=== PATIENT | female | born 1950 | race Caucasian/White ===

== ENCOUNTER 2021-09-14 09:40 | Outpatient (CLI) | payer OTHER, SELFPAY ==
--- NOTE | ~2021-09-14 | MM_ITS ---
EXAMINATION: MM screening papito BI w brenda HISTORY: Screening TECHNIQUE: Craniocaudal and mediolateral oblique 3-D tomosynthesis images were obtained and synthetic 2-D images were generated. CAD analysis was submitted and interpreted. COMPARISON: No prior studies for comparison. BREAST PARENCHYMAL COMPOSITION: There are scattered areas of fibroglandular density. FINDINGS: There are no suspicious masses, calcifications or architectural distortion in the left brenda st to suggest malignancy. In the upper inner quadrant of the right breast posteriorly is a focal asym metry. There is a right breast mass in the lower inner quadrant adjacent to the midline, middle third . There is a focal asymmetry laterally and anteriorly in the right breast on CC view. IMPRESSION: 1. Right breast asymmetries and focal mass as described above. 2. Additional mammographic views and possible breast ultrasound are recommended. BI-RADS Category 0: Incomplete: Needs additional imaging evaluation. Reviewed, dictated and finalized at location A. IMPRESSION: 1. Right breast asymmetries and focal mass as described above. 2. Additional mammographic views and possible breast ultrasound are recommended . BI-RADS Category 0: Incomplete: Needs additional imaging evaluation.
== END 2021-09-14 09:41 | disposition home or self-care (01) ==
PROVIDERS: Visit Provider Student in an Organized Health Care Education/Training Program
DX: Z12.31 Encounter for screening mammogram for malignant neoplasm of breast (principal); R92.8 Other abnormal and inconclusive findings on diagnostic imaging of breast
CPT/HCPCS: 77063; 77067

== ENCOUNTER 2021-09-29 12:44 | Outpatient (CLI) | payer OTHER, SELFPAY ==
--- NOTE | ~2021-09-29 | MMUS_ITS ---
EXAMINATION: MM diagnostic papito RT w brenda, US breast RT complete HISTORY: Right mammographic abnormal findings on 09/14/2021 screening examination TECHNIQUE: Additional 3-D tomosynthesis images of the right breast were performed and synthetic 2-D i mages were generated. CAD analysis was submitted and interpreted. High resolution complete right brenda st ultrasound including all 4 quadrants and subareolar area was performed. COMPARISON: 09/14/2021 bilateral screening mammogram 11/24/2014 bilateral screening mammogram BREAST PARENCHYMAL COMPOSITION: There are scattered areas of fibroglandular density. FINDINGS: MAMMOGRAPHIC FINDINGS: Stable approximately 5.8 mm circumscribed opacity in the inner mid right breast since 11/24/2014, cons istent with stable benign process. New irregular approximately 4.5 mm mass is noted in the posterior aspect of the upper inner quadrant of the right breast. ULTRASOUND: 12:30 11 cm from nipple: There is an irregular approximately 4 mm x 5.6 mm mass with posterior shado wing, highly suggestive of malignancy. Ultrasound guided biopsy is recommended. 12:30 4 cm from nipple: 9.5 x 6.1 x 5.7 mm circumscribed hypoechoic lesion without internal vascular ity or posterior shadowing. Retroareolar: 3.6 mm cyst 12:00: Several up to 4 mm cysts IMPRESSION: 1. Irregular hypoechoic shadowing new 4.5 mm mass in posterior upper inner quadrant of right breast 2. Ultrasound guided biopsy is recommended BI-RADS Category 2: Benign finding(s). Dr. Molina telephoned the report and ultrasound guided biopsy recommendation on 09/29/[address] Abdul's nurse Celina Reviewed, dictated and finalized at location A. IMPRESSION: 1. Irregular hypoechoic shadowing new 4.5 mm mass in posterior upper inner quad rant of right breast 2. Ultrasound guided biopsy is recommended BI-RADS Category 2: Benign finding(s). Dr. Molina telephoned the report and ultrasound guided biopsy recommendation on at [address] Abdul's nurse Celina
== END 2021-09-29 12:45 | disposition home or self-care (01) ==
LOC: ANHIMG 12:46
PROVIDERS: PCP Student in an Organized Health Care Education/Training Program; Visit Provider Student in an Organized Health Care Education/Training Program
DX: N60.01 Solitary cyst of right breast (principal); N63.12 Unspecified lump in the right breast, upper inner quadrant
CPT/HCPCS: 76641; 77061; 77065; G0279

== ENCOUNTER 2021-10-28 08:46 | Outpatient (CLI) | payer OTHER, SELFPAY ==
--- NOTE | ~2021-10-28 | MMUS_ITS ---
EXAMINATION: US GUIDED NEEDLE BIOPSY DATE: 10/28/2021 10:33 CDT INDICATION: Irregular 4 x 5.6 mm mass with posterior shadowing at 12:30 11 cm from nipple TECHNIQUE AND FINDINGS: The risks and potential benefits of the procedure were discussed with the patient, and written inform ed consent was obtained. Timeout procedure was performed. After sterile preparation of the right brenda st, 1% lidocaine was utilized for local anesthesia. A 14G spring-loaded biopsy gun needle was advanced to the edge of the region of interest from a later al approach utilizing sonographic guidance. A total of three tissue core samples were obtained throu gh the lesion. An Inrad tissue marker clip was then placed at the biopsy site. Hemostasis was achiev ed. A sterile bandage was applied. The patient tolerated procedure well and there was no evidence of immediate complication. The patien t was given verbal instructions prior to departing from the department. A two view mammogram was perf ormed to document tissue marker clip placement. The tissue samples were submitted to surgical patholo gy for histologic analysis. IMPRESSION: 1. Successful ultrasound guided biopsy of right 12:30 breast mass with biopsy marker placement. Plea se refer to pathology report for histologic analysis. Reviewed, dictated and finalized at Location A. Reviewed, dictated and finalized at location A. IMPRESSION: 1. Successful ultrasound guided biopsy of right 12:30 breast mass with biopsy marker placement. Please refer to pathology report for histologic analysis.
== END 2021-10-28 08:47 | disposition home or self-care (01) ==
PROVIDERS: PCP Student in an Organized Health Care Education/Training Program; Visit Provider Student in an Organized Health Care Education/Training Program
DX: C50.911 Malignant neoplasm of unspecified site of right female breast (principal)
CPT/HCPCS: 19083; 88305; 88342; A4648

== ENCOUNTER 2022-02-15 14:44 | Emergency (ER) | payer OTHER, SELFPAY ==
--- NOTE | ~2022-02-15 | CT_ITS ---
EXAMINATION: CT abdomen pelvis w con DATE: 02/15/2022 18:05 INDICATION: RLQ and LLQ abd pain TECHNIQUE: Computed tomography (CT) of the abdomen and pelvis was performed with 100 mL Omnipaque-350 intravenous contrast. Automated exposure control and iterative reconstruction technique were employe d. The dose-length product was 1207.84 mGy-cm. COMPARISON: None. FINDINGS: Lower thorax: Coronary artery calcification. Bibasilar minimal scar/atelectasis Liver: Multiple liver cysts and hypodensities that are too small to characterize. Hepatomegaly. Biliary/Gallbladder: Gallbladder is normal. No bile duct dilation. Pancreas: No mass or duct dilation. Spleen: Normal. Adrenals:No mass. Kidneys: Bilateral renal cysts and hypodensities that are too small to characterize. Bilateral nonobs tructing calculi. GI tract: No small or large bowel dilation. Normal appendix. Diverticulosis. Short segment wall thick ening and pericolonic inflammatory change in the distal descending colon and proximal sigmoid. Mesentery/Peritoneum: No ascites, mass, or free air. Retroperitoneum: No mass. Atherosclerotic abdominal aortic and/or arterial calcifications. Pelvis: Mild bladder wall thickening. 3.1 cm simple appearing right ovarian cyst.. Soft Tissues: Soft tissues and body wall unremarkable. Bones: No acute osseous finding. IMPRESSION: Acute uncomplicated diverticulitis. 3.1 cm right ovarian cystic lesion, recommend nonemergent but kishore inge outpatient pelvic ultrasound for further characterization. Reviewed, dictated and finalized at location K. IMPRESSION: Acute uncomplicated diverticulitis. 3.1 cm right ovarian cystic lesion, recomme nd nonemergent but timely outpatient pelvic ultrasound for further characteriza tion.
[2022-02-15 14:51] VITALS: BP 131/73; PULSE 99; RESP 18; TEMP 36.6; O2SAT 100
[2022-02-15 16:19] VITALS: BP 109/80; PULSE 87; RESP 12; TEMP 36.9; O2SAT 96
[2022-02-15 16:40] LABS: Basophils Percent Auto 0.2 % (0.2-1.2); Eosinophils Absolute Auto 0.1 K/mm3 (0-0.3); Eosinophils Percent Auto 0.7 % (0-4.4); Hematocrit 40.6 % (37.0-47.0); Hemoglobin 13.3 g/dL (12.0-15.0); Immature Granulocyte Absolute 0.05 K/mm3 (0.00-0.031); Immature Granulocyte Percent A 0.3 % (0-0.5); Lymphocytes Absolute Auto 1.64 K/mm3 (0.9-3.2); Lymphocytes Percent Auto 11.2 % (18.3-44.2); Mean Corpuscular HGB Conc 32.8 g/dl (32-36); Mean Corpuscular Hemoglobin 32.5 pg (26-34); Mean Corpuscular Volume 99.3 fl (80-100); Mean Platelet Volume 9.8 fl (7.4-10.4); Monocytes Absolute Auto 1.1 K/mm3 (0.1-0.6); Monocytes Percent Auto 7.6 % (2.6-8.5); Neutrophils Absolute Auto 11.7 K/mm3 (1.3-6.7); Platelet Count Result 284 k/mm3 (150-375); Red Blood Count 4.09 M/mm3 (4.2-5.4); Red Cell Distribution Width 14.1 % (11.5-14.5); White Blood Count 14.6 K/mm3 (4.5-10.0)
--- NOTE | 2022-02-15 16:49 | PC.NURSE ---
lab rejected green top and reports do not have enough urine. manufacturing tech aware.
--- NOTE | 2022-02-15 16:53 | ED.FEMALEGU ---
HPI - Female Genitourinary General Chief complaint: Urogenital-Female Stated complaint: OVARY PAIN Time Seen by Provider: 02/15/22 16:41 Source: patient Mode of arrival: ambulatory Limitations: no limitations History of Present Illness HPI Narrative: Patient is a 71-year-old female with a history of hyperlipidemia, schizoaffective disorder, presenting to the emergency department for evaluation of lower abdominal pain. Patient reports aching pain in her bilateral right and left lower quadrants. Patient denies any significant radiation to the flanks. She denies dysuria or hematuria. She denies fever, chills, she does report nausea without vomiting. Patient denies history of this in the past. She denies diarrhea or constipation. Patient has been taking Tylenol with some improvement in her symptoms. Patient reports pain is developed over the past 48 hours, worsening in severity. Related Data Home Medications Medication Instructions Recorded Confirmed aripiprazole 300 mg intramuscular mg IM 02/15/22 suspension,extended release (Abilify Maintena) cetirizine 10 mg tablet mg 02/15/22 duloxetine 30 mg capsule,delayed mg PO 02/15/22 release fenofibrate nanocrystallized 145 mg PO 02/15/22 mg tablet multivitamin-ferrous 1 tablet PO DAILY 02/15/22 fumarate-folic acid 18 mg-400 mcg tablet (Centrum) Allergies Allergy/AdvReac Type Severity Reaction Status Date / Time niacin AdvReac Hallucinati Verified 02/15/22 18:05 ng Review of Systems Review of Systems: CONSTITUTIONAL: Denies fever, chills, or sweats. ENT: Denies rhinorrhea, congestion, sore throat, or otalgia. CARDIOVASCULAR: Denies chest pain, palpitations, or edema. RESPIRATORY: Denies cough or dyspnea. GASTROINTESTINAL: Reports abdominal pain, nausea GENITOURINARY: Denies dysuria or hematuria. SKIN: Denies rash or itching. MUSCULOSKELETAL: Denies back pain, joint pain, or myalgia. NEUROLOGIC: Denies headache, numbness, or weakness. Psychiatric: Patient history of schizoaffective disorder [facility] Social History Social History (Updated 02/15/22 @ 18:41 by Parul Cristina MD) Smoking status: Current every day smoker Alcohol intake: never Substance use: never Living arrangements: with family Gender identity (if verbalized by the patient): Female Exam Narrative: GENERAL: Awake, alert, conversant HEAD: Normocephalic, atraumatic. EYES: PERRLA and EOMI. ENT: Nares clear, no rhinorrhea or epistaxis. Mucous membranes moist. NECK: Supple. CHEST: No respiratory distress, breathing even and non labored HEART: Regular rate, sinus rhythm ABDOMEN:Non distended, tenderness in the RLQ and LLQ without rebound, rigidity or guarding EXTREMITIES: Normal range of motion. No edema. SKIN: Warm, dry, no rash. NEURO:No focal deficits. Alert and oriented x3 Course Vital Signs Vital signs: Vital Signs Temperature 36.6 C 02/15/22 14:51 Pulse Rate 99 02/15/22 14:51 Respiratory Rate 18 02/15/22 14:51 Blood Pressure 131/73 02/15/22 14:51 Pulse Oximetry 100 02/15/22 14:51 Temperature 36.9 C 02/15/22 16:19 Pulse Rate 87 02/15/22 16:19 Respiratory Rate 12 02/15/22 16:19 Blood Pressure 109/80 02/15/22 16:19 Pulse Oximetry 96 02/15/22 16:19 MDM - Female Genitourinary MDM Narrative Medical decision making narrative: Patient presented to the emergency department for evaluation of lower abdominal pain. At the time of assessment, ABCs are intact and vital signs are stable. Patient was given IV fluids, antiemetic and pain medication. Laboratory results are notable for leukocytosis. No electrolyte abnormality or acute kidney injury. Urinalysis is not consistent with a urinary tract infection. CT scan confirms acute uncomplicated diverticulitis. She also has an ovarian cyst, that patient is aware of. Patient was given dual antibiotic therapy. However, I then realized to the patient's medication list, she wo
[2022-02-15 17:22] LABS: Alanine Aminotransferase 19 U/L (6-35); Albumin Level 4.1 g/dL (3.5-5.1); Alkaline Phosphatase 64 U/L (38-126); Anion Gap 7 mmol/L (8-16); Aspartate Amino Transferase 26 U/L (14-36); Bilirubin,Total 0.8 mg/dL (0.2-1.3); Blood Urea Nitrogen 21 mg/dL (7-17); Calcium 9.9 mg/dL (8.4-10.2); Carbon Dioxide 27 mmol/L (22-30); Chloride 100 mmol/L (98-107); Estimated CRCL calculation 68 ml/min; Estimated Glomerular Filt Rate > 60; Glucose 116 mg/dL (65-110); Potassium 4.2 mmol/L (3.4-5.0); Sodium 134 mmol/L (137-145)
[2022-02-15] MEDS: ONDANSETRON INJ 4 MG/2 ML VIAL IV PUSH (17:38)
[2022-02-15] MEDS: SODIUM CHLORIDE 0.9% IV 1,000 ML 999 ML IV CONT (17:38)
[2022-02-15 17:48] LABS: Lipase 49 U/L (23-300)
[2022-02-15 18:49] LABS: Add Urine Microscopic? YES; Appearance Urine Cloudy (Clear); Bilirubin Urine Negative (Negative); Blood Urine Negative (Negative); Color Urine Yellow (Yellow); Glucose Urine UA Negative (Negative); Ketones Urine Negative (Negative); Leukocyte Esterase Ur 1+ LEU/UL (Negative); Mucus Urine Rare /lpf; Nitrate Urine Negative (Negative); Protein Urine Negative (Negative); RBC Urine 0-2 /hpf (0-2); Squamous Epithelial Cell Urine Many /hpf (Few); Urobilinogen Urine Negative mg/dL (<2.0)
[2022-02-15 18:54] LABS: Specific Grav Ur 1.034 (1.001-1.035)
[2022-02-15] MEDS: metroNIDAZOLE 500 MG/ISO 100ML 500 MG/100 ML BAG 100 MG IVPB (19:14)
[2022-02-15 19:16] VITALS: BP 96/62; PULSE 77; RESP 18; O2SAT 92
[2022-02-15 19:36] VITALS: BP 123/70; PULSE 86; RESP 14; O2SAT 97
[2022-02-15 20:01] VITALS: BP 116/63; PULSE 83; RESP 19; O2SAT 94
[2022-02-15 20:28] VITALS: BP 120/85; PULSE 87; RESP 16; O2SAT 93
== END 2022-02-15 20:30 | disposition home or self-care (01) ==
PROVIDERS: Physician Assistant; Emergency Provider Emergency Medicine
DX: K57.32 Diverticulitis of large intestine without perforation or abscess without bleeding (principal); F17.200 Nicotine dependence, unspecified, uncomplicated; N83.201 Unspecified ovarian cyst, right side
CPT/HCPCS: 36415; 74177; 80053; 81001; 83690; 85025; 87086; 87088; 96365; 96367; 96375; 99284; J0131; J2405; J7030; Q9967

== ENCOUNTER 2022-02-23 12:03 | Emergency (ER) | payer OTHER, SELFPAY ==
--- NOTE | ~2022-02-23 | CT_ITS ---
EXAMINATION: CT abdomen pelvis w con INDICATION: Recurrent abdominal pain, history of diverticulitis and breast cancer TECHNIQUE: Computed tomographic images of the abdomen and pelvis were obtained after the administrati on of 100 cc of Omnipaque 350 intravenous contrast. The dose-length product (DLP) was 874.41 mGy-cm. Automated exposure control and iterative reconstruction technique were employed. COMPARISON: 02/15/2022 FINDINGS: Minimal dependent atelectasis is present in the lung bases. The heart size is normal. Cysts of the liver measure up to 8 mm in the left hepatic lobe. The spleen, pancreas, and gallbladder are normal. There is mild nodularity of the adrenal glands. Nonobstructing stones of the right kidney gio sure up to 3 mm. Nonobstructing stones of the left kidney measure up to 2 mm. Cysts of the kidneys me asure up to 1.6 cm on the left. There is a 7 mm hyperdense mass of the left kidney upper pole. There is calcified atherosclerosis of the aorta and many of the other arteries. Colonic diverticulosis is a gain noted. There is persistent but improved pericolic fat stranding adjacent to the distal descendin g and proximal sigmoid colon. No pericolic abscess is identified. There is no free intraperitoneal ga s or evidence of bowel obstruction. No pathologically enlarged abdominal or pelvic lymph nodes are id entified. The appendix is normal. There is moderate lumbar spondylosis. IMPRESSION: 1. Diverticulitis of the distal descending and proximal sigmoid colon with slight improvement. 2. Hyperdense mass of the left kidney upper pole which could be hemorrhagic cyst versus solid neoplas m. Follow-up with nonemergent CT or MRI without and with contrast is recommended 3. Mild nodularity of the adrenal glands which could reflect adenomas. Reviewed, dictated and finalized at location A. IMPRESSION: 1. Diverticulitis of the distal descending and proximal sigmoid colon with slig ht improvement. 2. Hyperdense mass of the left kidney upper pole which could be hemorrhagic cys t versus solid neoplasm. Follow-up with nonemergent CT or MRI without and with contrast is recommended 3. Mild nodularity of the adrenal glands which could reflect adenomas.
[2022-02-23 12:23] VITALS: BP 113/74; PULSE 74; RESP 20; TEMP 36.8; O2SAT 99
[2022-02-23 12:54] LABS: Alanine Aminotransferase 18 U/L (6-35); Albumin Level 3.9 g/dL (3.5-5.1); Alkaline Phosphatase 44 U/L (38-126); Anion Gap 8 mmol/L (8-16); Aspartate Amino Transferase 32 U/L (14-36); Bilirubin,Total 0.7 mg/dL (0.2-1.3); Blood Urea Nitrogen 15 mg/dL (7-17); Calcium 8.8 mg/dL (8.4-10.2); Carbon Dioxide 27 mmol/L (22-30); Chloride 99 mmol/L (98-107); Estimated CRCL calculation 59 ml/min; Estimated Glomerular Filt Rate > 60; Glucose 103 mg/dL (65-110); Lipase 71 U/L (23-300); Sodium 134 mmol/L (137-145)
[2022-02-23 14:48] VITALS: O2SAT 92
[2022-02-23 14:50] VITALS: BP 114/80; O2SAT 97
--- NOTE | 2022-02-23 14:50 | ED.ABDPAIN ---
HPI - Abdominal Pain General Chief Complaint: Abdominal Pain Stated Complaint: recent diverticulitis/continued pain Time Seen by Provider: 02/23/22 14:50 Source: patient and family Mode of arrival: ambulatory Limitations: no limitations History of Present Illness HPI narrative: Patient is a 71-year-old female with a history of schizoaffective disorder, hypertension, recent diagnosis of diverticulitis, returning to the ER for evaluation of recurrent intermittent abdominal pain. Patient reports intermittent abdominal cramping pain over the past 24 hours. Patient states her abdominal cramping initially did improve before recurring yesterday. Patient denies fever, chills, nausea or vomiting. She reports constipation but did have a normal bowel movement today. She denies diarrhea, blood or mucus present in the stool. Patient reports mild abdominal distention without significant distention. She denies chest pain, cough or shortness of breath. Patient has been compliant with her antibiotics. She was told by her primary care physician to return for reassessment given her pain. Patient states she took an ibuprofen this morning around 10 AM and currently has no pain whatsoever. Her current review, I did evaluate the patient on February 15 she was diagnosed with diverticulitis and had a leukocytosis and was discharged home on Augmentin due to drug interactions between her duloxetine and ciprofloxacin. Related Data Home Medications Medication Instructions Recorded Confirmed aripiprazole 300 mg intramuscular mg IM 02/15/22 suspension,extended release (Abilify Maintena) cetirizine 10 mg tablet mg 02/15/22 duloxetine 30 mg capsule,delayed mg PO 02/15/22 release fenofibrate nanocrystallized 145 mg PO 02/15/22 mg tablet multivitamin-ferrous 1 tablet PO DAILY 02/15/22 fumarate-folic acid 18 mg-400 mcg tablet (Centrum) Allergies Allergy/AdvReac Type Severity Reaction Status Date / Time niacin AdvReac Hallucinati Verified 02/15/22 18:05 ng Review of Systems Review of Systems: CONSTITUTIONAL: Denies fever, chills, or sweats. EYES: Denies visual changes, redness, or discharge. ENT: Denies rhinorrhea, congestion, sore throat, or otalgia. CARDIOVASCULAR: Denies chest pain, palpitations, or edema. RESPIRATORY: Denies cough or dyspnea. GASTROINTESTINAL: Intermittent abdominal cramping, denies current abdominal pain, denies nausea, vomiting or diarrhea GENITOURINARY: Denies dysuria or hematuria. SKIN: Denies rash or itching. MUSCULOSKELETAL: Denies back pain, joint pain, or myalgia. NEUROLOGIC: Denies headache, numbness, or weakness. [facility] Past Medical History Medical History (Updated 02/23/22 @ 16:00 by Parul Cristina MD) Hyperlipidemia Schizoaffective disorder Social History Social History Smoking status: Current every day smoker Alcohol intake: never Substance use: never Gender identity (if verbalized by the patient): Female Exam Narrative: GENERAL: Awake, alert, conversant HEAD: Normocephalic, atraumatic. EYES: PERRLA and EOMI. ENT: Nares clear, no rhinorrhea or epistaxis. Mucous membranes moist. NECK: Supple. CHEST: No respiratory distress, breathing even and non labored HEART: Regular rate, sinus rhythm ABDOMEN:Non distended, non tender in all 4 quadrants, no rebound, rigidity or guarding, normal active bowel sounds throughout. EXTREMITIES: Normal range of motion. No edema. SKIN: Warm, dry, no rash. NEURO:No focal deficits. Alert and oriented x3 Course Vital Signs Vital signs: Vital Signs Temperature 36.8 C 02/23/22 12:23 Pulse Rate 74 02/23/22 12:23 Respiratory Rate 20 02/23/22 12:23 Blood Pressure 113/74 02/23/22 12:23 Pulse Oximetry 99 02/23/22 12:23 Oxygen Delivery Room Air 02/23/22 12:23 Temperature 36.8 C 02/23/22 12:23 Pulse Rate 74 02/23/22 12:23 Respiratory Rate 20 02/23/22 12
[2022-02-23 15:26] LABS: Basophils Percent Auto 0.4 % (0.2-1.2); Eosinophils Absolute Auto 0.3 K/mm3 (0-0.3); Eosinophils Percent Auto 2.7 % (0-4.4); Hematocrit 39.1 % (37.0-47.0); Hemoglobin 12.6 g/dL (12.0-15.0); Immature Granulocyte Absolute 0.04 K/mm3 (0.00-0.031); Immature Granulocyte Percent A 0.4 % (0-0.5); Lymphocytes Absolute Auto 2.36 K/mm3 (0.9-3.2); Lymphocytes Percent Auto 24.8 % (18.3-44.2); Mean Corpuscular HGB Conc 32.2 g/dl (32-36); Mean Corpuscular Hemoglobin 32.3 pg (26-34); Mean Corpuscular Volume 100.3 fl (80-100); Mean Platelet Volume 9.3 fl (7.4-10.4); Monocytes Absolute Auto 0.7 K/mm3 (0.1-0.6); Monocytes Percent Auto 7.1 % (2.6-8.5); Neutrophils Absolute Auto 6.2 K/mm3 (1.3-6.7); Neutrophils Percent Auto 64.6 % (45.5-73.1); Platelet Count Result 354 k/mm3 (150-375); Red Cell Distribution Width 13.9 % (11.5-14.5); White Blood Count 9.5 K/mm3 (4.5-10.0)
[2022-02-23 16:00] VITALS: BP 123/70; PULSE 82; RESP 16; TEMP 36.8; O2SAT 98
[2022-02-23 16:42] LABS: Add Urine Microscopic? NO; Appearance Urine Clear (Clear); Bilirubin Urine Negative (Negative); Blood Urine Negative (Negative); Color Urine Straw (Yellow); Glucose Urine UA Negative (Negative); Ketones Urine Negative (Negative); Leukocyte Esterase Ur Negative LEU/UL (Negative); Nitrate Urine Negative (Negative); Protein Urine Negative (Negative); Specific Grav Ur 1.027 (1.001-1.035); Urobilinogen Urine Negative mg/dL (<2.0)
== END 2022-02-23 16:35 | disposition home or self-care (01) ==
LOC: ANHED 16:15
PROVIDERS: Emergency Medicine; Emergency Provider Emergency Medicine; PCP Internal Medicine
DX: K57.32 Diverticulitis of large intestine without perforation or abscess without bleeding (principal); E78.5 Hyperlipidemia, unspecified; F17.200 Nicotine dependence, unspecified, uncomplicated; N28.89 Other specified disorders of kidney and ureter; E27.9 Disorder of adrenal gland, unspecified
CPT/HCPCS: 36415; 74177; 80053; 81003; 83690; 85025; 99284; Q9967

== ENCOUNTER 2022-08-08 09:00 | Outpatient (NON) | payer MEDICARE, MEDICAID, SELFPAY | END 2022-08-08 09:01 | disposition home or self-care (01) | LOC: ANHLAB 08-09 07:50 | PROVIDERS: PCP Internal Medicine; Visit Provider Internal Medicine Gastroenterology | DX: D12.5 Benign neoplasm of sigmoid colon (principal) | CPT/HCPCS: 88305 ==

== ENCOUNTER 2022-12-19 11:40 | Emergency (ER) | payer MEDICARE, MEDICAID, SELFPAY ==
[2022-12-19] VITALS (26 sets, daily range): BP systolic 107–141; BP diastolic 69–87; PULSE 74–84; RESP 9–18; TEMP 36.2; O2SAT 91–99
--- NOTE | ~2022-12-19 | CT_ITS ---
EXAMINATION: CT abdomen pelvis w con INDICATION: Left lower quadrant pain and tenderness TECHNIQUE: Computed tomographic images of the abdomen and pelvis were obtained after the administrati on of 100 cc of Omnipaque 350 intravenous contrast. The dose-length product (DLP) was 1150.75 mGy-cm. Automated exposure control and iterative reconstruction technique were employed. COMPARISON: 02/23/2022 FINDINGS: Minimal dependent atelectasis is present in the lung bases. The heart size is normal. Cysts of the liver measure up to 8 mm in the left hepatic lobe. The spleen, pancreas, and gallbladder are normal. There is mild chronic nodularity of the adrenal glands. Nonobstructing stones of the right ki dney measure up to 6 mm. There is a stable 7 mm hyperdense mass of the left kidney upper pole. There is colonic diverticulosis. There is wall thickening of the sigmoid colon with surrounding inflammator y fat stranding. No abscess or perforation are identified. The appendix is normal. No pathologically enlarged abdominal or pelvic lymph nodes are identified. No free intraperitoneal gas or evidence of b owel obstruction. There is moderate lumbar spondylosis. IMPRESSION: 1. Uncomplicated sigmoid diverticulitis. 2. Stable hemorrhagic mass of the left kidney upper pole. Nonemergent CT or MRI without and with cont rast remains recommended if not previously performed. Reviewed, dictated and finalized at location B. IMPRESSION: 1. Uncomplicated sigmoid diverticulitis. 2. Stable hemorrhagic mass of the left kidney upper pole. Nonemergent CT or MRI without and with contrast remains recommended if not previously performed.
[2022-12-19 13:45] LABS: Basophils Absolute Auto 0.1 K/mm3 (0.0-0.1); Basophils Percent Auto 0.7 % (0.2-1.2); Eosinophils Absolute Auto 0.2 K/mm3 (0-0.3); Hematocrit 42.6 % (37.0-47.0); Hemoglobin 13.2 g/dL (12.0-15.0); Immature Granulocyte Absolute 0.04 K/mm3 (0.00-0.031); Immature Granulocyte Percent A 0.4 % (0-0.5); Lymphocytes Absolute Auto 1.84 K/mm3 (0.9-3.2); Lymphocytes Percent Auto 19.6 % (18.3-44.2); Mean Corpuscular Hemoglobin 32.3 pg (26-34); Mean Corpuscular Volume 104.2 fl (80-100); Mean Platelet Volume 9.7 fl (7.4-10.4); Monocytes Absolute Auto 0.6 K/mm3 (0.1-0.6); Neutrophils Absolute Auto 6.7 K/mm3 (1.3-6.7); Neutrophils Percent Auto 71.3 % (45.5-73.1); Platelet Count Result 300 k/mm3 (150-375); Red Blood Count 4.09 M/mm3 (4.2-5.4); Red Cell Distribution Width 14.1 % (11.5-14.5); White Blood Count 9.4 K/mm3 (4.5-10.0)
--- NOTE | 2022-12-19 14:00 | ED.ABDPAIN ---
HPI - Abdominal Pain General Chief Complaint: Abdominal Pain Stated Complaint: abd pain sent by pmd Time Seen by Provider: 12/19/22 13:15 History of Present Illness HPI narrative: Patient is a 72-year-old female with a history of hypertension, breast cancer, anxiety presenting with abdominal pain. Patient states that for the last 4 to 5 days she has had left lower quadrant pain associated with persistent nausea. States that she has been a bit constipated but she did have a normal bowel movement earlier this morning. States she has a history of diverticulitis. She spoke with her PCP who advised she come in for evaluation. Reports chills but no measured fevers. No headache, numbness or weakness, chest pain, shortness of breath, cough, dysuria, flank pain, leg swelling. Related Data Home Medications Medication Instructions Recorded Confirmed acetaminophen 325 mg capsule 325 mg PO Q4-8H PRN Pain 03/01/22 08/08/22 (Tylenol) aripiprazole 300 mg suspension, 300 mg IM Q28D 03/01/22 08/08/22 extended rel. intramuscular syringe (Suzy Delarosa) cetirizine 10 mg tablet 10 mg PO DAILY 03/01/22 08/08/22 duloxetine 30 mg capsule,delayed 30 mg PO DAILY 03/01/22 08/08/22 release (Cymbalta) fenofibrate 150 mg capsule 145 mg PO DAILY 03/01/22 08/08/22 ibuprofen 400 mg tablet 400 mg PO Q6H PRN Headache 03/01/22 08/08/22 aspirin 81 mg tablet,delayed 81 mg PO DAILY 05/12/22 08/08/22 release (Adult Low Dose Aspirin) Lactobacillus acidophilus 2,000 mmu cells PO DAILY 07/27/22 08/08/22 cholecalciferol (vitamin D3) 250 250 mcg PO DAILY 07/27/22 08/08/22 mcg (10,000 unit) tablet nvvmenljorsx-pwyyrvna-hpjebb tablet 1 tablet PO DAILY 07/27/22 08/08/22 rosuvastatin 5 mg tablet (Crestor) 5 mg PO DAILY 07/27/22 08/08/22 tamoxifen 20 mg tablet 20 mg PO DAILY 08/04/22 08/08/22 Allergies Allergy/AdvReac Type Severity Reaction Status Date / Time niacin AdvReac Rash Verified 08/08/22 12:50 Review of Systems Review of Systems: All systems reviewed & are unremarkable except as noted in HPI and below PMFSH Past Medical History Medical History Breast cancer Hyperlipidemia Obesity Schizoaffective disorder Social History Social History Smoking packs per day: 2 Smoking cigarettes per day: 40.0 Years smoked: 50 Smoking pack-years: 100.00 Smoking status: Current every day smoker Tobacco type: cigarettes Additional smoking assessment comments: smokes 5 per day Alcohol intake: never Substance use: never Living arrangements: alone Gender identity (if verbalized by the patient): Female Spiritual care concerns: No Exam Narrative: GENERAL: Well-appearing, well-nourished, and in no acute distress. Pleasant and cooperative HEAD: Normocephalic, atraumatic. EYES: PERRLA and EOMI. ENT: Nares clear, no rhinorrhea or epistaxis. Mucous membranes moist. NECK: Supple. CHEST: Clear to auscultation. No respiratory distress. HEART: Regular rate and rhythm ABDOMEN: Soft, +LLQ tenderness, no guarding or rebound EXTREMITIES: Normal range of motion. No edema. SKIN: Warm, dry, no rash. NEURO: No focal deficits. Alert and oriented x3. PSYCH: Normal mood and affect. Course Vital Signs Vital signs: Vital Signs Temperature 97.2 F L 12/19/22 11:52 Pulse Rate 82 12/19/22 11:52 Respiratory Rate 18 12/19/22 11:52 Blood Pressure 112/79 12/19/22 11:52 Pulse Oximetry 98 12/19/22 11:52 Oxygen Delivery Room Air 12/19/22 11:52 Temperature 97.2 F L 12/19/22 11:52 Pulse Rate 82 12/19/22 16:24 Respiratory Rate 17 12/19/22 16:24 Blood Pressure 141/79 H 12/19/22 18:22 Pulse Oximetry 96 12/19/22 17:36 Oxygen Delivery Room Air 12/19/22 11:52 MDM - Abdominal Pain MDM Narrative Medical decision making narrative: Patient is a 72-year-old female presenting with left-sided
[2022-12-19] MEDS: SODIUM CHLORIDE 0.9% IV 1,000 ML 999 ML IV CONT (14:13)
[2022-12-19 14:48] LABS: Appearance Urine Clear (Clear); Bacteria Urine 4+ /hpf; Bilirubin Urine Negative (Negative); Blood Urine Negative (Negative); Color Urine Yellow (Yellow); Glucose Urine UA Negative (Negative); Ketones Urine Negative (Negative); Leukocyte Esterase Ur 1+ LEU/UL (Negative); Nitrate Urine Positive (Negative); Non Pathogenic Casts 0-2; Protein Urine Negative (Negative); RBC Urine 0-2 /hpf (0-2); Specific Grav Ur 1.011 (1.001-1.035); Squamous Epithelial Cell Urine Occasional /hpf (Few); Urobilinogen Urine 0.2 mg/dL (<2.0); pH Urine 5.5 (5.0-9.0)
[2022-12-19 14:58] LABS: Add Urine Microscopic? YES
[2022-12-19 15:24] LABS: Estimated CRCL calculation 79 ml/min; Estimated Glomerular Filt Rate > 60
[2022-12-19 15:26] LABS: Alanine Aminotransferase 18 U/L (6-35); Albumin Level 3.6 g/dL (3.5-5.1); Alkaline Phosphatase 65 U/L (38-126); Anion Gap 4 mmol/L (8-16); Aspartate Amino Transferase 20 U/L (14-36); Bilirubin,Total 0.3 mg/dL (0.2-1.3); Blood Urea Nitrogen 15 mg/dL (7-17); Carbon Dioxide 30 mmol/L (22-30); Chloride 105 mmol/L (98-107); Estimated CRCL calculation 69 ml/min; Estimated Glomerular Filt Rate > 60; Glucose 100 mg/dL (65-110); Lipase 101 U/L (23-300); Potassium 4.3 mmol/L (3.4-5.0); Sodium 139 mmol/L (137-145)
[2022-12-19] MEDS: AMOXICILLIN/CLAVULANATE K 875-125 MG TAB 1 TABLET PO (16:53)
== END 2022-12-19 18:24 | disposition home or self-care (01) ==
PROVIDERS: Emergency Medicine; Emergency Provider Emergency Medicine; PCP Internal Medicine
DX: K57.32 Diverticulitis of large intestine without perforation or abscess without bleeding (principal); N39.0 Urinary tract infection, site not specified; I10 Essential (primary) hypertension; E78.5 Hyperlipidemia, unspecified; E66.9 Obesity, unspecified; Z68.37 Body mass index [BMI] 37.0-37.9, adult; F41.9 Anxiety disorder, unspecified; F25.9 Schizoaffective disorder, unspecified; Z85.3 Personal history of malignant neoplasm of breast; F17.210 Nicotine dependence, cigarettes, uncomplicated; Z79.82 Long term (current) use of aspirin; N28.89 Other specified disorders of kidney and ureter
CPT/HCPCS: 36415; 74177; 80053; 81001; 83690; 85025; 87077; 87086; 87186; 96361; 96365; 99284; A9270; J0696; J7030; Q9967

== ENCOUNTER 2023-01-10 08:03 | Outpatient (CLI) | payer MEDICARE, MEDICAID, SELFPAY ==
--- NOTE | 2023-01-10 09:14 | ECG_ITS ---
Measurements Intervals [place] Rate: 83 P: 25 HI: 142 QRS: -35 QRSD: 111 T: 23 QT: 359 QTc: 422 Interpretive Statements SINUS RHYTHM LEFT AXIS DEVIATION INTRAVENTRICULAR CONDUCTION DELAY BORDERLINE R WAVE PROGRESSION, ANTERIOR LEADS BASELINE ARTIFACT- I, II, III, AVR, AVL, AVF BORDERLINE ECG NO PREVIOUS ECG AVAILABLE FOR COMPARISON Electronically Signed On 01-10-2023 9:34:08 CDT by Kenton Crockett D.O.
[2023-01-10 09:52] LABS: INR 0.9; Partial Thromboplastin Time 26.6 SECONDS (22.3-36.8)
== END 2023-01-10 08:04 | disposition home or self-care (01) ==
LOC: ANHSURGERY 08:08
PROVIDERS: PCP Internal Medicine; Visit Provider Urology
DX: Z01.818 Encounter for other preprocedural examination (principal); N81.4 Uterovaginal prolapse, unspecified; E78.5 Hyperlipidemia, unspecified
CPT/HCPCS: 36415; 85610; 85730; 86850; 86900; 86901; 93005

== ENCOUNTER 2023-01-13 11:08 | Observation (INO) | payer MEDICARE, MEDICAID, SELFPAY ==
[2023-01-13] VITALS (9 sets, daily range): BP systolic 107–118; BP diastolic 66–78; PULSE 76–88; RESP 14–19; TEMP 35.8–36.4; O2SAT 92–95
--- NOTE | ~2023-01-13 | MR_ITS ---
EXAMINATION: MR abdomen wo/w con DATE: 01/14/2023 14:04 INDICATION: Kidney mass. TECHNIQUE: Magnetic resonance imaging (MRI) of the abdomen was performed without and with 19 mL Multi Alexus intravenous contrast. COMPARISON: CT abdomen and pelvis 01/13/2023 FINDINGS: There are cysts in the liver measuring up to 10 mm. The gallbladder, spleen, pancreas, and right adre nal gland are normal. There is focal cortical thinning of left kidney. In left adrenal gland, there a re masses measuring up to 15 mm with microscopic fat, consistent with adenomas. There are cysts in th e kidneys measuring up to 15 mm on the right. There is a 10 mm hemorrhagic cyst in left kidney. There are no dilated loops of bowel. There are no pathologically enlarged lymph nodes. There is no free in traperitoneal fluid. IMPRESSION: 1. 10 mm hemorrhagic cyst in left kidney correlating with the CT abnormality. Reviewed, dictated and finalized at location E.
--- NOTE | ~2023-01-13 | CT_ITS ---
EXAMINATION: CT abdomen pelvis w con INDICATION: Left lower quadrant pain TECHNIQUE: Computed tomographic images of the abdomen and pelvis were obtained after the administrati on of 100 cc of Omnipaque 350 intravenous contrast. The dose-length product (DLP) was 1265.61 mGy-cm. Automated exposure control and iterative reconstruction technique were employed. COMPARISON: 12/19/2022 FINDINGS: Minimal dependent atelectasis is present in the lung bases. The heart size is normal. Cysts of the liver measure up to 8 mm in the left hepatic lobe. The spleen, pancreas, and gallbladder are normal. Again noted is chronic nodularity of the adrenal glands. Again seen are nonobstructing stones of the right kidney measuring up to 6 mm. There is a stable 7 mm hyperdense mass of the left kidney upper pole. Cysts of the kidneys measure up to 1.6 cm on the left. No pathologically enlarged abdomin al or pelvic lymph nodes are identified. No free intraperitoneal gas or evidence of bowel obstruction . Colonic diverticulosis is again noted. There is persistent wall thickening of the sigmoid colon wit h surrounding fat stranding. There is a 10 mm intramural abscess anteriorly in the wall of the sigmoi d colon on image 141. The appendix is normal. There is moderate lumbar spondylosis. IMPRESSION: 1. Persistent sigmoid diverticulitis with slight interval worsening as evidenced by development of a small intramural abscess. 2. Stable hyperdense mass of the left kidney upper pole. Nonemergent CT or MRI without and with contr ast remains recommended if not previously performed. Reviewed, dictated and finalized at location B. IMPRESSION: 1. Persistent sigmoid diverticulitis with slight interval worsening as evidence d by development of a small intramural abscess. 2. Stable hyperdense mass of the left kidney upper pole. Nonemergent CT or MRI without and with contrast remains recommended if not previously performed.
[2023-01-13 12:19] LABS: Basophils Percent Auto 0.3 % (0.2-1.2); Eosinophils Absolute Auto 0.1 K/mm3 (0-0.3); Eosinophils Percent Auto 0.5 % (0-4.4); Hematocrit 39.6 % (37.0-47.0); Hemoglobin 12.5 g/dL (12.0-15.0); Immature Granulocyte Absolute 0.03 K/mm3 (0.00-0.031); Immature Granulocyte Percent A 0.3 % (0-0.5); Lymphocytes Percent Auto 14.3 % (18.3-44.2); Mean Corpuscular HGB Conc 31.6 g/dl (32-36); Mean Corpuscular Hemoglobin 32.5 pg (26-34); Mean Corpuscular Volume 102.9 fl (80-100); Mean Platelet Volume 9.6 fl (7.4-10.4); Monocytes Absolute Auto 0.7 K/mm3 (0.1-0.6); Monocytes Percent Auto 6.2 % (2.6-8.5); Neutrophils Absolute Auto 8.2 K/mm3 (1.3-6.7); Neutrophils Percent Auto 78.4 % (45.5-73.1); Platelet Count Result 227 k/mm3 (150-375); Red Blood Count 3.85 M/mm3 (4.2-5.4); Red Cell Distribution Width 14.7 % (11.5-14.5); White Blood Count 10.5 K/mm3 (4.5-10.0)
[2023-01-13 12:28] LABS: Alanine Aminotransferase 15 U/L (6-35); Albumin Level 3.4 g/dL (3.5-5.1); Alkaline Phosphatase 50 U/L (38-126); Anion Gap 3 mmol/L (8-16); Aspartate Amino Transferase 18 U/L (14-36); Bilirubin,Total 0.3 mg/dL (0.2-1.3); Blood Urea Nitrogen 16 mg/dL (7-17); Calcium 8.9 mg/dL (8.4-10.2); Carbon Dioxide 30 mmol/L (22-30); Chloride 107 mmol/L (98-107); Estimated Glomerular Filt Rate > 60; Glucose 119 mg/dL (65-110); Lipase 76 U/L (23-300); Potassium 4.2 mmol/L (3.4-5.0); Sodium 140 mmol/L (137-145)
--- NOTE | 2023-01-13 12:47 | ED.ABDPAIN ---
HPI - Abdominal Pain General Chief Complaint: Abdominal Pain Stated Complaint: abd pain Time Seen by Provider: 01/13/23 12:02 History of Present Illness HPI narrative: Patient is a 72-year-old female who presents ER with lower abdominal pain. Ongoing over the last 24 hours. Left lower quadrant. Pressure but more sharp with palpation. Has sensation that she needs to have bowel movement but she feels constipated at this time. She did have a normal bowel movement yesterday and the day before. She has history of diverticulitis. No fevers or chills. Related Data Home Medications Medication Instructions Recorded Confirmed aripiprazole 300 mg suspension, 300 mg IM Q28D 03/01/22 01/13/23 extended rel. intramuscular syringe (Suzy Delarosa) cetirizine 10 mg tablet 10 mg PO DAILY 03/01/22 01/13/23 duloxetine 30 mg capsule,delayed 30 mg PO HS 03/01/22 01/13/23 release (Cymbalta) fenofibrate 150 mg capsule 145 mg PO DAILY 03/01/22 01/13/23 aspirin 81 mg tablet,delayed 81 mg PO DAILY 05/12/22 01/13/23 release (Adult Low Dose Aspirin) gkkjulxwxpjq-pciftahg-wpxczm tablet 1 tablet PO DAILY 07/27/22 01/13/23 rosuvastatin 5 mg tablet (Crestor) 5 mg PO DAILY 07/27/22 01/13/23 tamoxifen 20 mg tablet 20 mg PO DAILY 08/04/22 01/13/23 cholecalciferol (vitamin D3) 50 50 mcg PO DAILY 01/10/23 01/13/23 mcg (2,000 unit) capsule fiber 1 cap PO DAILY 01/10/23 01/13/23 Allergies Allergy/AdvReac Type Severity Reaction Status Date / Time guaifenesin [From Robitussin] Allergy Rash Verified 01/13/23 16:31 niacin AdvReac Rash, Verified 01/13/23 16:31 BURNING SENSATION Review of Systems Review of Systems: All systems reviewed & are unremarkable except as noted in HPI and below Constitutional: Constitutional: Denies chills, Denies fatigue and Denies fever(s) ENT: Denies nasal congestion and Denies sore throat Cardiovascular: Cardiovascular: Reports no additional cardiovascular complaints Respiratory: Respiratory: Reports no additional respiratory complaints Gastrointestinal: Gastrointestinal: Reports abdominal pain, Reports constipation and Reports nausea Genitourinary: Genitourinary: Reports no additional female genitourinary complaints Musculoskeletal: Musculoskeletal: Reports no additional musculoskeletal complaints [facility] Past Medical History Medical History Breast cancer Hyperlipidemia Obesity Schizoaffective disorder Social History Social History Smoking packs per day: 2.5 Smoking cigarettes per day: 50.0 Years smoked: 30 Smoking pack-years: 75.00 Smoking status: Current every day smoker Tobacco type: cigarettes Additional smoking assessment comments: SMOKES 1/2 PACK/DAY CURRENTLY, TRYING TO QUIT Alcohol intake: never Substance use: never Lack of Transportation: No Lack of Food: Never True Current Housing: I Have Housing Concerned About Future Housing: No Difficulty Paying Gas/Electric Bills: No Difficulty Paying for Meds: No Currently Unemployed: No Education: Don't Know Difficulty w/ Childcare or Family Care: No Living arrangements: with family Additional living arrangements comments: DAUGHTER AND MYLES Gender identity (if verbalized by the patient): Female Spiritual care concerns: No Exam Narrative: GENERAL: Well-appearing, morbidly obese, and in no acute distress. HEAD: Normocephalic, atraumatic. EYES: PERRL and EOMI. ENT: Mucous membranes moist. CHEST: Clear to auscultation. No respiratory distress. HEART: Regular rate and rhythm. Normal peripheral pulses. ABDOMEN: Soft, tender palpation left lower quadrant with guarding, nondistended, normal active bowel sounds. EXTREMITIES: Normal range of motion. No edema. SKIN: Warm, dry, no rash. NEURO: Alert and oriented x3. PSYCH: Normal mood and affect. Course Course Emergency Course: [place]
[2023-01-13 12:48] LABS: Appearance Urine Turbid (Clear); Bacteria Urine 4+ /hpf; Bilirubin Urine Negative (Negative); Color Urine Yellow (Yellow); Glucose Urine UA Negative (Negative); Ketones Urine Negative (Negative); Leukocyte Esterase Ur 2+ LEU/UL (Negative); Need Manual Microscopic Reviewed; Nitrate Urine Positive (Negative); Non Pathogenic Casts 0-2; Protein Urine Trace mg/dL (Negative); Specific Grav Ur 1.017 (1.001-1.035); Squamous Epithelial Cell Urine Many /hpf (Few); WBC Urine 51-100 /hpf
[2023-01-13 13:04] LABS: Add Urine Microscopic? YES
[2023-01-13] MEDS: PIPERACILLN/TAZ 3.375GM/NS50ML 3.375 GM/50 ML BAG IVPB ×2 (14:15→20:20)
--- NOTE | 2023-01-13 14:51 | WPDCN ---
Assessment and Plan Assessment and plan (1) Diverticulitis: Code(s): K57.92 - Diverticulitis of intestine, part unspecified, without perforation or abscess without bleeding Status: Acute Assessment and Plan: The patient has mild sigmoid diverticulitis without development of a pelvic abscess. She does have a small intramural abscess which is only about 1cm. No free air or perforation is noted. She seems to have failed a course of oral antibiotics for treatment and so I would recommend that she be admitted to the hospitalist service for non operative management with IV fluid hydration, bowel rest, and antibiotics. She has no acute surgical abdomen at this time. Will follow. HPI Data of Consult Date/Time: 01/13/23 14:51 Primary Care Provider: Asmita Reardon, Consult Narrative Reason for consult: Abdominal pain, sigmoid diverticulitis. Narrative: Shelby Benitez is a 72 year old female who presented to the emergency room today after experiencing worsening lower abdominal pain which is worse on the left than the right. Of note she was in the emergency room about 2 weeks ago with the similar type pains and was diagnosed with diverticulitis and was discharged home on oral antibiotics. She states the pain had improved after taking the antibiotics but never completely went away. She has not had any fevers or chills home. No nausea or vomiting. She states she has had a colonoscopy within the last year and for benign polyps were removed. CT scan abdomen pelvis shows mild inflammation of the sigmoid colon with a 1 center meter intramural abscess. No pelvic abscesses seen and no free air is noted. She is hemodynamically stable. White blood cell is minimally elevated at 10,500 thousand five hundred. There is a left shift. Review of Systems Review of Systems: The remainder of the review of systems to include constitutional, HEENT, cardiovascular, respiratory, GI, , integumentary, musculoskeletal, endocrine, immunologic, hematologic, psychiatric, and neurologic are all negative except for which is mentioned above in the HPI. [facility] Past Medical History Medical History Breast cancer Hyperlipidemia Obesity Schizoaffective disorder Social History Social History Smoking packs per day: 2.5 Smoking cigarettes per day: 50.0 Years smoked: 30 Smoking pack-years: 75.00 Smoking status: Current every day smoker Tobacco type: cigarettes Additional smoking assessment comments: SMOKES 1/2 PACK/DAY CURRENTLY, TRYING TO QUIT Alcohol intake: never Substance use: never Living arrangements: with family Additional living arrangements comments: DAUGHTER AND MYLES Gender identity (if verbalized by the patient): Female Spiritual care concerns: No Meds Home Medications and Allergies Home Medications Medication Instructions Recorded Confirmed Type aripiprazole 300 mg suspension, 300 mg IM Q28D 03/01/22 01/10/23 History extended rel. intramuscular syringe (Suzy Delarosa) cetirizine 10 mg tablet 10 mg PO DAILY 03/01/22 01/10/23 History duloxetine 30 mg capsule,delayed 30 mg PO HS 03/01/22 01/10/23 History release (Cymbalta) fenofibrate 150 mg capsule 145 mg PO DAILY 03/01/22 01/10/23 History ibuprofen 400 mg tablet 400 mg PO Q6H PRN Headache 03/01/22 01/10/23 History aspirin 81 mg tablet,delayed 81 mg PO DAILY 05/12/22 01/10/23 History release (Adult Low Dose Aspirin) hiqvflnknydv-acptfjej-jazkec tablet 1 tablet PO DAILY 07/27/22 01/10/23 History rosuvastatin 5 mg tablet (Crestor) 5 mg PO DAILY 07/27/22 01/10/23 History tamoxifen 20 mg tablet 20 mg PO DAILY 08/04/22 01/10/23 History acetaminophen 500 mg tablet 1,000 mg PO Q6H PRN Pain 01/10/23 01/10/23 History cholecalciferol (vitamin D3) 50 50 mcg PO DAILY 01/10/23 01/10/23 History mcg (2,000 unit) capsule fiber
--- NOTE | 2023-01-13 15:41 | PM.IMHP ---
H&P: HPI History of Present Illness Date/Time: 01/13/23 15:00 Chief Complaint: Abdominal pain Narrative: This is a 72-year-old female patient with a past history of breast cancer treated with radiation and tamoxifen, hyperlipidemia, obesity and schizoaffective disorder who presented with left lower quadrant abdominal pain has been worsening over the last couple of days. Patient notes some nausea without vomiting and some constipation. Patient has a history of diverticulitis in the past has been treated with oral antibiotics never requiring hospitalization or surgery. CT imaging shows persistent sigmoid diverticulitis with a 1 cm intramural abscess that is new since 12/19/22. Patient will be admitted for IV antibiotics and surgery consult. Patient reports that she used to smoke heavily and started 30 years ago is now down to about half pack per day. [facility] Past Medical History Medical History Breast cancer Hyperlipidemia Obesity Schizoaffective disorder Social History Social History Smoking packs per day: 2.5 Smoking cigarettes per day: 50.0 Years smoked: 30 Smoking pack-years: 75.00 Smoking status: Current every day smoker Tobacco type: cigarettes Additional smoking assessment comments: SMOKES 1/2 PACK/DAY CURRENTLY, TRYING TO QUIT Alcohol intake: never Substance use: never Lack of Transportation: No Lack of Food: Never True Current Housing: I Have Housing Concerned About Future Housing: No Difficulty Paying Gas/Electric Bills: No Difficulty Paying for Meds: No Currently Unemployed: No Education: Don't Know Difficulty w/ Childcare or Family Care: No Living arrangements: with family Additional living arrangements comments: DAUGHTER AND MYLES Gender identity (if verbalized by the patient): Female Spiritual care concerns: No Meds Home Medications and Allergies Home Medications Medication Instructions Recorded Confirmed Type aripiprazole 300 mg suspension, 300 mg IM Q28D 03/01/22 01/13/23 History extended rel. intramuscular syringe (Suzy Delarosa) cetirizine 10 mg tablet 10 mg PO DAILY 03/01/22 01/13/23 History duloxetine 30 mg capsule,delayed 30 mg PO HS 03/01/22 01/13/23 History release (Cymbalta) fenofibrate 150 mg capsule 145 mg PO DAILY 03/01/22 01/13/23 History aspirin 81 mg tablet,delayed 81 mg PO DAILY 05/12/22 01/13/23 History release (Adult Low Dose Aspirin) uehfyzaitqdq-axsugtod-sugdys tablet 1 tablet PO DAILY 07/27/22 01/13/23 History rosuvastatin 5 mg tablet (Crestor) 5 mg PO DAILY 07/27/22 01/13/23 History tamoxifen 20 mg tablet 20 mg PO DAILY 08/04/22 01/13/23 History cholecalciferol (vitamin D3) 50 50 mcg PO DAILY 01/10/23 01/13/23 History mcg (2,000 unit) capsule fiber 1 cap PO DAILY 01/10/23 01/13/23 History Allergies Allergy/AdvReac Type Severity Reaction Status Date / Time guaifenesin [From Robitussin] Allergy Rash Verified 01/13/23 16:31 niacin AdvReac Rash, Verified 01/13/23 16:31 BURNING SENSATION Vital Signs Vital Signs - 24 hr 01/13/23 11:23 01/13/23 12:00 01/13/23 12:30 Temperature 36.2 C L Pulse Rate 88 82 82 Respiratory Rate 14 18 16 Blood Pressure 107/69 111/72 109/67 Pulse Oximetry 95 94 94 Oxygen Delivery Room Air 01/13/23 13:00 01/13/23 14:00 01/13/23 15:00 Temperature 35.8 C L Pulse Rate 78 76 79 Respiratory Rate 14 16 15 Blood Pressure 118/78 108/75 110/66 Pulse Oximetry 92 94 92 Oxygen Delivery Exam Narrative: GENERAL: Alert and oriented, in no apparent distress. She is pleasant and conversant in full sentences. HEENT: Pupils are equally round and briskly reactive to light. Extraocular muscles are intact. Oral mucous membranes are moist without lesions. NECK: The patient has no noted JVD. No adenopathy is appreciated. CHEST/LUNGS: Lungs are clear iker
--- NOTE | 2023-01-13 16:30 | ADMGEN ---
This patient, Shelby Benitez, was admitted to [facility] Surg Room 323-01. Patient/family oriented to hospital policies and general routines including ID bracelet, bed and alarms, visiting hours, pain management, procedures, bathroom and other care routines, personal items, smoking policy, room service/diet, and visiting hours. Information on how to activate the Rapid Response Team has been discussed. Patient/Family are encouraged to report perceived risks to care and to ask questions if they do not understand what they are told or what they should do.
[2023-01-13] MEDS: DULoxetine HCL 30 MG CAPSULE.DR PO (20:20)
[2023-01-14] MEDS: PIPERACILLN/TAZ 3.375GM/NS50ML 3.375 GM/50 ML BAG IVPB ×4 (02:24→20:33)
[2023-01-14 06:00] VITALS: BP 114/60; PULSE 70; RESP 18; TEMP 36.5; O2SAT 90
[2023-01-14 06:53] LABS: Basophils Percent Auto 0.3 % (0.2-1.2); Eosinophils Absolute Auto 0.2 K/mm3 (0-0.3); Eosinophils Percent Auto 1.8 % (0-4.4); Hematocrit 39.3 % (37.0-47.0); Hemoglobin 12.5 g/dL (12.0-15.0); Immature Granulocyte Absolute 0.01 K/mm3 (0.00-0.031); Immature Granulocyte Percent A 0.1 % (0-0.5); Lymphocytes Absolute Auto 1.59 K/mm3 (0.9-3.2); Mean Corpuscular HGB Conc 31.8 g/dl (32-36); Mean Corpuscular Hemoglobin 32.6 pg (26-34); Mean Corpuscular Volume 102.3 fl (80-100); Mean Platelet Volume 9.8 fl (7.4-10.4); Monocytes Absolute Auto 0.5 K/mm3 (0.1-0.6); Monocytes Percent Auto 5.8 % (2.6-8.5); Neutrophils Absolute Auto 6.5 K/mm3 (1.3-6.7); Platelet Count Result 225 k/mm3 (150-375); Red Blood Count 3.84 M/mm3 (4.2-5.4); Red Cell Distribution Width 14.5 % (11.5-14.5); White Blood Count 8.8 K/mm3 (4.5-10.0)
[2023-01-14 07:03] LABS: Prothrombin Time 13.5 Seconds (11.1-14.7)
[2023-01-14 07:12] LABS: Alanine Aminotransferase 14 U/L (6-35); Albumin Level 3.3 g/dL (3.5-5.1); Alkaline Phosphatase 49 U/L (38-126); Anion Gap -1 mmol/L (8-16); Aspartate Amino Transferase 19 U/L (14-36); Bilirubin,Total 0.5 mg/dL (0.2-1.3); Blood Urea Nitrogen 15 mg/dL (7-17); Calcium 8.5 mg/dL (8.4-10.2); Carbon Dioxide 33 mmol/L (22-30); Chloride 107 mmol/L (98-107); Estimated Glomerular Filt Rate > 60; Glucose 96 mg/dL (65-110); Sodium 139 mmol/L (137-145)
[2023-01-14 07:51] VITALS: PULSE 70; RESP 18; O2SAT 90
[2023-01-14] MEDS: LORATADINE 10 MG TABLET PO (08:42)
[2023-01-14] MEDS: ROSUVASTATIN 5 MG TABLET PO (08:42)
[2023-01-14] MEDS: ASPIRIN 81 MG ENTERIC TABLET PO (08:42)
[2023-01-14] MEDS: CHOLECALCIFEROL 1,000 UNITS TABLET 2000 UNITS PO (08:43)
[2023-01-14] MEDS: FENOFIBRATE NANOCRYSTALLIZED 145 MG TABLET PO (08:43)
[2023-01-14] MEDS: MULTIVITAMINS /C LUTEIN (CENTRUM SILVER) TABLET *BKC 1 TAB PO (08:43)
[2023-01-14] MEDS: TAMOXIFEN CITRATE (*CHEMO) 10 MG TABLET 20 MG PO (08:43)
--- NOTE | 2023-01-14 10:35 | PM.IMPN ---
Progress Note: A&P Assessment and Plan (1) Diverticulitis of intestine with abscess: Code(s): K57.80 - Diverticulitis of intestine, part unspecified, with perforation and abscess without bleeding Status: Acute Assessment and Plan: IV antibiotics ordered. Surgery consult for abscess, no intervention planned at this time. Patient had colonoscopy earlier this year with removal of sigmoid colon polyps and showed the presence of diverticulosis (2) Schizoaffective disorder: Code(s): F25.9 - Schizoaffective disorder, unspecified Status: Acute Assessment and Plan: stable mood at this time, continue home medications (3) Hyperlipidemia: Code(s): E78.5 - Hyperlipidemia, unspecified Status: Acute Assessment and Plan: continue home medications (4) Breast cancer: Code(s): C50.919 - Malignant neoplasm of unspecified site of unspecified female breast Status: Acute Assessment and Plan: previously treated with radiation, currently taking tamoxifen which will be continued (5) Renal mass of unknown nature: Code(s): N28.89 - Other specified disorders of kidney and ureter Status: Acute Assessment and Plan: MRI ordered Subjective Date/time seen: 01/14/23 10:35 Interval history: no Complaints Exam Narrative: GENERAL: Alert and oriented, in no apparent distress. She is pleasant and conversant in full sentences. HEENT: Pupils are equally round and briskly reactive to light. Extraocular muscles are intact. Oral mucous membranes are moist without lesions. NECK: The patient has no noted JVD. No adenopathy is appreciated. CHEST/LUNGS: Lungs are clear bilaterally without rhonchi, rales, or wheezes. There is no subcutaneous air appreciated. There is no tenderness to the chest wall. HEART: The patient has a regular rate and rhythm. No murmurs, rubs, or gallops are appreciated. Distal pulses are 2+. ABDOMEN: The patient's abdomen is soft, nondistended with left lower quadrant tenderness, no rebound no guarding. Bowel sounds are present throughout. EXTREMITIES: The patient has no peripheral edema. There is no focal long bone tenderness or deformity. SKIN: The patient's skin is warm and dry, without rashes or lesions. PSYCHIATRIC: The patient has normal mental status and has an appropriate affect. NEUROLOGIC: There are no gross deficits to the cranial nerves. Patient ambulates with steady gait. Objective Data Vital Signs Vital Signs: Vital Signs - 24 hr 01/13/23 11:23 01/13/23 12:00 01/13/23 12:30 Temperature 97.2 F L Pulse Rate 88 82 82 Respiratory Rate 14 18 16 Blood Pressure 107/69 111/72 109/67 Pulse Oximetry 95 94 94 Oxygen Delivery Room Air 01/13/23 13:00 01/13/23 14:00 01/13/23 15:00 Temperature 96.5 F L Pulse Rate 78 76 79 Respiratory Rate 14 16 15 Blood Pressure 118/78 108/75 110/66 Pulse Oximetry 92 94 92 Oxygen Delivery 01/13/23 15:55 01/13/23 20:00 01/13/23 22:00 Temperature 97.5 F L 97.3 F L Pulse Rate 80 80 84 Respiratory Rate 19 19 14 Blood Pressure 111/76 112/69 Pulse Oximetry 94 94 95 Oxygen Delivery Room Air 01/14/23 06:00 01/14/23 07:51 Temperature 97.7 F Pulse Rate 70 70 Respiratory Rate 18 18 Blood Pressure 114/60 Pulse Oximetry 90 90 Oxygen Delivery Room Air Intake/Output Intake/Output: Intake & Output 01/11/23 01/12/23 01/13/23 01/14/23 23:59 23:59 23:59 23:59 Intake Total 100 50 Balance 100 50 Meds/Results Medications: Active Medications Generic Name Dose Route Start Last Admin Trade Name Freq PRN Reason Stop Dose Admin Acetaminophen 650 mg 01/13/23 14:02 Acetaminophen 325 Mg Tablet PO Q4H PRN Mild Pain (1-3) or Fever Hydrocodone Bitart/Acetaminophen 1 tab 01/13/23 14:02 Hydrocodone/Acetaminophen (*Crx) 5-325 Mg Tablet PO Q4H PRN Pain Rated 4-6 Aspirin 81 mg 01/14/23 09:00 01/14/23 08:42 Aspirin 81 Mg Enteric Ta
--- NOTE | 2023-01-14 11:16 | PM.PNGS ---
Progress Note: A&P Assessment and Plan (1) Diverticulitis of intestine with abscess: Code(s): K57.80 - Diverticulitis of intestine, part unspecified, with perforation and abscess without bleeding Status: Acute Assessment and Plan: Abdominal pain has resolved today. Blood cell count is normalized and abdominal exam was benign. We will go ahead and advance her diet to full liquids today. If tolerating today then hopefully tomorrow advanced to low-fiber diet and maybe home tomorrow versus next day on oral antibiotics. Continue IV antibiotics for today. Subjective Subjective Date/Time Seen: 01/14/23 11:16 Interval history: Patient feels much better today. She is not having any left lower quadrant pain any longer. Passing flatus and a small loose bowel movement today. No fever. No nausea. White blood cell count has decreased from 10,508 1800 today. Exam Neck: Neck: supple and no JVD Resp: Effort & Inspection: normal respiratory effort Auscultation: clear to auscultation bilaterally Cardio: Rate: regular rate Rhythm: regular rhythm GI: Other: Abdomen is soft and minimally distended. No tenderness to deep palpation left lower quadrant and suprapubic regions of the abdomen today. Abdomen exam is benign today. Neuro: General: gait normal Speech: normal speech Sensory Exam: normal sensation Extrem: General: normal to inspection Psych: Mental Status: mental status grossly normal Affect: normal affect Objective Data Vital Signs Vital Signs: Vital Signs - 24 hr 01/13/23 11:23 01/13/23 12:00 01/13/23 12:30 Temperature 36.2 C L Pulse Rate 88 82 82 Respiratory Rate 14 18 16 Blood Pressure 107/69 111/72 109/67 Pulse Oximetry 95 94 94 Oxygen Delivery Room Air 01/13/23 13:00 01/13/23 14:00 01/13/23 15:00 Temperature 35.8 C L Pulse Rate 78 76 79 Respiratory Rate 14 16 15 Blood Pressure 118/78 108/75 110/66 Pulse Oximetry 92 94 92 Oxygen Delivery 01/13/23 15:55 01/13/23 20:00 01/13/23 22:00 Temperature 36.4 C L 36.3 C L Pulse Rate 80 80 84 Respiratory Rate 19 19 14 Blood Pressure 111/76 112/69 Pulse Oximetry 94 94 95 Oxygen Delivery Room Air 01/14/23 06:00 01/14/23 07:51 Temperature 36.5 C Pulse Rate 70 70 Respiratory Rate 18 18 Blood Pressure 114/60 Pulse Oximetry 90 90 Oxygen Delivery Room Air Intake/Output Intake/Output: Intake & Output 01/11/23 01/12/23 01/13/23 01/14/23 23:59 23:59 23:59 23:59 Intake Total 100 50 Balance 100 50 Meds/Results Medications: Active Medications Generic Name Dose Route Start Last Admin Trade Name Freq PRN Reason Stop Dose Admin Acetaminophen 650 mg 01/13/23 14:02 Acetaminophen 325 Mg Tablet PO Q4H PRN Mild Pain (1-3) or Fever Hydrocodone Bitart/Acetaminophen 1 tab 01/13/23 14:02 Hydrocodone/Acetaminophen (*Crx) 5-325 Mg Tablet PO Q4H PRN Pain Rated 4-6 Aspirin 81 mg 01/14/23 09:00 01/14/23 08:42 Aspirin 81 Mg Enteric Tablet PO 81 mg DAILY KENDELL Administration Duloxetine HCl 30 mg 01/13/23 21:00 01/13/23 20:20 Duloxetine Hcl 30 Mg Capsule.Dr PO 30 mg HS KENDELL Administration Fenofibrate 145 mg 01/14/23 09:00 01/14/23 08:43 Fenofibrate Nanocrystallized 145 Mg Tablet PO 02/13/23 08:59 145 mg DAILY KENDELL Administration Hydromorphone HCl 1 mg 01/13/23 14:59 Hydromorphone Hcl Inj (*Crx) 1 Mg/Ml Syr IV PUSH Q3H PRN abdominal pain Piperacillin/Tazobactam/Dextrose 3.375 gm in 50 mls @ 100 mls/hr 01/13/23 21:00 01/14/23 08:42 Zosyn 3.375 Gm/Ns 50 Ml IVPB 100 mls/hr Q6H KENDELL Administration Loratadine 10 mg 01/14/23 09:00 01/14/23 08:42 Loratadine 10 Mg Tablet PO 02/13/23 08:59 10 mg DAILY KENDELL Administration Morphine Sulfate 2 mg 01/13/23 14:02 Morphine Sulfate (*Crx) 4 Mg/Ml Inj IV PUSH Q2H PRN Pain Rated 7-10 Multivitamins/Minerals 1 tab 01/14/23 09:00 01/14/23 08:43 Multivitamin
[2023-01-14 14:00] VITALS: BP 138/74; PULSE 79; RESP 20; TEMP 36.8; O2SAT 92
[2023-01-14 20:00] VITALS: O2SAT 92
[2023-01-14] MEDS: DULoxetine HCL 30 MG CAPSULE.DR PO (20:33)
[2023-01-14 22:00] VITALS: BP 117/56; PULSE 78; RESP 18; TEMP 36.2; O2SAT 90
[2023-01-15] MEDS: PIPERACILLN/TAZ 3.375GM/NS50ML 3.375 GM/50 ML BAG IVPB ×2 (03:02→08:28)
[2023-01-15 05:07] VITALS: O2SAT 90
[2023-01-15 05:08] VITALS: O2SAT 90
[2023-01-15 06:00] VITALS: BP 124/64; PULSE 77; RESP 18; TEMP 36.3; O2SAT 88
[2023-01-15 06:13] LABS: Basophils Percent Auto 0.5 % (0.2-1.2); Eosinophils Absolute Auto 0.3 K/mm3 (0-0.3); Eosinophils Percent Auto 3.2 % (0-4.4); Hematocrit 41.6 % (37.0-47.0); Hemoglobin 13.3 g/dL (12.0-15.0); Immature Granulocyte Absolute 0.03 K/mm3 (0.00-0.031); Immature Granulocyte Percent A 0.4 % (0-0.5); Lymphocytes Absolute Auto 2.25 K/mm3 (0.9-3.2); Lymphocytes Percent Auto 26.5 % (18.3-44.2); Mean Corpuscular Hemoglobin 32.5 pg (26-34); Mean Corpuscular Volume 101.7 fl (80-100); Mean Platelet Volume 9.7 fl (7.4-10.4); Monocytes Absolute Auto 0.5 K/mm3 (0.1-0.6); Monocytes Percent Auto 6.1 % (2.6-8.5); Neutrophils Absolute Auto 5.4 K/mm3 (1.3-6.7); Neutrophils Percent Auto 63.3 % (45.5-73.1); Platelet Count Result 254 k/mm3 (150-375); Red Blood Count 4.09 M/mm3 (4.2-5.4); Red Cell Distribution Width 14.2 % (11.5-14.5); White Blood Count 8.5 K/mm3 (4.5-10.0)
[2023-01-15] MEDS: ASPIRIN 81 MG ENTERIC TABLET PO (08:27)
[2023-01-15] MEDS: CHOLECALCIFEROL 1,000 UNITS TABLET 2000 UNITS PO (08:27)
[2023-01-15] MEDS: MULTIVITAMINS /C LUTEIN (CENTRUM SILVER) TABLET *BKC 1 TAB PO (08:28)
[2023-01-15] MEDS: ROSUVASTATIN 5 MG TABLET PO (08:28)
[2023-01-15] MEDS: FENOFIBRATE NANOCRYSTALLIZED 145 MG TABLET PO (08:28)
[2023-01-15] MEDS: TAMOXIFEN CITRATE (*CHEMO) 10 MG TABLET 20 MG PO (08:28)
[2023-01-15] MEDS: LORATADINE 10 MG TABLET PO (08:38)
--- NOTE | 2023-01-15 10:33 | PM.DS ---
DS: Admitting Diagnosis Discharge Date 01/15/23 Admitting Diagnosis diverticulitis DS: Discharge Diagnosis Discharge Diagnosis (1) Diverticulitis of intestine with abscess: Code(s): K57.80 - Diverticulitis of intestine, part unspecified, with perforation and abscess without bleeding Status: Acute Assessment and Plan: IV antibiotics ordered. Surgery consult for abscess, no intervention planned at this time. Patient had colonoscopy earlier this year with removal of sigmoid colon polyps and showed the presence of diverticulosis (2) Schizoaffective disorder: Code(s): F25.9 - Schizoaffective disorder, unspecified Status: Acute Assessment and Plan: stable mood at this time, continue home medications (3) Hyperlipidemia: Code(s): E78.5 - Hyperlipidemia, unspecified Status: Acute Assessment and Plan: continue home medications (4) Breast cancer: Code(s): C50.919 - Malignant neoplasm of unspecified site of unspecified female breast Status: Acute Assessment and Plan: previously treated with radiation, currently taking tamoxifen which will be continued (5) Renal mass of unknown nature: Code(s): N28.89 - Other specified disorders of kidney and ureter Status: Acute Assessment and Plan: MRI ordered DS: Summary Hospital Course Hospital Course: 72-year-old female admitted for diverticulitis with small abscess. She was treated conservatively with IV antibiotics. No surgical intervention needed. She can follow up with surgery outpatient as needed. She is tolerating a diet. Okay for discharge on oral antibiotics. Also to note patient did have hyperdense lesion on the left kidney which was worked up with MRI. Final report is pending. Patient is aware that she has this left renal mass and wants to follow up with her primary care physician regarding this. According to CT report this was a chronic lesion that was stable but MRI was recommended. Again, patient is aware and wants to follow w her primary care physician Time Spent with Patient Time attestation: Total time spent providing and/or coordinating discharge services: Exam Narrative: GENERAL: Alert and oriented, in no apparent distress. She is pleasant and conversant in full sentences. HEENT: Pupils are equally round and briskly reactive to light. Extraocular muscles are intact. Oral mucous membranes are moist without lesions. NECK: The patient has no noted JVD. No adenopathy is appreciated. CHEST/LUNGS: Lungs are clear bilaterally without rhonchi, rales, or wheezes. There is no subcutaneous air appreciated. There is no tenderness to the chest wall. HEART: The patient has a regular rate and rhythm. No murmurs, rubs, or gallops are appreciated. Distal pulses are 2+. ABDOMEN: The patient's abdomen is soft, nondistended with left lower quadrant tenderness, no rebound no guarding. Bowel sounds are present throughout. EXTREMITIES: The patient has no peripheral edema. There is no focal long bone tenderness or deformity. SKIN: The patient's skin is warm and dry, without rashes or lesions. PSYCHIATRIC: The patient has normal mental status and has an appropriate affect. NEUROLOGIC: There are no gross deficits to the cranial nerves. Patient ambulates with steady gait. DS: Data Data Completed and Pending Labs on day of discharge: Labs from last 24 hours 01/15/23 05:53 WBC 8.5 RBC 4.09 L Hgb 13.3 Hct 41.6 MCV 101.7 H MCH 32.5 MCHC 32.0 RDW 14.2 Plt Count 254 MPV 9.7 Immature Gran % (Auto) 0.4 Neut % (Auto) 63.3 Lymph % (Auto) 26.5 [place] % (Auto) 6.1 Eos % (Auto) 3.2 Baso % (Auto) 0.5 Lymph # (Auto) 2.25 [place] # (Auto) 0.5 Eos # (Auto) 0.3 Baso # (Auto) 0.0 Abs Immat Gran (auto) 0.03 Absolute Neuts (auto) 5.4 Absolute Nucleated RBC 0.0 Nucleated RBC % 0.0 Preliminary micro results at discharge 01/13/23 12:29 Urine Culture - Preliminary Urine
--- NOTE | 2023-01-15 12:36 | PM.PNGS ---
Progress Note: A&P Assessment and Plan (1) Diverticulitis of intestine with abscess: Code(s): K57.80 - Diverticulitis of intestine, part unspecified, with perforation and abscess without bleeding Status: Acute Assessment and Plan: Patient has recovered from her sigmoid diverticulitis with non operative management. She is tolerating a low-fiber diet. Continue low-fiber diet for about 2 weeks and then switch over to high-fiber diet. Will need to give her a full course of oral antibiotics for another week at home. Since she has not had frequent recurrent episodes of diverticulitis I would not recommend elective sigmoid resection at this time. She can follow-up in the office on a p.r.n. basis. She will follow with the primary care for provider. Subjective Subjective Date/Time Seen: 01/15/23 12:36 Interval history: Patient is doing well today. No complaints of abdominal pain. Tolerating low-fiber diet. White blood cell count is normal. Exam GI: Other: Abdomen is soft and nondistended. Morbidly obese. No tenderness to palpation left lower quadrant the abdomen. Benign. Objective Data Vital Signs Vital Signs: Vital Signs - 24 hr 01/14/23 14:00 01/14/23 20:00 01/14/23 22:00 Temperature 36.8 C 36.2 C L Pulse Rate 79 78 Respiratory Rate 20 18 Blood Pressure 138/74 117/56 L Pulse Oximetry 92 92 90 Oxygen Delivery Room Air 01/15/23 05:07 01/15/23 05:08 01/15/23 06:00 Temperature 36.3 C L Pulse Rate 77 Respiratory Rate 18 Blood Pressure 124/64 Pulse Oximetry 90 90 88 L Oxygen Delivery Room Air 01/15/23 08:25 Temperature Pulse Rate Respiratory Rate Blood Pressure Pulse Oximetry Oxygen Delivery Room Air Intake/Output Intake/Output: Intake & Output 01/12/23 01/13/23 01/14/23 01/15/23 23:59 23:59 23:59 23:59 Intake Total 100 916 374 Balance 100 916 374 Meds/Results Medications: Active Medications Generic Name Dose Route Start Last Admin Trade Name Freq PRN Reason Stop Dose Admin Acetaminophen 650 mg 01/13/23 14:02 Acetaminophen 325 Mg Tablet PO Q4H PRN Mild Pain (1-3) or Fever Hydrocodone Bitart/Acetaminophen 1 tab 01/13/23 14:02 Hydrocodone/Acetaminophen (*Crx) 5-325 Mg Tablet PO Q4H PRN Pain Rated 4-6 Aspirin 81 mg 01/14/23 09:00 01/15/23 08:27 Aspirin 81 Mg Enteric Tablet PO 81 mg DAILY KENDELL Administration Duloxetine HCl 30 mg 01/13/23 21:00 01/14/23 20:33 Duloxetine Hcl 30 Mg Capsule.Dr PO 30 mg HS KENDELL Administration Fenofibrate 145 mg 01/14/23 09:00 01/15/23 08:28 Fenofibrate Nanocrystallized 145 Mg Tablet PO 02/13/23 08:59 145 mg DAILY KENDELL Administration Hydromorphone HCl 1 mg 01/13/23 14:59 Hydromorphone Hcl Inj (*Crx) 1 Mg/Ml Syr IV PUSH Q3H PRN abdominal pain Piperacillin/Tazobactam/Dextrose 3.375 gm in 50 mls @ 100 mls/hr 01/13/23 21:00 01/15/23 08:58 Zosyn 3.375 Gm/Ns 50 Ml IVPB Infused Q6H KENDELL Infusion Loratadine 10 mg 01/14/23 09:00 01/15/23 08:38 Loratadine 10 Mg Tablet PO 02/13/23 08:59 10 mg DAILY KENDELL Administration Morphine Sulfate 2 mg 01/13/23 14:02 Morphine Sulfate (*Crx) 4 Mg/Ml Inj IV PUSH Q2H PRN Pain Rated 7-10 Multivitamins/Minerals 1 tab 01/14/23 09:00 01/15/23 08:28 Multivitamins /C Lutein (Centrum Silver) Tablet *Bkc PO 1 tab DAILY KENDELL Administration Nicotine 1 patch 01/14/23 09:00 01/15/23 08:25 Nicotine (*Pbkc) 21 Mg Patch TRANSDERM Not Given QAM ON LICENSE OF [facility] Nicotine Polacrilex 2 mg 01/13/23 16:56 Nicotine (*Pbkc) 2 Mg Gum PO PRN PRN Nicotine Cravings Ondansetron HCl 4 mg 01/13/23 14:02 Ondansetron Inj 4 Mg/2 Ml Vial IV PUSH Q4H PRN Nausea Rosuvastatin Calcium 5 mg 01/14/23 09:00 01/15/23 08:28 Rosuvastatin 5 Mg Tablet PO 5 mg DAILY KENDELL Administration Tamoxifen Citrate 20 mg 01/14/23 09:00 01/15/23 08:28 Tamoxifen Ci
== END 2023-01-15 13:47 | disposition home or self-care (01) ==
LOC: ANHED 12:30 → ANH3MEDSUR 16:08
PROVIDERS: General Practice; Surgery; Admitting Provider Internal Medicine; Emergency Provider Emergency Medicine; PCP Internal Medicine; Visit Provider Chiropractor
DX: K57.20 Diverticulitis of large intestine with perforation and abscess without bleeding (principal); N28.1 Cyst of kidney, acquired; K59.00 Constipation, unspecified; B96.20 Unspecified Escherichia coli [E. coli] as the cause of diseases classified elsewhere; C50.919 Malignant neoplasm of unspecified site of unspecified female breast; D72.829 Elevated white blood cell count, unspecified; F25.9 Schizoaffective disorder, unspecified; R51.9 Headache, unspecified; E78.5 Hyperlipidemia, unspecified; E66.01 Morbid (severe) obesity due to excess calories; Z68.41 Body mass index [BMI] 40.0-44.9, adult; F17.210 Nicotine dependence, cigarettes, uncomplicated; E66.9 Obesity, unspecified; Z79.1 Long term (current) use of non-steroidal anti-inflammatories (NSAID); Z79.82 Long term (current) use of aspirin; Z79.810 Long term (current) use of selective estrogen receptor modulators (SERMs); Z79.899 Other long term (current) drug therapy
CPT/HCPCS: 36415; 74177; 74183; 80053; 81001; 83690; 85025; 85610; 86850; 86900; 86901; 87077; 87086; 87186; 96365; 99285; A9270; A9577; G0378; J2543; Q9967

== ENCOUNTER 2023-03-06 11:45 | Outpatient (CLI) | payer MEDICARE, MEDICAID, SELFPAY ==
--- NOTE | ~2023-03-06 | MM_ITS ---
EXAMINATION: MM diagnostic papito BI w brenda HISTORY: Malignant neoplasm of the right breast TECHNIQUE: Craniocaudal, mediolateral, and mediolateral oblique 3-D tomosynthesis images of the breas ts were performed and synthetic 2-D images were generated. CAD analysis was submitted and interpreted . COMPARISON: 09/29/2021, 09/14/2021, 11/24/2014, 12/05/2013 BREAST PARENCHYMAL COMPOSITION: There are scattered areas of fibroglandular density. FINDINGS: There are interval lumpectomy changes in the posterior third of the upper inner right breas t. Skin thickening of the right breast is consistent with interval radiation treatment. No suspicious mass, calcification, or architectural distortion are identified in either breast. IMPRESSION: 1. Interval lumpectomy and radiation changes of the right breast without mammographic evidence of mal ignancy. 2. Recommend routine screening mammography in one year. BI-RADS Category 2: Benign finding(s). Reviewed, dictated and finalized at location A. IMPRESSION: 1. Interval lumpectomy and radiation changes of the right breast without mammog raphic evidence of malignancy. 2. Recommend routine screening mammography in one year. BI-RADS Category 2: Benign finding(s).
== END 2023-03-06 11:46 | disposition home or self-care (01) ==
LOC: ANHIMG 11:46
PROVIDERS: PCP Internal Medicine; Visit Provider Radiology Radiation Oncology
DX: C50.211 Malignant neoplasm of upper-inner quadrant of right female breast (principal)
CPT/HCPCS: 77062; 77066; G0279

== ENCOUNTER 2023-04-12 13:05 | Emergency (ER) | payer MEDICARE, MEDICAID, SELFPAY ==
--- NOTE | ~2023-04-12 | CT_ITS ---
EXAMINATION: CT abdomen pelvis wo con DATE: 04/12/2023 18:51 INDICATION: flank pain, dysuria TECHNIQUE: Computed tomography (CT) of the abdomen and pelvis was performed without intravenous contr ast. Automated exposure control and iterative reconstruction technique were employed. The dose-length product was 1184.98 mGy-cm. COMPARISON: 01/13/2023. FINDINGS: Lower thorax: Minimal bibasilar scar/atelectasis. Liver: 11 mm left lobe cyst. Biliary/Gallbladder: Gallbladder is normal. No bile duct dilation. Pancreas: No mass or duct dilation. Spleen: Normal. Adrenals:Chronic nodularity of the bilateral adrenal glands. Kidneys: Multiple bilateral nonobstructing calculi. Subcentimeter left upper pole proteinaceous or he morrhagic cyst. Left upper pole simple cyst. Mild bilateral perinephric stranding. No hydronephrosis GI tract: No small or large bowel dilation. Normal appendix. Diverticulosis without diverticulitis. Mesentery/Peritoneum: No ascites, mass, or free air. Retroperitoneum: No mass. Atherosclerotic abdominal aortic and/or arterial calcifications. Pelvis: Pelvic organs are within normal limits. Soft Tissues: Soft tissues and body wall unremarkable. Bones: No acute osseous finding. IMPRESSION: No acute abdominopelvic process detected. Reviewed, dictated and finalized at location K. ENT CARE ASSISTANT
[2023-04-12 13:22] VITALS: BP 114/74; PULSE 81; RESP 18; TEMP 36.4; O2SAT 93
[2023-04-12 13:56] LABS: Appearance Urine Cloudy (Clear); Bacteria Urine Rare /hpf; Bilirubin Urine Negative (Negative); Blood Urine Negative (Negative); Color Urine Yellow (Yellow); Glucose Urine UA Negative (Negative); Ketones Urine Negative (Negative); Leukocyte Esterase Ur Negative LEU/UL (Negative); Nitrate Urine Negative (Negative); Protein Urine Negative (Negative); RBC Urine 0-2 /hpf (0-2); Specific Grav Ur 1.012 (1.001-1.035); Squamous Epithelial Cell Urine Many /hpf (Few); Urobilinogen Urine 0.2 mg/dL (<2.0); WBC Urine 0-5 /hpf; pH Urine 6.5 (5.0-9.0)
[2023-04-12 13:57] LABS: Add Urine Microscopic? YES
[2023-04-12 15:31] VITALS: BP 110/66; PULSE 74; RESP 77; TEMP 36.7; O2SAT 91
[2023-04-12 16:54] VITALS: BP 140/87; PULSE 82; RESP 18; O2SAT 96
[2023-04-12 17:32] LABS: Basophils Absolute Auto 0.1 K/mm3 (0.0-0.1); Basophils Percent Auto 0.6 % (0.2-1.2); Eosinophils Absolute Auto 0.1 K/mm3 (0-0.3); Eosinophils Percent Auto 1.5 % (0-4.4); Hematocrit 41.7 % (37.0-47.0); Hemoglobin 13.2 g/dL (12.0-15.0); Immature Granulocyte Absolute 0.02 K/mm3 (0.00-0.031); Immature Granulocyte Percent A 0.2 % (0-0.5); Lymphocytes Percent Auto 28.5 % (18.3-44.2); Mean Corpuscular HGB Conc 31.7 g/dl (32-36); Mean Corpuscular Hemoglobin 32.4 pg (26-34); Mean Corpuscular Volume 102.2 fl (80-100); Mean Platelet Volume 9.7 fl (7.4-10.4); Monocytes Absolute Auto 0.6 K/mm3 (0.1-0.6); Monocytes Percent Auto 7.7 % (2.6-8.5); Neutrophils Percent Auto 61.5 % (45.5-73.1); Platelet Count Result 266 k/mm3 (150-375); Red Blood Count 4.08 M/mm3 (4.2-5.4); Red Cell Distribution Width 14.8 % (11.5-14.5); White Blood Count 8.1 K/mm3 (4.5-10.0)
[2023-04-12 17:44] LABS: Alanine Aminotransferase 13 U/L (6-35); Alkaline Phosphatase 56 U/L (38-126); Anion Gap 7 mmol/L (8-16); Aspartate Amino Transferase 24 U/L (14-36); Bilirubin,Total 0.4 mg/dL (0.2-1.3); Blood Urea Nitrogen 14 mg/dL (7-17); Calcium 9.6 mg/dL (8.4-10.2); Carbon Dioxide 28 mmol/L (22-30); Chloride 103 mmol/L (98-107); Estimated Glomerular Filt Rate > 60; Glucose 92 mg/dL (65-110); Potassium 4.3 mmol/L (3.4-5.0); Sodium 138 mmol/L (137-145)
--- NOTE | 2023-04-12 18:22 | ED.FEMALEGU ---
HPI - Female Genitourinary General Chief complaint: Urogenital-Female Stated complaint: back pain, burning urination Time Seen by Provider: 04/12/23 17:17 Source: patient Mode of arrival: ambulatory Limitations: no limitations History of Present Illness HPI Narrative: This is a 73 year old female that presents to the ER for low back pain. Ongoing over the last couple of days. Reports some dysuria today. She has been taking Tylenol with some relief. Denies fever, vomiting or hematuria. Related Data Home Medications Medication Instructions Recorded Confirmed aripiprazole 300 mg suspension, 300 mg IM Q28D 03/01/22 02/10/23 extended rel. intramuscular syringe (Suzy Delarosa) cetirizine 10 mg tablet 10 mg PO DAILY 03/01/22 02/10/23 duloxetine 30 mg capsule,delayed 30 mg PO HS 03/01/22 02/10/23 release (Cymbalta) fenofibrate 150 mg capsule 145 mg PO DAILY 03/01/22 02/10/23 aspirin 81 mg tablet,delayed 81 mg PO DAILY 05/12/22 02/10/23 release (Adult Low Dose Aspirin) ahovqsstyhmv-fznhxavd-lqcbkl tablet 1 tablet PO DAILY 07/27/22 02/10/23 rosuvastatin 5 mg tablet (Crestor) 5 mg PO DAILY 07/27/22 02/10/23 tamoxifen 20 mg tablet 20 mg PO DAILY 08/04/22 02/10/23 cholecalciferol (vitamin D3) 50 50 mcg PO DAILY 01/10/23 01/13/23 mcg (2,000 unit) capsule fiber 1 cap PO DAILY 01/10/23 01/13/23 Allergies Allergy/AdvReac Type Severity Reaction Status Date / Time guaifenesin [From Robitussin] Allergy Rash Verified 04/12/23 17:13 niacin AdvReac Rash, Verified 04/12/23 17:13 BURNING SENSATION Review of Systems Review of Systems: CONSTITUTIONAL: Denies fever GASTROINTESTINAL: Denies abdominal pain, nausea, vomiting GENITOURINARY: Reports dysuria. Denies hematuria MUSCULOSKELETAL: Reports back pain, joint pain, and myalgia. NEUROLOGIC: Denies numbness, or weakness. All systems reviewed & are unremarkable except as noted in HPI and below PMFSH Past Medical History Medical History Breast cancer Hyperlipidemia Obesity Schizoaffective disorder Social History Social History Smoking packs per day: 2.5 Smoking cigarettes per day: 50.0 Years smoked: 30 Smoking pack-years: 75.00 Smoking status: Current every day smoker Tobacco type: cigarettes Additional smoking assessment comments: SMOKES 1/2 PACK/DAY CURRENTLY, TRYING TO QUIT Alcohol intake: never Substance use: never Lack of Transportation: No Lack of Food: Never True Current Housing: I Have Housing Concerned About Future Housing: No Difficulty Paying Gas/Electric Bills: No Difficulty Paying for Meds: No Currently Unemployed: No Education: Don't Know Difficulty w/ Childcare or Family Care: No Living arrangements: with family Additional living arrangements comments: DAUGHTER AND MYLES Gender identity (if verbalized by the patient): Female Spiritual care concerns: No Exam Narrative: GENERAL: Well-appearing, well-nourished, and in no acute distress. HEAD: Normocephalic, atraumatic. EYES: EOMI. CHEST: Clear to auscultation. No respiratory distress. No wheezes rales or rhonchi HEART: Regular rate and rhythm. No murmur heard. Normal peripheral pulses. ABDOMEN: Soft, nontender, nondistended, normal active bowel sounds. No CVA tenderness EXTREMITIES: Normal range of motion. No edema. Strength equal in bilateral lower extremities (5/5) SKIN: Warm, dry, no rash. NEURO: No focal deficits. Alert and oriented x3. Normal gait PSYCH: Normal mood and affect Course Course Emergency Course: Patient was updated on workup and agrees with plan of care Vital Signs Vital signs: Vital Signs Temperature 97.5 F L 04/12/23 13:22 Pulse Rate 81 04/12/23 13:22 Respiratory Rate 18 04/12/23 13:22 Blood Pressure 114/74 04/12/23 13:22 Pulse Oximetry 93 04/12/23 13:22 Oxygen Delivery Room A
[2023-04-12] MEDS: FLUCONAZOLE 150 MG TABLET PO (18:30)
[2023-04-12] MEDS: ALBUTEROL SULFATE (*SP) AEROSOL 1 PUFF 2 PUFF INHALATION (18:37)
[2023-04-12] MEDS: ALBUTEROL SULFATE (*SP) INHALER 1 PUFF (18:37)
[2023-04-12 18:40] VITALS: BP 126/81; PULSE 73; RESP 18; O2SAT 95
--- NOTE | 2023-04-12 18:42 | PC.NURSE ---
This RN called pts daughter, as pt requested, gave update on pt status - requesting updates to be called to her cell: [phone], Meri.
[2023-04-12 19:50] VITALS: BP 127/79; PULSE 75; RESP 17; O2SAT 99
== END 2023-04-12 19:50 | disposition home or self-care (01) ==
PROVIDERS: Emergency Medicine; Emergency Provider Physician Assistant; PCP Internal Medicine
DX: M54.50 Low back pain, unspecified (principal); E78.5 Hyperlipidemia, unspecified; E66.9 Obesity, unspecified; Z68.41 Body mass index [BMI] 40.0-44.9, adult; F25.9 Schizoaffective disorder, unspecified; F17.210 Nicotine dependence, cigarettes, uncomplicated; Z85.3 Personal history of malignant neoplasm of breast; Z79.82 Long term (current) use of aspirin
CPT/HCPCS: 36415; 74176; 80053; 81001; 85025; 94664; 99284; A9270

== ENCOUNTER 2023-08-14 19:03 | Inpatient (IN) | payer MEDICARE, MEDICAID, SELFPAY ==
--- NOTE | ~2023-08-14 | CT_ITS ---
EXAMINATION: CT abdomen pelvis w con DATE: 08/14/2023 21:11 INDICATION: DIVERTICULITIS TECHNIQUE: Computed tomography (CT) of the abdomen and pelvis was performed with 100 mL Omnipaque-350 intravenous contrast. Automated exposure control and iterative reconstruction technique were employe d. The dose-length product was 863.32 mGy-cm. COMPARISON: 04/12/2023. FINDINGS: Lower thorax: Unremarkable Liver: Multiple cysts/hemangiomas and lesions that are too small to characterize. Biliary/Gallbladder: Gallbladder is normal. No bile duct dilation. Pancreas: No mass or duct dilation. Spleen: Normal. Adrenals: Stable adrenal nodularity. Kidneys: Bilateral simple cysts and hypodensities that are too small to characterize. 9 mm left upper pole hemorrhagic cyst. Bilateral nonobstructing calculi. No hydronephrosis GI tract: Submucosal fat deposition in the antrum. Mild distal esophageal edema. No small or large zulay wel dilation.. Diverticulosis. Segmental wall thickening in the sigmoid colon with mild surrounding i nflammatory change Normal appendix. Mesentery/Peritoneum: No ascites, mass, or free air. Retroperitoneum: No mass. Atherosclerotic abdominal aortic and/or arterial calcifications. Pelvis: Pelvic organs are within normal limits. Soft Tissues: Soft tissues and body wall unremarkable. Bones: No acute osseous finding. IMPRESSION: Segmental proximal sigmoid wall thickening with surrounding inflammatory change, may represent acute diverticulitis or colitis. Reviewed, dictated and finalized at location K. IMPRESSION: Segmental proximal sigmoid wall thickening with surrounding inflammatory change , may represent acute diverticulitis or colitis.
[2023-08-14 19:12] VITALS: BP 110/56; PULSE 104; RESP 15; TEMP 37.7; O2SAT 94
--- NOTE | 2023-08-14 20:09 | ED.ABDPAIN ---
HPI - Abdominal Pain General Chief Complaint: Abdominal Pain Stated Complaint: abdominal pain Time Seen by Provider: 08/14/23 20:04 Source: patient History of Present Illness HPI narrative: 73 YEARS OLD WHITE FEMALE CAME TO THE ED BY PRIVATE CAR COMPLAINING OF LOWER ABDOMINAL PAIN, SHARP STABBING SIMILAR TO HER PREVIOUS HISTORY OF DIVERTICULITIS, STARTED THIS MORNING ASSOCIATED WITH NAUSEA. LAST P.O. INTAKE WAS 5 HOURS AGO. HISTORY OF HYPERLIPIDEMIA, TOBACCO DEPENDENT, UTERINE FIBROID. Related Data Home Medications Medication Instructions Recorded Confirmed aripiprazole 300 mg suspension, 300 mg IM Q28D 03/01/22 08/02/23 extended rel. intramuscular syringe (Michelletrini Isaura) cetirizine 10 mg tablet 10 mg PO DAILY 03/01/22 08/02/23 duloxetine 30 mg capsule,delayed 30 mg PO HS 03/01/22 08/02/23 release (Cymbalta) fenofibrate 150 mg capsule 145 mg PO DAILY 03/01/22 08/02/23 aspirin 81 mg tablet,delayed 81 mg PO DAILY 05/12/22 08/02/23 release (Adult Low Dose Aspirin) pcgsftybyglz-jrgykmee-zpzlmo tablet 1 tablet PO DAILY 07/27/22 08/02/23 rosuvastatin 5 mg tablet (Crestor) 5 mg PO DAILY 07/27/22 08/02/23 tamoxifen 20 mg tablet 20 mg PO DAILY 08/04/22 08/02/23 cholecalciferol (vitamin D3) 50 50 mcg PO DAILY 01/10/23 08/02/23 mcg (2,000 unit) capsule fiber 1 cap PO DAILY 01/10/23 08/02/23 Allergies Allergy/AdvReac Type Severity Reaction Status Date / Time guaifenesin [From Robitussin] Allergy Rash Verified 08/14/23 19:15 niacin AdvReac Rash, Verified 08/14/23 19:15 BURNING SENSATION Review of Systems Review of Systems: All systems reviewed & are unremarkable except as noted in HPI and below PMFSH Past Medical History Medical History Breast cancer Cataract Hyperlipidemia Obesity Schizoaffective disorder Surgical History Surgical History History of tubal ligation S/P lumpectomy of breast Family History Family History Grandparent Carcinoma of colon Social History Social History Smoking packs per day: 2.5 Smoking cigarettes per day: 50.0 Years smoked: 30 Smoking pack-years: 75.00 Smoking status: Current every day smoker Tobacco type: cigarettes Additional smoking assessment comments: SMOKES 1/2 PACK/DAY CURRENTLY, TRYING TO QUIT Alcohol intake: never Substance use: never Do You Feel Safe in your Home?: Yes Lack of Transportation: No Lack of Food: Never True Current Housing: I Have Housing Concerned About Future Housing: No Difficulty Paying Gas/Electric Bills: No Difficulty Paying for Meds: No Currently Unemployed: No Education: High School Diploma/GED Difficulty w/ Childcare or Family Care: No Living arrangements: with family Additional living arrangements comments: DAUGHTER AND MYLES Occupation/Education: retired Gender identity (if verbalized by the patient): Female Spiritual care concerns: No Exam Narrative: GENERAL APPEARANCE: WELL-DEVELOPED, WELL-NOURISHED SKIN: NORMAL COLOR HEAD: NORMOCEPHALIC, NONTRAUMATIC EYES: CLEAR CONJUNCTIVA ENT: OROPHARYNX NORMAL, EARS NORMAL, NOSE NORMAL NECK: SUPPLE, NONTENDER CHEST AND RESPIRATORY: AIRWAY PATENT, NO RESPIRATORY DISTRESS, NO ACCESSORY MUSCLE USE HEART: REGULAR RATE/RHYTHM ABDOMEN: SOFT, NONTENDER, NO ORGANOMEGALY, QUIET BOWEL SOUNDS VASCULAR: NORMAL PERIPHERAL PULSES, NORMAL CAPILLARY REFILL. MUSCULOSKELETAL: NORMAL RANGE OF MOTION, NONTENDER BACK NEUROLOGIC: ALERT AND ORIENTED ?3, INTERNET SOURCER IS NORMAL TESTED, NO GROSS MOTOR DEFICIT
[2023-08-14 20:22] LABS: Basophils Percent Auto 0.2 % (0.2-1.2); Eosinophils Absolute Auto 0.1 K/mm3 (0-0.3); Eosinophils Percent Auto 0.3 % (0-4.4); Hematocrit 41.2 % (37.0-47.0); Hemoglobin 13.1 g/dL (12.0-15.0); Immature Granulocyte Absolute 0.11 K/mm3 (0.00-0.031); Immature Granulocyte Percent A 0.6 % (0-0.5); Lymphocytes Absolute Auto 1.59 K/mm3 (0.9-3.2); Lymphocytes Percent Auto 9.1 % (18.3-44.2); Mean Corpuscular HGB Conc 31.8 g/dl (32-36); Mean Corpuscular Hemoglobin 32.3 pg (26-34); Mean Corpuscular Volume 101.7 fl (80-100); Monocytes Percent Auto 5.9 % (2.6-8.5); Neutrophils Absolute Auto 14.7 K/mm3 (1.3-6.7); Neutrophils Percent Auto 83.9 % (45.5-73.1); Platelet Count Result 224 k/mm3 (150-375); Red Blood Count 4.05 M/mm3 (4.2-5.4); Red Cell Distribution Width 16.6 % (11.5-14.5); White Blood Count 17.6 K/mm3 (4.5-10.0)
[2023-08-14] MEDS: ONDANSETRON INJ 4 MG/2 ML VIAL IV PUSH (20:32)
[2023-08-14] MEDS: HYDROmorphone HCL INJ (*CRX) 1 MG/ML SYR 0.5 MG IV PUSH (20:32)
[2023-08-14 20:33] LABS: Alanine Aminotransferase 13 U/L (6-35); Albumin Level 3.6 g/dL (3.5-5.1); Alkaline Phosphatase 62 U/L (38-126); Anion Gap 2 mmol/L (4-12); Aspartate Amino Transferase 18 U/L (14-36); Bilirubin,Total 0.8 mg/dL (0.2-1.3); Blood Urea Nitrogen 15 mg/dL (7-17); Calcium 9.3 mg/dL (8.4-10.2); Carbon Dioxide 27 mmol/L (22-30); Chloride 105 mmol/L (98-107); Estimated Glomerular Filt Rate > 60; Glucose 125 mg/dL (65-110); Lipase 51 U/L (23-300); Potassium 4.1 mmol/L (3.4-5.0); Sodium 134 mmol/L (137-145)
[2023-08-14] MEDS: SODIUM CHLORIDE 0.9% IV 1,000 ML 999 ML IV CONT (20:33)
[2023-08-14 20:37] VITALS: BP 86/49; PULSE 102; O2SAT 84
[2023-08-14 20:38] VITALS: O2SAT 93
[2023-08-14 21:43] LABS: Appearance Urine Sl Cloudy (Clear); Color Urine Yellow (Yellow)
[2023-08-14 21:45] LABS: Bilirubin Urine Negative (Negative); Blood Urine Trace-intact (Negative); Glucose Urine UA Negative (Negative); Ketones Urine Negative (Negative); Nitrate Urine Negative (Negative); Protein Urine Negative (Negative); Urobilinogen Urine 0.2 mg/dL (<2.0)
[2023-08-14 21:46] LABS: Leukocyte Esterase Ur Trace LEU/UL (Negative)
[2023-08-14 21:50] LABS: Bacteria Urine 1+ /hpf
[2023-08-14 21:51] LABS: RBC Urine 0-2 /hpf (0-2); Squamous Epithelial Cell Urine Moderate /hpf (Few); WBC Urine 0-5 /hpf (0-3)
[2023-08-14 21:52] LABS: Add Urine Microscopic? YES
--- NOTE | 2023-08-14 22:23 | PC.NURSE ---
Daughter Meri - Updated per Patient request.
--- NOTE | 2023-08-14 22:45 | PM.IMHP ---
H&P: HPI History of Present Illness Date/Time: 08/14/23 22:45 Chief Complaint: abdominal pain Narrative: This is a 73-year-old female with past medical history significant for tobacco dependence, breast CA, patient presents to the emergency room due to abdominal pain, cramping for the last 3 days or so, denies any fevers, rigors, chills, nausea, vomiting, blood in the stool has had poor per orally intake. preliminary workup was significant for CT of abdomen and pelvis with diverticulitis , CBC was significant for leukocyte count of 17,000. Patient has been placed in observation for further evaluation management and treatment. EXAMINATION: CT abdomen pelvis w con DATE: 08/14/2023 21:11 INDICATION: DIVERTICULITIS TECHNIQUE: Computed tomography (CT) of the abdomen and pelvis was performed with 100 mL Omnipaque-350 intravenous contrast. Automated exposure control and iterative reconstruction technique were employed. The dose-length product was 863.32 mGy-cm. COMPARISON: 04/12/2023. FINDINGS: Lower thorax: Unremarkable Liver: Multiple cysts/hemangiomas and lesions that are too small to characterize.? Biliary/Gallbladder: Gallbladder is normal. No bile duct dilation. Pancreas: No mass or duct dilation. Spleen: Normal. Adrenals: Stable adrenal nodularity. Kidneys: Bilateral simple cysts and hypodensities that are too small to characterize. 9 mm left upper pole hemorrhagic cyst. Bilateral nonobstructing calculi. No hydronephrosis GI tract: Submucosal fat deposition in the antrum. Mild distal esophageal edema. No small or large bowel dilation.. Diverticulosis. Segmental wall thickening in the sigmoid colon with mild surrounding inflammatory change Normal appendix. Mesentery/Peritoneum: No ascites, mass, or free air. Retroperitoneum: No mass. Atherosclerotic abdominal aortic and/or arterial calcifications. Pelvis: Pelvic organs are within normal limits. Soft Tissues: Soft tissues and body wall unremarkable. Bones:? No acute osseous finding. IMPRESSION: Segmental proximal sigmoid wall thickening with surrounding inflammatory change, may represent acute diverticulitis or colitis. Review of Systems Review of Systems: abdominal pain Constitutional: Constitutional: Denies chills, Denies fatigue, Denies fever(s), Denies malaise, Denies night sweats and Reports poor appetite Eyes: Eyes: Denies change in vision ENT: Denies dysphagia, Denies vertigo, Denies dizziness and Denies odynophagia Cardiovascular: Cardiovascular: Denies chest pain, Denies radiating jaw, neck or arm pain and Denies palpitations Respiratory: Respiratory: Denies cough, Denies excessive phlegm production, Denies pain on inspiration and Denies dyspnea Gastrointestinal: Gastrointestinal: Reports abdominal pain, Denies diarrhea, Denies nausea and Denies vomiting Genitourinary: Genitourinary: Denies dysuria Musculoskeletal: Musculoskeletal: Denies myalgias and Denies arthralgias Integumentary/Breasts: Skin/Breast: Denies rash Neurologic: Denies focal weakness and Denies Sensory deficit (Neuro) Psychiatric: Psychiatric: Reports no additional psychiatric complaints and Reports as per HPI Endocrine: Endocrine: Denies cold intolerance, Denies fatigue, Denies flushing, Denies heat intolerance, Denies polyphagia, Denies polydipsia, Denies polyuria and Denies palpitations Hematologic/Lymphatic: Hematologic/Lymphatic: Reports no additional hematologic/lymphatic complaints and Reports as per HPI Allergic/Immunologic: Allergic/Immunologic: Reports no additional allergic/immunologic complaints and Reports as per HPI PMFSH Past Medical History Medical History Breast cancer Cataract Hyperlipidemia Obesity Schizoaffective disorder Surgical History Surgical History History of tubal ligation S/P lumpectomy of breast Family History Family History (Updated
[2023-08-14] MEDS: SODIUM CHLORIDE 0.9% IV 1,000 ML 250 ML IV CONT (23:20)
[2023-08-14] MEDS: metroNIDAZOLE 500 MG/ISO 100ML 500 MG/100 ML BAG 100 MG IVPB (23:21)
[2023-08-14 23:43] VITALS: BP 109/68; PULSE 94; RESP 18; O2SAT 92
[2023-08-15] MEDS: levoFLOXacin 750 MG/D5W 150 ML 750 MG/150 ML BAG 100 MG IVPB ×2 (00:30→23:57)
[2023-08-15 00:58] VITALS: BP 107/65; PULSE 89; RESP 16; TEMP 36.6; O2SAT 99; BMI 38.2
--- NOTE | 2023-08-15 01:09 | ADMGEN ---
This patient, Shelby Benitez, was admitted to Medical Room 341-01. Patient/family oriented to hospital policies and general routines including ID bracelet, bed and alarms, visiting hours, pain management, procedures, bathroom and other care routines, personal items, smoking policy, room service/diet, and visiting hours. Information on how to activate the Rapid Response Team has been discussed. Patient/Family are encouraged to report perceived risks to care and to ask questions if they do not understand what they are told or what they should do.
[2023-08-15 01:31] VITALS: PULSE 89; RESP 16; O2SAT 99
--- NOTE | 2023-08-15 05:46 | PHAR ---
The Abilify is a maintenance injection that was given on 08/02. It is a monthly injection that she takes on/about the of the .
[2023-08-15 05:53] VITALS: BP 99/56; PULSE 96; RESP 18; TEMP 36.6; O2SAT 98
[2023-08-15] MEDS: metroNIDAZOLE 500 MG/ISO 100ML 500 MG/100 ML BAG 100 MG IVPB ×3 (05:58→21:12)
[2023-08-15] MEDS: SODIUM CHLORIDE 0.9% IV 1,000 ML 125 ML IV CONT ×2 (06:41→17:20)
[2023-08-15] MEDS: ASPIRIN 81 MG ENTERIC TABLET PO (08:54)
[2023-08-15] MEDS: CHOLECALCIFEROL 1,000 UNITS TABLET 2000 UNITS PO (08:54)
[2023-08-15] MEDS: LORATADINE 10 MG TABLET PO (08:55)
[2023-08-15] MEDS: TAMOXIFEN CITRATE (*CHEMO) 10 MG TABLET 20 MG PO (08:55)
[2023-08-15] MEDS: ACIDOPHILUS/BULGARICUS CHEWABLE TABLET 1 TABLET PO (08:55)
[2023-08-15] MEDS: ROSUVASTATIN 5 MG TABLET PO (08:55)
[2023-08-15] MEDS: FENOFIBRATE NANOCRYSTALLIZED 145 MG TABLET PO (08:55)
--- NOTE | 2023-08-15 11:25 | PC.NURSE ---
On 08/15/23, the student, Andre, provided care and [email or web address] I have reviewed the student's documentation and agree with the findings.
--- NOTE | 2023-08-15 14:07 | PM.IMPN ---
Progress Note: A&P Assessment and Plan (1) Tobacco dependence: Code(s): F17.200 - Nicotine dependence, unspecified, uncomplicated Status: Acute (2) Diverticulitis: Code(s): K57.92 - Diverticulitis of intestine, part unspecified, without perforation or abscess without bleeding Status: Acute (3) Posterior tibial tendinitis of left lower extremity: Code(s): M76.822 - Posterior tibial tendinitis, left leg Status: Acute (4) Schizoaffective disorder: Code(s): F25.9 - Schizoaffective disorder, unspecified Status: Acute (5) Hyperlipidemia: Code(s): E78.5 - Hyperlipidemia, unspecified Status: Acute (6) Diverticulitis: Code(s): K57.92 - Diverticulitis of intestine, part unspecified, without perforation or abscess without bleeding Status: Acute Plan # sigmoid diverticulitis - 4th or 5th episode of diverticulitis [place] [id number] - antibiotics: Levaquin, Flagyl 08/14- - will continue supportive care with antibiotics - IV fluids normal saline at 125 cc/hour # chronic conditions - breast cancer: tamoxifen - hyperlipidemia: Crestor, fenofibrate, aspirin - allergies: Claritin - supplements: May continue home fiber, vitamin-D - depression, schizoaffective disorder: Cymbalta - nicotine dependence: as needed nicotine patch Diet: clear liquid diet, possibly to advanced in a.m. DVT prophylaxis: lovenox Code status: full code Disposition: Home in 1-3 days Subjective Date/time seen: 08/15/23 14:07 Interval history: patient seen examined. Patient found to sigmoid diverticulitis, patient for 5 episodes of this in the past. Will continue IV Levaquin and Flagyl and monitor leukocytosis. Will monitor closely for possible allergy to Levaquin there is erythema the IV site. Family updated at bedside. Patient denies fever, chills, nausea vomiting, diarrhea, abdominal pain. Review of Systems Review of Systems: 10 point ROS complete, negative other than what is specified in HPI. Exam Narrative: - GENERAL: pleasant woman in no acute distress. Well-nourished. - EYES: EOMI. Anicteric. - HENT: Moist mucous membranes. - LUNGS: Clear to auscultation bilaterally, no wheezing, rhonchi, or rales. - CARDIOVASCULAR: Regular rate and rhythm. No murmur. No JVD. - ABDOMEN: Soft, non-tender and non-distended. No palpable masses. abdominal pain despite deep palpation - EXTREMITIES: No edema. Peripheral pulses 2+. Non-tender. - NEUROLOGIC: No focal neurological deficits. CN II-XII grossly intact. - PSYCHIATRIC: Awake, Alert and oriented x 3. Appropriate mood and affect. - SKIN: No rashes or lesions. Warm. - LYMPH: No cervical lymphadenopathy. Objective Data Vital Signs Vital Signs: Vital Signs - 24 hr 08/14/23 19:12 08/14/23 20:37 08/14/23 20:38 Temperature 37.7 C H Pulse Rate 104 H 102 H Respiratory Rate 15 Blood Pressure 110/56 L 86/49 L Pulse Oximetry 94 84 L 93 Oxygen Delivery Room Air Nasal Cannula Oxygen Flow Rate 2 08/14/23 23:43 08/15/23 00:58 08/15/23 01:31 Temperature 36.6 C Pulse Rate 94 89 89 Respiratory Rate 18 16 16 Blood Pressure 109/68 107/65 Pulse Oximetry 92 99 99 Oxygen Delivery Nasal Cannula Oxygen Flow Rate 2 08/15/23 05:53 08/15/23 08:55 Temperature 36.6 C Pulse Rate 96 Respiratory Rate 18 Blood Pressure 99/56 L Pulse Oximetry 98 Oxygen Delivery Room Air Oxygen Flow Rate Intake/Output Intake/Output: Intake & Output 08/12/23 08/13/23 08/14/23 08/15/23 23:59 23:59 23:59 23:59 Intake Total 1000 920 Output Total 1350 Balance 1000 -430 Meds/Results Medications: Active Medications Generic Name Dose Route Start Last Admin Trade Name Freq PRN Reason Stop Dose Admin Acetaminophen 650 mg 08/14/23 23:00 Acetaminophen 325 Mg Tablet PO Q4H PRN Mild Pain (1-3) or Fever Aspirin 81 mg 08/15/23 09:00 08/15/23 08:54 Aspirin 81
[2023-08-15 14:17] VITALS: BP 109/46; PULSE 93; RESP 18; TEMP 36.9; O2SAT 100
[2023-08-15 20:19] VITALS: BP 117/66; PULSE 94; RESP 16; TEMP 37.2; O2SAT 90
[2023-08-15] MEDS: DULoxetine HCL 30 MG CAPSULE.DR PO (20:24)
[2023-08-16] MEDS: SODIUM CHLORIDE 0.9% IV 1,000 ML 125 ML IV CONT (05:00)
[2023-08-16 05:32] VITALS: BP 104/55; PULSE 91; RESP 20; TEMP 36.9; O2SAT 90
[2023-08-16 05:34] LABS: Basophils Percent Auto 0.2 % (0.2-1.2); Eosinophils Absolute Auto 0.1 K/mm3 (0-0.3); Eosinophils Percent Auto 0.5 % (0-4.4); Hematocrit 37.1 % (37.0-47.0); Hemoglobin 11.5 g/dL (12.0-15.0); Immature Granulocyte Absolute 0.07 K/mm3 (0.00-0.031); Immature Granulocyte Percent A 0.5 % (0-0.5); Lymphocytes Absolute Auto 1.25 K/mm3 (0.9-3.2); Lymphocytes Percent Auto 8.5 % (18.3-44.2); Mean Corpuscular Hemoglobin 32.3 pg (26-34); Mean Corpuscular Volume 104.2 fl (80-100); Monocytes Absolute Auto 0.8 K/mm3 (0.1-0.6); Monocytes Percent Auto 5.3 % (2.6-8.5); Neutrophils Absolute Auto 12.5 K/mm3 (1.3-6.7); Platelet Count Result 210 k/mm3 (150-375); Red Blood Count 3.56 M/mm3 (4.2-5.4); White Blood Count 14.7 K/mm3 (4.5-10.0)
[2023-08-16] MEDS: metroNIDAZOLE 500 MG/ISO 100ML 500 MG/100 ML BAG 100 MG IVPB ×3 (05:35→21:20)
[2023-08-16 05:42] LABS: Anion Gap 3 mmol/L (4-12); Blood Urea Nitrogen 8 mg/dL (7-17); Calcium 8.6 mg/dL (8.4-10.2); Carbon Dioxide 25 mmol/L (22-30); Chloride 111 mmol/L (98-107); Estimated Glomerular Filt Rate > 60; Glucose 109 mg/dL (65-110); Potassium 3.8 mmol/L (3.4-5.0); Sodium 139 mmol/L (137-145)
[2023-08-16] MEDS: ONDANSETRON INJ 4 MG/2 ML VIAL IV PUSH (09:23)
[2023-08-16] MEDS: ENOXAPARIN 40 MG/0.4 ML SYRINGE SUB-Q (09:27)
[2023-08-16 09:37] VITALS: PULSE 97; O2SAT 92
[2023-08-16] MEDS: CHOLECALCIFEROL 1,000 UNITS TABLET 2000 UNITS PO (09:58)
[2023-08-16] MEDS: ASPIRIN 81 MG ENTERIC TABLET PO (09:58)
[2023-08-16] MEDS: LORATADINE 10 MG TABLET PO (09:58)
[2023-08-16] MEDS: FENOFIBRATE NANOCRYSTALLIZED 145 MG TABLET PO (09:58)
[2023-08-16] MEDS: TAMOXIFEN CITRATE (*CHEMO) 10 MG TABLET 20 MG PO (09:58)
[2023-08-16] MEDS: ROSUVASTATIN 5 MG TABLET PO (09:58)
[2023-08-16] MEDS: ACIDOPHILUS/BULGARICUS CHEWABLE TABLET 1 TABLET PO (09:59)
--- NOTE | 2023-08-16 10:54 | PM.IMPN ---
Progress Note: A&P Assessment and Plan (1) Tobacco dependence: Code(s): F17.200 - Nicotine dependence, unspecified, uncomplicated Status: Acute (2) Diverticulitis: Code(s): K57.92 - Diverticulitis of intestine, part unspecified, without perforation or abscess without bleeding Status: Acute (3) Posterior tibial tendinitis of left lower extremity: Code(s): M76.822 - Posterior tibial tendinitis, left leg Status: Acute (4) Schizoaffective disorder: Code(s): F25.9 - Schizoaffective disorder, unspecified Status: Acute (5) Hyperlipidemia: Code(s): E78.5 - Hyperlipidemia, unspecified Status: Acute (6) Diverticulitis: Code(s): K57.92 - Diverticulitis of intestine, part unspecified, without perforation or abscess without bleeding Status: Acute Plan # sigmoid diverticulitis - 4th or 5th episode of diverticulitis - leukocytosis improving - antibiotics: Levaquin, Flagyl 08/14- - will continue supportive care with antibiotics - stopping IV fluids, tolerate p.o. intake - advancing diet - adding Zofran antiemetic # chronic conditions - breast cancer: tamoxifen - hyperlipidemia: Crestor, fenofibrate, aspirin - allergies: Claritin - supplements: May continue home fiber, vitamin-D - depression, schizoaffective disorder: Cymbalta - nicotine dependence: as needed nicotine patch Diet: advanced to full liquid diet DVT prophylaxis: lovenox Code status: full code Disposition: Home in 1-2 days Subjective Date/time seen: 08/16/23 10:54 Interval history: Patient seen and examined. she has some increased nausea will give p.r.n. Zofran. leukocytosis improving, continue IV antibiotics. Advancing had full liquid diet. Stopping IV fluids. Patient denies fever, chills, vomiting, diarrhea, chest pain, shortness of breath. She endorses abdominal discomfort, bloated. Review of Systems Review of Systems: 10 point ROS complete, negative other than what is specified in HPI. Exam Narrative: - GENERAL:? pleasant woman in no acute distress - EYES: EOMI. Anicteric. - HENT: Moist mucous membranes. - LUNGS: Clear to auscultation bilaterally, no wheezing, rhonchi, or rales. - CARDIOVASCULAR: Regular rate and rhythm. No murmur. No JVD. - ABDOMEN: Soft, non-tender, Distended - EXTREMITIES: No edema. Peripheral pulses 2+. Non-tender. - NEUROLOGIC: No focal neurological deficits. CN II-XII grossly intact. - PSYCHIATRIC: Awake, Alert and oriented x 3. Appropriate mood and affect. - SKIN: No rashes or lesions. Warm. - LYMPH: No cervical lymphadenopathy. Objective Data Vital Signs Vital Signs: Vital Signs - 24 hr 08/15/23 14:17 08/15/23 20:19 08/15/23 20:20 Temperature 36.9 C 37.2 C Pulse Rate 93 94 Respiratory Rate 18 16 Blood Pressure 109/46 L 117/66 Pulse Oximetry 100 90 Oxygen Delivery Room Air 08/16/23 05:32 08/16/23 09:37 08/16/23 09:30 Temperature 36.9 C Pulse Rate 91 97 Respiratory Rate 20 Blood Pressure 104/55 L Pulse Oximetry 90 92 Oxygen Delivery Room Air Room Air Intake/Output Intake/Output: Intake & Output 08/13/23 08/14/23 08/15/23 08/16/23 23:59 23:59 23:59 23:59 Intake Total 1000 2660 2015 Output Total 3350 1000 Balance 1000 -690 1015 Meds/Results Medications: Active Medications Generic Name Dose Route Start Last Admin Trade Name Freq PRN Reason Stop Dose Admin Acetaminophen 650 mg 08/14/23 23:00 Acetaminophen 325 Mg Tablet PO Q4H PRN Mild Pain (1-3) or Fever Aspirin 81 mg 08/15/23 09:00 08/16/23 09:58 Aspirin 81 Mg Enteric Tablet PO 81 mg DAILY KENDELL Administration Duloxetine HCl 30 mg 08/15/23 21:00 08/15/23 20:24 Duloxetine Hcl 30 Mg Capsule.Dr PO 30 mg HS KENDELL Administration Enoxaparin Sodium 40 mg 08/16/23 09:00 08/16/23 09:27 Enoxaparin 40 Mg/0.4 Ml Syringe SUB-Q 40 mg DAILY KENDELL Administration Fenofibrate 145 mg
[2023-08-16 14:00] VITALS: BP 127/57; PULSE 100; RESP 16; TEMP 36.8; O2SAT 90
[2023-08-16 19:37] VITALS: BP 136/74; PULSE 119; RESP 18; TEMP 37.2; O2SAT 90
[2023-08-16] MEDS: DULoxetine HCL 30 MG CAPSULE.DR PO (21:19)
[2023-08-16] MEDS: ACETAMINOPHEN 325 MG TABLET 650 MG PO (23:38)
[2023-08-16] MEDS: levoFLOXacin 750 MG/D5W 150 ML 750 MG/150 ML BAG 100 MG IVPB (23:39)
[2023-08-17] VITALS (11 sets, daily range): BP systolic 119–125; BP diastolic 50–63; PULSE 84–101; RESP 18–20; TEMP 36.6–36.9; O2SAT 80–94
[2023-08-17] MEDS: metroNIDAZOLE 500 MG/ISO 100ML 500 MG/100 ML BAG 100 MG IVPB ×3 (06:04→20:54)
[2023-08-17 06:13] LABS: Hematocrit 36.5 % (37.0-47.0); Hemoglobin 11.3 g/dL (12.0-15.0); Mean Corpuscular Hemoglobin 32.4 pg (26-34); Mean Corpuscular Volume 104.6 fl (80-100); Mean Platelet Volume 9.7 fl (7.4-10.4); Platelet Count Result 195 k/mm3 (150-375); Red Blood Count 3.49 M/mm3 (4.2-5.4); Red Cell Distribution Width 15.9 % (11.5-14.5)
[2023-08-17 06:28] LABS: Anion Gap 3 mmol/L (4-12); Blood Urea Nitrogen 6 mg/dL (7-17); Calcium 8.7 mg/dL (8.4-10.2); Carbon Dioxide 27 mmol/L (22-30); Chloride 108 mmol/L (98-107); Estimated Glomerular Filt Rate > 60; Glucose 119 mg/dL (65-110); Potassium 3.6 mmol/L (3.4-5.0); Sodium 138 mmol/L (137-145)
[2023-08-17] MEDS: ENOXAPARIN 40 MG/0.4 ML SYRINGE SUB-Q (08:28)
[2023-08-17] MEDS: TAMOXIFEN CITRATE (*CHEMO) 10 MG TABLET 20 MG PO (08:28)
[2023-08-17] MEDS: ASPIRIN 81 MG ENTERIC TABLET PO (08:28)
[2023-08-17] MEDS: ACIDOPHILUS/BULGARICUS CHEWABLE TABLET 1 TABLET PO (08:29)
[2023-08-17] MEDS: FENOFIBRATE NANOCRYSTALLIZED 145 MG TABLET PO (08:29)
[2023-08-17] MEDS: ROSUVASTATIN 5 MG TABLET PO (08:29)
[2023-08-17] MEDS: CHOLECALCIFEROL 1,000 UNITS TABLET 2000 UNITS PO (08:29)
[2023-08-17] MEDS: LORATADINE 10 MG TABLET PO (08:29)
--- NOTE | 2023-08-17 11:22 | PM.IMPN ---
Progress Note: A&P Assessment and Plan (1) Tobacco dependence: Code(s): F17.200 - Nicotine dependence, unspecified, uncomplicated Status: Acute (2) Diverticulitis: Code(s): K57.92 - Diverticulitis of intestine, part unspecified, without perforation or abscess without bleeding Status: Acute (3) Posterior tibial tendinitis of left lower extremity: Code(s): M76.822 - Posterior tibial tendinitis, left leg Status: Acute (4) Schizoaffective disorder: Code(s): F25.9 - Schizoaffective disorder, unspecified Status: Acute (5) Hyperlipidemia: Code(s): E78.5 - Hyperlipidemia, unspecified Status: Acute (6) Diverticulitis: Code(s): K57.92 - Diverticulitis of intestine, part unspecified, without perforation or abscess without bleeding Status: Acute Plan # sigmoid diverticulitis - 4th or 5th episode of diverticulitis - leukocytosis improving 13k - antibiotics: Levaquin, Flagyl 08/14- - advancing diet to low fiber - adding Zofran antiemetic # chronic conditions - breast cancer: tamoxifen - hyperlipidemia: Crestor, fenofibrate, aspirin - allergies: Claritin - supplements: May continue home fiber, vitamin-D - depression, schizoaffective disorder: Cymbalta - nicotine dependence: as needed nicotine patch Diet: low fiber diet DVT prophylaxis: lovenox Code status: full code Disposition: Home in 1-2 days Subjective Date/time seen: 08/17/23 11:22 Interval history: Patient seen and examined. Had some emesis this morning 2 small bowel movements yesterday and bloating has improved. We will advance to low-fiber diet. continue IV antibiotics and anticipate discharge home tomorrow. Patient denies fever, chills, chest pain, shortness are breath , abdominal pain. She endorses nausea and vomiting. Review of Systems Review of Systems: 10 point ROS complete, negative other than what is specified in HPI. Exam Narrative: - GENERAL:? pleasant woman in no acute distress - EYES: EOMI. Anicteric. - HENT: Moist mucous membranes. - LUNGS: Clear to auscultation bilaterally, no wheezing, rhonchi, or rales. - CARDIOVASCULAR: Regular rate and rhythm. No murmur. No JVD. - ABDOMEN: Soft, non-tender, no longer distended - EXTREMITIES: No edema. Peripheral pulses 2+. Non-tender. - NEUROLOGIC: No focal neurological deficits. CN II-XII grossly intact. - PSYCHIATRIC: Awake, Alert and oriented x 3. Appropriate mood and affect. - SKIN: No rashes or lesions. Warm. - LYMPH: No cervical lymphadenopathy. Objective Data Vital Signs Vital Signs: Vital Signs - 24 hr 08/16/23 14:00 08/16/23 19:37 08/16/23 21:15 Temperature 36.8 C 37.2 C Pulse Rate 100 119 H Respiratory Rate 16 18 Blood Pressure 127/57 L 136/74 Pulse Oximetry 90 90 Oxygen Delivery Room Air 08/17/23 04:53 Temperature 36.6 C Pulse Rate 101 H Respiratory Rate 18 Blood Pressure 121/50 L Pulse Oximetry 90 Oxygen Delivery Intake/Output Intake/Output: Intake & Output 08/14/23 08/15/23 08/16/23 08/17/23 23:59 23:59 23:59 23:59 Intake Total 1000 2660 2705 790 Output Total 3350 2750 500 Balance 1000 -690 -45 290 Meds/Results Medications: Active Medications Generic Name Dose Route Start Last Admin Trade Name Freq PRN Reason Stop Dose Admin Acetaminophen 650 mg 08/14/23 23:00 08/16/23 23:38 Acetaminophen 325 Mg Tablet PO 650 mg Q4H PRN Administration Mild Pain (1-3) or Fever Aspirin 81 mg 08/15/23 09:00 08/17/23 08:28 Aspirin 81 Mg Enteric Tablet PO 81 mg DAILY KENDELL Administration Duloxetine HCl 30 mg 08/15/23 21:00 08/16/23 21:19 Duloxetine Hcl 30 Mg Capsule.Dr PO 30 mg HS KENDELL Administration Enoxaparin Sodium 40 mg 08/16/23 09:00 08/17/23 08:28 Enoxaparin 40 Mg/0.4 Ml Syringe SUB-Q 40 mg DAILY KENDELL Administration Fenofibrate 145 mg 08/15/23 09:00 08/17/23 08:29 Fenofibrate Nanocrystallized 145 Mg Tablet PO 09/13
[2023-08-17] MEDS: IPRATROPIUM 0.5 MG/ALBUTEROL SULFATE 2.5 MG AMPUL.NEB 3 ML INHALATION ×2 (15:03→19:56)
[2023-08-17] MEDS: ACETAMINOPHEN 325 MG TABLET 650 MG PO (20:52)
[2023-08-17] MEDS: DULoxetine HCL 30 MG CAPSULE.DR PO (20:53)
[2023-08-18] VITALS (8 sets, daily range): BP systolic 126; BP diastolic 76; PULSE 80–120; RESP 18–20; TEMP 36.6; O2SAT 85–92
[2023-08-18] MEDS: levoFLOXacin 750 MG/D5W 150 ML 750 MG/150 ML BAG 100 MG IVPB (00:51)
[2023-08-18] MEDS: IPRATROPIUM 0.5 MG/ALBUTEROL SULFATE 2.5 MG AMPUL.NEB 3 ML INHALATION ×2 (02:12→07:39)
[2023-08-18 05:45] LABS: Hematocrit 34.4 % (37.0-47.0); Hemoglobin 10.9 g/dL (12.0-15.0); Mean Corpuscular HGB Conc 31.7 g/dl (32-36); Mean Corpuscular Hemoglobin 32.7 pg (26-34); Mean Corpuscular Volume 103.3 fl (80-100); Mean Platelet Volume 9.7 fl (7.4-10.4); Platelet Count Result 187 k/mm3 (150-375); Red Blood Count 3.33 M/mm3 (4.2-5.4); Red Cell Distribution Width 15.8 % (11.5-14.5); White Blood Count 11.3 K/mm3 (4.5-10.0)
[2023-08-18 05:51] LABS: Anion Gap 1 mmol/L (4-12); Blood Urea Nitrogen 9 mg/dL (7-17); Calcium 8.3 mg/dL (8.4-10.2); Carbon Dioxide 30 mmol/L (22-30); Chloride 106 mmol/L (98-107); Estimated Glomerular Filt Rate > 60; Glucose 113 mg/dL (65-110); Potassium 3.5 mmol/L (3.4-5.0); Sodium 137 mmol/L (137-145)
[2023-08-18] MEDS: FENOFIBRATE NANOCRYSTALLIZED 145 MG TABLET PO (08:59)
[2023-08-18] MEDS: ROSUVASTATIN 5 MG TABLET PO (08:59)
[2023-08-18] MEDS: CHOLECALCIFEROL 1,000 UNITS TABLET 2000 UNITS PO (08:59)
[2023-08-18] MEDS: LORATADINE 10 MG TABLET PO (08:59)
[2023-08-18] MEDS: ACIDOPHILUS/BULGARICUS CHEWABLE TABLET 1 TABLET PO (08:59)
[2023-08-18] MEDS: ASPIRIN 81 MG ENTERIC TABLET PO (08:59)
[2023-08-18] MEDS: metroNIDAZOLE 500 MG TABLET PO ×2 (09:00→13:21)
[2023-08-18] MEDS: TAMOXIFEN CITRATE (*CHEMO) 10 MG TABLET 20 MG PO (09:00)
[2023-08-18] MEDS: ENOXAPARIN 40 MG/0.4 ML SYRINGE SUB-Q (09:00)
--- NOTE | 2023-08-18 11:31 | HOMEO2EVAL ---
Evaluation was performed at [facility] Home Oxygen Evaluation RC: Home Oxygen (O2) Evaluation Start: 08/18/23 09:18 Freq: ONCE Status: Active Protocol: RPE Activity Type Activity Date Activity User E-sign Co-sign Detail Recorded Client Recorded Date Recorded By Document 08/18/23 11:00 GORDON [email or web address] 08/18/23 11:31 GORDON Document 08/18/23 11:05 GORDON [email or web address] 08/18/23 11:31 GORDON Document 08/18/23 11:15 GORDON [email or web address] 08/18/23 11:31 GORDON 08/18/23 08/18/23 08/18/23 11:00 11:05 11:15 Home O2 Evaluation [Oxygen] -Test Phase Resting Exercise Resting -Oxygen Delivery Room Air Room Air Room Air [Pulse Oximetry] -Pulse Oximetry (90-100 %) 88 L 85 L 87 L [Pulse Rate] -Pulse Rate (60-100 beats/min) 82 120 H 93 [Comments] -Home Oxygen Evaluation Comments pt requires 2 l home o2 but has refused.
--- NOTE | 2023-08-18 11:32 | PCRCNOTE ---
Home O2 eval completed. Pt requires 2 l rest and activity. Pt will not take home o2. Also, she doesn't have a qualifying diagnosis that will allow insurance to pay for her to use home O2. Either way, she will not take it. RN aware.
--- NOTE | 2023-08-18 12:51 | PM.DS ---
DS: Admitting Diagnosis Discharge Date 08/18/23 Admitting Diagnosis Diverticulitis DS: Discharge Diagnosis Discharge Diagnosis (1) Tobacco dependence: Code(s): F17.200 - Nicotine dependence, unspecified, uncomplicated Status: Acute (2) Diverticulitis: Code(s): K57.92 - Diverticulitis of intestine, part unspecified, without perforation or abscess without bleeding Status: Acute (3) Posterior tibial tendinitis of left lower extremity: Code(s): M76.822 - Posterior tibial tendinitis, left leg Status: Acute (4) Schizoaffective disorder: Code(s): F25.9 - Schizoaffective disorder, unspecified Status: Acute (5) Hyperlipidemia: Code(s): E78.5 - Hyperlipidemia, unspecified Status: Acute (6) Diverticulitis: Code(s): K57.92 - Diverticulitis of intestine, part unspecified, without perforation or abscess without bleeding Status: Acute (7) Malignant neoplasm of upper-inner quadrant of right female breast: Code(s): C50.211 - Malignant neoplasm of upper-inner quadrant of right female breast Status: Acute (8) Obesity: Code(s): E66.9 - Obesity, unspecified Status: Acute (9) COPD (chronic obstructive pulmonary disease): Code(s): J44.9 - Chronic obstructive pulmonary disease, unspecified Status: Acute DS: Summary Hospital Course Reason for hospitalization: diverticulitis Hospital Course: Patient is a 73-year-old female with past medical history of breast cancer, hyperlipidemia, allergies, depression/schizoaffective disorder, nicotine dependence who presents the ED on 08/14/2023 with abdominal pain. Patient was found to have sigmoid diverticulitis. This is her 4th or 5th episode. She was treated with IV Levaquin and Flagyl with normalization her leukocytosis after 3 days of antibiotics. Patient will be given another 10 days of p.o. Levaquin and Flagyl to complete 2 week antibiotic course. Her diet has been advanced to a low fiber which she is tolerating. During hospitalization she also developed wheezing and some hypoxia requiring 2 L of oxygen continuously. Patient had a home O2 eval requiring 2 L oxygen at rest and with activity to keep O2 saturation greater 90%. Patient refuses oxygen. She has been educated on the importance of having supplemental oxygen, despite our efforts she continues to refuse home O2. Patient likely has COPD and would need PFTs in the future. I am prescribing a rescue inhaler for dyspnea and a short course 5 days prednisone 40 mg for likely COPD exacerbation. At time of discharge patient's labs are stable, vitals stable, patient is stable for discharge home. Patient follow-up PCP in 1 week. She understands and agrees with plan. Status at Discharge Cognitive/behavioral status at discharge: stable Time Spent with Patient Time attestation: Total time spent providing and/or coordinating discharge services: 40 minutes Exam Narrative: - GENERAL:? pleasant woman in no acute distress - EYES: EOMI. Anicteric. - HENT: Moist mucous membranes. - LUNGS: Expiratory wheezing in all lung leonard - CARDIOVASCULAR: Regular rate and rhythm. No murmur. No JVD. - ABDOMEN: Soft, non-tender, no longer distended - EXTREMITIES: No edema. Peripheral pulses 2+. Non-tender. - NEUROLOGIC: No focal neurological deficits. CN II-XII grossly intact. - PSYCHIATRIC: Awake, Alert and oriented x 3. Appropriate mood and affect. - SKIN: No rashes or lesions. Warm. - LYMPH: No cervical lymphadenopathy. DS: Data Data Completed and Pending Labs on day of discharge: Labs from last 24 hours 08/18/23 05:17 WBC 11.3 H RBC 3.33 L Hgb 10.9 L Hct 34.4 L MCV 103.3 H MCH 32.7 MCHC 31.7 L RDW 15.8 H Plt Count 187 MPV 9.7 Sodium 137 Potassium 3.5 Chloride 106 Carbon Dioxide 30 Anion Gap 1 L BUN 9 Creatinine 0.50 L Estim Creat Clear Calc Not Reportable Estimated GFR > 60 Glucose 113 H Calcium 8.3 L
[2023-08-18] MEDS: predniSONE 20 MG TABLET 40 MG PO (13:21)
== END 2023-08-18 14:16 | disposition home or self-care (01) | DRG 392 ==
LOC: ANHED 22:59 → ANH3MED 08-15 00:19
PROVIDERS: Admitting Provider Internal Medicine; Emergency Provider Emergency Medicine; PCP Internal Medicine; Visit Provider Student in an Organized Health Care Education/Training Program
DX: K57.32 Diverticulitis of large intestine without perforation or abscess without bleeding (principal); E78.5 Hyperlipidemia, unspecified; E66.9 Obesity, unspecified; F17.210 Nicotine dependence, cigarettes, uncomplicated; F25.9 Schizoaffective disorder, unspecified; J44.9 Chronic obstructive pulmonary disease, unspecified; Z79.82 Long term (current) use of aspirin; Z85.3 Personal history of malignant neoplasm of breast; Z68.38 Body mass index [BMI] 38.0-38.9, adult
CPT/HCPCS: 36415; 74177; 80048; 80053; 81001; 83690; 85025; 85027; 94640; 96361; 96365; 96366; 96367; 96372; 96375; 96376; 99285; A9270; G0378; J1170; J1650; J1836; J1956; J2405; J7030; J7512; Q9967

== ENCOUNTER 2024-04-25 09:32 | Outpatient (CLI) | payer MEDICARE, SELFPAY ==
--- NOTE | ~2024-04-25 | MM_ITS ---
EXAMINATION: MM diagnostic papito BI w brenda HISTORY: Malignant neoplasm of the right breast status post lumpectomy and radiation. TECHNIQUE: Additional 3-D tomosynthesis images of the breasts were performed and synthetic 2-D images were generated. CAD analysis was submitted and interpreted. COMPARISON: Comparison to multiple prior studies sequentially, with oldest reviewed study dated 09/14. BREAST PARENCHYMAL COMPOSITION: Not dense: There are scattered areas of fibroglandular density. FINDINGS: There is architectural distortion in the upper central aspect of the right breast posterior ly consistent with previous lumpectomy site. There are no new masses, calcifications or architectural distortion in either breast to suggest malignancy. IMPRESSION: 1. Stable mammogram without evidence for malignancy. 2. Routine yearly screening mammogram and regular clinical breast examination are recommended. BI-RADS Category 2: Benign finding(s). Reviewed, dictated and finalized at location [facility]. [facility] [employer] OPERATOR IMPRESSION: 1. Stable mammogram without evidence for malignancy. 2. Routine yearly screening mammogram and regular clinical breast examination a re recommended. BI-RADS Category 2: Benign finding(s).
== END 2024-04-25 09:33 | disposition home or self-care (01) ==
LOC: ANHIMG 09:34
PROVIDERS: PCP Internal Medicine; Visit Provider Radiology Radiation Oncology
DX: C50.211 Malignant neoplasm of upper-inner quadrant of right female breast (principal)
CPT/HCPCS: 77062; 77066; G0279

== ENCOUNTER 2024-05-27 12:39 | Emergency (ER) | payer MEDICARE, SELFPAY ==
--- NOTE | ~2024-05-27 | CT_ITS ---
EXAMINATION: CT abdomen pelvis w con DATE: 05/27/2024 14:14 INDICATION: Abdominal pain. TECHNIQUE: Computed tomography (CT) of the abdomen and pelvis was performed with 100 mL Omnipaque 350 intravenous contrast. Automated exposure control and iterative reconstruction technique were employe d. The dose-length product was 1094.02 mGy-cm. COMPARISON: CT abdomen and pelvis 08/14/2023, 04/12/2023 FINDINGS: The visualized portions of the lung bases demonstrate mild atelectasis. No pleural effusion . The heart size is normal. There is a trace pericardial effusion. There are cysts in the liver measu ring up to 10 mm. There is a gallstone in the gallbladder, which is normal in size. The spleen and pa ncreas are normal. There is chronic thickening of the adrenal glands, likely benign. There are cysts in the kidneys measuring up to 15 mm on the right. There is an 11 mm hemorrhagic cyst in left kidney. There are 6 mm, 3 mm, and 2 mm stones in right kidney. There are 4 stones measuring up to 3 mm in le ft kidney. There are scattered diverticula in the colon. There is wall thickening of the sigmoid colo n with surrounding fat stranding. There are no dilated loops of bowel. The appendix is normal. There are no pathologically enlarged lymph nodes. There is no free intraperitoneal fluid. There is moderate thoracic spondylosis and mild lumbar spondylosis. IMPRESSION: 1. Sigmoid diverticulitis. No perforation or abscess. Reviewed, dictated and finalized at location B. OR C DEVELOPER
[2024-05-27 12:52] VITALS: BP 108/71; PULSE 103; RESP 15; TEMP 37.7; O2SAT 92
--- NOTE | 2024-05-27 13:32 | PC.NURSE ---
pt attempted to provide urine sample but was unable to go
[2024-05-27 13:50] LABS: Alanine Aminotransferase 12 U/L (6-35); Albumin Level 3.6 g/dL (3.5-5.1); Alkaline Phosphatase 61 U/L (38-126); Anion Gap 7 mmol/L (4-12); Aspartate Amino Transferase 17 U/L (14-36); Bilirubin,Total 0.6 mg/dL (0.2-1.3); Blood Urea Nitrogen 15 mg/dL (7-17); Calcium 9.3 mg/dL (8.4-10.2); Carbon Dioxide 29 mmol/L (22-30); Chloride 102 mmol/L (98-107); Estimated CRCL calculation 67 ml/min; Estimated Glomerular Filt Rate > 60; Glucose 103 mg/dL (65-110); Lipase 50 U/L (23-300); Sodium 138 mmol/L (137-145)
[2024-05-27 13:54] LABS: Basophils Percent Auto 0.3 % (0.2-1.2); Eosinophils Absolute Auto 0.1 K/mm3 (0-0.3); Eosinophils Percent Auto 0.5 % (0-4.4); Hemoglobin 13.3 g/dL (12.0-15.0); Immature Granulocyte Absolute 0.04 K/mm3 (0.00-0.031); Immature Granulocyte Percent A 0.3 % (0-0.5); Lymphocytes Absolute Auto 1.46 K/mm3 (0.9-3.2); Lymphocytes Percent Auto 11.6 % (18.3-44.2); Mean Corpuscular HGB Conc 32.4 g/dl (32-36); Mean Corpuscular Hemoglobin 32.7 pg (26-34); Mean Corpuscular Volume 100.7 fl (80-100); Mean Platelet Volume 9.7 fl (7.4-10.4); Monocytes Absolute Auto 0.8 K/mm3 (0.1-0.6); Monocytes Percent Auto 6.7 % (2.6-8.5); Neutrophils Absolute Auto 10.1 K/mm3 (1.3-6.7); Neutrophils Percent Auto 80.6 % (45.5-73.1); Platelet Count Result 256 k/mm3 (150-375); Red Blood Count 4.07 M/mm3 (4.2-5.4); White Blood Count 12.6 K/mm3 (4.5-10.0)
[2024-05-27 14:49] LABS: Add Urine Microscopic? YES; Appearance Urine Clear (Clear); Bacteria Urine 1+ /hpf; Bilirubin Urine Negative (Negative); Blood Urine Negative (Negative); Color Urine Yellow (Yellow); Glucose Urine UA Negative (Negative); Ketones Urine Negative (Negative); Leukocyte Esterase Ur Negative LEU/UL (Negative); Nitrate Urine Negative (Negative); Protein Urine Trace mg/dL (Negative); Specific Grav Ur > 1.045 (1.001-1.035); Squamous Epithelial Cell Urine Moderate /hpf (Few); Urobilinogen Urine 0.2 mg/dL (<2.0); WBC Urine 0-5 /hpf (0-3); pH Urine 6.5 (5.0-9.0)
[2024-05-27 14:51] VITALS: BP 108/76; PULSE 92; RESP 16; TEMP 36.4; O2SAT 96
--- NOTE | 2024-05-27 15:18 | ED.GENADULT ---
HPI - General Adult General Chief complaint: Abdominal Pain Stated complaint: abdominal pain, hx diverticulitis Time Seen by Provider: 05/27/24 13:25 History of Present Illness HPI narrative: Patient is a 72-year-old female presents emergency department with chief complaint of abdominal pain and cramping. The patient reports she has prior history of diverticulitis reports that her pain feels similar to whenever she has had diverticulitis in the past. Patient reports no blood in her stool Related Data Home Medications ?Medication ?Instructions ?Recorded ?Confirmed ?Last Taken ?Type aripiprazole 300 mg suspension, 300 mg IM Q28D 03/01/22 12/05/23 08/03/23 History extended rel. intramuscular syringe (Suzy Delarosa) cetirizine 10 mg tablet 10 mg PO DAILY 03/01/22 12/05/23 1 Day Ago History ~08/14/23 duloxetine 30 mg capsule,delayed 30 mg PO HS 03/01/22 12/05/23 1 Day Ago History release (Cymbalta) ~08/14/23 aspirin 81 mg tablet,delayed 81 mg PO DAILY 05/12/22 12/05/23 1 Day Ago History release (Adult Low Dose Aspirin) ~08/14/23 puvuhcufchuc-qexafowa-prqkne tablet 1 tablet PO DAILY 07/27/22 12/05/23 1 Day Ago History ~08/14/23 rosuvastatin 5 mg tablet (Crestor) 5 mg PO DAILY 07/27/22 12/05/23 1 Day Ago History ~08/14/23 tamoxifen 20 mg tablet 20 mg PO DAILY 08/04/22 12/05/23 1 Day Ago History ~08/14/23 cholecalciferol (vitamin D3) 50 50 mcg PO DAILY 01/10/23 12/05/23 1 Day Ago History mcg (2,000 unit) capsule ~08/14/23 Lactobacillus acidophilus 10 mg PO DAILY 09/27/23 12/05/23 Unknown History (Acidophilus capsule) inulin 2 gram chewable tablet g PO 09/27/23 12/05/23 Unknown History (Fiber Gummies) Allergies Allergy/AdvReac Type Severity Reaction Status Date / Time niacin AdvReac Rash, Verified 05/27/24 12:54 BURNING SENSATION Review of Systems Review of Systems: A 10 system review of systems was completed on the patient and is negative except for what is stated in the HPI. Nursing and ancillary documentation was reviewed. [facility] Past Medical History Medical History Cataract Breast cancer Obesity Hyperlipidemia Schizoaffective disorder Surgical History Surgical History History of tubal ligation S/P lumpectomy of breast Family History Family History Grandparent No problems noted. Mother Carcinoma of colon Social History Social History Smoking packs per day: 2.5 Smoking cigarettes per day: 50.0 Years smoked: 50 Smoking pack-years: 125.00 Smoking status: Former smoker Smoking end date: 08/18/23 Alcohol intake: current Alcohol use details: occasionally Substance use type: does not use Do You Feel Safe in your Home?: Yes Lack of Transportation: No Lack of Food: Never True Current Housing: I Have Housing Concerned About Future Housing: No Difficulty Paying Gas/Electric Bills: No Difficulty Paying for Meds: No Currently Unemployed: No Education: High School Diploma/GED Difficulty w/ Childcare or Family Care: No Living arrangements: with family Additional living arrangements comments: DAUGHTER AND MYLES Occupation/Education: retired Gender identity (if verbalized by the patient): Female Spiritual care concerns: No Exam Narrative: GENERAL: Well-appearing, well-nourished, and in no acute distress. HEAD: Normocephalic, atraumatic. EYES: PERRLA and EOMI. ENT: Nares clear, no rhinorrhea or epistaxis. Mucous membranes moist. NECK: Supple. CHEST: Clear to auscultation. No respiratory distress. HEART: Regular rate and rhythm. No murmur heard. Normal peripheral pulses. ABDOMEN: Soft, nontender, nondistended, normal active bowel sounds. EXTREMITIES: Normal range of motion. No edema. SKIN: Warm, dry, no rash. NEURO: No focal deficits. Alert and oriented x3. PSYCH: Normal mood and affect. Course Vital Signs Vital signs: Vital Signs Temperature 37.7 C H 05/27/24 12:52 Pulse Rate 103 H 05/27/24 12:52 Respiratory Rate 15 05/27/24 12:52 Blood Pressure 108/71 05/27/24 12:52 Pulse Oximetry 92 05/27/24 12:52 Oxygen Delivery Room Air 05/27/24 12:52 Temperature 36.4 C L 05/27/24 14:51 Pulse Rate 92 05/27/24 14:51 Respiratory Rate 16 05/27/24 14:51 Blood Pressure 108/76 05/27/24 14:51 Pulse Oximetry 96 05/27/24 14:51 Oxygen Delivery Room Air 05/27/24 12:52 Medical Decision Making MDM Narrative Medical decision making narrative: Differential diagnosis includes diverticulitis, colitis, intra-abdominal infection, abscess CT scan showed uncomplicated diverticulitis. Patient discharged home on Cipro and Flagyl Vital Signs Vital Signs: Vital Signs Temperature 37.7 C H 05/27/24 12:52 Pulse Rate 103 H 05/27/24 12:52 Respiratory Rate 15 05/27/24 12:52 Blood Pressure 108/71 05/27/24 12:52 Pulse Oximetry 92 05/27/24 12:52 Oxygen Delivery Room Air 05/27/24 12:52 Temperature 36.4 C L 05/27/24 14:51 Pulse Rate 92 05/27/24 14:51 Respiratory Rate 16 05/27/24 14:51 Blood Pressure 108/76 05/27/24 14:51 Pulse Oximetry 96 05/27/24 14:51 Oxygen Delivery Room Air 05/27/24 12:52 Lab Data 05/27/24 13:49 05/27/24 13:26 Labs: Lab Results 05/27/24 05/27/24 05/27/24 Range/Units 13:26 13:49 14:39 WBC 12.6 H (4.5-10.0) K/mm3 RBC 4.07 L (4.2-5.4) M/mm3 Hgb 13.3 (12.0-15.0) g/dL Hct 41.0 (37.0-47.0) % MCV 100.7 H (80-100) fl MCH 32.7 (26-34) pg MCHC 32.4 (32-36) g/dl RDW 14.0 (11.5-14.5) % Plt Count 256 (150-375) k/mm3 MPV 9.7 (7.4-10.4) fl Immature Gran % (Auto) 0.3 (0-0.5) % Neut % (Auto) 80.6 H (45.5-73.1) % Lymph % (Auto) 11.6 L (18.3-44.2) % [place] % (Auto) 6.7 (2.6-8.5) % Eos % (Auto) 0.5 (0-4.4) % Baso % (Auto) 0.3 (0.2-1.2) % Lymph # (Auto) 1.46 (0.9-3.2) K/mm3 [place] # (Auto) 0.8 H (0.1-0.6) K/mm3 Eos # (Auto) 0.1 (0-0.3) K/mm3 Baso # (Auto) 0.0 (0.0-0.1) K/mm3 Abs Immat Gran (auto) 0.04 H (0.00-0.031) K/mm3 Absolute Neuts (auto) 10.1 H (1.3-6.7) K/mm3 Absolute Nucleated RBC 0.000 (0.0-0.012) K/mm3 Nucleated RBC % 0.0 (0.0-0.2) % Sodium 138 (137-145) mmol/L Potassium 4.0 (3.4-5.0) mmol/L Chloride 102 (98-107) mmol/L Carbon Dioxide 29 (22-30) mmol/L Anion Gap 7 (4-12) mmol/L BUN 15 D (7-17) mg/dL Creatinine 0.70 (0.7-1.0) mg/dL Estim Creat Clear Calc 67 ml/min Estimated GFR > 60 (59 - ) Glucose 103 (65-110) mg/dL Calcium 9.3 (8.4-10.2) mg/dL Total Bilirubin 0.6 (0.2-1.3) mg/dL AST 17 (14-36) U/L ALT 12 (6-35) U/L Alkaline Phosphatase 61 (38-126) U/L Total Protein 7.0 (6.3-8.2) g/dL Albumin 3.6 (3.5-5.1) g/dL Lipase 50 (23-300) U/L Urine Color Yellow (Yellow) Urine Appearance Clear (Clear) Urine pH 6.5 (5.0-9.0) Ur Specific [place] > 1.045 H (1.001-1.035) Urine Protein Trace (Negative) mg/dL Urine Glucose (UA) Negative (Negative) mg/dL Urine Ketones Negative (Negative) mg/dL Ur Blood (Man) Negative (Negative) Urine Nitrate Negative (Negative) Urine Bilirubin Negative (Negative) Urine Urobilinogen 0.2 (<2.0) mg/dL Leukocyte Esterase Rfl Negative (Negative) [place]/UL Urine RBC 3-5 H (0-2) /hpf Urine WBC 0-5 (0-3) /hpf Ur Squamous Epith Cells Moderate (Few) /hpf Urine Bacteria 1+ H /hpf Urine Casts 3-5 Discharge Plan Discharge Clinical Impression: Diverticulitis Patient Disposition: Home, Self-Care Condition: Stable Instructions: Antibiotic Form, Diverticulitis (ED), Abdominal Pain (ED) Patient Language: Belarusian Prescriptions: New ciprofloxacin HCl 500 mg tablet 500 mg PO Q12H 10 Days Qty: 20 0RF metronidazole 500 mg tablet 500 mg PO Q8H 10 Days Qty: 30 0RF No Action cetirizine 10 mg Tablet 10 mg PO DAILY duloxetine [Cymbalta] 30 mg Capsule,Delayed Release(Dr/Ec) 30 mg PO HS Abilify Maintena 300 mg Suspension,Extended Rel Syring 300 mg IM Q28D aspirin [Adult Low Dose Aspirin] 81 mg Tablet,Delayed Release (Dr/Ec) 81 mg PO DAILY tamoxifen 20 mg Tablet 20 mg PO DAILY Acidophilus Capsule 10 mg PO DAILY Fiber Gummies 2 gram tablet,chewable PO cholecalciferol (vitamin D3) 50 mcg (2,000 unit) Capsule 50 mcg PO DAILY wizhdwnniwjt-tnyubqpu-wtchdb Tablet 1 tablet PO DAILY rosuvastatin [Crestor] 5 mg Tablet 5 mg PO DAILY Follow-up/Referrals: Alexys,MD Asmita [Primary Care Provider] - Time of Disposition: 15:24
[2024-05-27 15:55] VITALS: BP 111/80; PULSE 90; RESP 14; O2SAT 97
--- OUTSIDE RECORDS SUMMARY | 2024-05-30 13:37 | XMS_ITS ---
Author Organization [facility] Address [address] [place] [address] Care Team Providers Care Line Supervisor Name Role Phone Alexys HOWARD, Asmita Primary Care Provider Un available Uvaldo Medina Unavailable [phone] REASON FOR VISIT schizoaffective Medications Medication SIG (Take, Route, Frequency, Duration) Notes Start Date End Date Status Vitamin D Active Rosuvastatin Calcium 5 MG Oral 09/04/2023 Active Aspirin Adult Low Strength 81 MG Oral 09/04/2023 Active Tamoxifen Citrate 20 MG Oral 09/04/2023 Active Cetirizine HCl 10 MG Oral 09/04/2023 Active Abilify Maintena 300 MG INJECT INTRAMUSC ULARLY EVERY MONTH IM q month Active predniSONE 10 MG Oral 09/04/2023 No t-Taking Acidophilus Active DULoxetine HCl 30 MG TAKE 1 CAPSULE BY M OUTH DAILY Active Social History Sex Assigned At : Social History Observation Description Sex Assigned At Female Problems Problem Type SNOMED Code ICD Code Onset Dates Problem Status W/U Status Risk Notes Problem Akathisia caused by drug (disorder) (223782858) 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) Active confirmed Encounters Encounter Location Date Provider Diagnosis [facility] [address] [place] [address] 02/29/2024 Uvaldo Medina Schizoaffective disorder, bipolar type F25.0 and Drug induced akathisia G25.71 Assessments Encounter Date Diagnosis (ICD Code) Assessment Notes Treatment Notes Treatment Clinical Notes Section Notes 02/29/2024 Schizoaffective disorder, bipolar type (ICD-10 - F25.0) 02/29/2024 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) Plan Of Treatment Medication Medication Name Sig Start Date Stop Date Notes Abilify Maintena 300 MG INJECT INTRAMUSC ULARLY EVERY MONTH IM q month DULoxetine HCl 30 MG TAKE 1 CAPSULE BY MOUTH DAILY Next Appt Details Follow Up: 3 Months, Reason: schizoaffective d/o Provider Name:Uvaldo Medina , 06/20/2024 10:30:00 AM, [address], [facility] [address], [place], [address], Progress Notes * DEE DEE DICKEY MDOB:1950 ( 73 yo F)Acc No.[id number]:02/29/2024 Patient:?DEE DEE DICKEY M Provider:?UVALDO MEDINA MD :1950???Age:73 Y???Sex:Female D ate:02/29/2024 Address:[address] [place] [address] , [id number] Pcp:Asmita Reardon MD Subjective: * Chief Complaints: * ???1. Schizoaffective. * HPI: ???History of Presenting Problem:? has been doing really well, very stable on monthly Abilify injections hysterectomy scheduled for 06/26/23 knee surgery not scheduled yet, but will be sometime after August stopped smoking in August 2023. * Medical History:? * Medications:?Taking Acidophi maged , Taking Vitamin D , Taking Tamoxifen Citrate 20 MG Tablet Oral , Taking Cetirizine HCl 10 MG Tablet Oral , Taking Rosuvastatin Calcium 5 MG Tablet Oral , Taking Aspirin Adult Low Strength 81 MG Tablet Delayed Release Oral , Taking Abilify Maintena 300 mg Suspension Reconstituted ER INJECT INTRAMUSCULARLY EVERY MONTH IM q month , Taking DULoxetine HCl 30 MG Capsule Delayed Release Particles TAKE 1 CAPSULE BY MOUTH DAILY , Not-Taking predniSONE 10 MG Tablet Oral Objective: * Vitals:? * Examination: ???Psychiatry: ?Appearance:?well-groomed, , appears stated age.?Affect / mood:?appropriate, full range.?Attention:?good.?Attitude:?cooperative.?Suicidal ideation:?none.?Memory status:?no impairment noted.?Degree of awareness of surroundings:?within normal limits.?Delusions:?no.?Hallucinations:?no.?Insight:?good.?Intellectual functioning:?no impairment noted.?Judgement:?good.?Orientation:?awake, alert and oriented x 3.?Perceptual disorders:?no perceptual disorder noted.?Psychomotor activity:?within normal range.?Speech / language:?appropriate pitch/modulation, clear and coherent, normal rate, volume, and articulation (RVR), proper grammar used.?Thought content:?appropriate.?Thought process:?intact.? 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 Plan: * Treatment: * Follow Up:?3 Months (Reason: schizoaffective d/o) * Billing Information: * Visit Code:? 23262 OFFICE OUTPATIENT VISIT 15 MINUTES EXPANDED HISTORY AND EXAM/LOW MEDICAL DECISION MAKING. * Procedure Codes:? * Sign off status: Completed true * Provider:?UVALDO MEDINA MD Date:? 024 Generated for Conner razo/Lon/Frank on:?05/30/2024 01:37 PM MICROBIOLOGY DIRECTOR History and Physical Notes * HPI (History of Present Illness) Category Sub-Category Detail Notes Category Not es History of Presenting Problem has been doing really well, very stable on monthly Abilify injections hysterectomy scheduled for 06/26/23 knee surgery not scheduled yet, but will be sometime after August stopped smoking in August 2023 Examination Category Sub-Category Detail Notes Category Not es Psychiatry Appearance: well-groomed, , appears stat ed age Attitude: cooperative Psychomotor activity: within normal rang e Attention: good Degree of awareness of surroundings: wit hin normal limits Orientation: awake, alert and pamela ented x 3 Affect / mood: appropriate, full ra nge Speech / language: appropriate pitch/mo dulation, clear and coherent, normal rate, volume, and articulation (RVR), proper grammar used Insight: good Judgement: good Thought process: intact Thought content: appropriate Perceptual disorders: no perceptual diso rder noted Suicidal ideation: none Intellectual functioning: no impairment noted Memory status: no impairment noted Delusions: no Hallucinations: no
--- OUTSIDE RECORDS SUMMARY | 2024-05-30 13:37 | XMS_ITS | Patient Health Summary ---
Author Organization [facility] Address [address] [place] [address] Care Team Providers Care Manager Plant Name Role Phone Asmita Reardon MD Primary Care Provider Note from [facility],non-owned Affiliates and Associated Physician Practices is amultiple site organization consisting of ambulatory clinics and hospital sitesin [place], [place], [place]. This disclosure is being madepursuant to the Care Everywhere program and may not contain all information available regarding this patient. Last updated 18.[facility] Allergies * Niacin(Psychiatric,Urticaria) -Medium Criticality Medications * Be aware that medications may not be up to date on this document. Alwaysverify current medications with the patient. * Abilify Maintena 300 MG injection INJECT INTRAMUSCULARLY EVERY MONTH for 30 * aspirin EC (Ecotrin) 81 MG tablet(Started 09/04/2023) Oral * tamoxifen (Nolvadex) 20 MG tablet(Started 09/04/2023) Oral * rosuvastatin (Crestor) 5 MG tablet Take 1 (one) tablet by mouth once daily * DULoxetine (Cymbalta) 30 MG capsule Take 1 (one) capsule by mouth once daily * trospium (Sanctura) 20 MG tablet(Started 01/22/2024) Take 1 (one) tablet by mouth at bedtime 2 refills by 01/21/2025 Active Problems No known active problems Social History Tobacco Use Types Packs/Day Years Used Date Smoking Tobacco: Former Cigarettes Q uit: 08/18/2023 Smokeless Tobacco: Never Tobacco Cessation:Counseling Given: Not Answered Alcohol Use Standard Drinks/Week Comments Not Currently 0 (1 standard drink = 0.6 oz pur e alcohol) Sex and Gender Information Value Date Recorded Sex Assigned at Not on file Gender Identity Not on file Sexual Orientation Not on file Last Filed Vital Signs Vital Sign Reading Time Taken Comments Blood Pressure 134/76 05/09/2024 1:52 PM [employer] Pulse - - Temperature - - Respiratory Rate - - Oxygen Saturation - - Inhaled Oxygen Concentration - - Weight 92.5 kg (204 lb) 05/09/2024 1:52 PM [employer] Height 157.5 cm (5' 2 ) 05/09/2024 1:52 PM [employer] Body Mass Index 37.31 05/09/2024 1:52 PM [employer] Procedures * GA INTRAABDOMINAL PRESSURE TEST(Performed 05/10/2024) Performed for Mixed stress and urge urinary incontinence, Overactive bladder, Detrusor instability,Decreased bladder capacity * GA ANAL/URINARY MUSCLE STUDY(Performed 05/10/2024) Performed for Mixed stress and urge urinary incontinence, Overactive bladder, Detrusor instability,Decreased bladder capacity * GA CYSTOMETROGRAM W/MULTIMEDIA PROJECT MANAGER(Performed 05/10/2024) Performed for Mixed stress and urge urinary incontinence, Overactive bladder, Detrusor instability,Decreased bladder capacity * URINALYSIS AUTO - POINT OF CARE (AMB) [facility](Performed 05/09/2024) Performed for Complete uterovaginal prolapse Results * GA CYSTOMETROGRAM W/MULTIMEDIA PROJECT MANAGER, GA ANAL/URINARY MUSCLE STUDY, GA INTRAABDOMINAL PRESSURE TEST (05/10/2024 7:58 AM CROTCH PIECE BASTER) Narrative Trevor Gonzalez MD - 05/10/2024 7:58 AM [employer] Trevor Gonzalez MD ? 05/10/2024 ??8:03 AM Multichannel Urodynamic Testing - Brief Procedure Note Please see report generated in Media files Post-Operative Diagnosis: detrusor instability, overactive bladder, and sensory urgency with decreased functional capacity Indications: Multichannel urodynamic testing is being performed to fully evaluate the patient's voiding dysfunction. The risks, benefits and alternatives have been discussed with emphasis on discomfort and urinary tract infections. Her urinalysis was not suspicious for a urinary tract infection unless otherwise noted. Procedure Details: The patient's urethral meatus was cleaned with Betadine (used if not allergic to topical iodine, otherwise hibiclens was used). A 7 Fr. Single sensor air-charged catheter was place into the vagina or into the rectum if the pelvic prolapse required restitution for adequate testing. A 7 Fr. Dual sensor air-charged catheter was inserted into the urethra. A 7 Fr. Single sensor air-charged catheter was inserted into the vagina to approximate intra-abdominal pressure measurement. During testing, the patient's prolapse was reduced with either procto-swabs, or digitally. Cystometrogram: The bladder was filled with room temperature water at a rate of 100 cc per minute. The patient tolerated this and she was found to have: Sensory Urgency yes Maximal cystometric capacity of 326 cc. She does not have normal bladder compliance. She does have loss of urine with a rise in detrusor pressure and an unsuppressible urge to void at capacity Urodynamic Stress Urinary incontinence? no in supine and upright positions, despite reduction of prolapse and removal of urethral transducer. UPP done? no VLPP Positive no; Abnormal no Voiding pressure study (MULTIMEDIA PROJECT MANAGER): She voided via detrusor contraction. Obstructive pattern? ??no Areflexic pattern? no. ??Her post void residual by calculation during the voiding pressure study was 88 cc. EMG: Pelvic floor / urethral muscle study was performed to assess muscular and urethral function due to concern regarding possible voiding dysfunction or abnormal pelvic muscle response. Perineal electrodes were placed bilaterally with green (grounding electrode) on right inner thigh. Resting EMG tone normal during filling. With cough / valsalva, there was a decrease in EMG activity in response to those stimuli. With detrusor contraction there was a normal decrease in EMG activity associated with urine efflux. ?? The physician performed both the technical component of performing the procedure, as well as the professional component of interpreting the procedure. Trevor Gonzalez MD PROCEDURE/MINOR SURG ICAL ORDERABLES * URINALYSIS AUTO - POINT OF CARE (AMB) [facility] (05/09/2024 2:22 PM [facility] [facility]) Glucose UA neg [facility] [address] Bilirubin UA POCT neg [facility] [address] Ketones UA POCT neg [facility] [address] Specific [place] UA 1.[address] [facility] [address] Blood Urine POCT neg [facility] [address] pH UA 6.[address] [facility] [address] Protein UA +- [facility] [address] Urobilinogen UA neg [facility] [address] Nitrite UA neg [facility] [address] WBC UA neg [facility] [address] Urine URINE / Unknown 05/09/2024 2 :22 PM [employer] Trevor Gonzalez MD LAB - POINT OF CARE ORDERABLES Performing Organization Address City/State/[facility] Co de Phone Number [facility] [address] [place] [address], [facility] [phone] Care Teams Manager Plant Relationship Specialty Start Date End Date Asmita Reardon MD [address] [facility] [address] [place] [id number] PCP - General Internal Medicine 01/22/24
--- OUTSIDE RECORDS SUMMARY | 2024-05-30 13:37 | XMS_ITS | CONTINUITY OF CARE DOCUMENT ---
Author Name taran marielaranza Address Unknown Organization [facility] Address [address] [facility] [address] [place] [address] Phone [phone] Care Team Providers Care Pneumatic Tool Operator Name Role Phone Camille King MD Unavailable [phone] VALENTINA SAMPSON MD Unavailable [phone] VALENTINA SAMPSON MD Unavailable [phone] PROBLEMS Condition Status Date Provider Notes Cardiology examination active Nettie Ventim iglia [employer] Tobacco abuse, continuous active Nettie Jeremy timiglia [employer] Hyperlipidemia active Nettie Ventimiglia FN P Shortness of breath active Nettie Ventimigl ia [employer] Arthritis - osteo active Camille Burris HTN essential active Camille King MD Preop cardiovasc. examination active Alex King MD Cardiovascular Condition Screening active S ruben King MD ENCOUNTERS Date Type Provider Location Encounter Diag nosis 3 - 4 In-person encounter Office Visit Camille King MD [facility] Office Preop cardiovasc. examinationCardiovascular Condition Screening 1 - 8 In-person encounter Office Visit Camille King MD [facility] Office 1 - 2 In-person encounter Office Visit Camille King MD [place] [facility] Arthritis - osteoHTN essential 8 - 1 In-person encounter Office Visit Camille King MD [place] [facility] Cardiology examinationTobacco abuse, continuousHyperlipidemiaShortness of breath VITAL SIGNS Date Observation Value Provider Body Mass Index (Ratio) 38.37 kg/m2 Melinda King MD blood pressure, diastolic 79 mm[Hg] Li [facility]Log[facility] blood pressure, systolic 122 mm[Hg] Rolanda [facility]Logic respiratory rate E&M 14 /min Mukul Grey raham pulse rate 102 /min Mukul Isidoro blood pressure, diastolic 79 mm[Hg] Ky cris Isidoro blood pressure, systolic 122 mm[Hg] Kyl ia Isidoro oxygen saturation, oximetry 98 % Mukul Isidoro weight E&M 209.8 [lb_av] Cjlia [place] blood pressure, cuff size regular Ky cris [place] height E&M 62 [in_i] Mukul Isidoro Body Mass Index (Ratio) 38.59 kg/m2 Mauricio al Mayo blood pressure, diastolic 76 mm[Hg] An cherelle Kal blood pressure, systolic 109 mm[Hg] Katelyn anders [place] oxygen saturation, oximetry 95 % Ashtyn [place] pulse rate 85 /min Ashtynanders [place] weight E&M 211 [lb_av] Ashtyn Kal blood pressure, cuff size large An cherelle Kal height E&M 62 [in_i] Ashtynanders [place] Body Mass Index (Ratio) 37.67 kg/m2 Melinda King MD blood pressure, diastolic 87 mm[Hg] Mi devankris Allison blood pressure, systolic 140 mm[Hg] Javier tonja Allison oxygen saturation, oximetry 96 % Josey Allison pulse rate 69 /min Josey Lemuelanderson gary weight E&M 206 [lb_av] Josey Carpio gary respiratory rate E&M 16 /min Chasidy orellana Keegan blood pressure, cuff size large Stephanie hartman Allison height E&M 62 [in_i] Josey Carpio gary Body Mass Index (Ratio) 37.49 kg/m2 Melinda King MD blood pressure, diastolic 70 mm[Hg] Ri devan Ac blood pressure, systolic 101 mm[Hg] Albino tonja Ac blood pressure, cuff size large Geraldine Ac oxygen saturation, oximetry 95 % Nettie Ventimiglia [employer] respiratory rate E&M 16 /min Sravanthi Ac pulse rate 90 /min Lindsay weems weight E&M 205 [lb_av] Lindsay weems height E&M 62 [in_i] Lindsay weems ALLERGIES Allergy Name Onset Date Reaction Criticality Status NIACIN High Criticality active RESULTS Date Observation Value Provider Reference Range Interpretation Location folate, serum >24.0 ng/mL [facility] Normal B-12, serum 481 pg/mL [facility] 200-1100 Normal thyroxine, serum, free 1.1 ng/dL [facility] 0.8-1.8 Normal thyroid stimulating hormone, serum 1.45 u[IU]/mL [facility] 0.40-4.50 Normal cholesterol, non-HDL, total 113 MG/DL (CALC) [facility] <130 Normal cholesterol/HDL ratio, serum, percent 3.4 (calc) [facility] <5.0 Normal LDL cholesterol, serum 90 MG/DL (CALC) [facility] Normal triglyceride, serum, fasting 135 mg/dL [facility] <150 Normal HDL cholesterol, serum 48 mg/dL [facility] > OR = 50 Low cholesterol, serum 161 mg/dL [facility] <200 Normal HISTORY OF MEDICATION USE Medication Status Instructions Dates Provider Indications Com ments rosuvastatin 5 mg tablet active TAKE 1 TABLET BY MOUTH ONCE DAILY AT BEDTIME [facility] tamoxifen 20 mg tablet active Take 1 tablet by mouth once daily Mendez Snow NP Crestor 5 mg tablet completed TAKE ONE TAB LET ONCE DAILY AT BEDTIME - [facility] aspirin 81 mg tablet,delayed release (DR/EC) active TAKE 1 TABLET BY MOUTH EVERY DAY Camille Almonte Maintena 300 mg suspension,extended rel recon active 1 intramuscularly once a month Mendez Snow NP metronidazole 500 mg tablet completed - Mendez Snow NP fenofibrate nanocrystallized 145 mg tablet active Take 1 tablet by mouth once daily Mendez Snow NP duloxetine 30 mg capsule,delayed release(DR/EC) active Take 1 tablet by mouth once daily Mendez Snow NP fluticasone propionate 50 mcg/actuation spray,suspension completed - Mendez Snow NP cetirizine 10 mg tablet active Take 1 tablet by mouth once daily Mendez Snow NP ciprofloxacin HCl 500 mg tablet completed - Mendez Snow NP SOCIAL HISTORY Date Observation Value Provider drug use no Radha Nalluri JAVIER alcohol use no Radha Nalluri JAVIER smoking/tobacco cess ation, patient education and counseling yes Radha Nalluri JAVIER number of years as a smoker 40 a Radha Dixonluri JAVIER smoking history, tot al pack/day 5 Radha Zackluri JAVIER cigarette use yes Radha Nallur i [employer] smoking status Current every da y smoker Radha Dixonluri JAVIER social history reviewed E&M revi ewed - no changes required Mendez Snow NP social history E&M S moking History: Karlo ruffin currently smokes every day. Karlo ruffin has been counseled to quit. Mendez Snow [employer] drug use no Mendez Snow [employer] alcohol use no Mendez Snow [employer] smoking/tobacco cess ation, patient education and counseling yes Ashtyn Kal number of years as a smoker 40 a Ashtyn Kal cigarette use yes Ashtyn Kal smoking status Current every da y smoker Ashtyn Kal number of grandchildren Camille King MD smoking/tobacco cess ation, patient education and counseling yes Camille King MD social history E&M S moking History: Karlo ruffin currently smokes every day. Camille King MD social history reviewed E&M revi ewed - no changes required Camille King MD number of years as a smoker 40 a Josey Keegna smoking history, tot al pack/day 5 Josey Keegan cigarette use yes Josey Von stark smoking status Current every da y smoker Josey Keegan drug use no Nettie Ventimig cris [facility] alcohol use no Nettie Ventimig cris [facility] number of years as a smoker 40 a Nettie Ventimiglia [facility] smoking history, tot al pack/day 5 Nettie Ventimiglia [facility] cigarette use yes Lindsay luis smoking status Current every da y smoker Lindsay Ac INSURANCE PROVIDERS Payer name Policy type / Coverage type Dejah red alliance party ID AARP MEDICARE ADVANTAGE HMO-POS HMO [id number] ADVANCE DIRECTIVES Name Date DISCUSSED - NO DECISION MADE TREATMENT PLAN Date Name Performer [id number],C, R eports symptoms at baseline. She is daily smoker. Mendez Snow NP [id number],C, R ecently had a steroid injection to her L knee. Follows with Ortho (Vernon Chahal MD) at [facility]. Mendez Snow NP [id number],C, C urrently smokes 8 cigs per day. Mendez Snow NP [id number],C, H er updated medication list for this problem includes: Fenofibrate Nanocrystallized 145 Mg Tablet (Fenofibrate nanocrystallized) ..... Take 1 tablet by mouth once daily Crestor 5 Mg Tablet (Rosuvastatin) ..... Take one tablet once daily at bedtime Mendez Snow NP [id number],C, W ell controlled. B P today: 109/76 P rior BP: 140/87 (04/27/2022) Labs Reviewed: C hol: 161 (04/26/2022) HDL: 48 (04/26/2022) LDL: 90 MG/DL (CALC) (04/26/2022) T (04/26/2022) Her updated medication list for this problem includes: Aspirin 81 Mg Tablet,delayed Release (dr/ec) (Aspirin) ..... Take 1 tablet by mouth every day Mendez Snow NP [id number],C,R emain on gemfibrizole. 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 Will like to to put her low dose stain. Try Crestor 5mg daily. Camille King MD [id number],C,T he Patient was reencouraged to stop smoking. P atient has SOB with activity may be secondary to COPD vs CAD. Patient had CT chest recently that showed suggestion of CAD. Given that will do echo, lexiscan stress and coronary calcium score. Will also check lipids. Will f/u post testing or sooner if needed. testing completed Camille King MD [id number],C,D iscussion of benefits for remote patient monitoring took place. Patient gives consent for remote monitoring of physiologic parameters including, but not limited to, weight, blood pressure, pulse oximetry, respiratory flow rate. B P today: 140/87 P rior BP: 101/70 (03/04/2022) Labs Reviewed: C hol: 161 (04/26/2022) HDL: 48 (04/26/2022) LDL: 90 MG/DL (CALC) (04/26/2022) T (04/26/2022) Camille King MD [id number],C,R isk stratification done. MIld CAD based on CT. Preserved LV function based echo and stress. COntinue risk factor modicfication. Camille King MD [id number],C,M ost likely cause of her joint discomfort Camille King MD [id number],S,Cessation enc ouraged Nettie Cheng [facility] [id number],S,w ill get recent labs from her primary she is on fenofibrate alone. Given coronary calcification on CT chest may need statin H er updated medication list for this problem includes: Fenofibrate Nanocrystallized 145 Mg Tablet (Fenofibrate nanocrystallized) Nettie Skylar [facility] [id number],S,P atient has SOB with activity may be secondary to COPD vs CAD. Patient had CT chest recently that showed suggestion of CAD. Given that will do echo, lexiscan stress and coronary calcium score. Will also check lipids. Will f/u post testing or sooner if needed. O rders: 9 9204 MOD 45-59 min (CPT-39039) C omplete Echo (CPT-54425) S tress Regadenoson (CPT-62267) C T, Coronary Calcium Score (CPT-85465) L IPID PANEL (3454) Nettie Hopsonwyattjessica [facility] Cardiology: smoke le ssathn 1/2 PPD e nocuraged cessation. Radha Nalluri [employer] Cardiology: R eports symptoms at baseline. She is daily smoker, smoke lessathn 1/2 PPD Radha Nalluri [employer] Cardiology:Stable Radha Dixonlur i [employer] Cardiology: B P today: 122/79 P rior BP: 109/76 (01/05/2023) Labs Reviewed: C hol: 161 (04/26/2022) HDL: 48 (04/26/2022) LDL: 90 MG/DL (CALC) (04/26/2022) T (04/26/2022) W ell controlled T his visit has been a part of the consistent, comprehensive, and ongoing management of the chronic medical condition(s) listed above for the patient. Radha Araujori [employer] Cardiology:The patie nt denies episodes of chest pain nausea vomiting diaphoresis shortness of breath or [place] or pounding/palpitations or loss of consciousness or presyncopal events. EKG demonstrated no significant change compared to prior. We reviewed patient's prior noninvasive testing all questions were answered to their satisfaction. U bennett review of noninvasive testing and recent exam the patient is an acceptable candidate for the planned surgical procedure recommend to maintain his blood pressure range of 110 to 140 mmHg and a heart rate of 60-80 B p.m.. It is okay to use IV beta blockers calcium channel blockers nitrates and afterload reducing agents to maintain the aforementioned hemodynamics parameters. Tele monitoring and EKG should be done if the patient has arrhythmia during procedure Camille King MD Cardiology:CONCLUSIO NS: 1 . Frequent premature ventricular contractions. Normal left ventricular systolic function. Normal left ventricular size. Normal l eft ventricular wall thickness. There is E to A wave reversal consistent with impaired LV relaxation. Abnormal E/E`, suggestive o f elevated LVEDP. 16.0 Left ventricular ejection fraction is measured at 55 %. 2 . Normal right ventricular size. Normal right ventricular systolic function. 3 . There is non-specific thickening of the mitral valve leaflets. Mild mitral valve regurgitation. The mitral valve regurgitation is e ccentric. 4 . There is aortic valve sclerosis. Trace to mild aortic valve regurgitation. 5 . Normal appearing tricuspid valve leaflets. There is mild tricuspid regurgitation. Right ventricular systolic pressure is c onsistent with mild pulmonary hypertension. IVC is normal in size with normal respiratory response. The RA pressure is e stimated at 3.0 mmHg Estimated peak pulmonary artery systolic pressure is 43.0 mmHg. CONCLUSIONS: 1 . Normal resting ECG. 2 . Rare PVCs seen during stress portion of the exam. 3 . Normal left ventricle size. 4 . Global left ventricular function is normal. Left Ventricular Ejection Fraction is 62 % TID: 0.97. 5 . Normal myocardial perfusion imaging with no evidence of ischemia or scar. CONCLUSIONS: 1 . Coronary Artery Score L eft Main (LM) 115 L eft Anterior Descending (LAD) 3.79 L eft Circumflex (LCX) 5.82 R ight Coronary Artery (RCA) 0 T otal Agatston Score 125. 2 . In a published study, 75% of people of the same gender and similar age had the same or lower scores. Camille King MD Cardiology: R eports symptoms at baseline. She is daily smoker. Mendez Snow NP Cardiology: Mac eli had a steroid injection to her L knee. Follows with Ortho (Vernon Chahal MD) at [facility]. Mendez Snow NP Cardiology: Dale urrently smokes 8 cigs per day. Mendez Snow NP Cardiology: H er updated medication list for this problem includes: Fenofibrate Nanocrystallized 145 Mg Tablet (Fenofibrate nanocrystallized) ..... Take 1 tablet by mouth once daily Crestor 5 Mg Tablet (Rosuvastatin) ..... Take one tablet once daily at bedtime Mendez Snow NP Cardiology: W ell controlled. B P today: 109/76 P rior BP: 140/87 (04/27/2022) Labs Reviewed: C hol: 161 (04/26/2022) HDL: 48 (04/26/2022) LDL: 90 MG/DL (CALC) (04/26/2022) T (04/26/2022) Her updated medication list for this problem includes: Aspirin 81 Mg Tablet,delayed Release (dr/ec) (Aspirin) ..... Take 1 tablet by mouth every day Mendez Snow NP Cardiology:Remain on gemfibrizole. 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 Will like to to put her low dose stain. Try Crestor 5mg daily. Camille King MD Cardiology:The Patie nt was reencouraged to stop smoking. P atient has SOB with activity may be secondary to COPD vs CAD. Patient had CT chest recently that showed suggestion of CAD. Given that will do echo, lexiscan stress and coronary calcium score. Will also check lipids. Will f/u post testing or sooner if needed. testing completed Camille King MD Cardiology:Discussio n of benefits for remote patient monitoring took place. Patient gives consent for remote monitoring of physiologic parameters including, but not limited to, weight, blood pressure, pulse oximetry, respiratory flow rate. B P today: 140/87 P rior BP: 101/70 (03/04/2022) Labs Reviewed: C hol: 161 (04/26/2022) HDL: 48 (04/26/2022) LDL: 90 MG/DL (CALC) (04/26/2022) T (04/26/2022) Camille King MD Cardiology:Risk stra tification done. MIld CAD based on CT. Preserved LV function based echo and stress. COntinue risk factor modicfication. Camille King MD Cardiology:Most like ly cause of her joint discomfort Camille King MD Cardiology:Cessation encouraged Nettie Cheng [facility] Cardiology:will get recent labs from her primary she is on fenofibrate alone. Given coronary calcification on CT chest may need statin H er updated medication list for this problem includes: Fenofibrate Nanocrystallized 145 Mg Tablet (Fenofibrate nanocrystallized) Nettie Garridomiclaudia [facility] Cardiology:Patient h as SOB with activity may be secondary to COPD vs CAD. Patient had CT chest recently that showed suggestion of CAD. Given that will do echo, lexiscan stress and coronary calcium score. Will also check lipids. Will f/u post testing or sooner if needed. O rders: 9 9204 MOD 45-59 min (CPT-71079) C omplete Echo (CPT-46514) S tress Regadenoson (CPT-23228) C T, Coronary Calcium Score (CPT-50146) L IPID PANEL (7600) Nettie Cheng [employer] Date Name X-Ray, Chest 2 View LIPID PANEL COMPREHENSIVE METABO LIC PANEL, W/EGFR Sleep Study Home RPM (remote patient monitoring) LIPID PANEL CT, Coronary Calcium Score Stress Regadenoson Complete Echo HISTORY OF PROCEDURES Procedure Date Procedure Name Provider Procedure Notes S tatus Complex e/m visit add on Camille King MD completed EKG Camille King MD compl eted EKG Camille King MD compl eted CT- Coronary CA score Camille King MD completed EKG Camille King MD compl eted
--- OUTSIDE RECORDS SUMMARY | 2024-05-30 13:37 | XMS_ITS | Data Portability ---
Author Organization [place] [facility], Main Office Address [address] [place] [address] Care Team Providers Care Cad Cam Programmer Name Role Phone VALENTINA REARDON Primary Care Provider VALENTINA REARDON Referring Provider [phone] ILIANA JAMESON Urologist CHAGO MCWILLIAMS General Surgeon ALBINO KISER Hematology/Oncology BEBE BIRD Marine Service Operator [phone] ZAKIA BROOKS [employer] Feeder [phone] MARIUSZ MARQUEZ Psychiatrist Assessment Encounter Date Assessment Date Assessment LastModified by Organization Details LastModified Time 08/23/2023 08/23/2023 04/12/2023: [facility] MCV 102.2 08/14/2023: ER Gluc 125H, TP 6.0L WBC 17.6, MCV 101.7 08/18/2023: [place] WBC 11.3, H/H 10.9/34.4, MCV 13.3 Not available 08/23/2023 11:59:15 11/29/2023 11/29/2023 04/12/2023: [facility] MCV 102.2 08/14/2023: ER Gluc 125H, TP 6.0L WBC 17.6, MCV 101.7 08/18/2023: [place] WBC 11.3, H/H 10.9/34.4, MCV 13.3 11/21/2023: MCV 102.3 (b12/folate/T SH/H/H) WNL Not available 11/29/2023 11:19:20 04/01/2024 04/01/2024 04/12/2023: [facility] ER MCV 102.2 08/14/2023: ER Gluc 125H, TP 6.0L WBC 17.6, MCV 101.7 08/18/2023: [place] WBC 11.3, H/H 10.9/34.4, MCV 13.3 11/21/2023: MCV 102.3 (b12/folate/T SH/H/H) WNL Not available 04/01/2024 12:38:03 Plan of Treatment Reminders Order Date Submit Date Provider Last Modified By Organization Details Last Modified Time Details Appointments Any 15 2024 10:30A M Valentina flood MD Not available Not available Not available Lab CMP, serum or plasma 2023 024 [facility], [address], [place], [address], 02/19/2024 16:37:40 CBC w/ auto diff 2023 024 [facility], [address], [place], [address], 02/19/2024 16:37:40 TSH, serum or plasma 2023 024 [facility], [address], [place], [address], 02/26/2024 10:52:58 T4, free, serum 2023 024 [facility], [address], [place], [address], 02/26/2024 10:52:58 lipid panel, serum 2023 024 [facility], [address], [place], [address], 02/26/2024 10:52:59 vitamin B12 + folate, serum or blood 2023 024 [email or web address], [address], [place], [address], 02/26/2024 10:52:58 CMP, serum or plasma 2023 024 DINORAH [facility], [address], [place], [address], 11/29/2023 16:18:10 CBC w/ auto diff 2023 024 [email or web address], [address], [place], [address], 04/15/2024 14:06:23 T4, free, serum 2023 024 [email or web address], [address], [place], [address], 04/15/2024 14:06:24 TSH, serum or plasma 2023 024 [email or web address], [address], [place], [address], 04/15/2024 14:06:24 lipid panel, serum 2023 024 [email or web address], [address], [place], [address], 04/15/2024 14:06:24 vitamin B12 + folate, serum or blood 2023 024 [facility], [address] [place], [address], 04/15/2024 14:06:24 CMP, serum or plasma 2023 024 [facility], [address], [place], [address], 05/27/2024 12:48:29 CBC w/ auto diff 2023 024 [email or web address], [address], [place], [address], 05/27/2024 12:48:29 T4, free, serum 2023 024 [email or web address], [address], [place], [address], 05/27/2024 12:48:29 TSH, serum or plasma 2023 024 [email or web address], [address], [place], [address], 05/27/2024 12:48:29 lipid panel, serum 2023 024 [email or web address], [address], [place], [address], 05/27/2024 12:48:30 vitamin D, 25-hydrox y, total, serum 2023 024 [email or web address] [facility], [address], [place], [address], 12/06/2023 08:40:41 vitamin B12 + folate, serum or blood 2023 024 [email or web address], [address], [place], [address], 05/27/2024 12:48:30 CMP, serum or plasma 2023 024 [employer] [facility], [address], [place], [address], 04/12/2024 07:25:52 CBC w/ auto diff 2023 024 [facility] [facility], [address], [place], [address], 04/12/2024 07:25:53 T4, free, serum 2023 024 [facility] [facility], [address], [place], [address], 04/12/2024 07:25:56 TSH, serum or plasma 2023 024 [facility] [facility], [address], [place], [address], 04/12/2024 07:25:57 lipid panel, serum 2023 024 [facility] [facility], [address], [place], [address], 04/12/2024 07:25:51 vitamin D, 25-hydrox y, total, serum 2023 024 [facility] [facility], [address], [place], [address], 04/12/2024 07:25:58 vitamin B12 + folate, serum or blood 2023 024 [facility] [facility], [address], [place], [address], 04/12/2024 07:25:55 Referral urologist referral 2023 024 DINORAH Florence MD, [address], [address], [place], [address], 12/29/2023 19:14:53 pulmonolo gist referral 2023 024 shania Mcintyre, [address], [place], [address], 03/18/2024 09:39:38 general surgeon referral 2023 024 DINORAH Mcwilliams MD, [address], [address], [place], [address], 09/15/2023 09:51:11 cardiolog ist referral 2023 024 [email or web address] Camille King MD, [address], [address], [place], [address], 03/18/2024 09:39:37 dermatolo gist referral 2023 024 [email or web address] [facility], [facility] [place], [address], 02/19/2024 16:38:00 urologist referral 2023 024 [email or web address] Iliana Jameson, [address] [facility], [address], [place], [address], 05/27/2024 12:48:46 podiatris t referral 2023 024 Garth Davidson DPM, [address], [address], [place], [address], 04/02/2024 14:16:21 pulmonolo gist referral 2023 024 [email or web address] Jordana Mcintyre, [address] [facility] [address], [place], [address], 04/02/2024 14:16:03 general surgeon referral 2023 024 [email or web address] Chago Mcwilliams MD, [address] [facility] [address], [address], [place], [address], 12/27/2023 11:29:21 cardiolog ist referral 2023 024 [email or web address] Camille King MD, [address], [address], [place], [address], 04/02/2024 14:15:29 dermatolo gist referral 2023 024 [email or web address] [facility], [address] [place], [address], 04/02/2024 14:15:50 urologist referral 2023 024 [email or web address] Iliana Sheridan Jameson, [address] [facility], [facility] [address], [place], [address], 04/02/2024 12:58:04 podiatris t referral - Please call patient to schedule. 2023 024 Garth Davidson DPM, [address] [facility], [facility] [address], [place], [address], 04/02/2024 14:43:42 pulmonolo gist referral - Please call patient to schedule. 2023 024 [email or web address] Lisy Lowry [facility], [address] [facility], [address], [place], [address], 04/15/2024 16:50:54 cardiolog ist referral - Please call patient to schedule. 2023 024 [facility], [address] [facility], [address], [place], [address], 04/02/2024 15:16:57 dermatolo gist referral - Please call patient to schedule. 2023 024 [facility], [address] [place], [address], 04/02/2024 14:57:21 Procedures None recorded. Surgeries None recorded. Imaging DEXA, axial skeleton [id number] [place] [address] Imaging, [address], [address], [place], [address], 12/20/2023 14:13:11 LDCT, chest, for lung cancer screening 2023 024 [email or web address] [facility], [address], [address], [place], [address], 05/28/2024 16:30:22 XR, chest, 2 view 2023 024 [email or web address] [facility], [address], [address], [place], [address], 04/18/2024 14:32:38 DEXA, axial skeleton 2023 024 [email or web address] [facility], [address], [address], [place], [address], 04/01/2024 15:20:55 Medication Orders rosuvasta tin 5 mg tablet 2023 024 [facility] [place], [address], 10/18/2023 12:52:33 Patient TargetsNo targets recorded. Patient Instructions Encounter Date Encounter Id Patient Instructions Last Modified By Organization Details Last Modified Time 08/23/2023 [id number] dementia rating scale-2* [email or web address] 2 Not available 08/23/2023 18:27:11 alcohol misuse* [email or web address] 2 Not available 08/23/2023 18:27:10 depression screening* [email or web address] 2 Not available 08/23/2023 18:27:09 Timed Up and Go test (TUG)* mbahrainwala 2 Not available 08/23/2023 18:27:08 multi-dimensiona l health assessment questionnaire* [email or web address] 2 Not available 08/23/2023 18:27:10 Personalized [facility] and Screening Recommendations Advance Directives - Do you have one? Yes Advance Directives - Do we have your advance directive on file in your health record? Primary Prevention/Interven tion (prevents or decreases the chance of common diseases from occurring) Smoking Risk: Refer to attached smoking cessation handouts Refer to attached handouts and prescription will be sent to pharmacy Continue to consider stopping smoking and call if we can assist you Alcohol Misuse Screening: Negative Weight: Appropriate Overwei ght continue your current weight loss efforts try to lose 5% of your body weight try to lose 10% of your body weight Physical activity: minimum of 10-20 minutes of activity that causes mild breathlessness/day Nutrition: Good Average Fall Risk (screened today): Low Intermediate Vaccines Pneumococcal: Ordered Recommended today Recommended today, but you have declined No further needed Influenza: Chronic Disease Risks Stroke: Low Risk Intermediate Risk Heart Attack: Low risk Intermediate Risk Clogging of the Arteries: Low risk Intermediate Risk Diabetes: Low Risk Intermediate Risk Secondary Prevention/Interven tion (detects treatable diseases before they may cause symptoms, disability, or ) Breast Cancer Screening with mammogram: Your next mammogram: Ordered Recommended today Cervical/Uterine/Ov leonides Cancer Screening: Osteoporosis Screening: Your next DEXA in: Ordered Recomme nded today Date Screening Last Performed: Colon Cancer Screening: Colonoscopy Date Screening Last Performed:2022 Eye Disease Screening: Dementia Risk: Low I have no recommendations Depression Screening: Negative [email or web address] Not available 08/23/2023 12:47:35 12/29/2023 [id number] plan 1. I am not concerned about a hemorrhagic cyst only 1 cm and it has been chronic. 2. she has no enhancing masses in the kidney so there is no concern about cancer 3. She will just continue her care for her hysterectomy and then eventually Dr. Florence will perform robotic bladder suspension 4. follow up as needed [email or web address] Not available 12/29/2023 19:13:33 Reason for Referral Urologist Referral for Renal mass Referring Physician: Valentina Reardon Internal Medicine, Encounter Date: 08/23/2023 [employer] Task [employer] Planners Referral for S kin lesion Referring Physician: Valentina Reardon Internal Medicine, Encounter Date: 08/23/2023 Supervisor Ship Maintenance Services Referral for Co ronary arteriosclerosis Referring Physician: Valentina Reardon Internal Medicine, Encounter Date: 08/23/2023 General Surgeon Referral for Diverticulitis Referring Physician: Valentina Reardon Internal Medicine, Encounter Date: 08/23/2023 Telemetry Tech Referral for C hronic cough Referring Physician: Valentina Reardon Internal Medicine, Encounter Date: 08/23/2023 Urologist Referral for Renal mass Referring Physician: Valentina Reardon Internal Medicine, Encounter Date: 11/29/2023 [employer] Referral for S kin lesion Referring Physician: Valentina Reardon Internal Medicine, Encounter Date: 11/29/2023 Supervisor Ship Maintenance Services Referral for Co ronary arteriosclerosis Referring Physician: Valentina Reardon Internal Medicine, Encounter Date: 11/29/2023 General Surgeon Referral for Diverticulitis Referring Physician: Wanda Noonan Medicine, Encounter Date: 11/29/2023 Telemetry Tech Referral for C hronic cough Referring Physician: Valentina Reardon Internal Medicine, Encounter Date: 11/29/2023 Cocoa Bean Roaster Helper Referral for Onyc homycosis Referring Physician: Wanda Noonan Medicine, Encounter Date: 11/29/2023 Urologist Referral for Renal mass Referring Physician: Wanda Noonan, Encounter Date: 04/01/2024 [employer] Referral for S kin lesion Please call patient to schedule. Referring Physician: Valentina Reardon Internal Medicine, Encounter Date: 04/01/2024 Supervisor Ship Maintenance Services Referral for Co ronary arteriosclerosis Please call patient to schedule. Referring Physician: Wanda Noonan Medicine, Encounter Date: 04/01/2024 Telemetry Tech Referral for C hronic cough Please call patient to schedule. Referring Physician: Wanda Noonan, Encounter Date: 04/01/2024 Cocoa Bean Roaster Helper Referral for Onyc homycosis Please call patient to schedule. Referring Physician: Murtuza Bahrainwala, Internal Medicine, Encounter Date: 04/01/2024 Results Created Date Observation Date Name Description Value Unit Range Abnormal Flag Note LastModifiedBy Organization Detail LastModifiedTime 04/11/20 24 04/12/2024 LIPID PANEL , [place] cholesterol, total 117 mg/dL <200 normal Not Available [facility] [address] [address] [place], [address], 04/12/2024 07:25:51 04/11/20 24 04/12/2024 LIPID PANEL , [place] HDL cholesterol 47 mg/dL > or = 50 low Not Available [facility] [address] [address] [place], [address], 04/12/2024 07:25:51 04/11/20 24 04/12/2024 LIPID PANEL , [place] triglyceride s 176 mg/dL <150 high Not Available [facility] [address] [address] [place], [address], 04/12/2024 07:25:51 04/11/20 24 04/12/2024 LIPID PANEL , [place] LDL-choleste rol 45 mg/dL _(zachary c) normal Refer ence range : <100 Mono able range <100 mg/dL for prima ry preve ntion ; <70 mg/dL for patie nts with CHD or diabe tic patie nts with > or = 2 CHD risk facto rs. LDL-C is now calcu lated using the Sheila n-Hop kins caitlinu ann n, which is a valid ated novel metho d beth hinton r accur acy than the Fried ronald equat ion in the estim ation of LDL-C . Sheila schneider SS et al. GRETCHEN. 2013; 310(1 9): 2061- 2068 (http ://ed ucati on.Qu Becky thornton Tapestrys. com/f aq/FA Q164) Not Available [facility] [address] [address] [place], [address], 04/12/2024 07:25:51 04/11/20 24 04/12/2024 LIPID PANEL , [place] chol/HDLC ratio 2.5 (calc ) <5.0 normal Not Available [address], [address], 04/12/2024 07:25:51 04/11/20 24 04/12/2024 LIPID PANEL , [place] non HDL cholesterol 70 mg/dL _(zachary c) <130 normal For patie nts with diabe ashlyn plus 1 major ASCVD risk facto r, treat ing to a non-H DL-C goal of <100 mg/dL (LDL- C of <70 mg/dL ) is consi dered a thera pecarli c optio n. Not Available [address], [address], 04/12/2024 07:25:51 04/11/20 24 04/12/2024 COMPR EHENS CHELSEY METAB OLIC PANEL glucose 96 mg/dL 65-99 normal Fasti ng refer ence inter swetha Not Available [address] [address] [place], [address], 04/12/2024 07:25:52 04/11/20 24 04/12/2024 COMPR EHENS CHELSEY METAB OLIC PANEL urea nitrogen (BUN) 18 mg/dL 7-25 normal Not Available [address], [address], 04/12/2024 07:25:52 04/11/20 24 04/12/2024 COMPR EHENS CHELSEY METAB OLIC PANEL creatinine 0.70 mg/dL 0.60-1 .00 normal Not Available [address] [place], [address], 04/12/2024 07:25:52 04/11/20 24 04/12/2024 COMPR EHENS CHELSEY METAB OLIC PANEL eGFR 92 mL/mi n/1.7 3m2 > or = 60 normal Not Available [address], [address], 04/12/2024 07:25:52 04/11/20 24 04/12/2024 COMPR EHENS CHELSEY METAB OLIC PANEL BUN/creatini ne ratio SEE NOTE: (calc ) 6-22 Not Repor kkie: BUN and Creat inine are withi n refer ence range . Not Available [address], [address], 04/12/2024 07:25:52 04/11/20 24 04/12/2024 COMPR EHENS CHELSEY METAB OLIC PANEL sodium 141 mmol/ L 135-14 6 normal Not Available [address], [address], 04/12/2024 07:25:52 04/11/20 24 04/12/2024 COMPR EHENS CHELSEY METAB OLIC PANEL potassium 4.3 mmol/ L 3.5-5. 3 normal Not Available [address], [address], 04/12/2024 07:25:52 04/11/20 24 04/12/2024 COMPR EHENS CHELSEY METAB OLIC PANEL chloride 102 mmol/ L 98-110 normal Not Available [address], [address], 04/12/2024 07:25:52 04/11/20 24 04/12/2024 COMPR EHENS CHELSEY METAB OLIC PANEL carbon dioxide 33 mmol/ L 20-32 high Not Available [address], [address], 04/12/2024 07:25:52 04/11/20 24 04/12/2024 COMPR EHENS CHELSEY METAB OLIC PANEL calcium 9.2 mg/dL 8.6-10 .4 normal Not Available [address], [address], 04/12/2024 07:25:52 04/11/20 24 04/12/2024 COMPR EHENS CHELSEY METAB OLIC PANEL protein, total 6.0 g/dL 6.1-8. 1 low Not Available [address], [address], 04/12/2024 07:25:52 04/11/20 24 04/12/2024 COMPR EHENS CHLESEY METAB OLIC PANEL albumin 3.6 g/dL 3.6-5. 1 normal Not Available [address], [address], 04/12/2024 07:25:52 04/11/20 24 04/12/2024 COMPR EHENS CHELSEY METAB OLIC PANEL globulin 2.4 g/dL_ (calc ) 1.9-3. 7 normal Not Available [address], [address], 04/12/2024 07:25:52 04/11/20 24 04/12/2024 COMPR EHENS CHELSEY METAB OLIC PANEL albumin/glob ulin ratio 1.5 (calc ) 1.0-2. 5 normal Not Available [address], [address], 04/12/2024 07:25:52 04/11/20 24 04/12/2024 COMPR EHENS CHELSEY METAB OLIC PANEL bilirubin, total 0.4 mg/dL 0.2-1. 2 normal Not Available [address], [address], 04/12/2024 07:25:52 04/11/20 24 04/12/2024 COMPR EHENS CHELSEY METAB OLIC PANEL alkaline phosphatase 52 U/L 37-153 normal Not Available [facility] [address], [address], 04/12/2024 07:25:52 04/11/20 24 04/12/2024 COMPR EHENS CHELSEY METAB OLIC PANEL AST 13 U/L 10-35 normal Not Available [address], [address], 04/12/2024 07:25:52 04/11/20 24 04/12/2024 COMPR EHENS CHELSEY METAB OLIC PANEL ALT 11 U/L 6-29 normal Not Available [address], [address], 04/12/2024 07:25:52 04/11/20 24 04/12/2024 CBC (INCL UDES DIFF/ PLT) white blood cell count 9.4 thous and/u L 3.8-10 .8 normal Not Available [address], [address], 04/12/2024 07:25:53 04/11/20 24 04/12/2024 CBC (INCL UDES DIFF/ PLT) red blood cell count 4.32 jonny on/uL 3.80-5 .10 normal Not Available [address], [address], 04/12/2024 07:25:53 04/11/20 24 04/12/2024 CBC (INCL UDES DIFF/ PLT) hemoglobin 14.0 g/dL 11.7-1 5.5 normal Not Available [address], [address], 04/12/2024 07:25:53 04/11/20 24 04/12/2024 CBC (INCL UDES DIFF/ PLT) hematocrit 44.6 % 35.0-4 5.0 normal Not Available [address], [address], 04/12/2024 07:25:53 04/11/20 24 04/12/2024 CBC (INCL UDES DIFF/ PLT) MCV 103.2 fL 80.0-1 00.0 high Not Available [address], [address], 04/12/2024 07:25:53 04/11/20 24 04/12/2024 CBC (INCL UDES DIFF/ PLT) MCH 32.4 pg 27.0-3 3.0 normal Not Available [address], [address], 04/12/2024 07:25:53 04/11/20 24 04/12/2024 CBC (INCL UDES DIFF/ PLT) MCHC 31.4 g/dL 32.0-3 6.0 low For adult s, a sligh t decre ase in the calcu lated MCHC value (in the range of 30 to 32 g/dL) is most likel y not clini litzy signi kamerno t; mary er, it shoul d be inter prete d with cauti on in [facility] with other red cell imelda eters and the patie nt's clini zachary condi tion. Not Available [address], [address], 04/12/2024 07:25:53 04/11/20 24 04/12/2024 CBC (INCL UDES DIFF/ PLT) RDW 12.8 % 11.0-1 5.0 normal Not Available [address], [address], 04/12/2024 07:25:53 04/11/20 24 04/12/2024 CBC (INCL UDES DIFF/ PLT) platelet count 251 thous and/u L 140-40 0 normal Not Available [address], [address], 04/12/2024 07:25:53 04/11/20 24 04/12/2024 CBC (INCL UDES DIFF/ PLT) MPV 11.2 fL 7.5-12 .5 normal Not Available [address], [address], 04/12/2024 07:25:53 04/11/20 24 04/12/2024 CBC (INCL UDES DIFF/ PLT) absolute neutrophils 6383 cells /uL 1500-7 800 normal Not Available [address], [address], 04/12/2024 07:25:53 04/11/20 24 04/12/2024 CBC (INCL UDES DIFF/ PLT) absolute lymphocytes 2209 cells /uL 850-39 00 normal Not Available [address], [address], 04/12/2024 07:25:53 04/11/20 24 04/12/2024 CBC (INCL UDES DIFF/ PLT) absolute monocytes 564 cells /uL 200-95 0 normal Not Available [address], [address], 04/12/2024 07:25:53 04/11/20 24 04/12/2024 CBC (INCL UDES DIFF/ PLT) absolute eosinophils 197 cells /uL 15-500 normal Not Available [address], [address], 04/12/2024 07:25:53 04/11/20 24 04/12/2024 CBC (INCL UDES DIFF/ PLT) absolute basophils 47 cells /uL 0-200 normal Not Available [address], [address], 04/12/2024 07:25:53 04/11/20 24 04/12/2024 CBC (INCL UDES DIFF/ PLT) neutrophils 67.9 % normal Not Available [address], [address], 04/12/2024 07:25:53 04/11/20 24 04/12/2024 CBC (INCL UDES DIFF/ PLT) lymphocytes 23.5 % normal Not Available [address], [address], 04/12/2024 07:25:53 04/11/20 24 04/12/2024 CBC (INCL UDES DIFF/ PLT) monocytes 6.0 % normal Not Available [address], [address], 04/12/2024 07:25:53 04/11/20 24 04/12/2024 CBC (INCL UDES DIFF/ PLT) eosinophils 2.1 % normal Not Available [address], [address], 04/12/2024 07:25:53 04/11/20 24 04/12/2024 CBC (INCL UDES DIFF/ PLT) basophils 0.5 % normal Not Available [facility] [address], [address], 04/12/2024 07:25:53 04/11/20 24 04/12/2024 VITAM IN B12/F OLATE , SERUM PANEL vitamin B12 359 pg/mL 200-11 00 normal Pleas e Note: Altho ugh the refer ence range for vitam in B12 is 200-1 100 pg/mL , it has been repor kike that betwe en 5 and 10% of patie nts with value s betwe en 200 and 400 pg/mL may exper ience neuro psych iatri c and hemat ologi c abnor malit ies due to occul t B12 defic iency ; less than 1% of patie nts with value s above 400 pg/mL will have sympt oms. Not Available [address], [address], 04/12/2024 07:25:54 04/11/20 24 04/12/2024 VITAM IN B12/F OLATE , SERUM PANEL folate, serum >24.0 NG/mL normal Refer ence Range Low: <3.4 Borde rline : 3.4-5 .4 Faby l: >5.4 Not Available [facility] [address], [address], 04/12/2024 07:25:54 04/11/20 24 04/12/2024 T4, FREE T4, free 0.9 NG/dL 0.8-1. 8 normal Not Available [facility] [address] [place], [address], 04/12/2024 07:25:56 04/11/20 24 04/12/2024 TSH TSH 1.60 mIU/L 0.40-4 .50 normal Not Available [facility] [address] [address] [address] , [place], [address], 04/12/2024 07:25:57 04/11/20 24 04/12/2024 VITAM IN D,25- OH,TO MARCK,I A vitamin D,25-oh,tota l,ia 70 NG/mL 30-100 normal Vitam in D Statu s 25-OH Vitam in D: Defic iency : <20 ng/mL Insuf ficie ncy: 20 - 29 ng/mL Optim al: > or = 30 ng/mL For 25-OH Vitam in D testi ng on patie nts on D2-weems pplem entat ion and patie nts for whom quant itati on of D2 and D3 fract ions is requi red, the [facility] e[facility](TM ) 25-OH VIT D, (D2,D 3), LC/MS /MS is recom araceli d: order code 83716 (waqar ents >2yrs ). See Note 1 Note 1 For addit ional infor collin jnoes e refer to http: //lisandro Soto stDia gnost ics.c om/fa q/FAQ 199 (This link is being provi ded for infor jammie ahmadi/ abel hagen purpo ses only. ) Not Available [facility] [address] [place], [address], 04/12/2024 07:25:58 08/14/19 24 08/14/2023 CT, abdom en + pelvi s, w/o contr ast No observ ation record ed. [id number] [facility] [address], [place], [address], 05/17/2024 12:38:10 04/25/20 24 04/25/2024 MAMMO , scree sameer, digit al, bilat eral No observ ation record ed. [email or web address] [facility] [address], [place], [address], 05/17/2024 12:40:13 05/27/19 25 05/27/2024 CT, abdom en + pelvi s, w/ contr ast No observ ation record ed. [facility] [address], [place], [address], 05/28/2024 15:32:41 Result Notes None recorded. Problems Name Problem SNOMED Code Status Onset Date Resolution Date Notes Provider Name and Address Organization Details Recorded Time Anemia 085508544 Active 2021 Not Available [facility] 3 00:26:25 Hypertrigl yceridemia 060668367 Active 2021 Not Available [facility] 3 00:26:25 Diverticul itis 831888419 Active 2021 Not Available [facility] 3 00:26:25 Acute urinary tract infection 203544179 Active 2021 Not Available [facility] 3 00:26:25 Coronary arterioscl erosis 77259919 Active 2021 Not Available [facility] 3 00:26:25 Candidiasi s of vagina 49699032 Active 2021 Not Available [facility] 3 00:26:25 COVID-19 616836497 Active 2022 Not Available [facility] 3 00:26:25 Skin lesion 99410032 Active 2022 Valentina mcnamara MD [address] [place] [address], [facility] [address], [place], [address] , [facility] [employer] [facility] 3 14:49:35 Serum vitamin B12 below reference range 524776459 Active 2022 Valentina mcnamara MD [address], [place], [address] , [place] [facility] 3 14:49:41 Allergic rhinitis 07046249 Active 2022 Valentina mcnamara MD [address], [address], [place], [address] , [place] [facility] 3 14:49:47 Chronic cough 61004768 Active 2022 Valentina mcnamara MD [address], [place], [address] , [place] [facility] 3 14:50:02 Schizoaffe ctive disorder 45186292 Active 2022 Valentina mcnamara MD [address], [address], [place], [address] , [employer] [facility] 3 14:50:10 Hyperlipid emia 46349325 Active 2022 Valentina mcnamara MD [address], [address], [place], [address] , [employer] [facility] 3 14:50:20 Onychomyco sis 219448098 Active 2022 Valentina mcnamara MD [address], [address], [place], [address] , [employer] - [facility] 3 14:50:30 Smoker 37778783 Active 2022 Valentina mcnamara MD [address], [address], [place], [address] , [employer] [facility] 3 14:52:39 Hearing loss 85136921 Active 2022 Valentina mcnamara MD [address], [place], [address] , [employer] [facility] 3 14:54:13 Abdominal pain 65655170 Active 2022 Valetnina mcnamara MD [address], [place], [address] , [facility] 3 15:05:22 Renal mass 913581412 Active 2022 Valentina mcnamara MD [address], [address], [place], [address] , [facility] 3 15:06:35 Pain of left knee joint 1258355348010 07 Active 2022 Valentina mcnamara MD [address], [place], [address] , [facility] 3 11:59:18 Bilateral osteoarthr itis of knees 2718189244394 07 Active 2022 DYLON Dunaway [address], [place], [address] , [facility] 3 15:49:54 Vaginitis 98759875 Active 2022 [facility] 3 17:27:20 Flank pain 703865575 Active 2022 Valentina mcnamara MD [address], [place], [address] , [facility] 3 10:37:10 Vitamin D deficiency 55475472 Active 2023 Valentina mcnamara MD [address], [place], [address] , [facility] 4 12:52:12 Complex renal cyst 957306700 Active 2023 Iliana Jameson MD [address], [place], [address] , [facility] 4 19:12:54 Problem Notes None recorded. Procedures Surgical History Date Name Laterality Status Provider Name and Address Organization Details Recorded Time 08/23/19 Medicare Wellness CPT Code, subsequent completed Iglesia Rojas LPN [facility] 08/23/2023 12:33:35 uterine myomectomy completed Not Available [facility] 07/07/2022 00:25:43 Colonoscopy completed Serajennie Painter Dirk [facility] 12/26/2022 11:18:25 Cataract Surgery completed Sera Painter [facility] 12/26/2022 11:18:52 Imaging Results Imaging Date Name Status LastModified by Organiz ation Details LastModified Time 08/14/2023 CT, abdomen + pelvis, w/o contrast completed [address], [address], 05/17/2024 12:38:10 04/25/2024 MAMMO, screening, digital, bilateral completed [address], [address], 05/17/2024 12:40:13 05/27/2024 CT, abdomen + pelvis, w/ contrast active [email or web address] [address], [address], 05/28/2024 15:32:41 Procedure Notes None recorded. Medical Equipment None Reported. Allergies Allergen ID Allergen Name Allergen Category Reaction Reaction Severity Criticality Documentation Date Start Date Code Code System Note Provider Name and Address Organization Details Recorded Time 72998 niacin medicatio n hallucina tions rash Not available Not available Not available 07/07/2022 7393 RxNorm Not Available [facility] 00:27:42 Medications Name Sig Start Date Stop Date Status Note LastModified by Organization Details LastModified Time prednisone 10 mg tablet TAKE 1 TABLET BY MOUTH TWICE DAILY 11/28 completed Not Available Not Available Not Available benztropine 0.5 mg tablet TAKE 1 TABLET BY MOUTH TWICE DAILY 12/06 completed Not Available Not Available Not Available cetirizine 10 mg tablet TAKE 1 TABLET BY MOUTH ONCE DAILY NEEDED active Not Available Not Available No t Available fluconazole 150 mg tablet TAKE 1 TABLET BY MOUTH ONCE DAILY 03/08 completed Not Available Not Available Not Available prednisone 20 mg tablet TAKE 2 TABLETS BY MOUTH IN THE MORNING FOR 4 DAYS 08/22 completed Not Available Not Available Not Available metronidazo le 500 mg tablet TAKE 1 TABLET BY MOUTH EVERY 8 HOURS FOR 10 DAYS 10/17 completed Not Available Not Available Not Available ciprofloxac in 500 mg tablet TAKE 1 TABLET BY MOUTH TWICE DAILY FOR 7 DAYS 11/28 completed Not Available Not Available Not Available aspirin 81 mg tablet,beverley yed release TAKE 1 TABLET BY MOUTH ONCE DAILY active Not Available Not Available No t Available tramadol 50 mg tablet TAKE 1 TABLET BY MOUTH EVERY 6 HOURS NEEDED FOR PAIN FOR 8 DAYS 06/27 completed Not Available Not Available Not Available prednisone 10 mg tablets in a dose pack Take 1 tab by mouth, 3 times a day for 3 daysTake 1 tab by mouth 2 times a day for 2 daysTake 1 tab by mouth once a day for 1 day 03/08 completed Not Available Not Available Not Available oxycodone-a cetaminophe n 5 mg-325 mg tablet 06/27 completed Not Available Not Available Not Available lorazepam 0.5 mg tablet TAKE 1 TABLET BY MOUTH ONCE DAILY AT BEDTIME 12/06 completed Not Available Not Available Not Available Kenalog 10 mg/mL suspension for injection Take 20 mg by injection route. 04/[address] [facility]: [phone] Not Available Not Available Not Available haloperidol 10 mg tablet TAKE 1 TABLET BY MOUTH ONCE DAILY AT BEDTIME FOR 30 DAYS 12/06 completed Not Available Not Available Not Available benztropine 1 mg tablet TAKE 1/2 (ONE HALF) TABLET BY MOUTH ONCE DAILY AT BEDTIME FOR 7 DAYS THEN 1 TABLET DAILY AT BEDTIME THEREAFTE R 12/06 completed Not Available Not Available Not Available ibuprofen 200 mg tablet Take 2 tablets every day by oral route. 12/29 completed Not Available Not Available Not Available levofloxaci n 750 mg tablet TAKE 1 TABLET BY MOUTH ONCE DAILY 10/17 completed Not Available Not Available Not Available letrozole 2.5 mg tablet TAKE 1 TABLET BY MOUTH ONCE DAILY 12/26 completed Not Available Not Available Not Available albuterol sulfate HFA 90 mcg/actuati on aerosol inhaler INHALE 1 PUFF BY MOUTH 4 TIMES DAILY NEEDED FOR SHORTNESS OF BREATH FOR WHEEZING active Not Available Not Available No t Available haloperidol 2 mg tablet TAKE 1 TABLET BY MOUTH ONCE DAILY FOR 30 DAYS 12/06 completed Not Available Not Available Not Available fluticasone propionate 50 mcg/actuati on nasal spray,suspe nsion [place] 1 spray every day by intranasa l route for 90 days. 12/29 completed Not Available Not Available Not Available dicyclomine 10 mg capsule TAKE 1 CAPSULE BY MOUTH THREE TIMES DAILY FOR 5 DAYS 06/27 completed Not Available Not Available Not Available tamoxifen 20 mg tablet TAKE 1 TABLET BY MOUTH ONCE DAILY active Not Available Not Available No t Available amoxicillin 875 mg-potassiu m clavulanate 125 mg tablet TAKE 1 TABLET BY MOUTH EVERY 12 HOURS 03/08 completed Not Available Not Available Not Available amoxicillin 500 mg-potassiu m clavulanate 125 mg tablet TAKE 1 TABLET BY MOUTH EVERY 12 HOURS FOR 10 DAYS 06/27 completed Not Available Not Available Not Available aripiprazol e 20 mg tablet TAKE 1/2 (ONE HALF) TABLETS BY MOUTH ONCE DAILY AT BEDTIME FOR 7 DAYS THEN 1 TABLET DAILY AT BEDTIME. 12/06 completed Not Available Not Available Not Available rosuvastati n 5 mg tablet TAKE 1 TABLET BY MOUTH ONCE DAILY AT BEDTIME active Not Available Not Available No t Available rosuvastati n 20 mg tablet Take 1 tablet every day by oral route. 2023 active Not Available Not Available Not Avai lable trospium 20 mg tablet TAKE 1 TABLET BY MOUTH AT BEDTIME active Not Available Not Available No t Available duloxetine 30 mg capsule,del ayed release Take 1 capsule every day by oral route at bedtime. active Not Available Not Available No t Available Vitamin D active Not Available Not Sarah ilable Not Available multivitami n qd 2021 active Not Available Not Available Not Avai lable aripiprazol e 2 mg tablet TAKE 1 TABLET BY MOUTH ONCE DAILY FOR 30 DAYS 12/06 completed Not Available Not Available Not Available fenofibrate nanocrystal lized 145 mg tablet TAKE 1 TABLET BY MOUTH ONCE DAILY 10/17 completed Not Available Not Available Not Available sodium,pota ssium,mag sulfates 17.5 gram-3.13 gram-1.6 gram oral soln TAKE DIRECTED 12/26 completed Not Available Not Available Not Available ropivacaine (PF) 5 mg/mL (0.5 %) injection solution Take 20 mg by injection route. 04/[address] [facility] [phone] Not Available Not Available Not Available Melbryant Maintena 300 mg intramuscul ar suspension, extended release monthly injection s active Not Available Not Available No t Available BinaxNOW COVID-19 Ag Self Test kit TEST DIRECTED TODAY 12/26 completed Not Available Not Available Not Available Paxlovid 300 mg (150 mg x 2)-100 mg tablets in a dose pack TAKE 3 TABLETS TOGETHER (TWO 150 MG NIRMATREL VIR TABLETS AND ONE 100 MG RITONAVIR TABLET) BY MOUTH TWICE DAILY FOR 5 DAYS. 04/01 completed Not Available Not Available Not Available Vitals Date Recorded Body height Body mass index (BMI) Body weight Body temperature Heart rate Systolic blood pressure Diastolic blood pressure Provider Name and Address Organization Details Last Updated DateTime 4 149.86 cm 41.6 kg/m2 68080.0 3 g 97.2 [degF] 78 /min 126 mm[Hg] 64 mm[Hg] CATHERINE Cardoso [facility] [employer] [facility] 4 11:17:38 Date Recorded Body height Body mass index (BMI) Body weight Body temperature Heart rate Systolic blood pressure Diastolic blood pressure Provider Name and Address Organization Details Last Updated DateTime 4 149.86 cm 41.4 kg/m2 64421.4 4 g 97.5 [degF] 78 /min 116 mm[Hg] 66 mm[Hg] Sera Painter Dirk [facility] [employer] [facility] 4 12:09:41 Date Recorded Body height Body mass index (BMI) Body weight Body temperature Heart rate Oxygen saturation Oxygen saturation in Arterial blood by Pulse oximetry Systolic blood pressure Diastolic blood pressure Provider Name and Address Organization Details Last Updated DateTime 4 149.86 cm 41.8 kg/m2 50096.6 2 g 97.5 [degF] 88 /min 87 % 87 % 112 mm[Hg] 68 mm[Hg] Yue Jesus MA [employer] 4 10:55:15 Date Recorded Body height Heart rate Body temperature Body mass index (BMI) Body weight Oxygen saturation Oxygen saturation in Arterial blood by Pulse oximetry Systolic blood pressure Diastolic blood pressure Provider Name and Address Organization Details Last Updated DateTime 4 149.86 cm 76 /min 97 [degF] 42.4 kg/m2 92322.4 g 92 % 92 % 107 mm[Hg] 83 mm[Hg] Mago Fitzgerald CMA [employer] 4 17:24:59 Date Recorded Body height Body mass index (BMI) Body weight Body temperature Heart rate Systolic blood pressure Diastolic blood pressure Provider Name and Address Organization Details Last Updated DateTime 4 149.86 cm 42 kg/m2 05617.2 1 g 97.6 [degF] 78 /min 124 mm[Hg] 66 mm[Hg] CATHERINE Cardoso [employer] 4 12:01:41 Social History Question Answer Notes LastModified by Organization Details LastModified Time Tobacco Smoking Status Former Smoker has quit off and on; quit 08/18/23 CATHERINE Cardoso [employer] 10/18/2023 12:06:29 Do You Have An Advance Directive? Yes Daughter Hong menard Information not available 08/23/2023 What Is Your Level Of Alcohol Consumption? None Information not available 12/29/2022 Are You Blind Or Do You Have Difficulty Seeing? Yes Cataracts MIGRATION.[id number] Information not available 07/07/2022 What Is Your Level Of Caffeine Consumption? Heavy MIGRATION.030145957 Information not available 07/07/2022 In The 14 Days Before Symptom Onset, Have You Had Close Contact With A Laboratory-conf irmed COVID-19 While That Case Was Ill? No MIGRATION.[id number] Information not available 07/07/2022 In The 14 Days Before Symptom Onset, Have You Had Close Contact With A Person Who Is Under Investigation For COVID-19 While That Person Was Ill? No MIGRATION.[id number] Information not available 07/07/2022 Are You Currently Employed? No [email or web address] Information not available 08/23/2023 Are You Deaf Or Do You Have Serious Difficulty Hearing? No MIGRATION.0301 329914 Information not available 07/07/2022 What Type Of Diet Are You Following? REGULAR MIGRATION.0301 546694 Information not available 07/07/2022 What Is The Highest Grade Or Level Of School You Have Completed Or The Highest Degree You Have Received? [id number] MIGRATION.0301 378400 Information not available 07/07/2022 Have There Been Any Changes To Your Family Or Social Situation? No MIGRATION.0301 936331 Information not available 07/07/2022 What Is The Fluoride Status Of Your Home? Unknown MIGRATION.0301 773271 Information not available 07/07/2022 When Did You Quit Smoking? 1-5yearssincelastc igarette Information not available 10/18/2023 Are There Any Guns Present In Your Home? Yes Kept In Safe MIGRATION.0301 808366 Information not available 07/07/2022 Do You Use Insect Repellent Routinely? Yes MIGRATION.0301 522444 Information not available 07/07/2022 Where Do You Live? SingleLevelHouse MIGRATION.030 535951 Information not available 07/07/2022 Are You Able To Care For Yourself? Yes [email or web address] Information not available 08/23/2023 Are You Blind Or Do Yo Have Difficulty Seeing? No [email or web address] Information not available 08/23/2023 Are You Deaf Or Do You Have Serious Difficulty Hearing? No [email or web address] Information not available 08/23/2023 General Stress Level? Low [email or web address] Information not available 08/23/2023 Live Alone Of With Others? With Others [email or web address] Information not available 08/23/2023 Do You Have A Medical Power Of Insurance Administrator? Yes Daughter Information not available 08/23/2023 What Was The Date Of Your Most Recent Tobacco Screening? 04/01/2024 Information not available 04/01/2024 What Is Your Current Pack Years? [email or web address] Information not available 12/29/2022 Have You Ever Been Counseled For Unhealthy Alcohol Use? No MIGRATION.0301 430035 Information not available 07/07/2022 Do You Have Any Pets? Yes Dog Information not available 08/23/2023 What Is Your Relationship Status? MIGRATION.0301 915476 Information not available 07/07/2022 Do You Use Your Seat Belt Or Car Seat Routinely? Yes MIGRATION.0301 405075 Information not available 07/07/2022 Do You Have Smoke And Carbon Monoxide Detectors In Your Home? Yes MIGRATION.0301 741964 Information not available 07/07/2022 At What Age Did You Start Smoking Tobacco? 22 MIGRATION.0301 510999 Information not available 07/07/2022 Are You Passively Exposed To Smoke? Yes MIGRATION.0301 206479 Information not available 07/07/2022 Are There Any Smokers In Your House? Yes MIGRATION.0301 967899 Information not available 07/07/2022 How Much Tobacco Do You Smoke? No Was [email or web address] Information not available 08/23/2023 What Types Of Sporting Activities Do You Participate In? None MIGRATION.0301 054349 Information not available 07/07/2022 Do You Feel Stressed (tense, Restless, Nervous, Or Anxious, Or Unable To Sleep At Night)? [id number] MIGRATION.0301 953254 Information not available 07/07/2022 Do You Use Any Illicit Or Recreational Drugs? No MIGRATION.0301 981869 Information not available 07/07/2022 Do You Use Sunscreen Routinely? Yes MIGRATION.0301 324558 Information not available 07/07/2022 Have You Recently Traveled Abroad? No MIGRATION.0301 962843 Information not available 07/07/2022 Do You Have Any Dietary Restrictions? No MIGRATION.0301 627985 Information not available 07/07/2022 Do You Or Have You Ever Used Any Other Forms Of Tobacco Or Nicotine? No MIGRATION.0301 963552 Information not available 07/07/2022 Sex: Female Functional Status Question Answer Note LastModified by Organizat ion Details LastModified Time Do you have difficulty walking or climbing stairs? Yes MIGRATION.554180 5120 Information not available 07/07/2022 Do you have transportation difficulties? No MIGRATION.791472 0244 Information not available 07/07/2022 Are you able to walk? YESWOREST MIGRATION.879250 9759 Information not available 07/07/2022 Do you have difficulty doing errands alone? Yes does not drive Information not available 08/23/2023 Are you able to care for yourself? Yes MIGRATION.345117 2536 Information not available 07/07/2022 Do you have difficulty dressing or bathing? No MIGRATION.601155 8322 Information not available 07/07/2022 What is your exercise level? None [email or web address] Information not available 08/23/2023 Mental Status Question Answer Note LastModified by Organization D etails LastModified Time Do you have difficulty concentrating, remembering or making decisions? No [email or web address] Information no t available 08/23/2023 Family History Relationship Description Onset Age of this Age Resolved Age Notes LastModified by Organization Details LastModified Time Mother Malignant tumor of colon MIGRATION.756 [id number] Not available 07/07/2022 00:25:44 Mother Kidney disease MIGRATION.687 [id number] Not available 07/07/2022 00:25:44 Brother Heart murmur MIGRATION.0 30 [id number] Not available 07/07/2022 00:25:44 Mother Family history of malignant neoplasm [email or web address] Not available 2022 14:46:44 Mother Blood coagulation disorder [email or web address] Not available 2022 14:46:55 Medical History Condition Response NERVE DISEASE N BLINDNESS N RHEUMATIC FEVER N KIDNEY STONES N BLADDER PROBLEMS N MRSA N OTHER # 1 Y POLIO N LUNG DISEASE/DISORDER N HISTORY OF DRUG ABUSE N COPD N RADIATION / CHEMOTHERAPY N Other # 2 N BLOOD DISEASES N EAR OR HEARING PROBLEMS N MUMPS N SHINGLES N BOWEL PROBLEMS N DEPRESSION (INCLUDING POST ) N STROKE/TIA N ULCERS N BENIGN PROSTATIC HYPERPLASIA N MEASLES N HYPOTENSION N MYOCARDIAL INFARCTION N OBESITY N GERD/NAUSEA N ANEURYSM N URINARY/BLADDER/KIDNEY PROBLEMS Y CORONARY ARTERY DISEASE (CAD) N ADDICTION CONCERNS N ENDOMETRIOSIS N Impotence N USE OF BLOOD THINNERS Y SKIN PROBLEMS N GASTROINTESTINAL DISORDER N PERIPHERAL VASCULAR DISEASE N MUSCLE,JOINT OR BONE PROBLEMS N GASTROINTESTINAL BLEEDING N BLOOD CLOTS N ASTHMA N CATARACTS Y USE OF NSAIDS Y ERECTILE DYSFUNCTION N VARICOSITIES N GI PROBLEMS N Low Testosterone N INFERTILITY N AIDS/HIV N CHEMOTHERAPY / RADIATION N LIVER DISEASE N MALE HYPOGONADISM N HYPERTENSION N Deficiency N TOURETTE'S N ANXIETY DISORDER N BLOOD TRANSFUSION N ANEMIA/BLOOD DISORDER Y CHRONIC EAR INFECTIONS N BRONCHITIS N TUBERCULOSIS N GLAUCOMA N FOOT PROBLEM N DIVERTICULITIS N CHICKENPOX N SLEEP APNEA N INFECTIOUS DISEASE N HEART ARRHYTHMIA N PROSTATE N INSOMNIA N HIGH CHOLESTEROL / HYPERLIPIDEMIA Y HYPERTHYROIDISM N EYE PROBLEMS N EDEMA N CHRONIC PAIN SYNDROME N HYPOTHYROIDISM N CAROTID BLOCKAGE N CONSTIPATION N BACK / NECK PROBLEMS N ATHEROSCLEROSIS N BREAST PROBLEMS N DIALYSIS N ECZEMA N OSTEOPOROSIS N ARTHRITIS Y APPENDICITIS N DIABETES, TYPE N BAD TEETH N ENT N HEARTBURN / REFLUX N AUTISM SPECTRUM DISORDER (ASD) N HEPATITIS / LIVER DISEASE N GOUT N SLEEP DISORDER N ALZHEIMER'S DISEASE N Brain Problems N HERPES N DEMENTIA N HEADACHES/MIGRAINES N SEIZURES/EPILEPSY N VASCULAR DISEASE N PACEMAKER N Blood Disorder N DIZZINESS N HEART DISEASE/HEART PROBLEMS N KIDNEY DISEASE N MULTIPLE SCLEROSIS N CARDIAC ARRHYTHMIA N CANCER: SPECIFY Y ATRIAL FIBRILLATION N Gall Stones N PULMONARY EMBOLISM N AUTOIMMUNE DISEASE N Gynecological HistoryNo gynecological history recorded. Obstetrics History GPAL:G 0 P 0 0 0 0 Immunizations Vaccine Type Date Status Note Provider Nam e and Address Organization Details Recorded Time Pneumococcal conjugate PCV20, polysaccharide [id number] conjugate, adjuvant, PF 3 completed Not Available [facility] 07/07/2022 00:27:40 Influenza, high-dose, trivalent, PF 4 completed Valentina Reardon MD [address] [place] [address], [address], [facility] 04/01/2024 17:52:04 Past Encounters Encounter ID Performer Location Encounter Start Date Encounter Closed Date Diagnosis/Indication Diagnosis SNOMED-CT Code Diagnosis ICD10 Code Diagnosis Note [id number] [facility] [place] Tammy mcfarlane [address] [place] [address] 12/06/2021 00:00:00 12/20/2021 15:01:44 [id number] [facility] [place] Tammy [address]ichael [address] [place] [address] 01/19/2022 00:00:00 01/19/2022 14:04:44 [id number] [facility] [place] Jaironvi [address] [place] [address] 06/27/2022 00:00:00 06/29/2022 16:20:52 [id number] Valentina mcnamara MD [facility] Internal Med Tammy mcfarlane [address] [facility] [address] [place] [address] 12/26/2022 11:04:43 12/26/2022 12:05:01 Screening - NAD [id number] Z13.9 C-scope: 08/08/2022 : Dr Brooks PAP: Sees Dr Abdul/Dr Bird Mammogram: 09/14/2021 : Nuris OMammogram : S/p R ductal cell ca, is to now see Dr Franca bardales for a R lumpectomy , get records, she did sign Celso Kiser 03/18/2022 DEXA: 12/21/2021 : Osteopenia , do ca and vit d Get yearly flu shotGet tdap if not doneUTD on Shingrix vaccine as per her daughterGe t PCV #20Get COVID 19 vaccine and its boosters,d eclines RTC in 4 monthsDo labsER if worseShe and her daughter did verbalize her understand ing of the above Smoker 92572039 F17.200 Advised to quitLDCT 01/04/2022 : CAD Skin lesion 53959455 L98 .9 Large mole noted on the L lower abdomenRef er to dermatolog y Serum angelia min B12 below reference range 228206532 R79.89 Allergic rhinitis 997801 04 J30.9 On flonase and zyrtec Hearing loss 59431265 H9 1.91 R sidedGet hearing test done with ENT referral Jamey Thurman MD 01/06/2022 Chronic cough 57917210 R 05.3 May need to see pulmonary Schizoaffe ctive disorder 55962691 F25.9 On duloxetine 30mg dailyOn abilify monthly injectionS ees Dr Marquez, denies any SI or HI or attempts Hyperlipidemia 85577468 E78.5 On fenofibrat e 145mg daily, refilled 12/26/2022 , get labs, may need to d/c this or start on vascepaOn rosuvastat in 5mg dailyGet labs Coronary arteriosclerosis 26130194 I25.10 [address] Saheta 04/27/2022 , f/u in 6 months Onychomycosis 458725146 B35.1 L big toe: refer to Dr Storm Abdominal pain 15144863 R10.9 [facility] 12/19/2022 :MCV 104.2CT A/P 12/19/2022 : Diverticul itisOn augmentin Renal mass 591756533 N28 .89 CT A/P 12/19/2022 , needs to get CT for the R kidney mass, wants to see urology instead, referred Pain of le ft knee joint 9163684756 56615 M25.562 +ve TTP medially and crepitusRe lizzie to Dr Chahal [id number] DYLON Dunaway [facility] [place] [address] [place] [address] 12/29/2022 14:34:01 01/02/2023 12:02:53 Pain of left knee joint 7348761989 23205 M25.562 Bilateral osteoarthritis of knees 7765676750 84656 M17.0 [id number] DYLON Dunaway [facility] [place] [address] [place] [address] 02/16/2023 09:31:21 02/16/2023 10:05:18 Pain of left knee joint 3581516125 15413 M25.562 Bilateral osteoarthritis of knees 7585094651 99959 M17.0 [id number] Art Sims MD [facility] [place] [address] [place] [address] 03/08/2023 09:20:10 03/20/2023 16:15:08 Pain of left knee joint 0327340342 75296 M25.752 [id number] Valentina mcnamara MD [facility] [place] [address] [facility] [place] [address] 04/24/2023 11:21:04 04/24/2023 12:58:57 Screening - NAD 240027076 Z13.9 C-scope: 08/08/2022 : Dr Brooks PAP: Sees Dr Abdul/Dr Bird Mammogram: 09/14/2021 : BiRads OMammogram : S/p R ductal cell ca, is to now see Dr Franca bardales for a R lumpectomy , get records, she did sign Celso Kiser 03/18/2022 Dr Kiser 02/21/2023 , on tamoxifen DEXA: 12/21/2021 : Osteopenia , do ca and vit d Get yearly flu shotGet tdap if not doneUTD on Shingrix vaccine as per her daughterGe t PCV #20Get COVID 19 vaccine and its boosters,d eclines RTC in 4 monthsDo labsER if worseShe and her daughter did verbalize her understand ing of the above Smoker 72872974 F17.200 Advised to quitLDCT 01/04/2022 : CADLDCT 2023 Skin lesion 89191634 L98 .9 Large mole noted on the L lower abdomenRef er to dermatolog y Serum angelia min B12 below reference range 529861888 R79.89 Allergic rhinitis 093351 04 J30.9 On flonase and zyrtec Hearing loss 61396840 H9 1.91 R sidedGet hearing test done with ENT referral Jamey Thurman MD 01/06/2022 Chronic cough 27353591 R 05.3 May need to see pulmonary Schizoaffe ctive disorder 83642290 F25.9 On duloxetine 30mg dailyOn abilify monthly injectionS ees Dr Marquez, denies any SI or HI or attempts Hyperlipidemia 20158002 E78.5 On fenofibrat e 145mg daily, refilled 12/26/2022 , get labs, may need to d/c this or start on vascepaOn rosuvastat in 5mg dailyGet labs Coronary arteriosclerosis 95923541 I25.10 [facility] , f/u in 6 monthsDr [facility] 01/05/2023 , next in one year Onychomycosis 650371376 B35.1 L big toe: refer to Dr Storm Abdominal pain 04861862 R10.9 [facility] 12/19/2022 :MCV 104.2CT A/P 12/19/2022 : Diverticul itisOn augmentin Renal mass 582797249 N28 .89 CT A/P 12/19/2022 , needs to get CT for the R kidney mass, wants to see urology instead, referred Pain of le ft knee joint 9052290503 90521 M25.562 +ve TTP medially and crepitus Dr Sims 03/08/2023 Flank pain 843303619 R10 .9 [facility] 04/12/2023 CT A/P 04/12/2023 : negUA 04/12/2023 [id number] Valentina mcnamara MD [facility] [place] [address] [facility] [address] , [place] [address] 08/23/2023 10:57:05 08/23/2023 11:47:39 Screening - NAD 153139125 Z13.9 C-scope: 08/08/2022 : Dr Brooks PAP: Sees Dr Abdul/Dr Bird Mammogram: 09/14/2021 : Nuris OMammogram : S/p R ductal cell ca, is to now see Dr Franca bardales for a R lumpectomy , get records, she did sign Celso Kiser 03/18/2022 Dr Kiser 02/21/2023 , on tamoxifenO n tamoxifen Dr Kiser filled 06/06/2023 DEXA: 12/21/2021 : Osteopenia , do ca and vit d Get yearly flu shotGet tdap if not doneUTD on Shingrix vaccine as per her daughterGe t PCV #20Get COVID 19 vaccine and its boosters,d eclinesCan do RSV vaccine RTC in 4 monthsDo labsER if worseShe and her daughter did verbalize her understand ing of the above Smoker 91589255 F17.200 Advised to quitLDCT 01/04/2022 : CADLDCT 2023 Skin lesion 04244990 L98 .9 Large mole noted on the L lower abdomenRef er to dermatolog y Serum angelia min B12 below reference range 441445578 R79.89 Allergic rhinitis 975400 04 J30.9 On flonase and zyrtec Hearing loss 17160301 H9 1.91 R sidedGet hearing test done with ENT referral Jamey Thurman MD 01/06/2022 Chronic cough 00740418 R 05.3 May need to see pulmonaryN ow on rescue inhaler for SOB and hypoxia while in the hospital Schizoaffe ctive disorder 89138710 F25.9 On duloxetine 30mg dailyOn abilify monthly injectionS ees Dr Marquez, denies any SI or HI or attempts Hyperlipidemia 82334176 E78.5 On fenofibrat e 145mg daily, refilled 12/26/2022 , get labs, may need to d/c this or start on vascepaOn rosuvastat in 5mg dailyGet labs Coronary arteriosclerosis 05388727 I25.10 [facility] 04/[facility]20[facility] , f/u in 6 monthsDr [facility] 01/05/2023 , next in one year Onychomycosis 423126904 B35.1 L big toe: refer to Dr Storm Abdominal pain 87649865 R10.9 [facility] 12/19/2022 :MCV 104.2CT A/P 12/19/2022 : Diverticul itisOn augmentin Renal mass 726380356 N28 .89 CT A/P 12/19/2022 , needs to get CT for the R kidney mass, wants to see urology instead, referred Pain of le ft knee joint 0404365076 98813 M25.562 +ve TTP medially and crepitus Dr Sims 03/08/2023 Flank pain 771128851 R10 .9 [facility] 04/12/2023 CT A/P 04/12/2023 : negUA 04/12/2023 Diverticulitis 674903195 K57.92 08/14/2023 : [facility] ER08/18/19 [facility] Adult heal th examination 206888631 Z00.00 Screening for disorder 141507077 Z13.9 [id number] Valentina mcnamara MD [facility] [place] mcfarlane [address] [facility] [address] [place] [address] 10/18/2023 11:45:36 10/18/2023 12:53:05 Acute urinary tract infection 080155163 N39.0 OV 10/18/2023 :On cipro 500mg po bidHydrate ER if worse Hyperlipidemia 22196700 E78.5 On fenofibrat e 145mg daily, refilled 12/26/2022 , get labs, may need to d/c this or start on vascepaOn rosuvastat in 5mg daily, renewedGet labs Vitamin D deficiency 347 60317 E55.9 Serum angelia min B12 below reference range 461433706 R79.89 [id number] Valentina mcnamara MD [facility] [place] [address] [place] [address] 11/29/2023 10:44:29 11/29/2023 11:25:50 Hyperlipidemia 24047782 E78.5 On fenofibrat e 145mg daily, refilled 12/26/2022 , get labs, may need to d/c this or start on vascepaOn rosuvastat in 5mg dailyGet labs Vitamin D deficiency 347 04883 E55.9 Serum angelia min B12 below reference range 868100970 R79.89 Screening - NAD 59653526 3 Z13.9 C-scope: 08/08/2022 : Dr Brooks PAP: Sees Dr Abdul/Dr Bird Mammogram: 09/14/2021 : Nuris OMammogram : S/p R ductal cell ca, is to now see Dr Franca bardales for a R lumpectomy , get records, she did sign Celso Kiser 03/18/2022 Dr Kiser 02/21/2023 , on tamoxifenO n tamoxifen Dr Kiser filled 06/06/2023 Mammogram: 03/06/2023 : NegToday 11/29/2023 , she states that she does get a mammogram again because Dr Kiser wants to do this DEXA: 12/21/2021 : Osteopenia , do ca and vit d Get yearly flu shotGet tdap if not doneUTD on Shingrix vaccine as per her daughterGe t PCV #20Get COVID 19 vaccine and its boosters,d eclinesCan do RSV vaccine RTC in 4 monthsDo labsER if worseShe and her daughter did verbalize her understand ing of the above Smoker 31195839 F17.200 Advised to quitLDCT 01/04/2022 : CADLDCT 2023 Skin lesion 36666689 L98 .9 Large mole noted on the L lower abdomenRef er to dermatolog y Allergic rhinitis 315701 04 J30.9 On flonase and zyrtec Hearing loss 67890285 H9 1.91 R sidedGet hearing test done with ENT referral Jamey Thurman MD 01/06/2022 Chronic cough 28647384 R 05.3 May need to see benitoN vee on rescue inhaler for SOB and hypoxia while in the hospital Schizoaffe ctive disorder 72249949 F25.9 On duloxetine 30mg dailyOn abilify monthly injectionS ees Dr Marquez, denies any SI or HI or attempts Coronary arteriosclerosis 67434561 I25.10 [facility]Dr [facility] 04/27/2022 , f/u in 6 monthsDr [facility] 01/05/2023 , next in one year Onychomycosis 259857386 B35.1 L big toe: referred to Dr Katerin baxter referred to podiatry Dr Davidson Renal mass 089050955 N28 .89 CT A/P 12/19/2022 , needs to get CT for the R kidney mass, wants to see urology instead, states that Dr Florence told her she did not need to 'worry' as this was not cancer , referred 11/29/[address] Jameson for a second opinion Diverticulitis 433894821 K57.92 08/14/2023 : [facility] ER08/18/19 24: [facility] t a referral to surgery Screening for osteoporosis 398308281 Z13.127 [id number] Iliana Jameson MD [facility] [address], [address] [place] [address] 12/29/2023 17:00:25 12/29/2023 17:59:28 Complex renal cyst 141399640 N28.1 [id number] Valentina mcnamara MD [facility] [address] [facility] [address] [place] [address] 04/01/2024 11:31:21 04/01/2024 12:42:05 Hyperlipidemia 06228439 E78.5 Not on fenofibrat e 145mg daily, refilled 12/26/2022 , get labs, may need to d/c this or start on vascepaOn rosuvastat in 5mg dailyGet labs Vitamin D deficiency 347 89085 E55.9 Serum angelia min B12 below reference range 714957353 R79.89 Screening - NAD 67167004 3 Z13.9 C-scope: 08/08/2022 : Dr Brooks OV 04/01/2024 : PAP: Sees Dr Abdul/Dr Bird, is to do labs and see cardiology and get pre op clearance for an hystrectom y on 06/26/2024 Mammogram: 09/14/2021 : Nuris OMammogram : S/p R ductal cell ca, is to now see Dr Franca bardales for a R lumpectomy , get records, she did sign Celso Kiser 03/18/2022 Dr Kiser 02/21/2023 , on tamoxifenO n tamoxifen Dr Kiser filled 06/06/2023 Mammogram: 03/06/2023 : NegOV 11/29/2023 , she states that she does get a mammogram again because Dr Kiser wants to do this DEXA: 12/21/2021 : Osteopenia , do ca and vit d Get yearly flu shotGet tdap if not doneUTD on Shingrix vaccine as per her daughterGe t PCV #20Get COVID 19 vaccine and its boosters,d eclinesCan do RSV vaccine RTC in 4 monthsDo labsER if worseShe and her son Carlos did verbalize her understand ing of the above Smoker 58536848 F17.200 Advised to quitLDCT 01/04/2022 : CADLDCT 2023 Skin lesion 21125182 L98 .9 Large mole noted on the L lower abdomenRef er to dermatolog y Allergic rhinitis 017744 04 J30.9 On flonase and zyrtec Hearing loss 47077821 H9 1.91 R sidedGet hearing test done with ENT referral Jamey Thurman MD 01/06/2022 Chronic cough 29961686 R 05.3 May need to see pulmonaryN ow on rescue inhaler for SOB and hypoxia while in the hospital Schizoaffe ctive disorder 62213402 F25.9 On duloxetine 30mg dailyOn abilify monthly injectionS ees Dr Marquez, denies any SI or HI or attempts Coronary arteriosclerosis 64909190 I25.10 [facility] f[facility] 6 [facility]Dr [facility] 01/05/2023 , next in one year Onychomycosis 836138776 B35.1 L big toe: referred to Dr Katerin baxter referred to podiatry Dr Davidson Renal mass 345795954 N28 .89 CT A/P 12/19/2022 , needs to get CT for the R kidney mass, wants to see urology instead, states that Dr Florence told her she did not need to 'worry' as this was not cancer , referred 11/29/[address] Jameson for a second opinion OV 04/01/2024 :Sees Dr Jameson last OV 12/29/2023 Diverticulitis 988567466 K57.92 08/14/2023 : [facility] ER08/18/19 24: [facility] a referral to surgery OV 04/01/2024 : Did see Dr Hurt, surgery was discussed Screening for osteoporosis 927289230 Z13.820 Pre-surger y evaluation 076929843 Z01.818 Surgery: Hystrectom ySurgeon: OBDate: 06/26/2024 Clearance: Needs to get labs, also needs Xray as per her hx today 04/01/2024 required by her OB, and needs cardiac clearance Administra tion of influenza vaccine 39548833 Z23 Ex-cigarette smoker 2810 80648 Z87.891 Health Concerns Section Related Observation LastModified by Organization Detai ls LastModified Time None Recorded Concern Status LastModified by Organization Details LastModified Time None Recorded Advance Directives Directive Y: Daughter isPOA Payers Encounter Date Sequence Insurance Name Policy Number Policy Leslie Covered Member ID Leslie Member ID Guarantor Name 08/23/2023 1 [facility] (MEDICARE REPLACEMENT/A DVANTAGE - HMO) [id number] Shelby Benitez [id number] Shelby Benitez 10/18/2023 1 [facility] (MEDICARE REPLACEMENT/A DVANTAGE - HMO) [id number] Shelby Benitez [id number] Shelby Benitez 11/29/2023 1 [facility] (MEDICARE REPLACEMENT/A DVANTAGE - HMO) [id number] Shelby Benitez [id number] Shelby Benitez 12/29/2023 1 [facility] (MEDICARE REPLACEMENT/A DVANTAGE - HMO) [id number] Shelby Roula Emmanuel [id number] Shelby Benitez 04/01/2024 1 [facility] (MEDICARE REPLACEMENT/A DVANTAGE - HMO) [id number] Shelby Roula Emmanuel [id number] Shelby Benitez Notes Date Note Type Note Provider Name and Address Organization Details Recorded Time 08/23/2023 text/html OV 12/06/2021:He re to establish care Past Hx:Depression sees Dr Luna social family and surgical historyHere to discuss above and get labs OV 01/19/2022:Here for her f/u apt, she feels well today, she did do the labs, she also has done her LDCT on 01/04/2022, here with her daughter OV 06/27/2022:Here for her f/u apt, she is doing well, here with her daughter OV 12/26/2022: Here for her f/u apt, she is doing well today, no new labs, seen in the ER for diverticulitis, also c/o L knee pain, here with her daughter OV 04/24/2023: Here for her f/u apt, she feels well today, she is here with her daughter OV 08/23/2023: Here for her f/u apt, she is doing well today, was d/c from [facility] for diverticulitis Valentina Reardon MD [address] [place] [address], [address], [place], [address], [place] [facility] [email or web address] 08/23/2023 18:28:04 10/18/2023 text/html OV 12/06/2021:He re to establish care Past Hx:Depression sees Dr Luna social family and surgical historyHere to discuss above and get labs OV 01/19/2022:Here for her f/u apt, she feels well today, she did do the labs, she also has done her LDCT on 01/04/2022, here with her daughter OV 06/27/2022:Here for her f/u apt, she is doing well, here with her daughter OV 12/26/2022: Here for her f/u apt, she is doing well today, no new labs, seen in the ER for diverticulitis, also c/o L knee pain, here with her daughter OV 04/24/2023: Here for her f/u apt, she feels well today, she is here with her daughter OV 08/23/2023: Here for her f/u apt, she is doing well today, was d/c from [facility] for diverticulitis Valentina Reardon MD [address], [address], [place], [address], [email or web address] 10/23/2023 18:38:14 11/29/2023 text/html OV 12/06/2021:He re to establish care Past Hx:Depression sees Dr Luna social family and surgical historyHere to discuss above and get labs OV 01/19/2022:Here for her f/u apt, she feels well today, she did do the labs, she also has done her LDCT on 01/04/2022, here with her daughter OV 06/27/2022:Here for her f/u apt, she is doing well, here with her daughter OV 12/26/2022: Here for her f/u apt, she is doing well today, no new labs, seen in the ER for diverticulitis, also c/o L knee pain, here with her daughter OV 04/24/2023: Here for her f/u apt, she feels well today, she is here with her daughter OV 08/23/2023: Here for her f/u apt, she is doing well today, was d/c from [facility] for diverticulitis OV 11/29/2023: Here for her f/u apt, she is doing well, she did do the labs, here with her daughter Valentina Reardon MD [address], [address], [place], [address], [email or web address] 12/04/2023 20:01:17 12/29/2023 text/html this patient actually was being seen by Dr. Mayito Florence for her bladder falling down and she is scheduled for hysterectomy and then a year later after that she is scheduled for a robotic bladder suspension She has a history of diverticular disease and they want to make sure her diverticulitis is under control for least 1 year before undergoing any type of robotic surgery For some reason they want a 2nd opinion for her CT scan. She had a CT scan with IV contrast which was performed on August 14, 2023 which showed a 9 mm hemorrhagic cyst in the left upper pole. There were no other abnormalities or any type of enhancement in the kidneys to suggest any type of cancer. There was mention of some bilateral nonobstructing stones but no hydronephrosis So it is just a evaluation and 2nd opinion on the hemorrhagic cyst which appears to be chronic Iliana Jameson MD [address], [address], [place], [address], [place] [facility] 12/29/2023 19:13:50 04/01/2024 text/html OV 12/06/2021:He re to establish care Past Hx:Depression sees Dr Luna social family and surgical historyHere to discuss above and get labs OV 01/19/2022:Here for her f/u apt, she feels well today, she did do the labs, she also has done her LDCT on 01/04/2022, here with her daughter OV 06/27/2022:Here for her f/u apt, she is doing well, here with her daughter OV 12/26/2022: Here for her f/u apt, she is doing well today, no new labs, seen in the ER for diverticulitis, also c/o L knee pain, here with her daughter OV 04/24/2023: Here for her f/u apt, she feels well today, she is here with her daughter OV 08/23/2023: Here for her f/u apt, she is doing well today, was d/c from [facility] for diverticulitis OV 11/29/2023: Here for her f/u apt, she is doing well, she did do the labs, here with her daughter OV 04/01/2024: Here for her f/u apt, she is doing well today, here with her son, she has no new labs, is to get hystrectomy done by her OB on 06/26/2024 and needs to get clearance Valentina Reardon MD [address], [address], [place], [address], [place] [facility] 04/01/2024 17:52:29 OBGyn Episode No OBEpisode recorded.
--- OUTSIDE RECORDS SUMMARY | 2024-05-30 13:37 | XMS_ITS | Patient Health Record ---
Author Organization [facility] As [employer] Address [address] [place] [address] Care Team Providers Care Peer Financial Counselor Name Role Phone Alexys HOWARD, Asmita Primary Care Provider Un available Manjinder, Thena Unavailable [phone] Alma Alex Unavailable [phone] Migration, Provider Unavailable Unavailable Allergies Allergen (clinical drug ingredient) Drug/Non Drug Allergy documented on EMR Reaction Allergy Type Onset Date Status Niacin Unknown Drug Allergy 07/19/2023 Active Reason For Referral No Information Medications Medication SIG (Take, Route, Frequency, Duration) Notes Start Date End Date Status Tamoxifen Citrate 20 MG Oral 09/04/2023 Active Vitamin D Active Rosuvastatin Calcium 5 MG Oral 09/04/2023 Active Cetirizine HCl 10 MG Oral 09/04/2023 Active Abilify Maintena 300 MG INJECT INTRAMUSC ULARLY EVERY MONTH IM q month Active Aspirin Adult Low Strength 81 MG Oral 09/04/2023 Active DULoxetine HCl 30 mg TAKE 1 CAPSULE BY M OUTH DAILY for 90 Active predniSONE 10 MG Oral 09/04/2023 Ac tive Acidophilus Active Social History Tobacco Use: Social History Observation Description Date Details (start date - stop date) Former Smoker NA - NA Sex Assigned At : Social History Observation Description Sex Assigned At Female Tobacco Control (Standard) Question Answer Notes Tobacco use: Former smoker AUDIT-C (Standard) Question Answer Notes Did you have a drink containing alcohol in the p ast year? 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 Vital Signs Heart Rate 86 /min 05/30/2024 Height-cm 157.48 cm 05/30/2024 Blood pressure diastolic 84 mm Hg 05/30/2024 Weight-kg 93.44 kg 05/30/2024 Height 62.00 in 05/30/2024 Blood pressure systolic 134 mm Hg 05/30/2024 Weight 206 lbs 05/30/2024 BMI 37.67 kg/m2 05/30/2024 Encounters Encounter Location Date Provider Diagnosis [facility] [address] [place] [address] 10/03/2023 Provider Migration [facility] [address] [place] [address] 04/26/2024 Thena Manjinder Schizoaffective disorder, bipolar type F25.0 and Hypertension, unspecified type 401.9 [facility] [address] [place] [address] 05/30/2024 Alex Alma [facility] [address] [place] [address] 06/05/2023 Thena Manjinder Schizoaffective disorder, bipolar type F25.0 [facility] [address] [place] [address] 06/06/2023 Provider Migration Schizoaffective disorder, bipolar type F25.0 [facility] [address] [place] [address] 07/05/2023 Thena Manjinder Schizoaffective disorder, bipolar type F25.0 [facility] [address] [place] [address] 07/19/2023 Thena Manjinder Schizoaffective disorder, bipolar type F25.0 [facility] [address] [place] [address] 08/03/2023 Alex Alma Schizoaffective disorder, bipolar type F25.0 [facility] [address] [place] [address] 09/04/2023 Thena Manjinder Schizoaffective disorder, bipolar type F25.0 [facility], [facility] [address] [place] [address] 09/12/2023 Provider Migration Schizoaffective disorder, bipolar type F25.0 [facility], [facility] [address] [place] [address] 10/31/2023 Thena Manjinder Schizoaffective disorder, bipolar type F25.0 and Drug induced akathisia G25.71 [facility], [facility] [address] [place] [address] 12/01/2023 Alex Alma [facility], [facility] [address] [place] [address] 01/01/2024 Alex Alma Schizoaffective disorder, bipolar type F25.0 [facility], [facility] [address] [place] [address] 02/01/2024 Alex Alma Paranoid schizophren ia F20.0 [facility], [facility] [address] [place] [address] 02/29/2024 Thena Manjinder Schizoaffective disorder, bipolar type F25.0 and Drug induced akathisia G25.71 [facility], [facility] [address] [place] [address] 02/29/2024 Thena Manjinder [facility], [facility] [address] [place] [address] 03/29/2024 Alex Alma Schizoaffective disorder, bipolar type F25.0 [facility], [facility] [address] [place] [address] 06/14/2023 Provider Migration [facility], [facility] [address] [place] [address] 06/15/2023 Provider Migration [facility], [facility] [address] [place] [address] 07/10/2023 Provider Migration [facility], [facility] [address] [place] [address] 09/23/2023 Provider Migration [facility], [facility] [address] [place] [address] 09/24/2023 Provider Migration [facility] [employer] [facility] [address] [place] [address] 11/30/2023 Richard Dunbar Schizoaffective disorder, bipolar type F25.0 [facility] [address] [place] [address] 02/08/2024 Richard Dunbar Assessments Encounter Date Diagnosis (ICD Code) Assessment Notes Treatment Notes Treatment Clinical Notes Section Notes 02/29/2024 Schizoaffective disorder, bipolar type (ICD-10 - F25.0) 11/30/2023 Schizoaffective disorder, bipolar type (ICD-10 - F25.0) 01/01/2024 Schizoaffective disorder, bipolar type (ICD-10 - F25.0) 02/01/2024 Paranoid schizophrenia (ICD-10 - F20.0) 02/29/2024 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) 03/29/2024 Schizoaffective disorder, bipolar type (ICD-10 - F25.0) 04/26/2024 Schizoaffective disorder, bipolar type (ICD-10 - F25.0) 06/05/2023 Schizoaffective disorder, bipolar type (ICD-10 - F25.0) 06/06/2023 Schizoaffective disorder, bipolar type (ICD-10 - F25.0) 07/05/2023 Schizoaffective disorder, bipolar type (ICD-10 - F25.0) 07/19/2023 Schizoaffective disorder, bipolar type (ICD-10 - F25.0) 08/03/2023 Schizoaffective disorder, bipolar type (ICD-10 - F25.0) 09/04/2023 Schizoaffective disorder, bipolar type (ICD-10 - F25.0) 09/12/2023 Schizoaffective disorder, bipolar type (ICD-10 - F25.0) 10/31/2023 Schizoaffective disorder, bipolar type (ICD-10 - F25.0) 10/31/2023 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) 04/26/2024 Hypertension, unspecified type (ICD9-CM - 401.9) Plan Of Treatment Next Appt Details Provider Name:Richard Dunbar , 06/20/2024 10:30:00 AM, [address], [facility] [address], [place], [address], Insurance Providers Payer Name Payer Address Payer Phone Subscriber Number Group Number Insured Name Patient Relationship to Insured Coverage Start Date Coverage End Date [employer] Medicare Replacement/ Advantage - Hmo [address] [address] [place] [address] [id number] NOBLE DEE DEE Self - patient is the insured [place] [address] [address] [place] [address] [id number] CHIDI DICKEYCY Self - patient is the insured Medications Administered Medication Instructions Date of Administration Dosage Notes Abilify Maintena 10/31/2023 300 mg Abilify Maintena 12/01/2023 300 ug Abilify Maintena 01/01/2024 300 mg Abilify Maintena 02/01/2024 300 mg Abilify Maintena 02/29/2024 300 mg Abilify Maintena 03/29/2024 300 mg Abilify Maintena 04/26/2024 300 mg Abilify Maintena 05/30/2024 300 mg Abilify Maintena 05/30/2024 300 mg Medical (General) History Medical History History ICD Code Problems: Acute akathisia caused by neur oleptic Idiopathic peripheral neuropathy Nicotine dependence with current use Obesity Schizoaffective disorder, bipolar type , Surgical History Surgery Date(Month/Year) Breast surgery () 12/21/2021
--- OUTSIDE RECORDS SUMMARY | 2024-05-30 13:37 | XMS_ITS | Referral Summary ---
Author Organization [facility] Address [address] [facility] [place] [address] Care Team Providers Care Support Technician Name Role Phone Asmita Reardon MD Primary Care Provider Source Comments [facility],non-owned Affiliates and Associated Physician Practices is amultiple site organization consisting of ambulatory clinics and hospital sitesin [place], [place], [place] and [place]. This disclosure is being madepursuant to the Care Everywhere program and may not contain all information available regarding this patient. Last updated 18.[facility] Encounters Date Type Department Care Team Description 05/09/2024 Travel 05/09/2024 2:00 PM HYDRO MECHANIC Procedure visit [facility] [address] [place] [address] Trevor Gonzalez MD Mixed stress and urge urinary incontinence ; Complete uterovaginal prolapse; Overactive bladder; Detrusor instability; Decreased bladder capacity; Cystocele, midline 02/29/2024 Travel from Last 3 Months Allergies Active Allergy Reactions Criticality Noted Date Comments Niacin Psychiatric,Urticaria Medium 03/18/2022 Medications * Be aware that medications may not be up to date on this document. Alwaysverify current medications with the patient. Medication Sig Dispensed Refills Start Date End Date Status Suzy Maintena 300 MG injection INJECT INTRAMUSCULARLY EVERY MONTH for 30 Active aspirin EC (Ecotrin) 81 MG tablet Oral 09/04/2023 Active tamoxifen (Nolvadex) 20 MG tablet Oral 09/04/2023 Active rosuvastatin (Crestor) 5 MG tablet Take 1 (one) tablet by mouth once daily Active DULoxetine (Cymbalta) 30 MG capsule Take 1 (one) capsule by mouth once daily Active trospium (Sanctura) 20 MG tablet Take 1 (one) tablet by mouth at bedtime 30 tablet 2 01/22/2024 Active Active Problems No known active problems Social [...] Comments Blood Pressure 134/76 05/09/2024 1:52 PM HYDRO MECHANIC Pulse - - Temperature - - Respiratory Rate - - Oxygen Saturation - - Inhaled Oxygen Concentration - - Weight 92.5 kg (204 lb) 05/09/2024 1:52 PM HYDRO MECHANIC Height 157.5 cm (5' 2 ) 05/09/2024 1:52 PM HYDRO MECHANIC Body Mass Index 37.31 05/09/2024 1:52 PM HYDRO MECHANIC Plan of Treatment Upcoming Encounters Date Type Department Care Team (Late st Contact Info) Description 07/15/2024 10:45 AM CDT Office Visit [facility] [address] [place] [address] Trevor Gonzalez MD [address] [place] [address] Procedures Procedure Name Priority Date/Time Associated Diagnosis Comments [facility] INTRAABDOMINAL PRESSURE TEST Routine 05/10/2024 7:58 AM HYDRO MECHANIC Mixed stress and urge urinary incontinence Overactive bladder Detrusor instability Decreased bladder capacity VA ANAL/URINARY MUSCLE STUDY Routine 05/10/2024 7:58 AM HYDRO MECHANIC Mixed stress and urge urinary incontinence Overactive bladder Detrusor instability Decreased bladder capacity VA CYSTOMETROGRAM W/BROADCAST TRAFFIC COORDINATOR Routine 7:58 AM HYDRO MECHANIC Mixed stress and urge urinary incontinence Overactive bladder Detrusor instability Decreased bladder capacity URINALYSIS AUTO - POINT OF CARE (AMB) [facility] Routine 05/09/2024 2:22 PM HYDRO MECHANIC Complete uterovaginal prolapse from Last 3 Months Results * VA CYSTOMETROGRAM W/BROADCAST TRAFFIC COORDINATOR, [place] ANAL/URINARY MUSCLE STUDY, [place] INTRAABDOMINAL PRESSURE TEST (05/10/2024 7:58 AM HYDRO MECHANIC) Narrative Trevor Gonzalez MD - 05/10/2024 7:58 AM HYDRO MECHANIC Trevor Gonzalez MD ? 05/10/2024 ??8:03 AM [...] Positive no; Abnormal no Voiding pressure study (BROADCAST TRAFFIC COORDINATOR): She voided via detrusor contraction. Obstructive pattern? [...] OF CARE (AMB) [facility] (05/09/2024 2:22 PM HYDRO MECHANIC) Glucose UA neg [facility] [address] Bilirubin UA POCT neg [facility] [address] Ketones UA POCT neg [facility] [address] Specific [place] UA 1.[address] [facility] [address] Blood Urine POCT neg [facility] [address] pH UA 6.[address] [facility] [address] Protein UA +- [facility] [address] Urobilinogen UA neg [facility] [address] Nitrite UA neg [facility] [address] WBC UA neg [facility] [address] Urine URINE / Unknown 05/09/2024 2 :22 PM HYDRO MECHANIC Trevor Gonzalez MD LAB - POINT OF CARE ORDERABLES [facility] [address] [place] [address], [facility] [phone] from Last 3 Months Care Teams Support Technician Relationship Specialty Start Date End Date Asmita Reardon MD [address] [address] PCP - General Internal Medicine 01/22/24
--- OUTSIDE RECORDS SUMMARY | 2024-05-30 13:37 | XMS_ITS | Clinical Summary ---
Author Organization [facility] Address [address] [facility] [place] [address] Care Team Providers Care Trades Helper Name Role Phone Asmita Reardon MD Primary Care Provider Source Comments [facility],non-owned Affiliates and Associated Physician Practices is amultiple site organization consisting of ambulatory clinics and hospital sitesin [place], [place], [place]. This disclosure is being madepursuant to the Care Everywhere program and may not contain all information available regarding this patient. Last updated 18.[facility] Allergies Active Allergy Reactions Criticality Noted Date Comments Niacin Psychiatric,Urticaria Medium 03/18/2022 Medications * Be aware that medications may not be up to date on this document. Alwaysverify current medications with the patient. Medication Sig Dispensed Refills Start Date End Date Status Abivijayamyriam Maintena 300 MG injection INJECT INTRAMUSCULARLY EVERY [...] Active Active Problems No known active problems Encounters Date Type Department Care Team Description 05/09/2024 2:00 PM DEPARTMENT ADMINISTRATOR Procedure visit [facility] [address] [place] [address] Trevor Gonzalez MD Mixed stress and urge urinary incontinence ; Complete uterovaginal prolapse; Overactive bladder; Detrusor instability; Decreased bladder capacity; Cystocele, midline 05/09/2024 Travel 02/29/2024 Travel from Last 3 Months Family History Medical History Relation Name Comments Cancer - Colon Mother Osteoporosis Mother Relation Name Status Comments Mother Social History Tobacco Use Types Packs/Day Years [...] Comments Blood Pressure 134/76 05/09/2024 1:52 PM DEPARTMENT ADMINISTRATOR Pulse - - Temperature - - Respiratory Rate - - Oxygen Saturation - - Inhaled Oxygen Concentration - - Weight 92.5 kg (204 lb) 05/09/2024 1:52 PM DEPARTMENT ADMINISTRATOR Height 157.5 cm (5' 2 ) 05/09/2024 1:52 PM DEPARTMENT ADMINISTRATOR Body Mass Index 37.31 05/09/2024 1:52 PM DEPARTMENT ADMINISTRATOR Plan of Treatment Upcoming Encounters Date Type Department Care Team (Late st Contact Info) Description 07/15/2024 10:45 AM CDT Office Visit [facility] [address], [facility] [address] [place] [address] Trevor Gonzalez MD [address] [place] [address] Health Maintenance Due Date Last Done Comments BONE DENSITY TESTING 1950 COLOGUARD (AGES 45-75) - COLON CA SCREENING 1952 COLON MONITORING 1952 COLONOSCOPY - COLON CA SCREENING 1952 CT COLONOGRAPHY - COLON CA SCREENING 1952 Colorectal Cancer Screening 1952 FIT - COLON CA SCREENING 1952 FLEX SIG - COLON CA SCREENING 1952 MAMMOGRAM 1952 HEPATITIS C SCREENING 03/19/1970 DTAP/TDAP/TD VACCINES (1 - Tdap) 1971 PNEUMOCOCCAL VACCINE 50+ (1 of 1 - PCV) 2002 ZOSTER VACCINE (1 of 2) 2002 COVID-19 VACCINE (1 - 2023-25 season) 2024 INFLUENZA VACCINE (#1) 2024 3, 04/17/2022, 04/18/2011, Additional history exists DEPRESSION SCREENING 05/08/2024 MEDICARE AWV ? CALENDAR YEAR 2024 Respiratory Syncytial Virus (RSV) Vaccine Pt: or over 60 yrs (1 - 1-dose 75+ series) 2027 HEPATITIS B VACCINE Aged Out No longe r eligible based on patient's age to complete this topic HIB VACCINE Aged Out No longer eligi ble based on patient's age to complete this topic HPV VACCINE Aged Out No longer eligi ble based on patient's age to complete this topic MENINGOCOCCAL (Group B) VACCINE Aged Out No longer eligible based on patient's age to complete this topic MENINGOCOCCAL VACCINE Aged Out No kim [address] eligible based on patient's age to complete this topic Procedures Procedure Name Priority Date/Time Associated Diagnosis Comments [place] INTRAABDOMINAL PRESSURE TEST Routine 05/10/2024 7:58 AM DEPARTMENT ADMINISTRATOR Mixed stress and urge urinary incontinence Overactive bladder Detrusor instability Decreased bladder capacity [place] ANAL/URINARY MUSCLE STUDY Routine 05/10/2024 7:58 AM DEPARTMENT ADMINISTRATOR Mixed stress and urge urinary incontinence Overactive bladder Detrusor instability Decreased bladder capacity [place] CYSTOMETROGRAM W/EXCEL DEVELOPER Routine 7:58 AM DEPARTMENT ADMINISTRATOR Mixed stress and urge urinary incontinence Overactive bladder Detrusor instability Decreased bladder capacity URINALYSIS AUTO - POINT OF CARE (AMB) [facility] Routine 05/09/2024 2:22 PM DEPARTMENT ADMINISTRATOR Complete uterovaginal prolapse from Last 3 Months Results * [place] CYSTOMETROGRAM W/EXCEL DEVELOPER, [place] ANAL/URINARY MUSCLE STUDY, [place] INTRAABDOMINAL PRESSURE TEST (05/10/2024 7:58 AM DEPARTMENT ADMINISTRATOR) Narrative Trevor Gonzalez MD - 05/10/2024 7:58 AM DEPARTMENT ADMINISTRATOR Trevor Gonzalez MD ? 05/10/2024 ??8:03 AM [...] Positive no; Abnormal no Voiding pressure study (EXCEL DEVELOPER): She voided via detrusor contraction. Obstructive pattern? [...] OF CARE (AMB) [facility] (05/09/2024 2:22 PM DEPARTMENT ADMINISTRATOR) Glucose UA neg [facility] [address] Bilirubin UA POCT neg [facility] [address] Ketones UA POCT neg [facility] [address] Specific [place] UA 1.[address] [facility] [address] Blood Urine POCT neg [facility] [address] pH UA 6.5 [facility] [address] Protein UA +- [facility] [address] Urobilinogen UA neg [facility] [address] Nitrite UA neg [facility] [address] WBC UA neg [facility] [address] Urine URINE / Unknown 05/09/2024 2 :22 PM DEPARTMENT ADMINISTRATOR Trevor Gonzalez MD LAB - POINT OF CARE ORDERABLES [facility] [address] [place] [address], [facility] [phone] from Last 3 Months Care Teams Trades Helper Relationship Specialty Start Date End Date Asmita Reardon MD [address] [phone] PCP - General Internal Medicine 01/22/24
--- OUTSIDE RECORDS SUMMARY | 2024-05-30 13:37 | XMS_ITS ---
Author Organization [facility] As [employer] Address [address] [facility] [address] [place] [address] Care Team Providers Care Component Overhaul Operator Name Role Phone Alexys HOWARD, Asmita Primary Care Provider Un available Manjinder, Thena Unavailable [phone] Mariusz Mclaughlin Unavailable [phone] Allergies Allergen (clinical drug ingredient) Drug/Non Drug Allergy documented on EMR Reaction Allergy Type Onset Date Status Niacin Unknown Drug Allergy 07/19/2023 Active REASON FOR VISIT abilify Maintena injection Medications Medication SIG (Take, Route, Frequency, Duration) Notes Start Date End Date Status Aspirin Adult Low Strength 81 MG Oral 09/04/2023 Active Rosuvastatin Calcium 5 MG Oral 09/04/2023 Active predniSONE 10 MG Oral 09/04/2023 Ac tive Abilify Maintena 300 MG INJECT INTRAMUSC ULARLY EVERY MONTH IM q month Active DULoxetine HCl 30 MG TAKE 1 CAPSULE BY M OUTH DAILY Active Cetirizine HCl 10 MG Oral 09/04/2023 Active Vitamin D Active Tamoxifen Citrate 20 MG Oral 09/04/2023 Active Acidophilus Active Social History Sex Assigned At : Social History Observation Description Sex Assigned At Female Vital Signs Blood pressure systolic 120 mm Hg 03/29/20 24 Blood pressure diastolic 74 mm Hg 024 Heart Rate 101 /min 03/29/2024 Height 62.00 in 03/29/2024 Weight 210 lbs 03/29/2024 BMI 38.41 kg/m2 03/29/2024 Height-cm 157.48 cm 03/29/2024 Weight-kg 95.25 kg 03/29/2024 Encounters Encounter Location Date [facility] [address] [place] [address] 03/29/2024 Mariusz Mclaughlin Schizoaffective disorder, bipolar type F25.0 Assessments Encounter Date Diagnosis (ICD Code) Assessment Notes Treatment Notes Treatment Clinical Notes Section Notes 03/29/2024 Schizoaffective disorder, bipolar type (ICD-10 - F25.0) Plan Of Treatment Next Appt Details Provider Name:Richard Dunbar , 06/20/2024 10:30:00 AM, [address], [place], [address], Medications Administered Medication Instructions Date of Administration Dosage Notes Abilify Maintena 03/29/2024 300 mg Progress Notes * DEE DEE DICKEY MDOB:1950 ( 74 yo F)Acc No.[id number]:03/29/2024 Progress Note Patient:?DEE DEE DICKEY M Provider:?MARIUSZ MCLAGUHLIN MD :1950???Age:74 Y???Sex:Female D ate:03/29/2024 Address:[address] [place] [address] , [id number] Pcp:Asmita Reardon MD Subjective: * Chief Complaints: * ???abilify Maintena injectio n * HPI: ???Transition of Care:? patient is here for her Abilify Maintena as ordered by her provider Richard Dunbar MD. * Medical History:? * Medications:?TakingAcidophil us Vitamin D Tamoxifen Citrate 20 MG Tablet Oral Cetirizine HCl 10 MG Tablet Oral Rosuvastatin Calcium 5 MG Tablet Oral Aspirin Adult Low Strength 81 MG Tablet Delayed Release Oral Abilify Maintena 300 MG Suspension Reconstituted ER INJECT INTRAMUSCULARLY EVERY MONTH IM q month DULoxetine HCl 30 MG Capsule Delayed Release Particles TAKE 1 CAPSULE BY MOUTH DAILY predniSONE 10 MG Tablet Oral Medication List reviewed and reconciled with the patientTaking Acidophilus Taking Vitamin D Taking Tamoxifen Citrate 20 MG Tablet Oral Taking Cetirizine HCl 10 MG Tablet Oral Taking Rosuvastatin Calcium 5 MG Tablet Oral Taking Aspirin Adult Low Strength 81 MG Tablet Delayed Release Oral Taking Abilify Maintena 300 MG Suspension Reconstituted ER INJECT INTRAMUSCULARLY EVERY MONTH IM q month Taking DULoxetine HCl 30 MG Capsule Delayed Release Particles TAKE 1 CAPSULE BY MOUTH DAILY Taking predniSONE 10 MG Tablet Oral Medication List reviewed and reconciled with the patient * Allergies:?Niacin: Allergy - Onset Date 07/19/2023no[Allergies Verified] Objective: * Vitals:?BP:120/74mm Hg, HR:1 01/min, Wt:210lbs, Wt-k.25 kg, Ht: 62.00 in, Ht-cm: 157.48 cm, BMI:38.41Index, Body Surface Area: 2.04. Therapeutic Interventions: Assessment: * Assessment: 1.?Schizoaffective disorder, bipolar type - F25.0??? Plan: * Treatment: * Therapeutic Injections:? AbIlify Maintena 300 administer : 300 mg (Route: Intramuscular) given by Shaista Juárez on left gluteus * Procedure Codes:?08278 THERA PEUTIC PROPHYLACTIC/DX INJECTION SUBQ/IM * Billing Information: * Visit Code:? * Procedure Codes:? 59890 THERAPEUTIC PROPHYLACTIC/DX INJECTION SUBQ/IM. * TION ELECTRONIC WARFARE OPERATOR Sign off status: Completed true * Provider:?MARIUSZ MCLAUGHLIN MD Date:?03/29 Generated for Conner razo/Lon/eTransmitting on:?05/30/2024 01:37 PM AVIATION ELECTRONIC WARFARE OPERATOR History and Physical Notes * HPI (History of Present Illness) Category Sub-Category Detail Notes Category Not es Transition of Care patient i s here for her Abilify Maintena as ordered by her provider Richard Dunbar MD
--- OUTSIDE RECORDS SUMMARY | 2024-05-30 13:37 | XMS_ITS ---
Author Organization [facility] [employer] Address [address] [place] [address] Care Team Providers Care Staff Air Defense Officer Name Role Phone Alexys HOWARD, Asmita Primary Care Provider Un available Uvaldo Medina Unavailable [phone] Allergies Allergen (clinical drug ingredient) Drug/Non Drug Allergy documented on EMR Reaction Allergy Type Onset Date Status Niacin Unknown Drug Allergy 07/19/2023 Active REASON FOR VISIT Patient is here for her Abilify 300 mg injection Medications Medication SIG (Take, Route, Frequency, Duration) Notes Start Date End Date Status DULoxetine HCl 30 MG TAKE 1 CAPSULE BY M OUTH DAILY Active Abilify Maintena 300 MG INJECT INTRAMUSC ULARLY EVERY MONTH IM q month Active predniSONE 10 MG Oral 09/04/2023 Ac tive Aspirin Adult Low Strength 81 MG Oral 09/04/2023 Active Acidophilus Active Cetirizine HCl 10 MG Oral 09/04/2023 Active Tamoxifen Citrate 20 MG Oral 09/04/2023 Active Rosuvastatin Calcium 5 MG Oral 09/04/2023 Active Vitamin D Active Social History Sex Assigned At : Social History Observation Description Sex Assigned At Female Vital Signs Blood pressure systolic 134 mm Hg 04/26/20 24 Blood pressure diastolic 82 mm Hg 024 Heart Rate 93 /min 04/26/2024 Height 62.00 in 04/26/2024 Weight 209.0 lbs 04/26/2024 BMI 38.22 kg/m2 04/26/2024 Height-cm 157.48 cm 04/26/2024 Weight-kg 94.8 kg 04/26/2024 Encounters Encounter Location Date Provider Diagnosis [facility] [address] [place] [address] 04/26/2024 Uvaldo Smitht Schizoaffective disorder, bipolar type F25.0 and Hypertension, unspecified type 401.9 Assessments Encounter Date Diagnosis (ICD Code) Assessment Notes Treatment Notes Treatment Clinical Notes Section Notes 04/26/2024 Schizoaffective disorder, bipolar type (ICD-10 - F25.0) 04/26/2024 Hypertension, unspecified type (ICD9-CM - 401.9) Plan Of Treatment Next Appt Details Provider Name:Uvaldo Medina , 06/20/2024 10:30:00 AM, [address], [address], [place], [address], Medications Administered Medication Instructions Date of Administration Dosage Notes Abilify Maintena 04/26/2024 300 mg Progress Notes * DEE DEE DICKEY MDOB:1950 ( 74 yo F)Acc No.[id number]:04/26/2024 Progress Note Patient:?DEE DEE DICKEY Provider:?UVALDO MEDINA MD :1950???Age:74 Y???Sex:Female D ate:04/26/2024 Address:[address] [place], [place] [id number] Pcp:Asmita Reardon MD Subjective: * Chief Complaints: * ???1. Patient is here for he r Abilify 300 mg injection. 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 * Medications:?Taking Acidophi maged , Taking Vitamin D , Taking Tamoxifen Citrate 20 MG Tablet Oral , Taking Cetirizine HCl 10 MG Tablet Oral , Taking Rosuvastatin Calcium 5 MG Tablet Oral , Taking Aspirin Adult Low Strength 81 MG Tablet Delayed Release Oral , Taking Abilify Maintena 300 MG Suspension Reconstituted ER INJECT INTRAMUSCULARLY EVERY MONTH IM q month , Taking DULoxetine HCl 30 MG Capsule Delayed Release Particles TAKE 1 CAPSULE BY MOUTH DAILY , Taking predniSONE 10 MG Tablet Oral , Medication List reviewed and reconciled with the patient * Allergies:?Niacin: Allergy - Onset Date 07/19/2023. Objective: * Vitals:?BP:134/82mm Hg, HR:9 3/min, Wt:209.0lbs, Wt-k.8 kg, Ht: 62.00 in, Ht-cm: 157.48 cm, BMI:38.22Index, Body Surface Area: 2.03. Therapeutic Interventions: Assessment: * Assessment: 1.?Schizoaffective disorder, bipolar type - F25.0???2.?Hypertension, unspecified type - 401.9??? Plan: * Treatment: * Therapeutic Injections:? AbIlify Maintena 300 administer : 300 mg (Route: Intramuscular) given by Natali York on left hip intramuscular * Procedure Codes:?51833 THERA PEUTIC PROPHYLACTIC/DX INJECTION SUBQ/IM * Billing Information: * Visit Code:? * Procedure Codes:? 88947 THERAPEUTIC PROPHYLACTIC/DX INJECTION SUBQ/IM. * Electronic signature of Jhoana Medina MD on 05/30/2024 at 01:37 PM COUPLER Sign off status: Pending * Provider:?UVALDO MEDINA MD Date:? 024 Generated for Conner razo/Lon/Frank on:?05/30/2024 01:37 PM COUPLER
--- OUTSIDE RECORDS SUMMARY | 2024-05-30 13:38 | XMS_ITS | Clinical Summary ---
Author Organization [facility] Address [address] [place] [address] Phone Care Team Providers Care Junior Project Manager Name Role Phone Asmita Reardon MD Primary Care Provider Andrea Ho MD Unavailable [phone] Allergies Active Allergy Reactions Criticality Noted Date Comments Niacin Hallucinations 03/18/2022 Medications Abilify Maintena 300 MG Suspension Reconstituted ER 300 mg every 28 days. 2 Active fenofibrate (TRICOR) 145 MG Tablet 145 mg daily. 2 Active DULoxetine (CYMBALTA) [address] Particles 30 mg daily. 2 Active cetirizine (ZyrTEC) 10 MG Tablet 10 mg daily. 2 Active Multiple Vitamin (Multivitamins) Capsule Take 1 Capsule by mouth daily. Active rosuvastatin (CRESTOR) 5 MG Tablet TAKE 1 TABLET BY MOUTH ONCE DAILY AT BEDTIME 2 Active EQ Aspirin Adult Low Dose 81 MG Tablet Delayed Response Take 81 mg by mouth daily. 2 Active Cholecalciferol (VITAMIN D3 PO) Take 2,000 Int'l Units by mouth daily. Active Psyllium (METAMUCIL PO) Take by mouth daily. Active tamoxifen citrate 20 MG Tablet Take 1 tablet by mouth once daily 90 Tablet 3 4 Active Active Problems Problem Noted Date Diagnosed Date Diverticular disease 09/11/2023 Encounter for screening mamm ogram for malignant neoplasm of breast 09/11/2023 Long-term current use of tamoxifen 02/21/2023 Primary osteoarthritis of left knee 02/21/2023 Uterine prolapse 06/28/2022 Malignant neoplasm of upper- outer quadrant of right breast in female, estrogen receptor positive 03/20/2022 History of schizophrenia 03/20/2022 Family History Medical History Relation Name Comments Cancer Mother Relation Name Status Comments Father Mother Social History Tobacco Use Types Packs/Day Years Used Date Smoking Tobacco: Every Day Cigarettes 2 40 Smokeless Tobacco: Never Tobacco Cessation:Ready to Q uit: Not Asked; Counseling Given: Not Answered Alcohol Use Standard Drinks/Week Comments Never 0 (1 standard drink = 0.6 oz pur e alcohol) Comments No Sex and Gender Information Value Date Recorded Sex Assigned at Not on file Legal Sex Female 8:18 PM CDT Gender Identity Not on file Sexual Orientation Not on file Last Filed Vital Signs Vital Sign Reading Time Taken Comments Blood Pressure 120/76 09/11/2023 10:29 AM CDT Pulse 80 09/11/2023 10:29 AM CDT Temperature 36.9 ??C (98.5 ??F) 09/11/2023 1 0:29 AM CDT Respiratory Rate 16 09/11/2023 10:2 9 AM CDT Oxygen Saturation 93% 09/11/2023 10: 29 AM CDT Inhaled Oxygen Concentration - - Weight 92.9 kg (204 lb 14.4 oz) 024 10:29 AM CDT Height 157.5 cm (5' 2 ) 09/11/2023 10:2 9 AM CDT Body Mass Index 37.48 09/11/2023 10:29 AM CDT Plan of Treatment Upcoming Encounters Date Type Department Care Team (Late st Contact Info) Description 09/10/2024 11:00 AM CDT [facility] [address] [place] [id number] Andrea Ho MD [address] [place] [address] Discharge Disposition: Discharged to home or Selfcare Health Maintenance Due Date Last Done Comments DEXA Bone Density 1950 Hepatitis C Virus (HCV) Screening 1950 SARS-COV-2 Immunization (#1) 1957 Mammogram 1962 Colonoscopy 1997 Colorectal Cancer Screening 1997 Cologuard 2002 Immunochemical Fecal Occult Blood 2002 Lung Cancer Screening 2002 Influenza Immunization (#1) 01/07/202402/06, 04/17/2022 Zoster Immunization Completed 04/17/2022, 12/09/2021 Pneumococcal Immunization (5 0+ years) Completed 06/27/2022, 07/07/2008 DTaP/Tdap/Td Immunization Discontinued 2022, 08/17/2009 TdaP Immunization Completed 06/28/2022 Respiratory Syncytial Virus (RSV) Immunization (Adult) Completed 06/27/2023 Hepatitis B Immunization Aged Out No longer eligible based on patient's age to complete this topic Meningococcal Immunization (ACWY) Aged Out No longer eligible based on patient's age to complete this topic Rotavirus Immunization Aged Out No lo nger eligible based on patient's age to complete this topic Insurance MEDICAID [place] MEDICARE C [facility] Care Teams Junior Project Manager Relationship Specialty Start Date End Date Asmita Reardon MD [address] [place] [address] PCP - General Internal Medicine 03/18/22 Andrea Ho MD [address] [place] [address] Consulting Physician Medical Oncology 02/21/23
--- OUTSIDE RECORDS SUMMARY | 2024-05-30 13:38 | XMS_ITS | Patient Health Record ---
Author Organization [employer] [facility] Address [address] [facility] [address] [address] Care Team Providers Care Adjuster Leader Name Role Phone Asmita Reardon Primary Care Provider Froilan Storm DPM, Jeremy Unavailable [phone] ALLERGIES Allergen (clinical drug ingredient) Drug/Non Drug Allergy documented on EMR Reaction Allergy Type Onset Date Status niacin Niacin Unknown Drug Allergy Active REASON FOR REFERRAL No Information MEDICATIONS Medication SIG (Take, Route, Frequency, Duration) Notes Start Date End Date Status ambilify Active Crestor Active Cymbalta Active Aspirin 81 Active Fenofibrate Active Multivitamin Active ZyrTEC Active SOCIAL HISTORY Tobacco Use: Social History Observation Description Date Details (start date - stop date) Current Smoker 05/08/1979 - NA Sex Assigned At : Social History Observation Description Sex Assigned At Unknown Tobacco Use: Question Answer Notes Patient is a: current smoker When did you start smoking? 05/08/1979 How often do you smoke cigarettes? every day How many cigarettes a day do you smoke? 6-10 Alcohol screening: Question Answer Notes Did you have a drink containing alcohol in the p ast year? No Points 0 Interpretation Negative PLAN OF TREATMENT No Information Insurance Providers Payer Name Payer Address Payer Phone Subscriber Number Group Number Insured Name Patient Relationship to Insured Coverage Start Date Coverage End Date [facility] Medicare Advantage PPO [address] [address] [place] [address] [id number] Shelby Benitez Self - patient is the insured MEDICAL (GENERAL) HISTORY Medical History History ICD Code high cholesterol depression urologic problems Surgical History Surgery Date(Month/Year) lumpectomy
== END 2024-05-27 15:55 | disposition home or self-care (01) ==
PROVIDERS: Emergency Medicine; Emergency Provider Emergency Medicine; PCP Internal Medicine
DX: K57.32 Diverticulitis of large intestine without perforation or abscess without bleeding (principal); E78.5 Hyperlipidemia, unspecified; E66.9 Obesity, unspecified; F25.9 Schizoaffective disorder, unspecified; Z85.3 Personal history of malignant neoplasm of breast; Z87.891 Personal history of nicotine dependence; Z79.82 Long term (current) use of aspirin; Z79.899 Other long term (current) drug therapy
CPT/HCPCS: 36415; 74177; 80053; 81001; 83690; 85025; 99284; Q9967

== ENCOUNTER 2024-06-14 12:42 | Outpatient (CLI) | payer MEDICARE, SELFPAY ==
--- NOTE | ~2024-06-14 | XR_ITS ---
CHEST RADIOGRAPH, PA AND LATERAL CLINICAL HISTORY: SOB . COMPARISON: None available. Reference is made to a CT examination of the abdomen and pelvis dated 05/09 TECHNIQUE: PA and lateral views of the chest. FINDINGS The cardiomediastinal silhouette is unremarkable. Interstitial thickening detected bilaterally. Traction bronchiectasis within the right mid to upper lung field. Prominent pericardial fat pad projects over the left lateral hemidiaphragm. The lungs are otherwise clear. IMPRESSION: Chronic interstitial change, without focal infiltrate or effusion. Reviewed, dictated and finalized at location [facility]. [facility]
--- OUTSIDE RECORDS SUMMARY | 2024-06-14 12:53 | XMS_ITS ---
Author Organization [facility] [employer] Address [address] [place] [address] Care Team Providers Care Hairspring Truer Name Role Phone Alexys HOWARD, Asmita Primary Care Provider Un available Richard Dunbar Unavailable [phone] Alex Mclaughlin Unavailable [phone] REASON FOR VISIT Injection template, Injection template Medications Medication SIG (Take, Route, Frequency, Duration) Notes Start Date End Date Status Tamoxifen Citrate 20 MG Oral 09/04/2023 Active Vitamin D Active Rosuvastatin Calcium 5 MG Oral 09/04/2023 Active Cetirizine HCl 10 MG Oral 09/04/2023 Active Acidophilus Active Abilify Maintena 300 MG INJECT INTRAMUSC ULARLY EVERY MONTH IM q month Active Aspirin Adult Low Strength 81 MG Oral 09/04/2023 Active DULoxetine HCl 30 mg TAKE 1 CAPSULE BY M OUTH DAILY for 90 Active predniSONE 10 MG Oral 09/04/2023 Ac tive Social History Sex Assigned At : Social History Observation Description Sex Assigned At Female Vital Signs Blood pressure systolic 134 mm Hg 05/30/19 25 Blood pressure diastolic 84 mm Hg 025 Heart Rate 86 /min 05/30/2024 Height 62.00 in 05/30/2024 Weight 206 lbs 05/30/2024 BMI 37.67 kg/m2 05/30/2024 Height-cm 157.48 cm 05/30/2024 Weight-kg 93.44 kg 05/30/2024 Encounters Encounter Location Date Provider Diagnosis [facility] [employer] [address] [place] [address] 05/30/2024 Alex Mclaughlin Schizoaffective disorder, bipolar type F25.0 Assessments Encounter Date Diagnosis (ICD Code) Assessment Notes Treatment Notes Treatment Clinical Notes Section Notes 05/30/2024 Schizoaffective disorder, bipolar type (ICD-10 - F25.0) Plan Of Treatment No Information Medications Administered Medication Instructions Date of Administration Dosage Notes Abilify Maintena 05/30/2024 300 mg Progress Notes * DEE DEE DICKEY MDOB:1950 ( 74 yo F)Acc No.[id number]:05/30/2024 Progress Note Patient: DEE DEE MEJIA Provider: Veronica MCLAUGHLIN MD :1950 A ge:74 Y S ex:Female Date:05/30/2024 Address:[facility] [address] [facility] Pcp:Asmita Reardon MD Subjective: * Chief Complaints: * I njection templateInjection template * HPI: F unctional Status: Patient is here for injection. Injection given by Staff Injection is documented in the Therapeutic Injection section Patient was observed for: 5 Minutes Post injection side effects No Provider was in the officePatient is here for injection. Injection given by Staff Injection is documented in the Therapeutic Injection section Patient was observed for: Minutes Post injection side effects No Provider was in the office. * Medical History: * Medications: T akingAcidophilus Vitamin D Tamoxifen Citrate 20 MG Tablet Oral Cetirizine HCl 10 MG Tablet Oral Rosuvastatin Calcium 5 MG Tablet Oral Aspirin Adult Low Strength 81 MG Tablet Delayed Release Oral Abilify Maintena 300 MG Suspension Reconstituted ER INJECT INTRAMUSCULARLY EVERY MONTH IM q month predniSONE 10 MG Tablet Oral DULoxetine HCl 30 mg Capsule Delayed Release Particles TAKE 1 CAPSULE BY MOUTH DAILY Taking Acidophilus Taking Vitamin D Taking Tamoxifen Citrate 20 MG Tablet Oral Taking Cetirizine HCl 10 MG Tablet Oral Taking Rosuvastatin Calcium 5 MG Tablet Oral Taking Aspirin Adult Low Strength 81 MG Tablet Delayed Release Oral Taking Abilify Maintena 300 MG Suspension Reconstituted ER INJECT INTRAMUSCULARLY EVERY MONTH IM q month Taking predniSONE 10 MG Tablet Oral Taking DULoxetine HCl 30 mg Capsule Delayed Release Particles TAKE 1 CAPSULE BY MOUTH DAILY Objective: * Vitals: B P:134/84mm Hg, HR:86/min, Wt:206lbs, Wt-k.44 kg, Ht: 62.00 in, Ht-cm: 157.48 cm, BMI:37.67Index, Body Surface Area: 2.02. Therapeutic Interventions: Assessment: * Assessment: 1. S chizoaffective disorder, bipolar type - F25.0 Plan: * Treatment: * Therapeutic Injections: AbIlify Maintena 300 administer : 300 mg (Route: Intramuscular) given by Danuta Gillette on right gluteus * Procedure Codes: 9 6372 THERAPEUTIC PROPHYLACTIC/DX INJECTION SUBQ/IM AbIlify Maintena 300 administer * Billing Information: * Visit Code: 97734 OFFICE OUTPATIENT VISIT 5 MINUTES. * Procedure Codes: 54224 THERAPEUTIC PROPHYLACTIC/DX INJECTION SUBQ/IM. AbIlify Maintena 300 administer. * TRIMMER Sign off status: Completed true * Provider: Veronica MCLAUGHLIN MD Date: 0 05/30/2024 Generated for Conner razo/Lon/Derrellsmitting on: 0 06/14/2024 12:53 PM JOWL TRIMMER
--- OUTSIDE RECORDS SUMMARY | 2024-06-14 12:53 | XMS_ITS ---
Author Organization [facility] [employer] Address [address] [facility] [address] [place] [address] Care Team Providers Care Tankage Grinder Name Role Phone Alexys HOWARD, Asmita Primary Care Provider Un available Richard Medina Unavailable [phone] Allergies Allergen (clinical drug ingredient) Drug/Non Drug Allergy documented on EMR Reaction Allergy Type Onset Date Status niacin Niacin Unknown Drug Allergy 07/19/2023 Active REASON [...] 04/26/2024 Encounters Encounter Location Date Provider Diagnosis [facility] [address] [place] [address] 04/26/2024 Richard Medina Schizoaffective disorder, bipolar type F25.0 and Hypertension, unspecified type 401.9 Assessments Encounter Date Diagnosis (ICD Code) Assessment Notes Treatment Notes Treatment Clinical Notes Section Notes 04/26/2024 Schizoaffective disorder, bipolar type (ICD-10 - F25.0) 04/26/2024 Hypertension, unspecified type (ICD9-CM - 401.9) Plan Of Treatment No Information Medications Administered Medication Instructions Date of Administration Dosage Notes Abilify Maintena 04/26/2024 300 mg Progress Notes * DEE DEE DICKEY MDOB:1950 ( 74 yo F)Acc No.[id number]:04/26/2024 Progress Note Patient: DEE DEE MEJIA Provider: Patricia MEDINA MD :1950 A ge:74 Y S ex:Female Date:04/26/2024 Address:[address] [place] [address] , [facility] Pcp:Asmita Reardon MD Subjective: * Chief Complaints: * 1 . Patient is here for her Abilify 300 mg injection. * Medical History: P wanda: Acute akathisia caused by neuroleptic, Idiopathic peripheral neuropathy, Nicotine dependence with current use, Obesity, Schizoaffective disorder, bipolar type, ,. * Medications: T aking Acidophilus , Taking Vitamin D , Taking Tamoxifen [...] reviewed and reconciled with the patient * Allergies: N iacin: Allergy - Onset Date 07/19/2023. Objective: * Vitals: B P:134/82mm Hg, HR:93/min, Wt:209.0lbs, Wt-k.8 kg, Ht: 62.00 in, Ht-cm: 157.48 cm, BMI:38.22Index, Body Surface Area: 2.03. Therapeutic Interventions: Assessment: * Assessment: 1. S chizoaffective disorder, bipolar type - F25.0 2 . H ypertension, unspecified type - 401.9 Plan: * Treatment: * Therapeutic Injections: AbIlify Maintena 300 administer : 300 mg (Route: Intramuscular) given by Natali York on left hip intramuscular * Procedure Codes: 9 6372 THERAPEUTIC PROPHYLACTIC/DX INJECTION SUBQ/IM * Billing Information: * Visit Code: * Procedure Codes: 03135 THERAPEUTIC PROPHYLACTIC/DX INJECTION SUBQ/IM. * Electronic signature of Jhoana Medina MD on 06/14/2024 at 12:52 PM ZIPPER SETTER Sign off status: Pending * Provider: Patricia MEDINA MD Date: 1 06/27/2023 Generated for Conner razo/Lon/Scottitting on: 0 06/14/2024 12:52 PM ZIPPER SETTER
--- OUTSIDE RECORDS SUMMARY | 2024-06-14 12:53 | XMS_ITS | Clinical Summary ---
Author Organization [facility] Address [address] [facility] [place] [address] Care Team Providers Care Business Center Attendant Name Role Phone Asmita Reardon MD Primary Care Provider Source Comments [facility],non-owned Affiliates and Associated Physician Practices is amultiple site organization consisting of ambulatory clinics and hospital sitesin [place], [place], [place] and [place]. This disclosure is being madepursuant to the Care Everywhere program and may not contain all information available regarding this patient. Last updated 18.[facility] [employer] Allergies Active Allergy Reactions Criticality Noted Date [...] Department Care Team Description 05/09/2024 2:00 PM CONVENTIONS ASSISTANT Procedure visit [facility] - BICYCLE RENTAL CLERK [address] [place] [address] Trevor Gonzalez MD Mixed stress and urge urinary incontinence ; Complete uterovaginal prolapse; Overactive bladder; Detrusor instability; Decreased bladder capacity; Cystocele, midline 05/09/2024 Travel from Last 3 Months Family History [...] Comments Blood Pressure 134/76 05/09/2024 1:52 PM CONVENTIONS ASSISTANT Pulse - - Temperature - - Respiratory Rate - - Oxygen Saturation - - Inhaled Oxygen Concentration - - Weight 92.5 kg (204 lb) 05/09/2024 1:52 PM CONVENTIONS ASSISTANT Height 157.5 cm (5' 2 ) 05/09/2024 1:52 PM CONVENTIONS ASSISTANT Body Mass Index 37.31 05/09/2024 1:52 PM CONVENTIONS ASSISTANT Plan of Treatment Upcoming Encounters Date Type Department Care Team (Latest Contact Info) Description 06/26/2024 8:15 AM CONVENTIONS ASSISTANT Hospital Encounter [facility] [address] [place] [address] Trevor Gonzalez MD [address] [place] [address] Surgery General 06/26/2024 8:15 AM CONVENTIONS ASSISTANT - 06/26/2024 12:15 PM CONVENTIONS ASSISTANT Surgery [facility] [address] [place] [address] Trevor Gonzalez MD [address] [place] [address] TOTAL VAGINAL HYSTERECTOMY, POSSIBLE SALPINGO-OOPHORECTO MY - BILATERAL 07/15/2024 10:45 AM CDT Office Visit [facility] - BICYCLE RENTAL CLERK [address], [address] [phone] Trevor Gonzalez MD [address] [place] [address] Scheduled Procedures Name Priority Associated Diagnoses Date/Ti me HYSTERECTOMY VAGINAL SALPINGO/OOPHORECTOMY Diagnosis unknown 06/26/2024 8:15 AM CONVENTIONS ASSISTANT COLPORRHAPHY ANTERIOR REPAIR Diagnosis unknown 06/26/2024 8:15 AM CONVENTIONS ASSISTANT Health Maintenance Due Date Last Done Comments [...] of 2) 2002 COVID-19 VACCINE (1 - season) 2024 INFLUENZA VACCINE (#1) 2024 , 04/17/2022, 04/18/2011, Additional history exists DEPRESSION SCREENING 05/08/2024 MEDICARE AWV CALENDAR YEAR 2024 Respiratory Syncytial Virus (RSV) [...] Procedure Name Priority Date/Time Associated Diagnosis Comments [place] INTRAABDOMINAL PRESSURE TEST Routine 05/10/2024 7:58 AM CONVENTIONS ASSISTANT Mixed stress and urge urinary incontinence Overactive bladder Detrusor instability Decreased bladder capacity NH ANAL/URINARY MUSCLE STUDY Routine 05/10/2024 7:58 AM CONVENTIONS ASSISTANT Mixed stress and urge urinary incontinence Overactive bladder Detrusor instability Decreased bladder capacity NH CYSTOMETROGRAM W/SECURITIES COMPLIANCE EXAMINER Routine 7:58 AM CONVENTIONS ASSISTANT Mixed stress and urge urinary incontinence Overactive bladder Detrusor instability Decreased bladder capacity URINALYSIS AUTO - POINT OF CARE (AMB) [facility] Routine 05/09/2024 2:22 PM CONVENTIONS ASSISTANT Complete uterovaginal prolapse from Last 3 Months Results * NH CYSTOMETROGRAM W/SECURITIES COMPLIANCE EXAMINER, NH ANAL/URINARY MUSCLE STUDY, NH INTRAABDOMINAL PRESSURE TEST (05/10/2024 7:58 AM CONVENTIONS ASSISTANT) Trevor Butt MD - 05/10/2024 7:58 AM CONVENTIONS ASSISTANT Trevor Gonzalez MD 05/10/2024 8:03 AM Multichannel Urodynamic Testing - Brief Procedure [...] Positive no; Abnormal no Voiding pressure study (SECURITIES COMPLIANCE EXAMINER): She voided via detrusor contraction. Obstructive pattern? no Areflexic pattern? no. Her post void residual by calculation during the [...] in EMG activity associated with urine efflux. The physician performed both the technical component of performing the procedure, as well as the professional component of interpreting the procedure. Trevor Gonzalez MD PROCEDURE/MINOR SURG ICAL ORDERABLES * URINALYSIS AUTO - POINT OF CARE (AMB) [facility] (05/09/2024 2:22 PM CONVENTIONS ASSISTANT) Glucose UA neg [facility] [address] Bilirubin UA POCT neg [facility] [address] Ketones UA POCT neg [facility] [address] Specific [place] UA 1.[address] [facility] [address] Blood Urine POCT neg [facility] [address] pH UA 6.5 [facility] [address] Protein UA +- [facility] [address] Urobilinogen UA neg [facility] [address] Nitrite UA neg [facility] [address] WBC UA neg [facility] [address] Urine URINE / Unknown 05/09/2024 2 :22 PM CONVENTIONS ASSISTANT Trevor Gonzalez MD LAB - POINT OF CARE ORDERABLES [facility] [address] [place] [address], [facility] [phone] from Last 3 Months Care Teams Business Center Attendant Relationship Specialty Start Date End Date Asmita Reardon MD [address] [phone] PCP - General Internal Medicine 01/22/24
--- OUTSIDE RECORDS SUMMARY | 2024-06-14 12:53 | XMS_ITS | Referral Summary ---
Author Organization [facility] Address [address] [facility] [place] [address] Care Team Providers Care Masonry Supervisor Name Role Phone Asmita Reardon MD Primary Care Provider Source Comments [facility],non-owned Affiliates and Associated Physician Practices is amultiple site organization consisting of ambulatory clinics and hospital sitesin [place], [place] and [place]. This disclosure is being madepursuant to the Care Everywhere program and may not contain all information available regarding this patient. Last updated 18.[facility] Narvalous Encounters Date Type Department Care Team Description 05/09/2024 Travel 05/09/2024 2:00 PM ENVIRONMENTAL MONITORING SPECIALIST Procedure visit [facility] - [place] ATTORNEY [address], [address] [place] [address] Trevor Gonzalez MD Mixed stress and urge urinary incontinence ; Complete uterovaginal prolapse; Overactive bladder; Detrusor instability; Decreased bladder capacity; Cystocele, midline from Last 3 Months Allergies Active Allergy Reactions Criticality Noted Date Comments Niacin Psychiatric,Urticaria Medium 03/18/2022 Medications * Be aware that medications may not be up to date on this document. Alwaysverify current medications with the patient. Medication Sig Dispensed Refills Start Date End Date Status Melbryant Maintena 300 MG injection INJECT INTRAMUSCULARLY EVERY [...] Comments Blood Pressure 134/76 05/09/2024 1:52 PM ENVIRONMENTAL MONITORING SPECIALIST Pulse - - Temperature - - Respiratory Rate - - Oxygen Saturation - - Inhaled Oxygen Concentration - - Weight 92.5 kg (204 lb) 05/09/2024 1:52 PM ENVIRONMENTAL MONITORING SPECIALIST Height 157.5 cm (5' 2 ) 05/09/2024 1:52 PM ENVIRONMENTAL MONITORING SPECIALIST Body Mass Index 37.31 05/09/2024 1:52 PM ENVIRONMENTAL MONITORING SPECIALIST Plan of Treatment Upcoming Encounters Date Type Department Care Team (Latest Contact Info) Description 06/26/2024 8:15 AM ENVIRONMENTAL MONITORING SPECIALIST Hospital Encounter [facility] [address] [place] [phone] Trevor Gonzalez MD [address] [place] [address] Surgery General 06/26/2024 8:15 AM ENVIRONMENTAL MONITORING SPECIALIST - 06/26/2024 12:15 PM ENVIRONMENTAL MONITORING SPECIALIST Surgery [facility] [address] [place] [address] Trevor Gonzalez MD [address] [place] [address] TOTAL VAGINAL HYSTERECTOMY, POSSIBLE SALPINGO-OOPHORECTO MY - BILATERAL 07/15/2024 10:45 AM CDT Office Visit [facility] - [place] ATTORNEY [address], [facility] [address] [place] [phone] Trevor Gonzalez MD [address] [place] [address] Scheduled Procedures Name Priority Associated Diagnoses Date/Ti me HYSTERECTOMY VAGINAL SALPINGO/OOPHORECTOMY Diagnosis unknown 06/26/2024 8:15 AM ENVIRONMENTAL MONITORING SPECIALIST COLPORRHAPHY ANTERIOR REPAIR Diagnosis unknown 06/26/2024 8:15 AM ENVIRONMENTAL MONITORING SPECIALIST Procedures Procedure Name Priority Date/Time Associated Diagnosis Comments MT INTRAABDOMINAL PRESSURE TEST Routine 05/10/2024 7:58 AM ENVIRONMENTAL MONITORING SPECIALIST Mixed stress and urge urinary incontinence Overactive bladder Detrusor instability Decreased bladder capacity MT ANAL/URINARY MUSCLE STUDY Routine 05/10/2024 7:58 AM ENVIRONMENTAL MONITORING SPECIALIST Mixed stress and urge urinary incontinence Overactive bladder Detrusor instability Decreased bladder capacity MT CYSTOMETROGRAM W/PAVING FOREMAN Routine 7:58 AM ENVIRONMENTAL MONITORING SPECIALIST Mixed stress and urge urinary incontinence Overactive bladder Detrusor instability Decreased bladder capacity URINALYSIS AUTO - POINT OF CARE (AMB) [facility] Routine 05/09/2024 2:22 PM ENVIRONMENTAL MONITORING SPECIALIST Complete uterovaginal prolapse from Last 3 Months Results * MT CYSTOMETROGRAM W/PAVING FOREMAN, MT ANAL/URINARY MUSCLE STUDY, MT INTRAABDOMINAL PRESSURE TEST (05/10/2024 7:58 AM ENVIRONMENTAL MONITORING SPECIALIST) Narrative Trevor Gonzalez MD - 05/10/2024 7:58 AM ENVIRONMENTAL MONITORING SPECIALIST Trevor Gonzalez MD 05/10/2024 8:03 AM Multichannel [...] Positive no; Abnormal no Voiding pressure study (PAVING FOREMAN): She voided via detrusor contraction. Obstructive pattern? [...] OF CARE (AMB) [facility] (05/09/2024 2:22 PM ENVIRONMENTAL MONITORING SPECIALIST) Glucose UA neg [facility] [address] Bilirubin UA POCT neg [facility] [address] Ketones UA POCT neg [facility] [address] Specific [place] UA 1.[address] [facility] [address] Blood Urine POCT neg [facility] [address] pH UA 6.5 [facility] [address] Protein UA +- [facility] [address] Urobilinogen UA neg [facility] [address] Nitrite UA neg [facility] [address] WBC UA neg [facility] [address] Urine URINE / Unknown 05/09/2024 2 :22 PM ENVIRONMENTAL MONITORING SPECIALIST Trevor Gonzalez MD LAB - POINT OF CARE ORDERABLES [facility] [address] [place] [address], [facility] [phone] from Last 3 Months Care Teams Masonry Supervisor Relationship Specialty Start Date End Date Asmita Reardon MD [address] [place] [address] PCP - General Internal Medicine 01/22/24
--- OUTSIDE RECORDS SUMMARY | 2024-06-14 12:53 | XMS_ITS | Patient Health Summary ---
Author Organization [facility] Address [address] [facility] [place] [address] Care Team Providers Care Overlock Hemmer Name Role Phone Asmita Reardon MD Primary Care Provider Note from [facility],non-owned Affiliates and Associated Physician Practices is amultiple site organization consisting of ambulatory clinics and hospital sitesin [place], [place], [place] and [place]. This disclosure is being madepursuant to the Care Everywhere program and may not contain all information available regarding this patient. Last updated 18.[facility] Allergies * Niacin(Psychiatric,Urticaria) -Medium Criticality Medications * [...] Comments Blood Pressure 134/76 05/09/2024 1:52 PM PRESS OPERATOR APPRENTICE Pulse - - Temperature - - Respiratory Rate - - Oxygen Saturation - - Inhaled Oxygen Concentration - - Weight 92.5 kg (204 lb) 05/09/2024 1:52 PM PRESS OPERATOR APPRENTICE Height 157.5 cm (5' 2 ) 05/09/2024 1:52 PM PRESS OPERATOR APPRENTICE Body Mass Index 37.31 05/09/2024 1:52 PM PRESS OPERATOR APPRENTICE Procedures * TN INTRAABDOMINAL PRESSURE TEST(Performed 05/10/2024) Performed for Mixed stress and urge urinary incontinence, Overactive bladder, Detrusor instability,Decreased bladder capacity * TN ANAL/URINARY MUSCLE STUDY(Performed 05/10/2024) Performed for Mixed stress and urge urinary incontinence, Overactive bladder, Detrusor instability,Decreased bladder capacity * TN CYSTOMETROGRAM W/ENVIRONMENTAL COMPLIANCE INSPECTOR(Performed 05/10/2024) Performed for Mixed stress and urge urinary incontinence, Overactive bladder, Detrusor instability,Decreased bladder capacity * URINALYSIS AUTO - POINT OF CARE (AMB) [facility](Performed 05/09/2024) Performed for Complete uterovaginal prolapse Results * TN CYSTOMETROGRAM W/ENVIRONMENTAL COMPLIANCE INSPECTOR, [place] ANAL/URINARY MUSCLE STUDY, [place] INTRAABDOMINAL PRESSURE TEST (05/10/2024 7:58 AM PRESS OPERATOR APPRENTICE) Narrative Trevor Gonzalez MD - 05/10/2024 7:58 AM PRESS OPERATOR APPRENTICE Trevor Gonzalez MD 05/10/2024 8:03 AM Multichannel [...] Positive no; Abnormal no Voiding pressure study (ENVIRONMENTAL COMPLIANCE INSPECTOR): She voided via detrusor contraction. Obstructive pattern? [...] OF CARE (AMB) [facility] (05/09/2024 2:22 PM PRESS OPERATOR APPRENTICE) Glucose UA neg [facility] [address] Bilirubin UA POCT neg [facility] [address] Ketones UA POCT neg [facility] [address] Specific [place] UA 1.[address] [facility] [address] Blood Urine POCT neg [facility] [address] pH UA 6.5 [facility] [address] Protein UA +- [facility] [address] Urobilinogen UA neg [facility] [address] Nitrite UA neg [facility] [address] WBC UA neg [facility] [address] Urine URINE / Unknown 05/09/2024 2 :22 PM PRESS OPERATOR APPRENTICE Trevor Gonzalez MD LAB - POINT OF CARE ORDERABLES Performing Organization Address City/State/[facility] Co de Phone Number [facility] [address] [place] [address] [phone] Care Teams Overlock Hemmer Relationship Specialty Start Date End Date Asmita Reardon MD [address] [place] [phone] PCP - General Internal Medicine 01/22/24
--- OUTSIDE RECORDS SUMMARY | 2024-06-14 12:53 | XMS_ITS | CONTINUITY OF CARE DOCUMENT ---
Author Name taran marielaranza Address Unknown Organization [facility] Address [address] [facility] [address] [place] [address] Phone [phone] Care Team Providers Care City Director Name Role Phone Camille King MD Unavailable VALENTINA SAMPSON MD Unavailable VALENTINA SAMPSON MD Unavailable [phone] PROBLEMS Condition Status Date Provider Notes Cardiovascular Condition Screening active S ruben King MD Preop cardiovasc. examination active Alex King MD HTN essential active Camille King MD Arthritis - osteo active Camille Burris Shortness of breath active Nettie Ventimigl ia BATTERY TEST ENGINEER Hyperlipidemia active Nettie Ventimiglia FN P Tobacco abuse, continuous active Nettie Jeremy timiglia BATTERY TEST ENGINEER Cardiology examination active Nettie Ventim iglia BATTERY TEST ENGINEER ENCOUNTERS Date Type Provider Location Encounter Diag nosis 3 - 4 In-person encounter Office Visit Camille King MD [facility] Office Preop cardiovasc. examinationCardiovascular Condition Screening 1 - 0 8 In-person encounter Office Visit Camille King MD [facility] Office 1 - 2 In-person encounter Office Visit Camille King MD [facility] Arthritis - osteoHTN essential 8 - 1 In-person encounter Office Visit Camille King MD [facility] Cardiology examinationTobacco abuse, continuousHyperlipidemiaShortness of breath [...] Mukul Isidoro weight E&M 209.8 [lb_av] Cjlia [place] blood pressure, cuff size regular Ky cris [place] height E&M 62 [in_i] Mukul Isidoro Body [...] oxygen saturation, oximetry 95 % Nettie Ventimiglia BATTERY TEST ENGINEER respiratory rate E&M 16 /min Sravanthi Ac [...] TABLET BY MOUTH ONCE DAILY AT BEDTIME [facility] tamoxifen 20 mg tablet active Take 1 tablet by mouth once daily Mendez Snow NP Crestor 5 mg tablet completed TAKE ONE TAB LET ONCE DAILY AT BEDTIME - [facility] aspirin 81 mg tablet,delayed release (DR/EC) active [...] JAVIER cigarette use yes Radha Nallur i DISTRIBUTION SUPERINTENDENT smoking status Current every da y smoker Radha Dixonluri JAVIER social history reviewed E&M revi ewed - no changes required Mendez Snow NP social history E&M S moking History: Karlo ruffin currently smokes every day. Karlo ruffin has been counseled to quit. Mendez Snow DISTRIBUTION SUPERINTENDENT drug use no Mendez Snow DISTRIBUTION SUPERINTENDENT alcohol use no Mendez Snow DISTRIBUTION SUPERINTENDENT smoking/tobacco cess ation, patient education and counseling [...] years as a smoker 40 a Josey Keegan smoking history, tot al pack/day 5 Josey Keegan cigarette use yes Josey Von stark smoking status Current every da y smoker Josey Keegna drug use no Nettie Ventimig cris [facility] alcohol use no Nettie Ventimig cris [facility] number of years as a smoker 40 a Nettie Ventimiglia [facility] smoking history, tot al pack/day 5 Nettie Ventimiglia [facility] cigarette use yes Lindsay luis smoking status Current every da y smoker Lindsay Ac INSURANCE PROVIDERS Payer name Policy type / Coverage type Dejah red constitution party ID A[employer] MEDICARE ADVANTAGE HMO-POS HMO [id number] ADVANCE DIRECTIVES Name Date DISCUSSED - NO DECISION MADE TREATMENT PLAN Date Name Performer [id number],C, R eports symptoms at baseline. She is daily smoker. Mendez Snow NP [id number],C, R ecently had a steroid injection to her L knee. Follows with Ortho (Vernon Chahal MD) at [facility]. Mendez Snow NP [id number],C, C urrently smokes 8 cigs per day. Mendez Snow NP [id number],C, H er updated medication list for this problem includes: Fenofibrate Nanocrystallized 145 Mg Tablet (Fenofibrate nanocrystallized) ..... Take 1 tablet by mouth once daily Crestor 5 Mg Tablet (Rosuvastatin) ..... Take one tablet once daily at bedtime Mendez Snow NP [id number],C, W ell controlled. B P today: 109/76 P rior BP: 140/87 (04/27/2022) Labs Reviewed: C hol: 161 (04/26/2022) HDL: 48 (04/26/2022) LDL: 90 MG/DL (CALC) (04/26/2022) T (04/26/2022) Her updated medication list for this problem includes: Aspirin 81 Mg Tablet,delayed Release (dr/ec) (Aspirin) ..... Take 1 tablet by mouth every day Mendez Snow NP [id number],C,R emain on gemfibrizole. 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 Will like to to put her low dose stain. Try Crestor 5mg daily. Camille King MD [id number],C,T he Patient was reencouraged to stop smoking. P atient has SOB with activity may be secondary to COPD vs CAD. Patient had CT chest recently that showed suggestion of CAD. Given that will do echo, lexiscan stress and coronary calcium score. Will also check lipids. Will f/u post testing or sooner if needed. testing completed Camille King MD [id number],C,D iscussion of benefits for remote patient monitoring took place. Patient gives consent for remote monitoring of physiologic parameters including, but not limited to, weight, blood pressure, pulse oximetry, respiratory flow rate. B P today: 140/87 P rior BP: 101/70 (03/04/2022) Labs Reviewed: C hol: 161 (04/26/2022) HDL: 48 (04/26/2022) LDL: 90 MG/DL (CALC) (04/26/2022) T (04/26/2022) Camille iKng MD [id number],C,R isk stratification done. MIld CAD based on CT. Preserved LV function based echo and stress. COntinue risk factor modicfication. Camille King MD [id number],C,M ost likely cause of her joint discomfort Camille King MD [id number],S,Cessation enc ouraged Nettie Cheng [facility] [id number],S,w ill get recent labs from her primary she is on fenofibrate alone. Given coronary calcification on CT chest may need statin H er updated medication list for this problem includes: Fenofibrate Nanocrystallized 145 Mg Tablet (Fenofibrate nanocrystallized) Nettie Skylar [facility] [id number],S,P atient has SOB with activity may be secondary to COPD vs CAD. Patient had CT chest recently that showed suggestion of CAD. Given that will do echo, lexiscan stress and coronary calcium score. Will also check lipids. Will f/u post testing or sooner if needed. O rders: 9 9204 MOD 45-59 min (CPT-42646) C omplete Echo (CPT-72278) S tress Regadenoson (CPT-89027) C T, Coronary Calcium Score (CPT-84133) L IPID PANEL (8657) Nettie Hopsonwyattjessica [facility] Cardiology: smoke le ssathn 1/2 PPD e nocuraged cessation. Radha Nalluri DISTRIBUTION SUPERINTENDENT Cardiology: R eports symptoms at baseline. She is daily smoker, smoke lessathn 1/2 PPD Radha Nalluri DISTRIBUTION SUPERINTENDENT Cardiology:Stable Radha Dixonlur i DISTRIBUTION SUPERINTENDENT Cardiology: B P today: 122/79 P rior BP: 109/76 (01/05/2023) Labs Reviewed: C hol: 161 (04/26/2022) HDL: 48 (04/26/2022) LDL: 90 MG/DL (CALC) (04/26/2022) T (04/26/2022) W ell controlled T his visit has been a part of the consistent, comprehensive, and ongoing management of the chronic medical condition(s) listed above for the patient. Radha Araujori DISTRIBUTION SUPERINTENDENT Cardiology:The patie nt denies episodes of chest [...] [facility] Mendez Snow NP Cardiology: Dale urrently smokes [...] Camille King MD Cardiology:Cessation encouraged Nettie Cheng [facility] Cardiology:will get recent labs from her primary she is on fenofibrate alone. Given coronary calcification on CT chest may need statin H er updated medication list for this problem includes: Fenofibrate Nanocrystallized 145 Mg Tablet (Fenofibrate nanocrystallized) Nettie Garridomiclaudia [facility] Cardiology:Patient h as SOB with activity may be secondary to COPD vs CAD. Patient had CT chest recently that showed suggestion of CAD. Given that will do echo, lexiscan stress and coronary calcium score. Will also check lipids. Will f/u post testing or sooner if needed. O rders: 9 9204 MOD 45-59 min (CPT-01048) C omplete Echo (CPT-08757) S tress Regadenoson (CPT-75612) C T, Coronary Calcium Score (CPT-35875) L IPID PANEL (7600) Nettie Cheng BATTERY TEST ENGINEER Date Name X-Ray, Chest 2 View LIPID [...]
--- OUTSIDE RECORDS SUMMARY | 2024-06-14 12:53 | XMS_ITS ---
Author Organization [facility] [employer] Address [facility] [address] [address] Care Team Providers Care Senior Medical Director Name Role Phone Alexys HOWARD, Asmita Primary Care Provider Un available Richard Medina Unavailable [phone] REASON FOR VISIT Tried to call to R/S due to Dr being out Social History Sex Assigned At : Social History Observation Description Sex Assigned At Female Encounters Encounter Location Date Provider Diagnosis [facility] [employer] [address] [address] 05/30/2024 Richard Medina Plan Of Treatment No Information Progress Notes * DEE DEE DICKEY MDOB:1950 ( 74 yo F)Acc No.[id number]:05/30/2024 Patient: DEE DEE MEJIA Provider: Patricia MEDINA MD :1950 A ge:74 Y S ex:Female Date:05/30/2024 Address:[address] [place], [place] [id number] Pcp:Asmita Reardon MD Subjective: * Chief Complaints: * 1 . Tried to call to R/S due to Dr being out. * Medical History: Objective: * Vitals: Assessment: Plan: * Treatment: * Billing Information: * Visit Code: * Procedure Codes: * Electronic signature of Jhoana Medina MD on 06/14/2024 at 12:53 PM PRODUCTION PLANNING SUPERVISOR Sign off status: Pending * Provider: Patricia MEDINA MD Date: 05/30/2024 Generated for Printi ng/Lon/Scottitting on: 0 06/14/2024 12:53 PM PRODUCTION PLANNING SUPERVISOR
--- OUTSIDE RECORDS SUMMARY | 2024-06-14 12:54 | XMS_ITS | Data Portability ---
Author Organization [place] - [facility] [employer], Main Office Address [address] [place] [address] Care Team Providers Care Talent Acquisition Sourcer Name Role Phone VALENTINA REARDON Primary Care Provider VALENTINA REARDON Referring Provider [phone] ILIANA JAMESON Urologist CHAGO MCWILLIAMS General Surgeon ALBINO KISER Hematology/Oncology [phone] BEBE BIRD Boot Maker [phone] ZAKIA BROOKS Brush Painter AMRIUSZ MARQUEZ Psychiatrist Assessment Encounter Date Assessment Date Assessment LastModified by Organization Details LastModified Time 08/23/2023 08/23/2023 04/12/2023: [place] [facility] MCV 102.2 08/14/2023: ER Gluc 125H, TP 6.0L WBC 17.6, MCV 101.7 08/18/2023: [place] WBC 11.3, H/H 10.9/34.4, MCV 13.3 Not available 08/23/2023 11:59:15 11/29/2023 11/29/2023 04/12/2023: [place] [facility] MCV 102.2 08/14/2023: ER Gluc 125H, [...] Lab CMP, serum or plasma 2023 024 [facility], [address], [place], [address], 02/19/2024 16:37:40 CBC w/ auto diff 2023 024 [facility], [address], [place], [address], 02/19/2024 16:37:40 TSH, serum or plasma 2023 024 [facility], [address], [place], [address], 02/26/2024 10:52:58 T4, free, serum 2023 024 [facility], [address], [place], [address], 02/26/2024 10:52:58 lipid panel, serum 2023 024 [facility], [address], [place], [address], 02/26/2024 10:52:59 vitamin B12 + folate, serum or blood 2023 024 [email or web address], [address], [place], [address], 02/26/2024 10:52:58 CMP, serum or plasma 2023 024 [facility], [address], [place], [address], 11/29/2023 16:18:10 CBC w/ auto diff 2023 024 [email or web address], [address], [place], [address], 04/15/2024 14:06:23 T4, free, serum 2023 024 [email or web address], [address], [place], [address], 04/15/2024 14:06:24 TSH, serum or plasma 2023 024 [email or web address], [address], [place], [address], 04/15/2024 14:06:24 lipid panel, serum 2023 024 [email or web address], [address], [place], [address], 04/15/2024 14:06:24 vitamin B12 + folate, serum or blood 2023 024 [facility], [address] [place], [address], 04/15/2024 14:06:24 CMP, serum or plasma 2023 024 [facility], [address], [place], [address], 05/27/2024 12:48:29 CBC w/ auto diff 2023 024 [email or web address], [address], [place], [address], 05/27/2024 12:48:29 T4, free, serum 2023 024 [email or web address] [facility], [address], [place], [address], 05/27/2024 12:48:29 TSH, serum or plasma 2023 024 [email or web address] [facility], [address], [place], [address], 05/27/2024 12:48:29 lipid panel, serum 2023 024 [email or web address] [facility], [address], [place], [address], 05/27/2024 12:48:30 vitamin D, 25-hydrox y, total, serum 2023 024 [email or web address] [facility], [address], [place], [address], 06/03/2024 10:06:06 vitamin B12 + folate, serum or blood 2023 024 [email or web address] [facility], [address], [place], [address], 05/27/2024 12:48:30 CMP, serum or plasma 2023 024 [employer] [facility], [address], [place], [address], 04/12/2024 07:25:52 CBC w/ auto diff 2023 024 [employer] [facility], [address], [place], [address], 04/12/2024 07:25:53 T4, free, serum 2023 024 [employer] [facility], [address], [place], [address], 04/12/2024 07:25:56 TSH, serum or plasma 2023 024 [employer] [facility], [address], [place], [address], 04/12/2024 07:25:57 lipid panel, serum 2023 024 [employer] [facility], [address], [place], [address], 04/12/2024 07:25:51 vitamin D, 25-hydrox y, total, serum 2023 024 [employer] [facility], [address], [place], [address], 04/12/2024 07:25:58 vitamin B12 + folate, serum or blood 2023 024 [employer] [facility], [address], [place], [address], 04/12/2024 07:25:55 Referral urologist referral 2023 024 DINORAH Florence MD, [address], [address], [place], [address], 12/29/2023 19:14:53 pulmonolo gist referral 2023 024 shania Mcintyre, [address], [place], [address], 03/18/2024 09:39:38 general surgeon referral 2023 024 DINORAH Mcwilliams MD, [address], [address], [place], [address], 09/15/2023 09:51:11 cardiolog ist referral 2023 024 [email or web address] Camille King MD, [address], [address], [place], [address], 03/18/2024 09:39:37 dermatolo gist referral 2023 024 [email or web address] [facility], [facility] [place], [address], 02/19/2024 16:38:00 urologist referral 2023 024 Iliana Jameson, [address] [facility], [address], [place], [address], 05/27/2024 12:48:46 podiatris t referral 2023 024 [email or web address] Garth Davidson DPM, [address], [address], [place], [address], 04/02/2024 14:16:21 pulmonolo gist referral 2023 024 [email or web address] Jordana Mcintyre, [address] [facility] [address], [place], [address], 04/02/2024 14:16:03 general surgeon referral 2023 024 [email or web address] Chago Mcwilliams MD, [address] [facility] [address], [address], [place], [address], 12/27/2023 11:29:21 cardiolog ist referral 2023 024 [email or web address] Camille King MD, [address], [address], [place], [address], 04/02/2024 14:15:29 dermatolo gist referral 2023 024 [email or web address] [facility], [address] [place], [address], 04/02/2024 14:15:50 urologist referral 2023 024 [email or web address] Iliana Sheridan Jameson, [address] [facility], [facility] [address], [place], [address], 04/02/2024 12:58:04 podiatris t referral - Please call patient to schedule. 2023 024 [email or web address] Garth Davidson DPM, [address] [facility], [facility] [address], [place], [address], 04/02/2024 14:43:42 pulmonolo gist referral - Please call patient to schedule. 2023 024 [email or web address] Lisy Lowry [facility], [address], [address], [place], [address], 04/15/2024 16:50:54 cardiolog ist referral - Please call patient to schedule. 2023 024 [facility], [address], [address], [place], [address], 04/02/2024 15:16:57 dermatolo gist referral - Please call patient to schedule. 2023 024 [facility], [address] [place], [address], 04/02/2024 14:57:21 Procedures None recorded. Surgeries None recorded. Imaging DEXA, axial skeleton [email or web address] [place] [address] Imaging, [address], [address], [place], [address], 12/20/2023 14:13:11 LDCT, chest, for lung cancer screening 2023 024 [email or web address] [facility], [address], [address], [place], [address], 05/28/2024 16:30:22 XR, chest, 2 view 2023 024 [email or web address] [facility], [address], [address], [place], [address], 04/18/2024 14:32:38 DEXA, axial skeleton 2023 024 [email or web address] [facility], [address], [address], [place], [address], 04/01/2024 15:20:55 Medication Orders rosuvasta tin 5 mg tablet 2023 024 [facility] [address] [place], [address], 10/18/2023 12:52:33 Patient TargetsNo targets recorded. Patient Instructions Encounter Date Encounter Id Patient Instructions Last Modified By Organization Details Last Modified Time 08/23/2023 [id number] dementia rating scale-2* [email or web address] 2 Not available 08/23/2023 18:27:11 alcohol misuse* [email or web address] 2 Not available 08/23/2023 18:27:10 depression screening* [email or web address] 2 Not available 08/23/2023 18:27:09 Timed Up and Go test (TUG)* [email or web address] 2 Not available 08/23/2023 18:27:08 multi-dimensiona l health assessment questionnaire* [email or web address] 2 Not available 08/23/2023 18:27:10 Personalized [facility] Plan and Screening Recommendations Advance Directives - Do you have one? Yes Advance Directives - Do we have your advance directive on file in your health record? No, please bring in a copy at your earliest convenience Primary Prevention/Interven tion (prevents or decreases the chance of common diseases from occurring) Smoking Risk: Smoker Refer to attached smoking cessation handouts Refer to attached handouts and prescription will be sent to pharmacy Continue to consider stopping smoking and call if we can assist you Alcohol Misuse Screening: Negative Weight: Appropriate Overwei ght continue your current weight loss efforts try to lose 5% of your body weight try to lose 10% of your body weight Physical activity: Need more exercise/physical activity minimum of 10-20 minutes of activity that causes mild breathlessness/day Nutrition: Good Average Fall Risk (screened today): Low Intermediate Vaccines Pneumococcal: Ordered Recommended today Recommended today, but you have declined No further needed Influenza: Your next one in the fall of this year Chronic Disease Risks Stroke: Low Risk Intermediate Risk Heart Attack: Low risk Intermediate Risk Clogging of the Arteries: Low risk Intermediate Risk Diabetes: Low Risk Intermediate Risk Secondary Prevention/Interven tion (detects treatable diseases before they may cause symptoms, disability, or ) Breast Cancer Screening with mammogram: Your next mammogram: Ordered Recommended today Cervical/Uterine/Ov leonides Cancer Screening: No screening necessary Osteoporosis Screening: Your next DEXA in: Ordered Recomme nded today Date Screening Last Performed: Colon Cancer Screening: Colonoscopy Date Screening Last Performed:2022 Eye Disease Screening: Dementia Risk: Low I have no recommendations Depression Screening: Negative [email or web address] Not available 08/23/2023 12:47:35 12/29/2023 [id number] plan 1. I am not concerned about a hemorrhagic cyst only 1 cm and it has been chronic. 2. she has no enhancing masses in the kidney so there is no concern about cancer 3. She will just continue her care for her hysterectomy and then eventually Dr. Florence will perform robotic bladder suspension 4. follow up as needed [email or web address] Javier Not available 12/29/2023 19:13:33 Reason for Referral Urologist Referral for Renal mass Referring Physician: Valentina Reardon Internal Medicine, Encounter Date: 08/23/2023 Dat Instructor Referral for S kin lesion Referring Physician: Valentina Reardon Internal Medicine, Encounter Date: 08/23/2023 Sales Representative Advertising Referral for Co ronary arteriosclerosis Referring Physician: Valentina Reardon Internal Medicine, Encounter Date: 08/23/2023 General Surgeon Referral for Diverticulitis Referring Physician: Wanda Noonan Medicine, Encounter Date: 08/23/2023 Tool Repairer Bench Referral for C hronic cough Referring Physician: Valentina Reardon Internal Medicine, Encounter Date: 08/23/2023 Urologist Referral for Renal mass Referring Physician: Wanda Noonan Medicine, Encounter Date: 11/29/2023 Dat Instructor Referral for S kin lesion Referring Physician: Wanda Noonan Medicine, Encounter Date: 11/29/2023 Sales Representative Advertising Referral for Co ronary arteriosclerosis Referring Physician: Wanda Noonan, Encounter Date: 11/29/2023 General Surgeon Referral for Diverticulitis Referring Physician: Wanda Noonan, Encounter Date: 11/29/2023 Tool Repairer Bench Referral for C hronic cough Referring Physician: Wanda Noonan, Encounter Date: 11/29/2023 Parking Lot Chauffeur Referral for Onyc homycosis Referring Physician: Wanda Noonan, Encounter Date: 11/29/2023 Urologist Referral for Renal mass Referring Physician: Wanda Noonan, Encounter Date: 04/01/2024 Dat Instructor Referral for S kin lesion Please call patient to schedule. Referring Physician: Wanda Noonan, Encounter Date: 04/01/2024 Sales Representative Advertising Referral for Co ronary arteriosclerosis Please call patient to schedule. Referring Physician: Wanda Noonan, Encounter Date: 04/01/2024 Tool Repairer Bench Referral for C hronic cough Please call patient to schedule. Referring Physician: Wanda Noonan, Encounter Date: 04/01/2024 Parking Lot Chauffeur Referral for Onyc homycosis Please call patient to schedule. Referring Physician: Valentina Reardon, Internal Medicine, Encounter Date: 04/01/2024 Results Created Date Observation Date Name Description Value Unit Range Abnormal Flag Note LastModifiedBy Organization Detail LastModifiedTime 04/11/20 24 04/12/2024 LIPID PANEL , [place] cholesterol, total 117 mg/dL <200 normal Not Available [employer] [address] [address] [place], [address], 04/12/2024 07:25:51 04/11/20 24 04/12/2024 LIPID PANEL , [place] HDL cholesterol 47 mg/dL > or = 50 low Not Available [employer] [address] [address] [place], [address], 04/12/2024 07:25:51 04/11/20 24 04/12/2024 LIPID PANEL , [place] triglyceride s 176 mg/dL <150 high Not Available [employer] [address] [address] [place], [address], 04/12/2024 07:25:51 04/11/20 24 04/12/2024 LIPID PANEL [...] calcu lated using the Sheila n-Hop kins calcu latrebeca n, which is a valid ated novel usama goel than the Fried ronald equat ion in the estim ation of LDL-C . Sheila schneider SS et al. GRETCHEN. 2013; 310(1 9): 2061- 2068 (http ://ed ucati on.Qu estDi [employer]. com/f aq/FA Q164) Not Available [employer] [address] [address] [facility] [facility] [place], [address], 04/12/2024 07:25:51 04/11/20 24 04/12/2024 LIPID PANEL , [place] chol/HDLC ratio 2.5 (calc ) <5.0 normal Not Available [address], [address], 04/12/2024 07:25:51 04/11/20 24 04/12/2024 LIPID PANEL , [place] non HDL cholesterol 70 mg/dL _(zachary c) <130 normal For patie nts with diabe ashlyn plus 1 major ASCVD risk facto r, treat ing to a non-H DL-C goal of <100 mg/dL (LDL- C of <70 mg/dL ) is elani mika hoyt optio n. Not Available [address], [address], 04/12/2024 07:25:51 04/11/20 24 04/12/2024 COMPR EHENS CHELSEY METAB OLIC PANEL glucose 96 mg/dL 65-99 normal Fasti ng refer ence inter swetha Not Available [address], [address], 04/12/2024 07:25:52 04/11/20 24 04/12/2024 COMPR EHENS CHELSEY METAB OLIC PANEL urea nitrogen (BUN) 18 mg/dL 7-25 normal Not Available [address], [address], 04/12/2024 07:25:52 04/11/20 24 04/12/2024 COMPR EHENS CHELSEY METAB OLIC PANEL creatinine 0.70 mg/dL 0.60-1 .00 normal Not Available [address], [address], 04/12/2024 07:25:52 04/11/20 24 04/12/2024 COMPR EHENS CHELSEY METAB OLIC PANEL eGFR 92 mL/mi n/1.7 3m2 > or = 60 normal Not Available [address], [address], 04/12/2024 07:25:52 04/11/20 24 04/12/2024 COMPR EHENS CHELSEY METAB OLIC PANEL BUN/creatini ne ratio SEE NOTE: (calc ) 6-22 Not Repor kike: BUN and Creat inine are withi n refer ence range . Not Available [address], [address], 04/12/2024 07:25:52 04/11/20 24 04/12/2024 COMPR EHENS CHELSEY METAB OLIC PANEL sodium 141 mmol/ L 135-14 6 normal Not Available [address], [address], 04/12/2024 07:25:52 04/11/20 24 04/12/2024 COMPR EHENS CHELSEY METAB OLIC PANEL potassium 4.3 mmol/ L 3.5-5. 3 normal Not Available [address], [address], 04/12/2024 07:25:52 04/11/20 24 04/12/2024 COMPR EHENS CHELSEY METAB OLIC PANEL chloride 102 mmol/ L 98-110 normal Not Available [address], [address], 04/12/2024 07:25:52 04/11/20 24 04/12/2024 COMPR EHENS CHELSEY METAB OLIC PANEL carbon dioxide 33 mmol/ L 20-32 high Not Available [facility] [address], [address], 04/12/2024 07:25:52 04/11/20 24 04/12/2024 COMPR EHENS CHELSEY METAB OLIC PANEL calcium 9.2 mg/dL 8.6-10 .4 normal Not Available [address], [address], 04/12/2024 07:25:52 04/11/20 24 04/12/2024 COMPR EHENS CHELSEY METAB OLIC PANEL protein, total 6.0 g/dL 6.1-8. 1 low Not Available [address], [address], 04/12/2024 07:25:52 04/11/20 24 04/12/2024 COMPR EHENS CHELSEY METAB OLIC PANEL albumin 3.6 g/dL 3.6-5. 1 normal Not Available [address], [address], 04/12/2024 07:25:52 04/11/20 24 04/12/2024 COMPR EHENS CHELSEY METAB OLIC PANEL globulin 2.4 g/dL_ (calc ) 1.9-3. 7 normal Not Available [address], [address], 04/12/2024 07:25:52 04/11/20 24 04/12/2024 COMPR EHENS CHELSEY METAB OLIC PANEL albumin/glob ulin ratio 1.5 (calc ) 1.0-2. 5 normal Not Available [address], [address], 04/12/2024 07:25:52 04/11/20 24 04/12/2024 COMPR EHENS CHELSEY METAB OLIC PANEL bilirubin, total 0.4 mg/dL 0.2-1. 2 normal Not Available [address], [address], 04/12/2024 07:25:52 04/11/20 24 04/12/2024 COMPR EHENS CHELSEY METAB OLIC PANEL alkaline phosphatase 52 U/L 37-153 normal Not Available [address], [address], 04/12/2024 07:25:52 04/11/20 24 04/12/2024 COMPR EHENS CHELSEY METAB OLIC PANEL AST 13 U/L 10-35 normal Not Available [address], [address], 04/12/2024 07:25:52 04/11/20 24 04/12/2024 COMPR EHENS CHELSEY METAB OLIC PANEL ALT 11 U/L 6-29 normal Not Available [address], [address], 04/12/2024 07:25:52 04/11/20 24 04/12/2024 CBC (INCL UDES DIFF/ PLT) white blood cell count 9.4 thous and/u L 3.8-10 .8 normal Not Available [address], [address], 04/12/2024 07:25:53 04/11/20 24 04/12/2024 CBC (INCL UDES DIFF/ PLT) red blood cell count 4.32 jonny on/uL 3.80-5 .10 normal Not Available [address], [address], 04/12/2024 07:25:53 04/11/20 24 04/12/2024 CBC (INCL UDES DIFF/ PLT) hemoglobin 14.0 g/dL 11.7-1 5.5 normal Not Available [address], [address], 04/12/2024 07:25:53 04/11/20 24 04/12/2024 CBC (INCL UDES DIFF/ PLT) hematocrit 44.6 % 35.0-4 5.0 normal Not Available [address], [address], 04/12/2024 07:25:53 04/11/20 24 04/12/2024 CBC (INCL UDES DIFF/ PLT) MCV 103.2 fL 80.0-1 00.0 high Not Available [facility] [address], [place], [address], 04/12/2024 07:25:53 04/11/20 24 04/12/2024 CBC (INCL UDES DIFF/ PLT) MCH 32.4 pg 27.0-3 3.0 normal Not Available [address], [address], 04/12/2024 07:25:53 04/11/20 24 04/12/2024 CBC (INCL UDES DIFF/ PLT) MCHC 31.4 g/dL 32.0-3 6.0 low For adult s, a sligh t decre ase in the calcu lated MCHC value (in the range of 30 to 32 g/dL) is most likel y not clini litzy signi fican t; mary er, it shoul d be inter prete d with cauti on in corre lat n with other red cell imelda eters and the patie nt's clini zachary condi tion. Not Available [address], [address], 04/12/2024 07:25:53 04/11/20 24 04/12/2024 CBC (INCL UDES DIFF/ PLT) RDW 12.8 % 11.0-1 5.0 normal Not Available [address], [address], 04/12/2024 07:25:53 04/11/20 24 04/12/2024 CBC (INCL UDES DIFF/ PLT) platelet count 251 thous and/u L 140-40 0 normal Not Available [facility] [address], [address], 04/12/2024 07:25:53 04/11/20 24 04/12/2024 CBC (INCL UDES DIFF/ PLT) MPV 11.2 fL 7.5-12 .5 normal Not Available [facility] [address], [address], 04/12/2024 07:25:53 04/11/20 24 04/12/2024 CBC (INCL UDES DIFF/ PLT) absolute neutrophils 6383 cells /uL 1500-7 800 normal Not Available [address], [address], 04/12/2024 07:25:53 04/11/20 24 04/12/2024 CBC (INCL UDES DIFF/ PLT) absolute lymphocytes 2209 cells /uL 850-39 00 normal Not Available [address], [address], 04/12/2024 07:25:53 04/11/20 24 04/12/2024 CBC (INCL UDES DIFF/ PLT) absolute monocytes 564 cells /uL 200-95 0 normal Not Available [address], [address], 04/12/2024 07:25:53 04/11/20 24 04/12/2024 CBC (INCL UDES DIFF/ PLT) absolute eosinophils 197 cells /uL 15-500 normal Not Available [address], [address], 04/12/2024 07:25:53 04/11/20 24 04/12/2024 CBC (INCL UDES DIFF/ PLT) absolute basophils 47 cells /uL 0-200 normal Not Available [facility] [address], [address], 04/12/2024 07:25:53 04/11/20 24 04/12/2024 CBC (INCL UDES DIFF/ PLT) neutrophils 67.9 % normal Not Available [address], [address], 04/12/2024 07:25:53 04/11/20 24 04/12/2024 CBC (INCL UDES DIFF/ PLT) lymphocytes 23.5 % normal Not Available [facility] [address] [place], [address], 04/12/2024 07:25:53 04/11/20 24 04/12/2024 CBC (INCL UDES DIFF/ PLT) monocytes 6.0 % normal Not Available [address], [address], 04/12/2024 07:25:53 04/11/20 24 04/12/2024 CBC (INCL UDES DIFF/ PLT) eosinophils 2.1 % normal Not Available [facility] [address], [address], 04/12/2024 07:25:53 04/11/20 24 04/12/2024 CBC (INCL UDES DIFF/ PLT) basophils 0.5 % normal Not Available [facility] [address], [address], 04/12/2024 07:25:53 04/11/20 24 04/12/2024 VITAM IN [...] pg/mL will have sympt oms. Not Available [address], [address], 04/12/2024 07:25:54 04/11/20 24 04/12/2024 VITAM IN B12/F OLATE , SERUM PANEL folate, serum >24.0 NG/mL normal Refer ence Range Low: <3.4 Borde rline : 3.4-5 .4 Faby l: >5.4 Not Available [facility] [address] [place], [address], 04/12/2024 07:25:54 04/11/20 24 04/12/2024 T4, FREE T4, free 0.9 NG/dL 0.8-1. 8 normal Not Available [facility] [address] [address] [place], [address], 04/12/2024 07:25:56 04/11/20 24 04/12/2024 TSH TSH 1.60 mIU/L 0.40-4 .50 normal Not Available [facility] [address] [address] [place], [address], 04/12/2024 07:25:57 04/11/20 24 04/12/2024 VITAM IN [...] /MS is recom araceli d: order code [id number] (waqar ents >2yrs ). See Note 1 Note 1 For addit ional infor collin jones refer to http: //lisandro Soto stDia gnost ics.c om/fa q/FAQ 199 (This link is being provi ded for infor jammie ahmadi/ abel hagen purpo ses only. ) Not Available [facility] [address] [address] [place], [address], 04/12/2024 07:25:58 08/14/19 24 08/14/2023 CT, abdom en + pelvi s, w/o contr ast No observ ation record ed. [email or web address] [id number], [place], [address], 05/17/2024 12:38:10 04/25/20 24 04/25/2024 MAMMO , scree sameer, digit al, bilat eral No observ ation record ed. [email or web address] [id number] [facility] [address], [place], [address], 05/17/2024 12:40:13 05/27/19 25 05/27/2024 CT, abdom en + pelvi s, w/ contr ast No observ ation record ed. [email or web address] [id number] [facility] [address], [place], [address], 05/28/2024 15:32:41 Result Notes None recorded. Problems Name Problem SNOMED Code Status Onset Date Resolution Date Notes Provider Name and Address Organization Details Recorded Time Anemia 313631190 Active 2021 Not Available [facility] 3 00:26:25 Hypertrigl yceridemia 472647111 Active 2021 Not Available [facility] 3 00:26:25 Diverticul itis 910427525 Active 2021 Not Available [facility] 3 00:26:25 Acute urinary tract infection 726500724 Active 2021 Not Available [facility] 3 00:26:25 Coronary arterioscl erosis 31709985 Active 2021 Not Available [facility] 3 00:26:25 Candidiasi s of vagina 01524626 Active 2021 Not Available [facility] 3 00:26:25 COVID-19 907863363 Active 2022 Not Available [facility] 3 00:26:25 Skin lesion 98622188 Active 2022 Valentina mcnamara MD [address] [place] [address], [address] [address], [place], [address] , [facility] 3 14:49:35 Serum vitamin B12 below reference range 506461484 Active 2022 Valentina mcnamara MD [address], [place], [address] , [facility] [facility] 3 14:49:41 Allergic rhinitis 66997691 Active 2022 Valentina mcnamara MD [address], [place], [address] , [facility] 3 14:49:47 Chronic cough 11708816 Active 2022 Valentina mcnamara MD [address], [place], [address] , [facility] 3 14:50:02 Schizoaffe ctive disorder 78421652 Active 2022 Valentina mcnamara MD [address], [place], [address] , [facility] 3 14:50:10 Hyperlipid emia 60282011 Active 2022 Valentina mcnamara MD [address], [place], [address] , [facility] 3 14:50:20 Onychomyco sis 842742991 Active 2022 Valentina mcnamara MD [address], [place], [address] , [facility] 3 14:50:30 Smoker 80257369 Active 2022 Valentina mcnamara MD [address], [place], [address] , [facility] 3 14:52:39 Hearing loss 51190326 Active 2022 Valentina mcnamara MD [address], [place], [address] , [place] [facility] 3 14:54:13 Abdominal pain 90336593 Active 2022 Valentina mcnamara MD [address], [place], [address] , [place] [facility] 3 15:05:22 Renal mass 831782414 Active 2022 Valentina mcnamara MD [address], [place], [address] , [place] [facility] 3 15:06:35 Pain of left knee joint 5130810124314 07 Active 2022 Valentina mcnamara MD [address], [place], [address] , [place] [facility] [place] [facility] 3 11:59:18 Bilateral osteoarthr itis of knees 6210072618852 07 Active 2022 DYLON Dunaway [address], [place], [address] , [place] [facility] [place] [facility] 3 15:49:54 Vaginitis 28296966 Active 2022 Jackie thakkar, [place] [facility] [place] [facility] 3 17:27:20 Flank pain 391764871 Active 2022 Valentina mcnamara MD [address], [place], [address] , [place] [facility] [place] [facility] 3 10:37:10 Vitamin D deficiency 04608764 Active 2023 Valentina mcnamara MD [address], [place], [address] , [place] [facility] 4 12:52:12 Complex renal cyst 442901305 Active 2023 Iliana Jameson MD [address], [place], [address] , [facility] Decision Pace [facility] [employer] 19:12:54 Problem Notes None recorded. Procedures Surgical History Date Name Laterality Status Provider Name and Address Organization Details Recorded Time 08/23/19 Medicare Wellness CPT Code, subsequent completed Iglesia CrystalANA ID Decision Pace [facility] [employer] 08/23/2023 12:33:35 uterine myomectomy completed Not Available [facility] 07/07/2022 00:25:43 Colonoscopy completed Serajennie YeboahVendor Dirk ID Decision Pace [facility] [employer] [facility] 12/26/2022 11:18:25 Cataract Surgery completed Sera Yeboahham [facility] Decision Pace [facility] [employer] [facility] 12/26/2022 11:18:52 Imaging Results Imaging Date Name Status LastModified by Organiz ation Details LastModified Time 08/14/2023 CT, abdomen + pelvis, w/o contrast completed [address], [address], 05/17/2024 12:38:10 04/25/2024 MAMMO, screening, digital, bilateral completed [address], [address], 05/17/2024 12:40:13 05/27/2024 CT, abdomen + pelvis, w/ contrast active [email or web address], [address], 05/28/2024 15:32:41 Procedure Notes None recorded. Medical Equipment None Reported. Allergies Allergen ID Allergen Name Allergen Category Reaction Reaction Severity Criticality Documentation Date Start Date Code Code System Note Provider Name and Address Organization Details Recorded Time 37083 niacin medicatio n hallucina tions rash Not available Not available Not available 07/07/2022 7393 RxNorm Not Available [facility] 00:27:42 Medications Name Sig Start Date Stop [...] 20 mg by injection route. 04/24 completed [facility]: 0003- 0494- 20 Not Available Not [...] propionate 50 mcg/actuati on nasal spray,suspe nsion Gentry 1 spray every day by intranasa l [...] 20 mg by injection route. 04/24 completed [facility] [address]180 -064- 01 Not Available Not Available Not Available Melvijayamyriam Maintena 300 mg intramuscul ar suspension, extended [...] Updated DateTime 4 149.86 cm 41.6 kg/m2 94930.0 3 g 97.2 [degF] 78 /min 126 mm[Hg] 64 mm[Hg] CATHERINE Cardoso [employer] [facility] [employer] 4 11:17:38 Date Recorded Pain severity - 0-10 verbal numeric rating [Score] - Reported Provider Name and Address Organization Details Last Updated DateTime 08/23/2023 0 Iglesia Rojas LPN [employer] [facility] [employer] [facility] 08/23/2023 12:33:52 Date Recorded Body height Body mass index (BMI) Body weight Body temperature Heart rate Systolic blood pressure Diastolic blood pressure Provider Name and Address Organization Details Last Updated DateTime 4 149.86 cm 41.4 kg/m2 80854.4 4 g 97.5 [degF] 78 /min 116 mm[Hg] 66 mm[Hg] CATHERINE Cardoso ID Decision Pace [facility] [employer] [facility] 4 12:09:41 Date Recorded Body height Body mass index (BMI) Body weight Body temperature Heart rate Oxygen saturation Oxygen saturation in Arterial blood by Pulse oximetry Systolic blood pressure Diastolic blood pressure Provider Name and Address Organization Details Last Updated DateTime 4 149.86 cm 41.8 kg/m2 12566.6 2 g 97.5 [degF] 88 /min 87 % 87 % 112 mm[Hg] 68 mm[Hg] Yue Jesus MA [facility] [employer] [facility] 4 10:55:15 Date Recorded Body height Heart rate Body temperature Body mass index (BMI) Body weight Oxygen saturation Oxygen saturation in Arterial blood by Pulse oximetry Systolic blood pressure Diastolic blood pressure Provider Name and Address Organization Details Last Updated DateTime 4 149.86 cm 76 /min 97 [degF] 42.4 kg/m2 43352.4 g 92 % 92 % 107 mm[Hg] 83 mm[Hg] Mago Fitzgerald CMA [facility] [employer] [facility] 4 17:24:59 Date Recorded Body height Body mass index (BMI) Body weight Body temperature Heart rate Systolic blood pressure Diastolic blood pressure Provider Name and Address Organization Details Last Updated DateTime 4 149.86 cm 42 kg/m2 94836.2 1 g 97.6 [degF] 78 /min 124 mm[Hg] 66 mm[Hg] CATHERINE Cardoso ID Decision Pace [facility] [employer] [facility] 4 12:01:41 Social History Question Answer Notes LastModified by Organization Details LastModified Time Tobacco Smoking Status Former Smoker has quit off and on; quit 08/18/23 CATHERINE Cardoso [facility] [employer] [facility] 10/18/2023 12:06:29 Do You Have An Advance Directive? Yes Daughter Hong menard Information not available 08/23/2023 What Is Your Level Of Alcohol Consumption? None Information not available 12/29/2022 Are You Blind Or Do You Have Difficulty Seeing? Yes Cataracts MIGRATION.0301 [id number] Information not available 07/07/2022 What Is Your Level Of Caffeine Consumption? Heavy MIGRATION.0301 804126 Information not available 07/07/2022 In The 14 Days Before Symptom Onset, Have You Had Close Contact With A Laboratory-conf irmed COVID-19 While That Case Was Ill? No MIGRATION.030 913335 Information not available 07/07/2022 In The 14 Days Before Symptom Onset, Have You Had Close Contact With A Person Who Is Under Investigation For COVID-19 While That Person Was Ill? No MIGRATION.0301 593342 Information not available 07/07/2022 Are You Currently Employed? No Information not available 08/23/2023 Are You Deaf Or Do You Have Serious Difficulty Hearing? No MIGRATION.0301 160980 Information not available 07/07/2022 What Type Of Diet Are You Following? REGULAR MIGRATION.030 663041 Information not available 07/07/2022 What Is The Highest Grade Or Level Of School You Have Completed Or The Highest Degree You Have Received? [id number] MIGRATION.030 375205 Information not available 07/07/2022 Have There Been Any Changes To Your Family Or Social Situation? No MIGRATION.030 965973 Information not available 07/07/2022 What Is The Fluoride Status Of Your Home? Unknown MIGRATION.0301 415753 Information not available 07/07/2022 When Did You Quit Smoking? 1-5yearssincelastc igarette Information not available 10/18/2023 Are There Any Guns Present In Your Home? Yes Kept In Safe MIGRATION.0301 243467 Information not available 07/07/2022 Do You Use Insect Repellent Routinely? Yes MIGRATION.0301 542828 Information not available 07/07/2022 Where Do You Live? SingleLevelHouse MIGRATION.030 873988 Information not available 07/07/2022 Are You Able To Care For Yourself? Yes [email or web address] Information not available 08/23/2023 Are You Blind Or Do Yo Have Difficulty Seeing? No [email or web address] Information not available 08/23/2023 Are You Deaf Or Do You Have Serious Difficulty Hearing? No Information not available 08/23/2023 General Stress Level? Low Information not available 08/23/2023 Live Alone Of With Others? With Others [email or web address] Information not available 08/23/2023 Do You Have A Medical Power Of V Belt Finisher? Yes Daughter [email or web address] Information not available 08/23/2023 What Was The Date Of Your Most Recent Tobacco Screening? 04/01/2024 Information not available 04/01/2024 What Is Your Current Pack Years? 30ormorepackyears Information not available 12/29/2022 Have You Ever Been Counseled For Unhealthy Alcohol Use? No MIGRATION.0301 [id number] Information not available 07/07/2022 Do You Have Any Pets? Yes Dog Information not available 08/23/2023 What Is Your Relationship Status? MIGRATION.0301 574638 Information not available 07/07/2022 Do You Use Your Seat Belt Or Car Seat Routinely? Yes MIGRATION.0301 493202 Information not available 07/07/2022 Do You Have Smoke And Carbon Monoxide Detectors In Your Home? Yes MIGRATION.0301 348937 Information not available 07/07/2022 At What Age Did You Start Smoking Tobacco? 22 MIGRATION.0301 368615 Information not available 07/07/2022 Are You Passively Exposed To Smoke? Yes MIGRATION.0301 331088 Information not available 07/07/2022 Are There Any Smokers In Your House? Yes MIGRATION.0301 313355 Information not available 07/07/2022 How Much Tobacco Do You Smoke? No Was 1ppw Information not available 08/23/2023 What Types Of Sporting Activities Do You Participate In? None MIGRATION.0301 546215 Information not available 07/07/2022 Do You Feel Stressed (tense, Restless, Nervous, Or Anxious, Or Unable To Sleep At Night)? [id number] MIGRATION.0301 793566 Information not available 07/07/2022 Do You Use Any Illicit Or Recreational Drugs? No MIGRATION.0301 964562 Information not available 07/07/2022 Do You Use Sunscreen Routinely? Yes MIGRATION.0301 527725 Information not available 07/07/2022 Have You Recently Traveled Abroad? No MIGRATION.0301 380687 Information not available 07/07/2022 Do You Have Any Dietary Restrictions? No MIGRATION.0301 390738 Information not available 07/07/2022 Do You Or Have You Ever Used Any Other Forms Of Tobacco Or Nicotine? No MIGRATION.0301 772701 Information not available 07/07/2022 Sex: Female Functional Status Question Answer Note LastModified by Organizat ion Details LastModified Time Do you have difficulty walking or climbing stairs? Yes MIGRATION.660835 3213 Information not available 07/07/2022 Do you have transportation difficulties? No MIGRATION.239484 2411 Information not available 07/07/2022 Are you able to walk? YESWOREST MIGRATION.056914 9133 Information not available 07/07/2022 Do you have difficulty doing errands alone? Yes does not drive Information not available 08/23/2023 Are you able to care for yourself? Yes MIGRATION.890195 3863 Information not available 07/07/2022 Do you have difficulty dressing or bathing? No MIGRATION.672716 3432 Information not available 07/07/2022 What is your exercise level? None [email or web address] Information not available 08/23/2023 Mental Status Question Answer Note LastModified by Organization D etails LastModified Time Do you have difficulty concentrating, remembering or making decisions? No [email or web address] Information no t available 08/23/2023 Family History Relationship Description Onset Age of this Age Resolved Age Notes LastModified by Organization Details LastModified Time Mother Malignant tumor of colon MIGRATION.203 [id number] Not available 07/07/2022 00:25:44 Mother Kidney disease MIGRATION.005 [id number] Not available 07/07/2022 00:25:44 Brother Heart murmur MIGRATION.0 30 1907292 Not available 07/07/2022 00:25:44 Mother Family history of malignant neoplasm [email or web address] Not available 2022 14:46:44 Mother Blood coagulation disorder [email or web address] Not available 2022 14:46:55 Medical History Condition Response NERVE DISEASE N BLINDNESS N RHEUMATIC FEVER N KIDNEY STONES N BLADDER PROBLEMS N MRSA N OTHER # 1 Y POLIO N LUNG DISEASE/DISORDER N HISTORY OF DRUG ABUSE N RADIATION / CHEMOTHERAPY N COPD N Other # 2 N BLOOD DISEASES N EAR OR HEARING PROBLEMS N MUMPS N SHINGLES N DEPRESSION (INCLUDING POST ) N BOWEL PROBLEMS N STROKE/TIA N ULCERS N BENIGN PROSTATIC HYPERPLASIA N MEASLES N HYPOTENSION N MYOCARDIAL INFARCTION N OBESITY N GERD/NAUSEA N ANEURYSM N URINARY/BLADDER/KIDNEY PROBLEMS Y CORONARY ARTERY DISEASE (CAD) N ADDICTION CONCERNS N Impotence N ENDOMETRIOSIS N USE OF BLOOD THINNERS Y SKIN [...] GLAUCOMA N FOOT PROBLEM N DIVERTICULITIS N SLEEP APNEA N CHICKENPOX N INFECTIOUS DISEASE N PROSTATE N HEART ARRHYTHMIA N INSOMNIA N HIGH CHOLESTEROL / HYPERLIPIDEMIA Y HYPERTHYROIDISM N EYE PROBLEMS N EDEMA N CHRONIC PAIN SYNDROME N HYPOTHYROIDISM N CONSTIPATION N CAROTID BLOCKAGE N BACK / NECK PROBLEMS N ATHEROSCLEROSIS N BREAST PROBLEMS N DIALYSIS N ECZEMA N OSTEOPOROSIS N ARTHRITIS Y APPENDICITIS N DIABETES, TYPE N BAD TEETH N ENT N HEARTBURN / REFLUX N AUTISM SPECTRUM DISORDER (ASD) N HEPATITIS / LIVER DISEASE N GOUT N SLEEP DISORDER N ALZHEIMER'S DISEASE N Brain Problems N HERPES N DEMENTIA N SEIZURES/EPILEPSY N HEADACHES/MIGRAINES N VASCULAR DISEASE N PACEMAKER N Blood Disorder N DIZZINESS N KIDNEY DISEASE N HEART DISEASE/HEART PROBLEMS N MULTIPLE SCLEROSIS N CARDIAC ARRHYTHMIA N CANCER: SPECIFY Y Gall Stones N ATRIAL FIBRILLATION N PULMONARY EMBOLISM N AUTOIMMUNE DISEASE N Gynecological HistoryNo gynecological history recorded. Obstetrics History GPAL:G 0 P 0 0 0 0 Immunizations Vaccine Type Date Status Note Provider Nam e and Address Organization Details Recorded Time Pneumococcal conjugate PCV20, polysaccharide [id number] conjugate, adjuvant, PF 3 completed Not Available [facility] 07/07/2022 00:27:40 Influenza, high-dose, trivalent, PF 4 completed Valentina Reardon MD [address] [place] [address], [address], [facility] [email or web address] 04/01/2024 17:52:04 Past Encounters Encounter ID Performer Location Encounter Start Date Encounter Closed Date Diagnosis/Indication Diagnosis SNOMED-CT Code Diagnosis ICD10 Code Diagnosis Note [id number] [facility] [place] [address] 12/06/2021 00:00:00 12/20/2021 15:01:44 [id number] [facility] [place] [address] 01/19/2022 00:00:00 01/19/2022 14:04:44 [id number] [facility] Internal [facility] [address] [facility] [place] [address] 06/27/2022 00:00:00 06/29/2022 16:20:52 [id number] Valentina mcnamara MD [facility] Internal [facility] [address] [place] [address] [place] [address] 12/26/2022 11:04:43 12/26/2022 12:05:01 Screening - NAD [id number] Z13.9 C-scope: 08/08/2022 : Dr Brooks PAP: Sees Dr Abdul/Dr Bird Mammogram: 09/14/2021 : Nuris OMammogram : S/p R ductal cell ca, is to now see Dr Franca bardales for a R lumpectomy , get records, she did sign Celso Ferrerahu 03/18/2022 DEXA: 12/21/2021 : Osteopenia , do ca and vit d Get yearly flu shotGet tdap if not doneUTD on Shingrix vaccine as per her daughterGe t PCV #20Get COVID 19 vaccine and its boosters,d eclines RTC in 4 monthsDo labsER if worseShe and her daughter did verbalize her understand ing of the above Smoker 00891385 F17.200 Advised to quitLDCT 01/04/2022 : CAD Skin lesion 51938556 L98 .9 Large mole noted on the L lower abdomenRef er to dermatolog y Serum angelia min B12 below reference range 220174029 R79.89 Allergic rhinitis 211755 04 J30.9 On flonase and zyrtec Hearing loss 66154244 H9 1.91 R sidedGet hearing test done with ENT referral Jamey Thurman MD 01/06/2022 Chronic cough 15237504 R 05.3 May need to see pulmonary Schizoaffe ctive disorder 82288940 F25.9 On duloxetine 30mg dailyOn abilify monthly injectionS ees Dr Marquez, denies any SI or HI or attempts Hyperlipidemia 45445500 E78.5 On fenofibrat e 145mg daily, refilled 12/26/2022 , get labs, may need to d/c this or start on vascepaOn rosuvastat in 5mg dailyGet labs Coronary arteriosclerosis 69171169 I25.10 Seen on LDCTDr Alessandraeta 04/27/2022 , f/u in 6 months Onychomycosis 322511679 B35.1 L big toe: refer to Dr Storm Abdominal pain 77562005 R10.9 [facility] 12/19/2022 :MCV 104.2CT A/P 12/19/2022 : Diverticul itisOn augmentin Renal mass 564905306 N28 .89 CT A/P 12/19/2022 , needs to get CT for the R kidney mass, wants to see urology instead, referred Pain of le ft knee joint 1310749197 41694 M25.562 +ve TTP medially and crepitusRe lizzie to Dr Chahal [id number] DYLON Dunaway [facility] [place] [address] [place] [address] 12/29/2022 14:34:01 01/02/2023 12:02:53 Pain of left knee joint 5335134889 20841 M25.562 Bilateral osteoarthritis of knees 6493995508 62407 M17.0 [id number] DYLON Dunaway [facility] [place] [address] [place] [address] 02/16/2023 09:31:21 02/16/2023 10:05:18 Pain of left knee joint 6617714598 99819 M25.562 Bilateral osteoarthritis of knees 8466092682 39956 M17.0 [id number] Art Sims MD [facility] [place] [address] [place] [address] 03/08/2023 09:20:10 03/20/2023 16:15:08 Pain of left knee joint 8484473352 44414 M25.438 [id number] Valentina mcnamara MD [facility] [address] [facility] [place] [address] 04/24/2023 11:21:04 04/24/2023 12:58:57 Screening - NAD 933834462 Z13.9 C-scope: 08/08/2022 : Dr Brooks PAP: [...] her understand ing of the above Smoker 66683630 F17.200 Advised to quitLDCT 01/04/2022 : CADLDCT 2023 Skin lesion 08813090 L98 .9 Large mole noted on the L lower abdomenRef er to dermatolog y Serum angelia min B12 below reference range 853101310 R79.89 Allergic rhinitis 284002 04 J30.9 On flonase and zyrtec Hearing loss 65684496 H9 1.91 R sidedGet hearing test done with ENT referral Jamey Thurman MD 01/06/2022 Chronic cough 66358204 R 05.3 May need to see pulmonary Schizoaffe ctive disorder 66330945 F25.9 On duloxetine 30mg dailyOn abilify monthly injectionS ees Dr Marquez, denies any SI or HI or attempts Hyperlipidemia 16624984 E78.5 On fenofibrat e 145mg daily, refilled 12/26/2022 , get labs, may need to d/c this or start on vascepaOn rosuvastat in 5mg dailyGet labs Coronary arteriosclerosis 56167207 I25.10 [facility] , f/[facility] 6 monthsDr [facility]23 , next in one year Onychomycosis 476298442 B35.1 L big toe: refer to Dr Storm Abdominal pain 26775897 R10.9 [facility] 12/19/2022 :MCV 104.2CT A/P 12/19/2022 : Diverticul itisOn augmentin Renal mass 637810509 N28 .89 CT A/P 12/19/2022 , needs to get CT for the R kidney mass, wants to see urology instead, referred Pain of le ft knee joint 7832863135 45784 M25.562 +ve TTP medially and crepitus Dr Sims 03/08/2023 Flank pain 414860097 R10 .9 [facility] 04/12/2023 CT A/P 04/12/2023 : negUA 04/12/2023 [id number] Valentina mcnamara MD [facility] [address] [facility] [place] , [facility] [place] [address] 08/23/2023 10:57:05 08/23/2023 11:47:39 Screening - NAD 765081633 Z13.9 C-scope: 08/08/2022 : Dr Brooks PAP: [...] her understand ing of the above Smoker 70147785 F17.200 Advised to quitLDCT 01/04/2022 : CADLDCT 2023 Skin lesion 78423526 L98 .9 Large mole noted on the L lower abdomenRef er to dermatolog y Serum angelia min B12 below reference range 438972533 R79.89 Allergic rhinitis 012834 04 J30.9 On flonase and zyrtec Hearing loss 09218472 H9 1.91 R sidedGet hearing test done with ENT referral Jamey Thurman MD 01/06/2022 Chronic cough 26307990 R 05.3 May need to see pulmonaryN ow on rescue inhaler for SOB and hypoxia while in the hospital Schizoaffe ctive disorder 50336865 F25.9 On duloxetine 30mg dailyOn abilify monthly injectionS ees Dr Marquez, denies any SI or HI or attempts Hyperlipidemia 11133555 E78.5 On fenofibrat e 145mg daily, refilled 12/26/2022 , get labs, may need to d/c this or start on vascepaOn rosuvastat in 5mg dailyGet labs Coronary arteriosclerosis 30940211 I25.10 Seen on LDCTDr [facility] 04/27/2022 , f/u in 6 monthsDr [facility] 01/05/2023 , next in one year Onychomycosis 624060146 B35.1 L big toe: refer to Dr Storm Abdominal pain 49607269 R10.9 [facility] 12/19/2022 :MCV 104.2CT A/P 12/19/2022 : Diverticul itisOn augmentin Renal mass 027363171 N28 .89 CT A/P 12/19/2022 , needs to get CT for the R kidney mass, wants to see urology instead, referred Pain of le ft knee joint 1202169784 43809 M25.562 +ve TTP medially and crepitus Dr Sims 03/08/2023 Flank pain 762180654 R10 .9 [facility] 04/12/2023 CT A/P 04/12/2023 : negUA 04/12/2023 Diverticulitis 030627748 K57.92 08/14/2023 : [facility] ER08/18/19 24[facility] Adult heal th examination 138379081 Z00.00 Screening for disorder 327752959 Z13.9 [id number] Valentina mcnamara MD [facility] [address] [place] [address] 10/18/2023 11:45:36 10/18/2023 12:53:05 Acute urinary tract infection 439017401 N39.0 OV 10/18/2023 :On cipro 500mg po bidHydrate ER if worse Hyperlipidemia 66387027 E78.5 On fenofibrat e 145mg daily, refilled 12/26/2022 , get labs, may need to d/c this or start on vascepaOn rosuvastat in 5mg daily, renewedGet labs Vitamin D deficiency 347 87170 E55.9 Serum angelia min B12 below reference range 056985715 R79.89 [id number] Valentina mcnamara MD [facility] [place] [address] [facility] [place] [address] 11/29/2023 10:44:29 11/29/2023 11:25:50 Hyperlipidemia 66932457 E78.5 On fenofibrat e 145mg daily, refilled 12/26/2022 , get labs, may need to d/c this or start on vascepaOn rosuvastat in 5mg dailyGet labs Vitamin D deficiency 347 18371 E55.9 Serum angelia min B12 below reference range 485728134 R79.89 Screening - NAD 48372018 3 Z13.9 C-scope: 08/08/2022 : Dr Brooks [...] her understand ing of the above Smoker 83676063 F17.200 Advised to quitLDCT 01/04/2022 : CADLDCT 2023 Skin lesion 03218733 L98 .9 Large mole noted on the L lower abdomenRef er to dermatolog y Allergic rhinitis 384560 04 J30.9 On flonase and zyrtec Hearing loss 67790612 H9 1.91 R sidedGet hearing test done with ENT referral Jamey Thurman MD 01/06/2022 Chronic cough [id number] R 05.3 May need to see Frida baxter on rescue inhaler for SOB and hypoxia while in the hospital Schizoaffe ctive disorder 22305281 F25.9 On duloxetine 30mg dailyOn abilify monthly injectionS ees Dr Marquez, denies any SI or HI or attempts Coronary arteriosclerosis 16126176 I25.10 [facility] 04/27/[facility] , f/u in 6 monthsDr [facility] 01/05/2023 , next in one year Onychomycosis 113513284 B35.1 L big toe: referred to Dr Katerin baxter referred to podiatry Dr Davidson Renal mass [id number] N28 .89 CT A/P 12/19/2022 , needs to get CT for the R kidney mass, wants to see urology instead, states that Dr Florence told her she did not need to 'worry' as this was not cancer , referred 11/29/[address] Jameson for a second opinion Diverticulitis 360671371 K57.92 08/14/2023 : [facility] Screening for osteoporosis 124308697 Z13.674 [id number] Iliana Jameson MD [facility] [address], [address] [place] [address] 12/29/2023 17:00:25 12/29/2023 17:59:28 Complex renal cyst [id number] N28.1 [id number] Valentina mcnamara MD [facility] Preeti mcfarlane [address] [facility] [address] [place] [address] 04/01/2024 11:31:21 04/01/2024 12:42:05 Hyperlipidemia 11125502 E78.5 Not on fenofibrat e 145mg daily, refilled 12/26/2022 , get labs, may need to d/c this or start on vascepaOn rosuvastat in 5mg dailyGet labs Vitamin D deficiency 347 40892 E55.9 Serum angelia min B12 below reference range 354322748 R79.89 Screening - NAD 17167092 3 Z13.9 C-scope: 08/08/2022 : Dr Brooks OV 04/01/2024 : PAP: Sees Dr Abdul/Dr Bird, is to do labs and see cardiology and get pre op clearance for an hystrectom y on 06/26/2024 Mammogram: 09/14/2021 : [facility] OMammogram : S/p [...] her understand ing of the above Smoker 06439368 F17.200 Advised to quitLDCT 01/04/2022 : [facility] 2023 Skin lesion 13348052 L98 .9 Large mole noted on the L lower abdomenRef er to dermatolog y Allergic rhinitis 527850 04 J30.9 On flonase and zyrtec Hearing loss 12693641 H9 1.91 R sidedGet hearing test done with ENT referral Jamey Thurman MD 01/06/2022 Chronic cough 46061583 R 05.3 May need to see pulmonaryN ow on rescue inhaler for SOB and hypoxia while in the hospital Schizoaffe ctive disorder 16219800 F25.9 On duloxetine 30mg dailyOn abilify monthly injectionS ees Dr Marquez, denies any SI or HI or attempts Coronary arteriosclerosis 53238052 I25.10 Seen on [facility]Dr [facility] 04/27/2022 , f/u in 6 monthsDr [facility] 01/05/2023 , next in one year Onychomycosis 450581321 B35.1 L big toe: referred to Dr Katerin baxter referred to podiatry Dr Davidson Renal mass 248187512 N28 .89 CT A/P 12/19/2022 , needs to get CT for the R kidney mass, wants to see urology instead, states that Dr Florence told her she did not need to 'worry' as this was not cancer , referred 11/29/[address] Jameson for a second opinion OV 04/01/2024 :Sees Dr Jameson last OV 12/29/2023 Diverticulitis 356731046 K57.92 08/14/2023 : [facility] ER/04/26 24: [facility] a referral to surgery OV 04/01/2024 : Did see Dr Hurt, surgery was discussed Screening for osteoporosis 010721070 Z13.820 Pre-surger y evaluation 946982833 Z01.818 Surgery: Hystrectom ySurgeon: OBDate: 06/26/2024 Clearance: Needs to get labs, also needs Xray as per her hx today 04/01/2024 required by her OB, and needs cardiac clearance Administra tion of influenza vaccine 19523387 Z23 Ex-cigarette smoker 2810 70138 Z87.891 Health Concerns Section Related Observation LastModified by Organization Detai ls LastModified Time None Recorded Concern Status LastModified by Organization Details LastModified Time None Recorded Advance Directives Directive Y: Daughter isPOA Payers Encounter Date Sequence Insurance Name Policy Number Policy Leslie Covered Member ID Leslie Member ID Guarantor Name 08/23/2023 1 [facility] (MEDICARE REPLACEMENT/A DVANTAGE - HMO) [id number] Shelby Benitez [id number] Shelby Benitez 10/18/2023 1 [facility] (MEDICARE REPLACEMENT/A DVANTAGE - HMO) [id number] Shelby Benitez [id number] Shelby Benitez 11/29/2023 1 [facility] (MEDICARE REPLACEMENT/A DVANTAGE - HMO) [id number] Shelby Celeste Emmanuel [id number] Shelby Benitez 12/29/2023 1 [facility] (MEDICARE REPLACEMENT/A DVANTAGE - HMO) [id number] Shelby Celeste Benitez [id number] Shelby Benitez 04/01/2024 1 [facility] (MEDICARE REPLACEMENT/A DVANTAGE - HMO) [id number] Shelby Celeste Emmanuel [id number] Shelby Benitez Notes Date Note Type Note [...] is doing well today, was d/c from [facility] for diverticulitis Valentina Reardon MD [address] [place] [address], [facility] [address], [place], [address], [facility] [employer] 08/23/2023 18:28:04 10/18/2023 text/html OV 12/06/2021:He re [...] is doing well today, was d/c from [facility] for diverticulitis Valentina Reardon MD [address], [place], [address], [facility] [employer] 10/23/2023 18:38:14 11/29/2023 text/html OV 12/06/2021:He re [...] is doing well today, was d/c from [facility] for diverticulitis OV 11/29/2023: Here for her f/u apt, she is doing well, she did do the labs, here with her daughter Valentina Reardon MD [address], [place], [address], [facility] [employer] [facility] 12/04/2023 20:01:17 12/29/2023 text/html this patient actually [...] to be chronic Iliana Jameson MD [address] [facility], [facility] [address], [place], [address], [facility] [employer] [facility] 12/29/2023 19:13:50 04/01/2024 text/html OV 12/06/2021:He re [...] is doing well today, was d/c from [facility] for diverticulitis OV 11/29/2023: Here for her f/u apt, she is doing well, she did do the labs, here with her daughter OV 04/01/2024: Here for her f/u apt, she is doing well today, here with her son, she has no new labs, is to get hystrectomy done by her OB on 06/26/2024 and needs to get clearance Valentina Reardon MD [address] [employer], [facility] [address], [place], [address], [place] [facility] 04/01/2024 17:52:29 OBGyn Episode No OBEpisode recorded.
--- OUTSIDE RECORDS SUMMARY | 2024-06-14 12:54 | XMS_ITS | Clinical Summary ---
Author Organization [facility] Address [address] [place] [address] Phone Care Team Providers Care Financial Aid Manager Name Role Phone Asmita Reardon MD Primary Care Provider Andrea Ho MD Unavailable [phone] Allergies Active Allergy Reactions Criticality Noted Date [...] 80 09/11/2023 10:29 AM CDT Temperature 36.9 C (98.5 F) 09/11/2023 10:29 AM CDT Respiratory Rate 16 09/11/2023 10:2 [...] Description 09/10/2024 11:00 AM CDT [facility] [address] [place] [id number] Andrea Ho MD [address] [place] [address] Discharge Disposition: Discharged to home or Selfcare [...] this topic Insurance MEDICAID [place] MEDICARE C [employer] Care Teams Financial Aid Manager Relationship Specialty Start Date End Date Asmita Reardon MD [address] [place] [address] PCP - General Internal Medicine 03/18/22 Andrea Ho MD [address] [place] [address] Consulting Physician Medical Oncology 02/21/23
--- OUTSIDE RECORDS SUMMARY | 2024-06-14 12:54 | XMS_ITS | Patient Health Record ---
Author Organization [facility] Address [address] [facility] [address] [address] Care Team Providers Care Publications Writer Name Role Phone Asmita Reardon Primary Care Provider Froilan Storm DPM, Jeremy Unavailable [phone] ALLERGIES Allergen (clinical drug ingredient) Drug/Non Drug [...] Insured Coverage Start Date Coverage End Date [facility] Medicare Advantage PPO [address] [address] [place] [address] [id number] Shelby Benitez Self - patient is the insured MEDICAL (GENERAL) HISTORY Medical History History ICD Code high cholesterol depression urologic problems Surgical History Surgery Date(Month/Year) lumpectomy
== END 2024-06-14 12:43 | disposition home or self-care (01) ==
PROVIDERS: PCP Internal Medicine
DX: J84.89 Other specified interstitial pulmonary diseases (principal); E78.5 Hyperlipidemia, unspecified; R06.02 Shortness of breath; M15.8 Other polyosteoarthritis; I10 Essential (primary) hypertension; F17.200 Nicotine dependence, unspecified, uncomplicated; Z13.6 Encounter for screening for cardiovascular disorders; Z01.810 Encounter for preprocedural cardiovascular examination
CPT/HCPCS: 71046

== ENCOUNTER 2024-07-29 15:13 | Outpatient (CLI) | payer MEDICARE, MEDICAID, SELFPAY ==
--- NOTE | ~2024-07-29 | CT_ITS ---
EXAMINATION: CT lung screening DATE: 07/29/2024 15:37 INDICATION: nicotine dependence TECHNIQUE: Computed tomography (CT) of the chest was performed without intravenous contrast. Addition al 3D reconstructions utilizing coronal maximum intensity projection (MIP) were performed. Automated exposure control and iterative reconstruction technique were employed. The dose-length product was 17 4.72 mGy-cm. COMPARISON: None FINDINGS: Moderate emphysema. Small calcified right upper lobe nodule consistent with old granulomatous disease . No other suspicious noncalcified pulmonary nodules, pneumonia, pulmonary edema or pleural effusion. Heart size is normal. Minimal pericardial effusion. Small of atherosclerotic coronary artery calcium location. Thoracic aorta is normal in caliber. No pathologically enlarged thoracic no lymphadenopath y. The left upper abdomen is unremarkable. Moderate thoracic spondylosis. IMPRESSION: 1. . Lung-RADS category 1: Negative. Continue annual screening with noncontrast low-dose chest CT in 12 months. Reviewed, dictated and finalized at location B.
--- OUTSIDE RECORDS SUMMARY | 2024-07-29 17:43 | XMS_ITS | Data Portability ---
Author Organization [place] - [facility] [email or web address], Main Office Address [address] [place] [address] Care Team Providers Care Bench Hand Machine Name Role Phone VALENTINA REARDON Primary Care Provider [phone] VALENTINA REARDON Referring Provider [phone] ILIANA JAMESON Urologist CHAGO MCWILLIAMS General Surgeon ALBINO KISER Hematology/Oncology BEBE BIRD Stained Glass Painter [phone] ZAKIA BROOKS Hand Ornament Maker [phone] MARIUSZ MARQUEZ Psychiatrist Assessment Encounter Date Assessment Date Assessment LastModified by Organization Details LastModified Time 11/29/2023 11/29/2023 04/12/2023: [place] [facility] MCV 102.2 08/14/2023: ER Gluc 125H, TP 6.0L WBC 17.6, MCV 101.7 08/18/2023: [place] WBC 11.3, H/H 10.9/34.4, MCV 13.3 11/21/2023: MCV 102.3 (b12/folate/TS H/H/H) WNL Not available 11/29/2023 11:19:20 04/01/2024 04/01/2024 04/12/2023: [place] [facility] MCV 102.2 08/14/2023: ER Gluc 125H, TP 6.0L WBC 17.6, MCV 101.7 08/18/2023: [place] WBC 11.3, H/H 10.9/34.4, MCV 13.3 11/21/2023: MCV 102.3 (b12/folate/TS H/H/H) WNL Pre-surgery evaluation - Surgery: Hystrectomy Surgeon: OB Date: 06/26/2024 Clearance: Needs to get labs, also needs Xray as per her hx today 04/01/2024 required by her OB, and needs cardiac clearance Addendum: 06/20/2024: Cleared for surgery, cleared by [facility], her form filled out [email or web address] Not available 06/20/2024 10:46:43 07/22/2024 07/22/2024 04/11/2024: MCV 103.2 TP 6.0 TG 176 [place] ER 05/27/2024: WBC 12.6 Not available 07/22/2024 12:23:37 Plan of Treatment Reminders Order Date Submit Date Provider Last Modified By Organization Details Last Modified Time Details Appointments Follow Up 15 2024 10:45A Roula flood MD Not available Not available Not available Lab CMP, serum or plasma 2024 025 [employer] [facility], [address], [place], [address], 07/22/2024 12:25:49 CBC w/ auto diff 2024 025 [employer] [facility], [address], [place], [address], 07/22/2024 12:25:48 lipid panel, serum 2024 025 [employer] [facility], [address], [place], [address], 07/22/2024 12:25:50 TSH, serum or plasma 2024 025 [employer] [facility], [address], [place], [address], 07/22/2024 12:25:47 CMP, serum or plasma 2023 024 [employer] [facility], [address], [place], [address], 04/12/2024 07:25:52 CBC w/ auto diff 2023 024 [facility], [address], [place], [address], 04/12/2024 07:25:53 T4, free, serum 2023 024 [facility], [address], [place], [address], 04/12/2024 07:25:56 TSH, serum or plasma 2023 024 [facility], [address], [place], [address], 04/12/2024 07:25:57 lipid panel, serum 2023 024 [facility], [address], [place], [address], 04/12/2024 07:25:51 vitamin D, 25-hydrox y, total, serum 2023 024 [facility], [address], [place], [address], 04/12/2024 07:25:58 vitamin B12 + folate, serum or blood 2023 024 [facility], [address], [place], [address], 04/12/2024 07:25:55 CMP, serum or plasma 2023 024 [email or web address] [facility], [address], [place], [address], 05/27/2024 12:48:29 CBC w/ auto diff 2023 024 [email or web address] [employer] [facility], [address], [place], [address], 05/27/2024 12:48:29 T4, free, serum 2023 024 [facility], [address], [place], [address], 05/27/2024 12:48:29 TSH, serum or plasma 2023 024 [email or web address] [facility], [address], [place], [address], 05/27/2024 12:48:29 lipid panel, serum 2023 024 [email or web address] [facility], [address], [place], [address], 05/27/2024 12:48:30 vitamin D, 25-hydrox y, total, serum 2023 024 [email or web address], [address], [place], [address], 06/03/2024 10:06:06 vitamin B12 + folate, serum or blood 2023 024 [email or web address] [facility], [address], [place], [address], 05/27/2024 12:48:30 CMP, serum or plasma 2023 024 DINORAH [facility], [address], [place], [address], 11/29/2023 16:18:10 CBC w/ auto diff 2023 024 [email or web address], [address], [place], [address], 04/15/2024 14:06:23 T4, free, serum 2023 024 [email or web address] [address] [employer] [facility], [address], [place], [address], 04/15/2024 14:06:24 TSH, serum or plasma 2023 024 [email or web address] [address] [facility], [address], [place], [address], 04/15/2024 14:06:24 lipid panel, serum 2023 024 [place] [address] [facility], [address], [place], [address], 04/15/2024 14:06:24 vitamin B12 + folate, serum or blood 2023 024 [place] [address] [employer] [facility], [address], [place], [address], 04/15/2024 14:06:24 Referral urologist referral - Please call patient to schedule an appointme nt. Thank you. 2024 025 [email or web address] Mayito Florence MD, [address] [facility] [address], [place], [address], 07/22/2024 17:38:23 general surgeon referral - Please call patient to schedule an appointme nt. Thank you. 2024 025 BRITT Mcwilliams MD, [address] [facility] [address], [address], [place], [address], 07/22/2024 18:25:19 urologist referral 2023 024 [email or web address] Iliana Jameson, [address] [facility], [facility] [address], [place], [address], 04/02/2024 12:58:04 podiatris t referral - Please call patient to schedule. 2023 024 bucky Davidson DPM, [address], [place], [address], 07/04/2024 14:23:44 pulmonolo gist referral - Please call patient to schedule. 2023 024 [email or web address] Lisy Lowry [employer]ATION LIBRARIAN-C, [address], [place], [address], 04/15/2024 16:50:54 cardiolog ist referral - Please call patient to schedule. 2023 024 DINORAH King MD, [address], [place], [address], 07/15/2024 14:40:31 dermatolo gist referral - Please call patient to schedule. [address] [facility], [address] [place] [address], [address], 07/04/2024 14:23:01 urologist referral 2023 024 [email or web address] Iliana Jameson, [address] [facility], [facility] [address], [place], [address], 05/27/2024 12:48:46 podiatris t referral 2023 024 Garth Davidson DPM, [address], [address], [place], [address], 04/02/2024 14:16:21 pulmonolo gist referral 2023 024 Jordana Mcintyre, [address] [place] [address] [address], [place], [address], 04/02/2024 14:16:03 general surgeon referral 2023 024 [email or web address] Chago Mcwilliams MD, [address] [facility] [address], [address], [place], [address], 12/27/2023 11:29:21 cardiolog ist referral 2023 024 [email or web address] Camille King MD, [address], [address], [place], [address], 04/02/2024 14:15:29 dermatolo gist referral 2023 024 [email or web address] [facility], [address] [place], [address], 04/02/2024 14:15:50 Procedures None recorded. Surgeries None recorded. Imaging LDCT, chest, for lung cancer screening [email or web address] [place] [address] Imaging, [address], [address], [place], [address], 07/22/2024 18:05:27 LDCT, chest, for lung cancer screening 2023 024 [email or web address] [facility], [address], [address], [place], [address], 05/28/2024 16:30:22 XR, chest, 2 view 2023 024 [facility], [address], [address], [place], [address], 06/14/2024 16:36:14 DEXA, axial skeleton 2023 024 [email or web address] [facility], [address], [address], [place], [address], 04/01/2024 15:20:55 DEXA, axial skeleton 2023 024 [facility], [address], [address], [place], [address], 06/17/2024 15:54:15 Medication Orders rosuvasta tin 5 mg tablet 2023 024 [facility] [place], [address], 07/22/2024 12:01:55 Patient TargetsNo targets recorded. Patient Instructions Encounter Date Encounter Id Patient Instructions Last Modified By Organization Details Last Modified Time 12/29/2023 [id number] plan 1. I am not concerned about [...] Physician: Wanda Noonan Medicine, Encounter Date: 11/29/2023 Making Machine Catcher Referral for S kin lesion Referring Physician: Valentina Reardon Internal Medicine, Encounter Date: 11/29/2023 Rheologist Referral for Co ronary arteriosclerosis Referring Physician: Wanda Noonan Medicine, Encounter Date: 11/29/2023 General Surgeon Referral for Diverticulitis Referring Physician: Wanda Noonan Medicine, Encounter Date: 11/29/2023 Devulcanizer Head Referral for C hronic cough Referring Physician: Valentina Reardon Internal Medicine, Encounter Date: 11/29/2023 Tight Rope Walker Referral for Onyc homycosis Referring Physician: Valentina Reardon Internal Medicine, Encounter Date: 11/29/2023 Urologist Referral for Renal mass Referring Physician: Wanda Noonan Medicine, Encounter Date: 04/01/2024 Making Machine Catcher Referral for S kin lesion Please call patient to schedule. Referring Physician: Wanda Noonan Medicine, Encounter Date: 04/01/2024 Rheologist Referral for Co ronary arteriosclerosis Please call patient to schedule. Referring Physician: Valentina Reardon Internal Medicine, Encounter Date: 04/01/2024 Devulcanizer Head Referral for C hronic cough Please call patient to schedule. Referring Physician: Valentina Reardon Internal Medicine, Encounter Date: 04/01/2024 Tight Rope Walker Referral for Onyc homycosis Please call patient to schedule. Referring Physician: Valentina Reardon Internal Medicine, Encounter Date: 04/01/2024 Urologist Referral for Renal mass Please call patient to schedule an appointment. Thank you. Referring Physician: Valentina Reardon Internal Medicine, Encounter Date: 07/22/2024 General Surgeon Referral for Diverticulitis Please call patient to schedule an appointment. Thank you. Referring Physician: Valentina Reardon Internal Medicine, Encounter Date: 07/22/2024 Results Created Date Observation Date Name Description Value Unit Range Abnormal Flag Note LastModifiedBy Organization Detail LastModifiedTime 04/11/20 24 04/12/2024 LIPID PANEL , [place] cholesterol, total 117 mg/dL <200 normal Not Available [employer] [facility] [address] [place], [address], 04/12/2024 07:25:51 04/11/20 24 04/12/2024 LIPID PANEL , [place] HDL cholesterol 47 mg/dL > or = 50 low Not Available [facility] [address] [place], [address], 04/12/2024 07:25:51 04/11/20 24 04/12/2024 LIPID PANEL , [place] triglyceride s 176 mg/dL <150 high Not Available [employer] [facility] [address] [place], [address], 04/12/2024 07:25:51 04/11/20 24 04/12/2024 LIPID PANEL [...] lated using the Sheila n-Hop kins calcu ann n, which is a valid ated novel metho d provi ding mary jane r accur acy than the Fried ronald equat ion in the estim ation of LDL-C . Sheila n SS et al. GRETCHEN. 2013; 310(1 9): 2061- 2068 (http ://ed ucati on.[employer]. BiOM/f aq/FA Q164) Not Available [employer] [place] [address] [place], [address], 04/12/2024 07:25:51 04/11/20 24 04/12/2024 LIPID PANEL , [place] chol/HDLC ratio 2.5 (calc ) <5.0 normal Not Available [employer] [place] [address] [facility] [place], [address], 04/12/2024 07:25:51 04/11/20 24 04/12/2024 LIPID PANEL , [place] non HDL cholesterol 70 mg/dL _(zachary c) <130 normal For patie nts with diabe ashlyn plus 1 major ASCVD risk facto r, treat ing to a non-H DL-C goal of <100 mg/dL (LDL- C of <70 mg/dL ) is consi dered a thera peuti c optio n. Not Available [employer] [facility] [address] [place], [address], 04/12/2024 07:25:51 04/11/20 24 04/12/2024 COMPR EHENS CHELSEY METAB OLIC PANEL glucose 96 mg/dL 65-99 normal Fasti ng refer ence inter swetha Not Available [employer] [facility] [address] [place], [address], 04/12/2024 07:25:52 04/11/20 24 04/12/2024 COMPR EHENS CHELSEY METAB OLIC PANEL urea nitrogen (BUN) 18 mg/dL 7-25 normal Not Available [address], [address], 04/12/2024 07:25:52 04/11/20 24 04/12/2024 COMPR EHENS CHELSEY METAB OLIC PANEL creatinine 0.70 mg/dL 0.60-1 .00 normal Not Available [address], [address], 04/12/2024 07:25:52 04/11/20 24 04/12/2024 COMPR EHENS CHELSEY METAB OLIC PANEL eGFR 92 mL/mi n/1.7 3m2 > or = 60 normal Not Available [address], [address], 04/12/2024 07:25:52 04/11/20 24 04/12/2024 COMPR EHENS CHELSEY METAB OLIC PANEL BUN/creatini ne ratio SEE NOTE: (calc ) 6-22 Not Repor kike: BUN and Creat inine are withi n refer ence range . Not Available [address], [address], 04/12/2024 07:25:52 04/11/20 24 04/12/2024 COMPR EHENS CHELSEY METAB OLIC PANEL sodium 141 mmol/ L 135-14 6 normal Not Available [address], [address], 04/12/2024 07:25:52 04/11/20 24 04/12/2024 COMPR EHENS CHELSEY METAB OLIC PANEL potassium 4.3 mmol/ L 3.5-5. 3 normal Not Available [address], [address], 04/12/2024 07:25:52 04/11/20 24 04/12/2024 COMPR EHENS CHELSEY METAB OLIC PANEL chloride 102 mmol/ L 98-110 normal Not Available [address], [address], 04/12/2024 07:25:52 04/11/20 24 04/12/2024 COMPR EHENS CHELSEY METAB OLIC PANEL carbon dioxide 33 mmol/ L 20-32 high Not Available [address], [address], 04/12/2024 07:25:52 04/11/20 24 04/12/2024 COMPR EHENS CHELSEY METAB OLIC PANEL calcium 9.2 mg/dL 8.6-10 .4 normal Not Available [address], [address], 04/12/2024 07:25:52 04/11/20 24 04/12/2024 COMPR EHENS CHELSEY METAB OLIC PANEL protein, total 6.0 g/dL 6.1-8. 1 low Not Available [address], [address], 04/12/2024 07:25:52 04/11/20 24 04/12/2024 COMPR EHENS CHELSEY METAB OLIC PANEL albumin 3.6 g/dL 3.6-5. 1 normal Not Available [address], [address], 04/12/2024 07:25:52 04/11/20 24 04/12/2024 COMPR EHENS CHELSEY METAB OLIC PANEL globulin 2.4 g/dL_ (calc ) 1.9-3. 7 normal Not Available [address], [address], 04/12/2024 07:25:52 04/11/20 24 04/12/2024 COMPR EHENS CHELSEY METAB OLIC PANEL albumin/glob ulin ratio 1.5 (calc ) 1.0-2. 5 normal Not Available [address], [address], 04/12/2024 07:25:52 04/11/20 24 04/12/2024 COMPR EHENS CHELSEY METAB OLIC PANEL bilirubin, total 0.4 mg/dL 0.2-1. 2 normal Not Available [address], [address], 04/12/2024 07:25:52 04/11/20 24 04/12/2024 COMPR EHENS CHELSEY METAB OLIC PANEL alkaline phosphatase 52 U/L 37-153 normal Not Available [facility] [address], [address], 04/12/2024 07:25:52 04/11/20 24 04/12/2024 COMPR EHENS CHELSEY METAB OLIC PANEL AST 13 U/L 10-35 normal Not Available [address], [address], 04/12/2024 07:25:52 04/11/20 24 04/12/2024 COMPR EHENS CHELSEY METAB OLIC PANEL ALT 11 U/L 6-29 normal Not Available [address], [address], 04/12/2024 07:25:52 04/11/20 24 04/12/2024 CBC (INCL UDES DIFF/ PLT) white blood cell count 9.4 thous and/u L 3.8-10 .8 normal Not Available [address], [address], 04/12/2024 07:25:53 04/11/20 24 04/12/2024 CBC (INCL UDES DIFF/ PLT) red blood cell count 4.32 jonny on/uL 3.80-5 .10 normal Not Available [address], [address], 04/12/2024 07:25:53 04/11/20 24 04/12/2024 CBC (INCL UDES DIFF/ PLT) hemoglobin 14.0 g/dL 11.7-1 5.5 normal Not Available [address], [address], 04/12/2024 07:25:53 04/11/20 24 04/12/2024 CBC (INCL UDES DIFF/ PLT) hematocrit 44.6 % 35.0-4 5.0 normal Not Available [facility] [address], [address], 04/12/2024 07:25:53 04/11/20 24 04/12/2024 CBC (INCL UDES DIFF/ PLT) MCV 103.2 fL 80.0-1 00.0 high Not Available [address], [address], 04/12/2024 07:25:53 04/11/20 24 04/12/2024 CBC (INCL UDES DIFF/ PLT) MCH 32.4 pg 27.0-3 3.0 normal Not Available [address], [address], 04/12/2024 07:25:53 04/11/20 24 04/12/2024 CBC (INCL UDES DIFF/ PLT) MCHC 31.4 g/dL 32.0-3 6.0 low For adult s, a sligh t decre ase in the calcu lated MCHC value (in the range of 30 to 32 g/dL) is most likel y not clini litzy collinsi kameron t; mary er, it shoul d be inter prete d with cauti on in [facility] n with other red cell imelda eters and the patie nt's clini zachary condi tion. Not Available [facility] [address], [address], 04/12/2024 07:25:53 04/11/20 24 04/12/2024 CBC (INCL UDES DIFF/ PLT) RDW 12.8 % 11.0-1 5.0 normal Not Available [address], [address], 04/12/2024 07:25:53 04/11/20 24 04/12/2024 CBC (INCL UDES DIFF/ PLT) platelet count 251 thous and/u L 140-40 0 normal Not Available [address], [address], 04/12/2024 07:25:53 04/11/20 24 04/12/2024 CBC (INCL UDES DIFF/ PLT) MPV 11.2 fL 7.5-12 .5 normal Not Available [address], [address], 04/12/2024 07:25:53 04/11/20 24 04/12/2024 CBC (INCL UDES DIFF/ PLT) absolute neutrophils 6383 cells /uL 1500-7 800 normal Not Available [address], [address], 04/12/2024 07:25:53 04/11/20 24 04/12/2024 CBC (INCL UDES DIFF/ PLT) absolute lymphocytes 2209 cells /uL 850-39 00 normal Not Available [address], [address], 04/12/2024 07:25:53 04/11/20 24 04/12/2024 CBC (INCL UDES DIFF/ PLT) absolute monocytes 564 cells /uL 200-95 0 normal Not Available [address], [address], 04/12/2024 07:25:53 04/11/20 24 04/12/2024 CBC (INCL UDES DIFF/ PLT) absolute eosinophils 197 cells /uL 15-500 normal Not Available [address], [address], 04/12/2024 07:25:53 04/11/20 24 04/12/2024 CBC (INCL UDES DIFF/ PLT) absolute basophils 47 cells /uL 0-200 normal Not Available [address], [address], 04/12/2024 07:25:53 04/11/20 24 04/12/2024 CBC (INCL UDES DIFF/ PLT) neutrophils 67.9 % normal Not Available [address], [address], 04/12/2024 07:25:53 04/11/20 24 04/12/2024 CBC (INCL UDES DIFF/ PLT) lymphocytes 23.5 % normal Not Available [address], [address], 04/12/2024 07:25:53 04/11/20 24 04/12/2024 CBC (INCL UDES DIFF/ PLT) monocytes 6.0 % normal Not Available [address], [address], 04/12/2024 07:25:53 04/11/20 24 04/12/2024 CBC (INCL UDES DIFF/ PLT) eosinophils 2.1 % normal Not Available [address], [address], 04/12/2024 07:25:53 04/11/20 24 04/12/2024 CBC (INCL UDES DIFF/ PLT) basophils 0.5 % normal Not Available [address], [address], 04/12/2024 07:25:53 04/11/20 24 04/12/2024 VITAM IN [...] pg/mL will have sympt oms. Not Available [facility] [address], [address], 04/12/2024 07:25:54 04/11/20 24 04/12/2024 VITAM IN B12/F OLATE , SERUM PANEL folate, serum >24.0 NG/mL normal Refer ence Range Low: <3.4 Borde rline : 3.4-5 .4 Faby l: >5.4 Not Available [facility] [address], [address], 04/12/2024 07:25:54 04/11/20 24 04/12/2024 T4, FREE T4, free 0.9 NG/dL 0.8-1. 8 normal Not Available [facility] [address], [address], 04/12/2024 07:25:56 04/11/20 24 04/12/2024 TSH TSH 1.60 mIU/L 0.40-4 .50 normal Not Available [facility] [address], [address], 04/12/2024 07:25:57 04/11/20 24 04/12/2024 VITAM IN [...] /MS is recom araceli d: order code 52860 (waqar ents >2yrs ). See Note 1 Note 1 For addit ional infor collin jones e refer to http: //[facility] hever Soto stDia gnost ics.c om/fa q/FAQ 199 (This link is being provi ded for infor jammie ahmadi/ educa josie l purpo ses only. ) Not Available [facility] [address], [place], [address], 04/12/2024 07:25:58 04/25/20 24 04/25/2024 MAMMO , scree sameer, digit al, bilat eral No observ ation record ed. [email or web address] [address] [facility], [place], [address], 05/17/2024 12:40:13 05/27/19 25 05/27/2024 CT, abdom en + pelvi s, w/ contr ast No observ ation record ed. [email or web address] [address] [address], [place], [address], 05/28/2024 15:32:41 06/14/19 25 06/14/2024 XR, chest , 2 view No observ ation record ed. [address], [address], 06/14/2024 16:36:14 Result Notes None recorded. Problems Name Problem SNOMED Code Status Onset Date Resolution Date Notes Provider Name and Address Organization Details Recorded Time Anemia 916485112 Active 2021 Not Available [facility] 3 00:26:25 Hypertrigl yceridemia 261722633 Active 2021 Not Available [facility] 3 00:26:25 Diverticul itis 970499326 Active 10/20/ 2022 Not Available [facility] 3 00:26:25 Acute urinary tract infection 742461585 Active 2021 Not Available [facility] 3 00:26:25 Coronary arterioscl erosis 86986243 Active 2021 Not Available [facility] 3 00:26:25 Candidiasi s of vagina 94979267 Active 2021 Not Available [facility] 3 00:26:25 COVID-19 030795033 Active 2022 Not Available [facility] 3 00:26:25 Skin lesion 64861792 Active 2022 Valentina mcnamara MD [address], [address], [place], [address] , [facility] [employer] [facility] 3 14:49:35 Serum vitamin B12 below reference range 035789795 Active 2022 Valentina mcnamara MD [address], [place], [address] , [facility] 3 14:49:41 Allergic rhinitis 78792446 Active 2022 Valentina mcnamara MD [address], [place], [address] , [facility] 3 14:49:47 Chronic cough 43605462 Active 2022 Valentina mcnamara MD [address], [place], [address] , [facility] 3 14:50:02 Schizoaffe ctive disorder 63822327 Active 2022 Valentina mcnamara MD [address], [place], [address] , [facility] 3 14:50:10 Hyperlipid emia 26005717 Active 2022 Valentina mcnamara MD [address], [place], [address] , [place] [facility] 3 14:50:20 Onychomyco sis 341614075 Active 2022 Valentina mcnamara MD [address], [address], [place], [address] , [place] [facility] 3 14:50:30 Smoker 21457204 Active 2022 Valentina mcnamara MD [address], [address], [place], [address] , [place] [facility] 3 14:52:39 Hearing loss 35034507 Active 2022 Valentina mcnamara MD [address], [place], [address] , [place] [facility] 3 14:54:13 Abdominal pain 26551708 Active 2022 Valentina mcnamara MD [address], [place], [address] , [place] [facility] 3 15:05:22 Renal mass 769144284 Active 2022 Valentina mcnamara MD [address], [address], [place], [address] , [place] [facility] 3 15:06:35 Pain of left knee joint 8672713995390 07 Active 2022 Valentina mcnamara MD [address], [address], [place], [address] , [place] [facility] 3 11:59:18 Bilateral osteoarthr itis of knees [id number] 07 Active 2022 DYLON Dunaway [address], [address], [place], [address] , [place] [facility] 3 15:49:54 Vaginitis 68511147 Active 2022 Jackie thakkar, [place] - [facility] 3 17:27:20 Flank pain 023627483 Active 2022 Valentina mcnamara MD [address] [facility], [facility] [address], [place], [address] , [place] [facility] 3 10:37:10 Vitamin D deficiency 78583067 Active 2023 Valentina mcnamara MD [address], [address], [place], [address] , [place] [facility] 4 12:52:12 Complex renal cyst 155513633 Active 2023 Iliana Jameson MD [address], [facility] [address], [place], [address] , [place] [facility] 4 19:12:54 Hearing loss 23560277 Active 2024 Valentina mcnamara MD [address] [facility], [facility] [address], [place], [address] , [place] [facility] 5 20:01:30 Problem Notes None recorded. Procedures Surgical History Date Name Laterality Status Provider Name and Address Organization Details Recorded Time 06/26/19 25 Hysterectomy completed Sera Painter Dirk [facility] 07/22/2024 12:03:31 08/23/19 24 Medicare Wellness CPT Code, subsequent completed Iglesia Rojas LPN [facility] 08/23/2023 12:33:35 uterine myomectomy completed Not Available [facility] 07/07/2022 00:25:43 Colonoscopy completed Sera Painter [facility] [place] [facility] 12/26/2022 11:18:25 Cataract Surgery completed Sera maldonado [facility] [place] [facility] 12/26/2022 11:18:52 Imaging Results Imaging Date Name Status LastModified by Organiz ation Details LastModified Time 04/25/2024 MAMMO, screening, digital, bilateral completed [email or web address] [place] [address] [address] [facility] [address], [place], [address], 05/17/2024 12:40:13 05/27/2024 CT, abdomen + pelvis, w/ contrast active [email or web address], [place], [address], 05/28/2024 15:32:41 06/14/2024 XR, chest, 2 view active [place] [address] [facility] [address], [place], [address], 06/14/2024 16:36:14 Procedure Notes None recorded. Medical Equipment None Reported. Allergies Allergen ID Allergen Name Allergen Category Reaction Reaction Severity Criticality Documentation Date Start Date Code Code System Note Provider Name and Address Organization Details Recorded Time 88149 [facility] medicatio n hallucina tions rash Not available Not available Not available 07/07/2022 7393 RxNorm Not Available [facility] 3 00:27:42 Medications Name Sig Start Date Stop [...] 1 TABLET BY MOUTH ONCE DAILY NEEDED 07/22 completed Not Available Not Available Not Available fluconazole 150 mg tablet TAKE 1 TABLET BY MOUTH ONCE DAILY 03/08 completed Not Available Not Available Not Available prednisone 20 mg tablet TAKE 2 TABLETS BY MOUTH IN THE MORNING FOR 4 DAYS 08/22 completed Not Available Not Available Not Available metronidazo le 500 mg tablet TAKE 1 TABLET BY MOUTH EVERY 8 HOURS FOR 10 DAYS 07/22 completed Not Available Not Available Not Available ciprofloxac in 500 mg tablet TAKE 1 TABLET BY MOUTH EVERY 12 HOURS FOR 10 DAYS 07/22 completed Not Available Not Available Not Available [...] 20 mg by injection route. 04/24 completed [facility]: 0003- [phone]- [phone] Not Available Not Available [...] NEEDED FOR SHORTNESS OF BREATH FOR WHEEZING 07/22 completed Not Available Not Available Not Available haloperidol 2 mg tablet TAKE 1 TABLET BY MOUTH ONCE DAILY FOR 30 DAYS 12/06 completed Not Available Not Available Not Available fluticasone propionate 50 mcg/actuati on nasal spray,suspe nsion [place] 1 spray every day by intranasa l route for 90 days. 12/29 completed Not Available Not Available Not Available dicyclomine 10 mg capsule TAKE 1 CAPSULE BY MOUTH THREE TIMES DAILY FOR 5 DAYS 06/27 completed Not Available Not Available Not Available tamoxifen 20 mg tablet TAKE 1 TABLET BY MOUTH ONCE DAILY active Not Available Not Available No t Available amoxicillin 875 mg-kasandra loredo clavulanate 125 mg tablet TAKE 1 TABLET BY MOUTH EVERY 12 HOURS 03/08 completed Not Available Not Available Not Available amoxicillin 500 mg-potassiu m clavulanate 125 mg tablet TAKE 1 TABLET BY MOUTH EVERY 12 HOURS FOR 10 DAYS 06/27 completed Not Available Not Available Not Available Acidophilus capsule Take by oral route. active Not Available Not Available No t Available aripiprazol e 20 mg tablet TAKE 1/2 (ONE HALF) TABLETS BY MOUTH ONCE DAILY AT BEDTIME FOR 7 DAYS THEN 1 TABLET DAILY AT BEDTIME. 12/06 completed Not Available Not Available Not Available rosuvastati n 5 mg tablet TAKE 1 TABLET BY MOUTH ONCE DAILY AT BEDTIME 07/22 completed Not Available Not Available Not Available rosuvastati n 20 mg tablet Take 1 tablet every day by oral route. 2023 active Not Available Not Available Not Avai lable trospium 20 mg tablet TAKE 1 TABLET BY MOUTH AT BEDTIME 07/22 completed Not Available Not Available Not Available duloxetine 30 mg capsule,del ayed release [...] 20 mg by injection route. 04/24 completed [facility] [phone] -[phone] Not Available Not Available Not Available Suzy Maintena 300 mg intramuscul ar suspension, extended [...] Updated DateTime 4 149.86 cm 41.4 kg/m2 78995.4 4 g 97.5 [degF] 78 /min 116 mm[Hg] 66 mm[Hg] CATHERINE Cardoso [employer] [facility] [email or web address] 4 12:09:41 Date Recorded Body height Body mass index (BMI) Body weight Body temperature Heart rate Oxygen saturation Oxygen saturation in Arterial blood by Pulse oximetry Systolic blood pressure Diastolic blood pressure Provider Name and Address Organization Details Last Updated DateTime 4 149.86 cm 41.8 kg/m2 70945.6 2 g 97.5 [degF] 88 /min 87 % 87 % 112 mm[Hg] 68 mm[Hg] Yue Jesus MA [employer] [facility] [email or web address] 4 10:55:15 Date Recorded Body height Heart rate Body temperature Body mass index (BMI) Body weight Oxygen saturation Oxygen saturation in Arterial blood by Pulse oximetry Systolic blood pressure Diastolic blood pressure Provider Name and Address Organization Details Last Updated DateTime 4 149.86 cm 76 /min 97 [degF] 42.4 kg/m2 48911.4 g 92 % 92 % 107 mm[Hg] 83 mm[Hg] Mago Fitzgerald CMA [employer] 4 17:24:59 Date Recorded Body height Body mass index (BMI) Body weight Body temperature Heart rate Systolic blood pressure Diastolic blood pressure Provider Name and Address Organization Details Last Updated DateTime 4 149.86 cm 42 kg/m2 46012.2 1 g 97.6 [degF] 78 /min 124 mm[Hg] 66 mm[Hg] CATHERINE Cardoso [place] [employer] [facility] [email or web address] 4 12:01:41 Date Recorded Body height Body mass index (BMI) Body weight Body temperature Heart rate Systolic blood pressure Diastolic blood pressure Provider Name and Address Organization Details Last Updated DateTime 5 149.86 cm 42.4 kg/m2 18688.4 g 97.5 [degF] 78 /min 122 mm[Hg] 78 mm[Hg] CATHERINE Cardoso [employer] 5 12:05:49 Social History Question Answer Notes LastModified by Organization Details LastModified Time Tobacco Smoking Status Former Smoker has quit off and on; quit 08/18/23 CATHERINE Cardoso bijan [place] [email or web address] 10/18/2023 12:06:29 Do You Have An Advance Directive? Yes Daughter Hong [email or web address] Information not available 08/23/2023 What Is Your Level Of Alcohol Consumption? None Information not available 12/29/2022 Are You Blind Or Do You Have Difficulty Seeing? Yes Cataracts MIGRATION.030 [id number] Information not available 07/07/2022 What Is Your Level Of Caffeine Consumption? Heavy MIGRATION.030 476309 Information not available 07/07/2022 In The 14 Days Before Symptom Onset, Have You Had Close Contact With A Laboratory-conf irmed COVID-19 While That Case Was Ill? No MIGRATION.0301 229213 Information not available 07/07/2022 In The 14 Days Before Symptom Onset, Have You Had Close Contact With A Person Who Is Under Investigation For COVID-19 While That Person Was Ill? No MIGRATION.0301 114280 Information not available 07/07/2022 Are You Currently Employed? No [email or web address] Information not available 08/23/2023 Are You Deaf Or Do You Have Serious Difficulty Hearing? No MIGRATION.0301 [id number] Information not available 07/07/2022 What Type Of Diet Are You Following? REGULAR MIGRATION.030 874749 Information not available 07/07/2022 What Is The Highest Grade Or Level Of School You Have Completed Or The Highest Degree You Have Received? [id number] MIGRATION.030 199942 Information not available 07/07/2022 Have There Been Any Changes To Your Family Or Social Situation? No MIGRATION.030 709213 Information not available 07/07/2022 What Is The Fluoride Status Of Your Home? Unknown MIGRATION.0301 119958 Information not available 07/07/2022 When Did You Quit Smoking? 1-5yearssincelastc igarette Information not available 10/18/2023 Are There Any Guns Present In Your Home? Yes Kept In Safe MIGRATION.0301 220456 Information not available 07/07/2022 Do You Use Insect Repellent Routinely? Yes MIGRATION.0301 920072 Information not available 07/07/2022 Where Do You Live? SingleLevelHouse MIGRATION.0301 905109 Information not available 07/07/2022 Are You Able To Care For Yourself? Yes Information not available 08/23/2023 Are You Blind Or Do Yo Have Difficulty Seeing? No Information not available 08/23/2023 Are You Deaf Or Do You Have Serious Difficulty Hearing? No [email or web address] Information not available 08/23/2023 General Stress Level? Low [email or web address] Information not available 08/23/2023 Live Alone Of With Others? With Others [email or web address] Information not available 08/23/2023 Do You Have A Medical Power Of Test Bore Helper? Yes Daughter Information not available 08/23/2023 What Was The Date Of Your Most Recent Tobacco Screening? 07/22/2024 Information not available 07/22/2024 What Is Your Current Pack Years? [email or web address] Information not available 12/29/2022 Have You Ever Been Counseled For Unhealthy Alcohol Use? No MIGRATION.0301 324058 Information not available 07/07/2022 Do You Have Any Pets? Yes Dog [email or web address] Information not available 08/23/2023 What Is Your Relationship Status? MIGRATION.0301 054615 Information not available 07/07/2022 Do You Use Your Seat Belt Or Car Seat Routinely? Yes MIGRATION.0301 939796 Information not available 07/07/2022 Do You Have Smoke And Carbon Monoxide Detectors In Your Home? Yes MIGRATION.0301 994364 Information not available 07/07/2022 At What Age Did You Start Smoking Tobacco? 22 MIGRATION.0301 990909 Information not available 07/07/2022 Are You Passively Exposed To Smoke? Yes MIGRATION.0301 166411 Information not available 07/07/2022 Are There Any Smokers In Your House? Yes MIGRATION.0301 235301 Information not available 07/07/2022 How Much Tobacco Do You Smoke? No Was [email or web address] Information not available 08/23/2023 What Types Of Sporting Activities Do You Participate In? None MIGRATION.0301 696843 Information not available 07/07/2022 Do You Feel Stressed (tense, Restless, Nervous, Or Anxious, Or Unable To Sleep At Night)? [id number] MIGRATION.0301 932349 Information not available 07/07/2022 Do You Use Any Illicit Or Recreational Drugs? No MIGRATION.0301 400632 Information not available 07/07/2022 Do You Use Sunscreen Routinely? Yes MIGRATION.0301 492582 Information not available 07/07/2022 Have You Recently Traveled Abroad? No MIGRATION.0301 522149 Information not available 07/07/2022 Do You Have Any Dietary Restrictions? No MIGRATION.0301 967914 Information not available 07/07/2022 Do You Or Have You Ever Used Any Other Forms Of Tobacco Or Nicotine? No MIGRATION.0301 316743 Information not available 07/07/2022 Sex: Female Functional Status Question Answer Note LastModified by Organizat ion Details LastModified Time Do you have difficulty walking or climbing stairs? Yes MIGRATION.140556 0440 Information not available 07/07/2022 Do you have transportation difficulties? No MIGRATION.994655 2929 Information not available 07/07/2022 Are you able to walk? YESWOREST MIGRATION.909317 1018 Information not available 07/07/2022 Do you have difficulty doing errands alone? Yes does not drive [email or web address] Information not available 08/23/2023 Are you able to care for yourself? Yes MIGRATION.623419 5381 Information not available 07/07/2022 Do you have difficulty dressing or bathing? No MIGRATION.199270 4442 Information not available 07/07/2022 What is your exercise level? None [email or web address] Information not available 08/23/2023 Mental Status Question Answer Note LastModified by Organization D etails LastModified Time Do you have difficulty concentrating, remembering or making decisions? No [email or web address] Information no t available 08/23/2023 Family History Relationship Description Onset Age of this Age Resolved Age Notes LastModified by Organization Details LastModified Time Mother Malignant tumor of colon MIGRATION.708 [id number] Not available 07/07/2022 00:25:44 Mother Kidney disease MIGRATION.938 [id number] Not available 07/07/2022 00:25:44 Brother Heart murmur MIGRATION.0 30 6127943 Not available 07/07/2022 00:25:44 Mother Family history [...] INSOMNIA N HIGH CHOLESTEROL / HYPERLIPIDEMIA Y EYE PROBLEMS N HYPERTHYROIDISM N EDEMA N CHRONIC PAIN SYNDROME N [...] N ALZHEIMER'S DISEASE N Brain Problems N DEMENTIA N HERPES N SEIZURES/EPILEPSY N HEADACHES/MIGRAINES N VASCULAR DISEASE N PACEMAKER N Blood Disorder N DIZZINESS N HEART DISEASE/HEART PROBLEMS N KIDNEY DISEASE N MULTIPLE SCLEROSIS N CANCER: SPECIFY Y CARDIAC ARRHYTHMIA N ATRIAL FIBRILLATION N Gall Stones N PULMONARY EMBOLISM N AUTOIMMUNE DISEASE N Gynecological HistoryNo gynecological history recorded. Obstetrics History GPAL:G 0 P 0 0 0 0 Immunizations Vaccine Type Date Status Note Provider Nam e and Address Organization Details Recorded Time Pneumococcal conjugate PCV20, polysaccharide GSF554 conjugate, adjuvant, PF 3 completed Not Available [facility] 07/07/2022 00:27:40 Influenza, high-dose, trivalent, PF 4 completed Valentina Reardon MD [address] [place] [address], [place] [address], [place], [address], [facility] [employer] 04/01/2024 17:52:04 Past Encounters Encounter ID Performer Location Encounter Start Date Encounter Closed Date Diagnosis/Indication Diagnosis SNOMED-CT Code Diagnosis ICD10 Code Diagnosis Note [id number] [facility] Internal [address] [place] [address] 12/06/2021 00:00:00 12/20/2021 15:01:[id number] [facility] Internal [address] [place] [address] 01/19/2022 00:00:00 01/19/2022 14:04:[id number] [facility] Internal [address] [place] [address] 06/27/2022 00:00:00 06/29/2022 16:20:52 [id number] [address] m[address] [facility] Internal [address] [place] [address] 12/26/2022 11:04:43 12/26/2022 12:05:01 Screening - NAD 422032402 Z13.9 C-scope: 08/08/2022 : Dr Brooks PAP: [...] her understand ing of the above Smoker 65123209 F17.200 Advised to quitLDCT 01/04/2022 : CAD Skin lesion 98551122 L98 .9 Large mole noted on the L lower abdomenRef er to dermatolog y Serum angelia min B12 below reference range 130251355 R79.89 Allergic rhinitis 226315 04 J30.9 On flonase and zyrtec Hearing loss 09541446 H9 1.91 R sidedGet hearing test done with ENT referral Jamey Thurman MD 01/06/2022 Chronic cough 96119327 R 05.3 May need to see pulmonary Schizoaffe ctive disorder 93352681 F25.9 On duloxetine 30mg dailyOn abilify monthly injectionS ees Dr Marquez, denies any SI or HI or attempts Hyperlipidemia 58439024 E78.5 On fenofibrat e 145mg daily, refilled 12/26/2022 , get labs, may need to d/c this or start on vascepaOn rosuvastat in 5mg dailyGet labs Coronary arteriosclerosis 65569814 I25.10 Seen on LDCTDr [place] 04/27/2022 , f/u in 6 months Onychomycosis 868933169 B35.1 L big toe: refer to Dr Storm Abdominal pain 92726532 R10.9 [facility] 12/19/2022 :MCV 104.2CT A/P 12/19/2022 : Diverticul itisOn augmentin Renal mass 266209149 N28 .89 CT A/P 12/19/2022 , needs to get CT for the R kidney mass, wants to see urology instead, referred Pain of le ft knee joint 7650841205 53561 M25.562 +ve TTP medially and crepitusRe lizzie to Dr Chahal [id number] DYLON Dunaway [facility] [address] [place] [address] 12/29/2022 14:34:01 01/02/2023 12:02:53 Pain of left knee joint 6571509859 14873 M25.562 Bilateral osteoarthritis of knees 4336489527 69263 M17.0 [id number] DYLON Dunaway [facility] [address] [place] [address] 02/16/2023 09:31:21 02/16/2023 10:05:18 Pain of left knee joint 5023108883 01854 M25.562 Bilateral osteoarthritis of knees 3481648546 65539 M17.[id number] [facility] [address] [place] [address] 03/08/2023 09:20:10 03/20/2023 16:15:08 Pain of left knee joint 4228065249 86682 M25.066 [id number] Valentina mcnamara MD [facility] Med [place] [address] [facility] [address] , [place] [address] 04/24/2023 11:21:04 04/24/2023 12:58:57 Screening - NAD 420825104 Z13.9 C-scope: 08/08/2022 : Dr Brooks PAP: [...] her understand ing of the above Smoker 10961782 F17.200 Advised to quitLDCT 01/04/2022 : CADLDCT 2023 Skin lesion 96351649 L98 .9 Large mole noted on the L lower abdomenRef er to dermatolog y Serum angelia min B12 below reference range 884673255 R79.89 Allergic rhinitis 054217 04 J30.9 On flonase and zyrtec Hearing loss 71842754 H9 1.91 R sidedGet hearing test done with ENT referral Jamey Thurman MD 01/06/2022 Chronic cough 07669434 R 05.3 May need to see pulmonary Schizoaffe ctive disorder 50039103 F25.9 On duloxetine 30mg dailyOn abilify monthly injectionS ees Dr Marquez, denies any SI or HI or attempts Hyperlipidemia 81760716 E78.5 On fenofibrat e 145mg daily, refilled 12/26/2022 , get labs, may need to d/c this or start on vascepaOn rosuvastat in 5mg dailyGet labs Coronary arteriosclerosis 54233478 I25.[address] [place] 04/27/2022 , f/u in 6 monthsDr [place] 01/05/2023 , next in one year Onychomycosis 584275086 B35.1 L big toe: refer to Dr Storm Abdominal pain 57772857 R10.9 [facility] 12/19/2022 :MCV 104.2CT A/P 12/19/2022 : Diverticul itisOn augmentin Renal mass 920150395 N28 .89 CT A/P 12/19/2022 , needs to get CT for the R kidney mass, wants to see urology instead, referred Pain of le ft knee joint 8831867614 48173 M25.562 +ve TTP medially and crepitus Dr Sims 03/08/2023 Flank pain 706150539 R10 .9 [facility] 04/12/2023 CT A/P 04/12/2023 : negUA 04/12/2023 [id number] Valentina mcnamara MD [facility] [address] [place] [address] 08/23/2023 10:57:05 08/23/2023 11:47:39 Screening - NAD 320919665 Z13.9 C-scope: 08/08/2022 : Dr Brooks PAP: Sees Dr Abdul/Dr Bird Mammogram: 09/14/2021 : Nuris OMammogram : S/p R ductal cell ca, is to now see Dr Franca bardales for a R lumpectomy , get records, she did sign ROIDr Vic 03/18/2022 Dr Kiser 02/21/2023 , on tamoxifenO [...] her understand ing of the above Smoker 05377007 F17.200 Advised to quitLDCT 01/04/2022 : CADLDCT 2023 Skin lesion 62640182 L98 .9 Large mole noted on the L lower abdomenRef er to dermatolog y Serum angelia min B12 below reference range 101461524 R79.89 Allergic rhinitis 611631 04 J30.9 On flonase and zyrtec Hearing loss 26483420 H9 1.91 R sidedGet hearing test done with ENT referral Jamey Thurman MD 01/06/2022 Chronic cough 84328696 R 05.3 May need to see pulmonaryN ow on rescue inhaler for SOB and hypoxia while in the hospital Schizoaffe ctive disorder 32839574 F25.9 On duloxetine 30mg dailyOn abilify monthly injectionS ees Dr Marquez, denies any SI or HI or attempts Hyperlipidemia 71447804 E78.5 On fenofibrat e 145mg daily, refilled 12/26/2022 , get labs, may need to d/c this or start on vascepaOn rosuvastat in 5mg dailyGet labs Coronary arteriosclerosis 10618145 I25.10 [facility]Dr [facility] , next in one year Onychomycosis 535738130 B35.1 L big toe: refer to Dr Storm Abdominal pain 27944944 R10.9 [facility] 12/19/2022 :MCV 104.2CT A/P 12/19/2022 : Diverticul itisOn augmentin Renal mass 099906911 N28 .89 CT A/P 12/19/2022 , needs to get CT for the R kidney mass, wants to see urology instead, referred Pain of le ft knee joint 6098299644 98042 M25.562 +ve TTP medially and crepitus Dr Sims 03/08/2023 Flank pain 876204833 R10 .9 [facility] 04/12/2023 CT A/P 04/12/2023 : negUA 04/12/2023 Diverticulitis 404445731 K57.92 08/14/2023 : [facility] ER08/18/19 24[facility] Adult heal th examination 101638462 Z00.00 Screening for disorder 266236348 Z13.9 [id number] Valentina mcnamara MD [facility] Med [place] [address] [place] [address] [place] [address] 10/18/2023 11:45:36 10/18/2023 12:53:05 Acute urinary tract infection 625081001 N39.0 OV 10/18/2023 :On cipro 500mg po bidHydrate ER if worse Hyperlipidemia 85571436 E78.5 On fenofibrat e 145mg daily, refilled 12/26/2022 , get labs, may need to d/c this or start on vascepaOn rosuvastat in 5mg daily, renewedGet labs Vitamin D deficiency 347 48199 E55.9 Serum angelia min B12 below reference range 133578474 R79.89 [id number] Valentina mcnamara MD [facility] Med [place] [address] [facility] [place] [address] 11/29/2023 10:44:29 11/29/2023 11:25:50 Hyperlipidemia 43090170 E78.5 On fenofibrat e 145mg daily, refilled 12/26/2022 , get labs, may need to d/c this or start on vascepaOn rosuvastat in 5mg dailyGet labs Vitamin D deficiency 347 09794 E55.9 Serum angelia min B12 below reference range 197018603 R79.89 Screening - NAD 49223456 3 Z13.9 C-scope: 08/08/2022 : Dr Brooks [...] her understand ing of the above Smoker 55344983 F17.200 Advised to quitLDCT 01/04/2022 : CADLDCT 2023 Skin lesion 91254581 L98 .9 Large mole noted on the L lower abdomenRef er to dermatolog y Allergic rhinitis 029196 04 J30.9 On flonase and zyrtec Hearing loss 90122661 H9 1.91 R sidedGet hearing test done with ENT referral Jamey Thurman MD 01/06/2022 Chronic cough 18211143 R 05.3 May need to see pulmonaryN ow on rescue inhaler for SOB and hypoxia while in the hospital Schizoaffe ctive disorder 60430253 F25.9 On duloxetine 30mg dailyOn abilify monthly injectionS ees Dr Marquez, denies any SI or HI or attempts Coronary arteriosclerosis 34325542 I25.10 [address]Dr [place] 04/27/2022 , f/u in 6 monthsDr Saheta 01/05/2023 , next in one year Onychomycosis 212324198 B35.1 L big toe: referred to Dr Katerin baxter referred to podiatry Dr Davidson Renal mass 646031888 N28 .89 CT A/P 12/19/2022 , needs to get CT for the R kidney mass, wants to see urology instead, states that Dr Florence told her she did not need to 'worry' as this was not cancer , referred 11/29/[address] Jameson for a second opinion Diverticulitis 249156766 K57.92 08/14/2023 : [facility] ER08/18/19 24: [facility] a referral to surgery Screening for osteoporosis 909785962 Z13.600 [id number] Iliana Jameson MD [facility] [address] [place] [address] 12/29/2023 17:00:25 12/29/2023 17:59:28 Complex renal cyst 447697606 N28.1 [id number] Valentina mcnamara MD [facility] [address] [facility] [address] [place] [address] 04/01/2024 11:31:21 04/01/2024 12:42:05 Hyperlipidemia 93030137 E78.5 Not on fenofibrat e 145mg daily, refilled 12/26/2022 , get labs, may need to d/c this or start on vascepaOn rosuvastat in 5mg dailyGet labs Vitamin D deficiency 347 47664 E55.9 Serum angelia min B12 below reference range 339607102 R79.89 Screening - NAD 13878721 3 Z13.9 C-scope: 08/08/2022 : Dr Brooks OV 04/01/2024 : PAP: Sees Dr Abdul/Dr Bird, is to do labs and see cardiology and get pre op clearance for an hystrectom y on 06/26/2024 Mammogram: 09/14/2021 : Nuris OMammogram : S/p R ductal cell ca, is to now see Dr Franca Panchal-Col catia for a R lumpectomy , get records, she did sign ARMIDADr Vic 03/18/2022 Dr Kiser 02/21/2023 , on tamoxifenO [...] her understand ing of the above Smoker [id number] F17.200 Advised to quitLDCT 01/04/2022 : CADLDCT 2023 Skin lesion [id number] L98 .9 Large mole noted on the L lower abdomenRef er to dermatolog y Allergic rhinitis 481835 04 J30.9 On flonase and zyrtec Hearing loss 86179904 H9 1.91 R sidedGet hearing test done with ENT referral Jamey Thurman MD 01/06/2022 Chronic cough 02975524 R 05.3 May need to see Frida baxter on rescue inhaler for SOB and hypoxia while in the hospital Schizoaffe ctive disorder 18715525 F25.9 On duloxetine 30mg dailyOn abilify monthly injectionS ees Dr Marquez, denies any SI or HI or attempts Coronary arteriosclerosis 02947024 I25.10 [place] [place] [facility] [place] 04/27/20[place] , f/u in 6 monthsDr [place] 01/05/2023 , next in one year Onychomycosis 519598317 B35.1 L big toe: referred to Dr Katerin baxter referred to podiatry Dr Davidson Renal mass 078026689 N28 .89 CT A/P 12/19/2022 , needs to get CT for the R kidney mass, wants to see urology instead, states that Dr Florence told her she did not need to 'worry' as this was not cancer , referred 11/29/[address] Jameson for a second opinion OV 04/01/2024 :Sees Dr Jameson last OV 12/29/2023 Diverticulitis 391373662 K57.92 08/14/2023 : [facility] ER/04/26 24: [facility] t a referral to surgery OV 04/01/2024 : Did see Dr Hurt, surgery was discussed Screening for osteoporosis 042179051 Z13.820 Pre-surger y evaluation 039214905 Z01.818 Surgery: Hystrectom ySurgeon: OBDate: 06/26/2024 Clearance: Needs to get labs, also needs Xray as per her hx today 04/01/2024 required by her OB, and needs cardiac clearance Administra tion of influenza vaccine 39304192 Z23 Ex-cigarette smoker 2810 55981 Z87.656 [id number] Valentina mcnamara MD [facility] [address] [facility] [address] [place] [address] 07/22/2024 11:23:25 07/22/2024 12:45:48 Screening - NAD 202304949 Z13.9 C-scope: 08/08/2022 : Dr Brooks OV [...] because Dr Kiser wants to do this only with Dr Kiser DEXA: 12/21/2021 : Osteopenia , do ca and vit d Get yearly flu shotGet tdap if not doneUTD on Shingrix vaccine as per her daughterGe t PCV #20Get COVID 19 vaccine and its boosters,d eclinesCan do RSV vaccine RTC in 4 monthsDo labsER if worseShe and her daughter did verbalize her understand ing of the above Smoker 60597469 F17.200 Advised to quitLDCT 01/04/2022 : CADLDCT 2023 Hyperlipidemia 64835279 E78.5 Not on fenofibrat e 145mg daily, refilled 12/26/2022 , get labs, may need to d/c this or start on vascepaOn rosuvastat in 5mg dailyGet labs Chronic cough 73686007 R 05.3 May need to see Frida baxter on rescue inhaler for SOB and hypoxia while in the hospital Schizoaffe ctive disorder 78255396 F25.9 On duloxetine 30mg dailyOn abilify monthly injectionS ees Dr Marquez, denies any SI or HI or attempts Hearing loss 93270920 H9 1.91 R sidedGet hearing test done with ENT referral Jamey Thurman MD 01/06/2022 Coronary arteriosclerosis 82186965 I25.10 [facility] [address] [facility] [place] 04/27/2022 , f/u in 6 monthsDr [place] 01/05/2023 , next in one yearDr [place] 04/29/2024 , f/u in one year Allergic rhinitis 451738 04 J30.9 On flonase and zyrtec Onychomycosis 473949846 B35.1 L big toe: referred to Dr Katerin baxter referred to podiatry Dr Davidson Renal mass 437698327 N28 .89 CT A/P 12/19/2022 , needs to get CT for the R kidney mass, wants to see urology instead, states that Dr Florence told her she did not need to 'worry' as this was not cancer , referred 11/29/[address] Jameson for a second opinion OV 04/01/2024 :Sees Dr Jameson last OV 12/29/2023 OV 07/22/2024 : Referred to urology as Dr Jameson not in practice at [facility] Diverticulitis 568119385 K57.92 08/14/2023 : [facility] ER08/18/19 24: [facility] a referral to surgery OV 04/01/2024 : Did see Dr Hurt, surgery was discussed OV 07/22/2024 : Seen in [place] ER 05/27/2024 Pre-surger y evaluation [id number] Z01.818 Surgery: Hystrectom ySurgeon: OBDate: 06/26/2024 Clearance: Needs to get labs, also needs Xray as per her hx today 04/01/2024 required by her OB, and needs cardiac clearance Health Concerns Section Related Observation LastModified by Organization Detai ls LastModified Time None Recorded Concern Status LastModified by Organization Details LastModified Time None Recorded Advance Directives Directive Y: Daughter isPOA Payers Encounter Date Sequence Insurance Name Policy Number Policy Leslie Covered Member ID Leslie Member ID Guarantor Name 10/18/2023 1 [facility] (MEDICARE REPLACEMENT/A DVANTAGE - HMO) [id number] Shelby Benitez [id number] Shelby Benitez 11/29/2023 1 [facility] (MEDICARE REPLACEMENT/A DVANTAGE - HMO) [id number] Shelby Benitez [id number] Shelby Benitez 12/29/2023 1 [facility] (MEDICARE REPLACEMENT/A DVANTAGE - HMO) [id number] Shelby Benitez [id number] Shelby Benitez 04/01/2024 1 [facility] (MEDICARE REPLACEMENT/A DVANTAGE - HMO) [id number] Shelby Benitez [id number] Shelby Benitez 07/22/2024 1 [facility] (MEDICARE REPLACEMENT/A DVANTAGE - HMO) [id number] Shelby Benitez [id number] Shelby Benitez Notes Date Note Type Note Provider Name and Address Organization Details Recorded Time 10/18/2023 text/html OV 12/06/2021:He re to establish [...] is doing well today, was d/c from [facility] for diverticulitis Valentina Reardon MD [address], [place], [address], [place] [employer] 10/23/2023 18:38:14 11/29/2023 text/html OV 12/06/2021:He re [...] is doing well today, was d/c from [facility] for diverticulitis OV 11/29/2023: Here for her f/u apt, she is doing well, she did do the labs, here with her daughter Valentina Reardon MD [address], [place], [address], [place] [employer] 12/04/2023 20:01:17 12/29/2023 text/html this patient actually [...] be chronic Iliana Jameson MD [address], [place], [address], [employer] [facility] [email or web address] 12/29/2023 19:13:50 04/01/2024 text/html OV 12/06/2021:He re [...] is doing well today, was d/c from [facility] for diverticulitis OV 11/29/2023: Here for her f/u apt, she is doing well, she did do the labs, here with her daughter OV 04/01/2024: Here for her f/u apt, she is doing well today, here with her son, she has no new labs, is to get hystrectomy done by her OB on 06/26/2024 and needs to get clearance Valentina Reardon MD [address], [address], [place], [address], [employer] 06/20/2024 10:46:47 07/22/2024 text/html OV 12/06/2021:He re to establish care [...] is doing well today, was d/c from [facility] for diverticulitis OV 11/29/2023: Here for her f/u apt, she is doing well, she did do the labs, here with her daughter OV 04/01/2024: Here for her f/u apt, she is doing well today, here with her son, she has no new labs, is to get hystrectomy done by her OB on 06/26/2024 and needs to get clearance OV 07/22/2024: Here for her f/u apt, she is doing well today, here with her Meri Reardon MD [address] [place] [address], [facility] [address], [place], [address], [place] [facility] 07/22/2024 12:46:35 OBGyn Episode No OBEpisode recorded.
--- OUTSIDE RECORDS SUMMARY | 2024-07-29 17:43 | XMS_ITS | Clinical Summary ---
Author Organization [facility] Address [address] [place] [address] Care Team Providers Care Wallpaper Inspector And Shipper Name Role Phone Asmita Reardon MD Primary Care Provider Source Comments [facility],non[facility] Affiliates and Associated Physician Practices is amultiple site organization consisting of ambulatory clinics and hospital sitesin [place], [place], [place] and [place]. This disclosure is being madepursuant to the Care Everywhere program and may not contain all information available regarding this patient. Last updated 18.[facility] [employer] Allergies Active Allergy Reactions Criticality Noted Date Comments Latex Urticaria Medium 06/26/2024 Niacin Psychiatric,Urticaria Medium 03/18/2022 Medications * Be aware that medications may not be up to date on this document. Alwaysverify current medications with the patient. Medication Sig Dispensed Refills Start Date End Date Status Suzy Maintena 300 MG injection INJECT INTRAMUSCULARLY EVERY MONTH for 30 Active aspirin EC (Ecotrin) 81 MG tablet Oral 09/04/2023 Active tamoxifen (Nolvadex) 20 MG tablet Take 1 (one) tablet by mouth once daily 09/04/2023 Active rosuvastatin (Crestor) 5 MG tablet Take 1 (one) tablet by mouth once daily Active DULoxetine (Cymbalta) 30 MG capsule Take 1 (one) capsule by mouth once daily Active trospium (Sanctura) 20 MG tablet Take 1 (one) tablet by mouth at bedtime 30 tablet 2 01/22/2024 Active multivitamins (One A Day) capsule Take 1 (one) capsule by mouth once daily Active ibuprofen (Motrin) 400 MG tablet Take 1 (one) tablet by mouth every 6 hours as needed Active Lactobacillus (ACIDOPHILUS PO) Take by mouth once daily Active polyethylene glycol 3350 (Miralax) 17 GM/SCOOP powder Take 17 (seventeen) g by mouth once daily 238 g 06/27/2024 Active acetaminophen (Tylenol) 325 MG tablet Take 2 (two) tablets by mouth every 6 hours as needed for Fever or Pain Maximum allowable Acetaminophen amount = 4 Grams (4000 mg) / 24 hours. 30 tablet 06/27/2024 Active oxyCODONE, immediate release, (Roxicodone) 5 MG tabletIndication s:Preoperative testing Take 1 (one) tablet by mouth every 4 hours as needed for Pain 12 tablet 06/27/2024 Active ibuprofen (Motrin) 600 MG tablet Take 1 (one) tablet by mouth every 6 hours as needed for Pain 30 tablet 06/27/2024 Active senna (Senokot) 8.6 MG tablet Take 1 (one) tablet by mouth 2 times daily for 15 days 30 tablet 06/27/2024 Active Problems Problem Noted Date Diagnosed Date Preoperative testing 06/26/2024 Encounters Date Type Department Care Team Description 07/04/2024 12:45 PM RELAY MECHANIC Office Visit [facility] - ELECTRIC KNIFE OPERATOR [address] [facility], [address] [address] Trevor Gonzalez MD Post-operative state (Primary Dx) 07/04/2024 Travel 06/27/2024 Telephone [facility] - Centralized Scheduling [address] [place] [address] Trevor Gonzalez MD Surgical Followup 06/26/2024 8:34 AM [facility] Anesthesia Event [facility] [address] [place] [id number] Reese Rojas MD Levin, Vitaly F, MD 06/26/2024 8:15 AM RELAY MECHANIC - 06/26/2024 12:15 PM [facility] Surgery [facility] [address] [place] [id number] Trevor Gonzalez MD TOTAL VAGINAL HYSTERECTOMY 06/26/2024 6:38 AM RELAY MECHANIC - 06/27/2024 12:35 PM [facility] Hospital Encounter [facility] 5E ANTEPARTUM/MOTHER BABY [address] [place] [address] [id number] Trevor Gonzalez MD Surgery General Discharge Disposition: Home or Self Care 06/26/2024 Travel 06/20/2024 Travel 05/09/2024 2:00 PM RELAY MECHANIC Procedure visit [facility] - ELECTRIC KNIFE OPERATOR [address], [facility] [address] [place] [phone] Trevor Gonzalez MD Mixed stress and urge [...] Sign Reading Time Taken Comments Blood Pressure 105/73 07/04/2024 12:33 PM RELAY MECHANIC Pulse 86 06/27/2024 11:13 AM RELAY MECHANIC Temperature 36.6 C (97.9 F) 07/04/2024 12:33 PM RELAY MECHANIC Respiratory Rate 20 06/27/2024 7:46 AM RELAY MECHANIC Oxygen Saturation 94% 06/27/2024 11:13 AM RELAY MECHANIC Inhaled Oxygen Concentration - - Weight 94.9 kg (209 lb 3.2 oz) 07/04/2024 12:33 PM RELAY MECHANIC Height 157.5 cm (5' 2 ) 07/04/2024 12:33 PM RELAY MECHANIC Body Mass Index 38.26 07/04/2024 12:33 PM RELAY MECHANIC Plan of Treatment Upcoming Encounters Date Type Department Care Team (Late st Contact Info) Description 08/01/2024 1:30 PM CDT Office Visit [facility] - ELECTRIC KNIFE OPERATOR [address], [facility] [address] [place] [phone] Trevor Gonzalez MD [address] [place] [address] Health Maintenance Due Date Last Done Comments [...] - season) 2024 INFLUENZA VACCINE (#1) 2024 3, [...] complete this topic MENINGOCOCCAL (Group B) VACCINE SHARED DECISION-MAKING Aged Out No longer eligible based on patient's age to complete this topic MENINGOCOCCAL GROUPS A/C/Y/W VACCINE Aged Out No longer eligible based on patient's age to complete this topic Medical Devices Implanted Type Area Auto Brake Mechanic Device Identifier Shelf Expiration Date Model / Serial / Lot Mtrx Tissue 7x4cm [facility] Thk1.2-2mm - [id number] Implanted:Qty: 1 on 06/26/2024 by Trevor Gonzalez MD at [facility] N/A: Vagina [employer] 12/05/2025 [id number] / [id number] / [id number] Procedures Procedure Name Priority Date/Time Associated Diagnosis Comments CARDIAC RHYTHM STRIP ORDER 06/29/2024 12:28 AM RELAY MECHANIC COMPREHENSIVE METABOLIC PANEL AM Draw 06/27/2024 3:41 AM RELAY MECHANIC Postoperative state CBC W AUTO DIFFERENTIAL AM Draw 06/27/2024 3:40 AM RELAY MECHANIC Postoperative state XR CHEST 1VW PORTABLE STAT 06/27/2024 1:22 AM RELAY MECHANIC Diagnosis unknown PATHOLOGY TISSUE EXAM (STL) Routine 06/26/2024 9:55 AM RELAY MECHANIC Diagnosis unknown ENDOTRACHEAL TUBE NOTE Routine 06/26/2024 9:21 AM RELAY MECHANIC MS ANTER COLPORRHAPHY,BLAD/VAG STEPAN 06/26/2024 7:40 AM RELAY MECHANIC Diagnosis unknown Special Needs NEEDS PHOTON SABRE LIGHTED SUCTION, ALLODERM GRAFT MS VAG HYST 250 GM/< W/RMVL TUBE&/OVARY 06/26/2024 7:40 AM RELAY MECHANIC Diagnosis unknown Special Needs NEEDS PHOTON SABRE LIGHTED SUCTION, ALLODERM GRAFT BLOOD TYPE VERIFICATION Routine 06/26/2024 7:15 AM RELAY MECHANIC TYPE + SCREEN PANEL SHELLEY 06/26/2024 7 :12 AM RELAY MECHANIC MS INTRAABDOMINAL PRESSURE TEST Routine 05/10/2024 7:58 AM RELAY MECHANIC Mixed stress and urge urinary incontinence Overactive bladder Detrusor instability Decreased bladder capacity MS ANAL/URINARY MUSCLE STUDY Routine 05/10/2024 7:58 AM RELAY MECHANIC Mixed stress and urge urinary incontinence Overactive bladder Detrusor instability Decreased bladder capacity MS CYSTOMETROGRAM W/CASINO CHANGE ATTENDANT Routine 05/10/2024 7:58 AM RELAY MECHANIC Mixed stress and urge urinary incontinence Overactive bladder Detrusor instability Decreased bladder capacity URINALYSIS AUTO - POINT OF CARE (AMB) [facility] Routine 05/09/2024 2:22 PM RELAY MECHANIC Complete uterovaginal prolapse from Last 3 Months Results * CARDIAC RHYTHM STRIP ORDER (06/29/2024 12:28 AM RELAY MECHANIC) Narrative 06/29/2024 12:28 AM RELAY MECHANIC Ordered by an unspecified provider. Scanned Document CARDIAC SERVICES ORD ERABLES * (ABNORMAL) COMPREHENSIVE METABOLIC PANEL (06/27/2024 3:41 AM RELAY MECHANIC) Glucose 113(H) 70 - 99 mg/dL 06/27/2024 5:46 AM [facility] Sodium 137 136 - 145 mmol/L 06/27/2024 5:46 AM [facility] Potassium 4.6 3.5 - 5.1 mmol/L 06/27/2024 5:46 AM [facility] Chloride 105 98 - 107 mmol/L 06/27/2024 5:46 AM [facility] CO2 25 22 - 29 mmol/L 06/27/2024 5:46 AM [facility] Calcium 8.4 8.4 - 10.4 mg/dL 06/27/2024 5:46 AM [facility] Anion Gap 7 6 - 16 mmol/L 06/27/2024 5:46 AM [facility] BUN 17 7 - 26 mg/dL 06/27/2024 5:46 AM [facility] Creatinine 0.69 0.57 - 1.11 mg/dL 06/27/2024 5:46 AM [facility] Alkaline Phosphatase 44 40 - 150 U/L 06/27/2024 5:46 AM [facility] ALT 11 0 - 55 U/L 06/27/2024 5:46 AM [facility] AST 15 5 - 34 U/L 06/27/2024 5:46 AM [facility] Protein Total 5.8(L) 6.4 - 8.3 gm/dL 06/27/2024 5:46 AM [facility] Albumin 2.8(L) 3.4 - 5.0 gm/dL 06/27/2024 5:46 AM [facility] Bilirubin Total 0.2 0.2 - 1.2 mg/dL 06/27/2024 5:46 AM [facility] eGFR by CKD-EPI >90 >=90 mL/min/1.7 3 m2 06/27/2024 5:46 AM [facility] Blood BLOOD SPECIMEN / Unknown Lab Venipuncture / Unknown 06/27/2024 3:41 AM RELAY MECHANIC 06/27/2024 5:11 AM RELAY MECHANIC Trevor Gonzalez MD LAB - CHEMISTRY BRITTANY REEVES [facility] Organization Address City/State/[facility] Co de Phone Number [facility] [address] [place] [address] * (ABNORMAL) CBC W AUTO DIFFERENTIAL (06/27/2024 3:40 AM RELAY MECHANIC) WBC 13.1(H) 4.0 - 10.7 x10E9/L 06/27/2024 5:26 AM [facility] RBC Count 3.40(L) 3.90 - 5.20 x10E12/L 06/27/2024 5:26 AM [facility] Hemoglobin 11.0(L) 11.9 - 15.8 g/dL 06/27/2024 5:26 AM [facility] Hematocrit 35.1 34.8 - 46.1 % 06/27/2024 5:26 AM [facility] MCV 103.2(H) 80.0 - 98.0 fL 06/27/2024 5:26 AM [facility] MCH 32.4 26.7 - 33.6 pg 06/27/2024 5:26 AM [facility] MCHC 31.3(L) 31.7 - 36.3 g/dL 06/27/2024 5:26 AM [facility] RDW-CV 15.8(H) 11.3 - 14.8 % 06/27/2024 5:26 AM [facility] Platelet Count 225 150 - 420 x10E9/L 06/27/2024 5:26 AM [facility] MPV 10.2 7.8 - 11.4 fL 06/27/2024 5:26 AM [facility] Neutrophil % 82.8(H) 41.0 - 74.0 % 06/27/2024 5:26 AM [facility] Lymphocyte % 10.9(L) 17.0 - 47.0 % 06/27/2024 5:26 AM [facility] Monocyte % 5.6 3.0 - 11.0 % 06/27/2024 5:26 AM [facility] Eosinophil % 0.0 0.0 - 7.0 % 06/27/2024 5:26 AM [facility] Basophil % 0.1 0.0 - 1.6 % 06/27/2024 5:26 AM [facility] Immature Granulocytes % 0.6 0.0 - 1.0 % 06/27/2024 5:26 AM [facility] Neutrophil Absolute 10.85(H) 1.60 - 7.50 x10E9/L 06/27/2024 5:26 AM [facility] Lymphocyte Absolute 1.43 1.00 - 4.40 x10E9/L 06/27/2024 5:26 AM [facility] Monocyte Absolute 0.74 0.15 - 1.00 x10E9/L 06/27/2024 5:26 AM [facility] Eosinophil Absolute 0.00 0.00 - 0.60 x10E9/L 06/27/2024 5:26 AM [facility] Basophil Absolute 0.01 0.00 - 0.13 x10E9/L 06/27/2024 5:26 AM [facility] Blood BLOOD SPECIMEN / Unknown Lab Venipuncture / Unknown 06/27/2024 3:40 AM RELAY MECHANIC 06/27/2024 5:11 AM RELAY MECHANIC Trevor Gonzalez MD LAB - HEMATOLOGY ORD ERABLES Performing Organization Address City/State/[facility] Co de Phone Number [facility] [address] [place] [address] * XR Chest 1Vw Portable (06/27/2024 1:22 AM RELAY MECHANIC) Anatomical Region Laterality Modality Chest Radiographic Alena ging 06/27/2024 8:50 AM RELAY MECHANIC Narrative 06/27/2024 9:02 AM RELAY MECHANIC PROCEDURE: XR CHEST 1VW PORTABLE DATE/TIME OF EXAM: 06/27/2024 1:22 AM CLINICAL INFORMATION: None relevant/not provided if blank. Indication: R69: Illness, unspecified Additional History: FINDINGS/IMPRESSION: Diffuse interstitial opacities are seen in the lung bases. The heart appears prominent. There may be underlying vascular congestion. Calcified plaques are seen in the aortic arch. Edited by Rosalind Kuhn on 06/27/2024 8:53 AM > Interpreting Provider: Mike Negrete MD on 06/27/2024 9:02 AM Procedure Note Mike Negrete MD - 06/27/2024 PROCEDURE: XR CHEST 1VW PORTABLE DATE/TIME OF EXAM: 06/27/2024 1:22 AM CLINICAL INFORMATION: None relevant/not provided if blank. Indication: R69: Illness, unspecified Additional History: FINDINGS/IMPRESSION: Diffuse interstitial opacities are seen in the lung bases. The heart appears prominent. There may be underlying vascular congestion.Calcified plaques are seen in the aortic arch. Edited by Rosalind Kuhn on 06/27/2024 8:53 AM > Interpreting Provider: Mike Negrete MD on 06/27/2024 9:02 AM Trevor Gonzalez MD DIAGNOSTIC IMAGING O RDERABLES * PATHOLOGY TISSUE EXAM (STL) (06/26/2024 9:55 AM RELAY MECHANIC) Case Report Surgical Pathology Report Case: [id number] Authorizing Provider: Trevor Gonzalez MD Collected: 06/26/2024 09:55 AM Ordering Location: [facility] Received: 06/26/2024 01:18 PM Pathologist: Keira Enciso MD Specimen: Uterus w Cervix, Uterus and cervix 06/27/2024 10:[address] [facility] Final Diagnosis Uterus, hysterectomy - Atrophic endometrium - Adenomyosis - Cervical parakeratosis - Serosal adhesions 06/27/2024 10:21 AM [facility] Clinical History The patient is a 74-year-old woman. Operative procedure: hysterectomy. 06/27/2024 10:21 AM [facility] Gross Description The requisition and specimen(s) are identified with the patient's name Shelby Benitez . Received in formalin, specimen A, uterus with cervix , consists of three hutchinson-pink, irregular, myometrial fragments, consistent with surgically distorted uterus, with an aggregate weight of 124 g and an aggregate measurement of 13.5 x 5.5 x 5.0 cm. Two of the portions of myometrial tissue are surfaced by a red-brown, scabrous, dusky serosa with focal fibrous adhesions. The ectocervix is hutchinson-pink, smooth, and glistening with a 0.5 cm ovoid os. The cervical mucosa is hutchinson-pink and wrinkled with a well-defined transformation zone. There are multiple nabothian cysts present ranging from 0.3 to 0.6 cm in greatest dimension which have a clear gelatinous mucus within the cystic spaces. The hutchinson-pink trabecular myometrium averages 2.5 cm in thickness. The endometrial canal is at 10.8 cm in length x 2.0 cm from cord to cornu. The endometrium is red-pink, erythematous, smooth, dusky, and extends to a depth 0.1 cm. There are no intramural, subserosal, or submucosal nodules present. There is no adnexa present. Box Finisher sections are submitted in six cassettes labeled as follows: A1 anterior cervix A2 posterior cervix A3-A6 endomyometrium. RB 06/27/2024 10:21 AM [facility] Microscopic Description Microscopic examination substantiates the above diagnosis. 06/27/2024 10:21 AM [facility] Pathologist Location at [facility] 06/27/2024 10:21 AM [facility] Disclaimer All histochemical and/or immunohistochemical results are interpreted with controls that demonstrate appropriate staining reactions before reporting results. Note on use of immunocytochemistry reagents: This test was developed and its performance characteristic determined by [facility], Department of Laboratory Medicine. It has not been cleared or approved by the U.S. Food and Drug Administration (FDA). The FDA has determined that such clearance or approval is not necessary. The test is used for clinical purpose. It should not be regarded as investigational or for research. This laboratory is certified to perform high complexity testing. The performance characteristics of the IHC/SYLVIA assays have been validated on formalin-fixed paraffin embedded tissues only. The assays have not been validated on decalcified tissues. Results should be interpreted with caution. 06/27/2024 10:21 AM [facility] Embedded Images 06/27/2024 10:21 AM [facility] Pathology/Cytolo gy SPECIMEN FROM UTERINE CERVIX OBTAINED BY HYSTERECTOMY / Unknown 06/26/2024 9:55 AM RELAY MECHANIC 06/26/2024 1:18 PM RELAY MECHANIC Comment:Pre-op diagnosis: Diagnosis unknown [R69] Trevor Gonzalez MD LAB - PATHOLOGY/CYTO LOGY ORDERABLES [facility] [address] [place] [address] * ETT LINE PERFORMABLE (06/26/2024 9:21 AM RELAY MECHANIC) Narrative Saira Chavez APRN-CRNA - 06/26/2024 9:21 AM RELAY MECHANIC Saira Chavez APRN-CRNA 06/26/2024 9:21 AM Endotracheal Tube Placement: Patient Location: OR. Intubation Event Date/Time: 06/26/2024 8:43 AM Procedure: intubation ([id number]) Procedure Section: Sedation: under general anesthesia. Indications for Airway Management: anesthesia Procedure pretreatments used? No Induction: standard IV Patient Position: sniffing Mask Ventilation: easy with oral airway. Blade Size: 3 Laryngoscopy View: grade 1 (full cords) Intubation Adjuncts: stylet Tube: endotracheal tube Placement: oral Tube type: cuff - inflated Tube Size (MM): 7 Depth of Insertion (CM): 21 Measured From: lips Cuff volume (mL): 7 Cuff Inflated With: air Number of Attempts: 1. Placement Verified By: direct visualization, bilateral breath sounds, chest auscultation and CO2 monitor Tube secured with: adhesive tape. Dentition unchanged? Yes Difficult Airway? No. Procedure Start Time: 06/26/2024 8:43 AM. Staff Section Anesthesia Provider: Saira Chavez APRN-CRNA, Performed the procedure Reese Rojas MD GENERAL ANESTHE ARUNA ORDERABLES * BLOOD TYPE VERIFICATION (06/26/2024 7:15 AM RELAY MECHANIC) ABO Rh O POS 06/26/2024 7:[address] [facility] Blood Bank BLOOD SPECIMEN / Unknown Venipuncture / Unknown 06/26/2024 7:15 AM RELAY MECHANIC 06/26/2024 7:20 AM RELAY MECHANIC Ranjan Frazier MD LAB - BLOOD BANK ORD ERABLES [facility] [address] [phone] * TYPE + SCREEN PANEL (06/26/2024 7:12 AM RELAY MECHANIC) ABO Rh O POS 06/26/2024 7:[address] [facility] Comment:No history; collect retype. Antibody Screen NEG 7:[address] [facility] Blood Bank BLOOD SPECIMEN / Unknown Venipuncture / Unknown 06/26/2024 7:12 AM RELAY MECHANIC 06/26/2024 7:15 AM RELAY MECHANIC Ranjan Frazier MD LAB - BLOOD BANK ORD ERABLES Performing Organization Address City/[facility] Co de Phone Number [facility] [address] [place] [address] * MS CYSTOMETROGRAM W/CASINO CHANGE ATTENDANT, MS ANAL/URINARY MUSCLE STUDY, MS INTRAABDOMINAL PRESSURE TEST (05/10/2024 7:58 AM RELAY MECHANIC) Narrative Trevor Gonzalez MD - 05/10/2024 7:58 AM RELAY MECHANIC Trevor Gonzalez MD 05/10/2024 8:03 AM Multichannel [...] Positive no; Abnormal no Voiding pressure study (CASINO CHANGE ATTENDANT): She voided via detrusor contraction. Obstructive pattern? [...] OF CARE (AMB) [facility] (05/09/2024 2:22 PM RELAY MECHANIC) Glucose UA neg [facility] [address] Bilirubin UA POCT neg [facility] [address] Ketones UA POCT neg [facility] [address] Specific Hankins UA 1.[address] [facility] [address] Blood Urine POCT neg [facility] [address] pH UA 6.[address] [facility] [address] Protein UA +- [facility] [address] Urobilinogen UA neg [facility] [address] Nitrite UA neg [facility] [address] WBC UA neg [facility] [address] Urine URINE / Unknown 05/09/2024 2 :22 PM RELAY MECHANIC Trevor Gonzalez MD LAB - POINT OF CARE ORDERABLES [facility] [address] [place] [address], [facility] [phone] from Last 3 Months Care Teams Wallpaper Inspector And Shipper Relationship Specialty Start Date End Date Asmita Reardon MD [address] [facility] [address] [place] [address] PCP - General Internal Medicine 01/22/24
--- OUTSIDE RECORDS SUMMARY | 2024-07-29 17:43 | XMS_ITS ---
Author Organization [facility] [employer] Address [address] [facility] [address] [place] [address] Care Team Providers Care Transfer Table Operator Helper Name Role Phone Sofia Alfaro, Carmencita Primary Care Provider Unavail able Richard Dunbar Unavailable [phone] Alex Mclaughlin Unavailable [phone] Allergies Allergen (clinical drug ingredient) Drug/Non Drug Allergy documented on EMR Reaction Allergy Type Onset Date Status niacin Niacin Unknown Drug Allergy 07/19/2023 Active REASON FOR VISIT abilify, Patient is here for her Abilify injection Medications Medication SIG (Take, Route, Frequency, Duration) Notes Start Date End Date Status predniSONE 10 MG Oral 09/04/2023 Ac tive Aspirin Adult Low Strength 81 MG Oral 09/04/2023 Active DULoxetine HCl 30 mg 1 capsule oral tatum y for 90 days Active Abilify Maintena 300 MG INJECT INTRAMUSC ULARLY EVERY MONTH IM q month for 30 days Active Rosuvastatin Calcium 5 MG Oral 09/04/2023 Active Acidophilus Active Cetirizine HCl 10 MG Oral 09/04/2023 Active Tamoxifen Citrate 20 MG Oral 09/04/2023 Active Vitamin D Active Social History Sex Assigned At : Social History Observation Description Sex Assigned At Female Vital Signs Blood pressure systolic 130 mm Hg 07/03/19 25 Blood pressure diastolic 74 mm Hg 025 Heart Rate 78 /min 07/03/2024 Height 62.00 in 07/03/2024 Weight 210 lbs 07/03/2024 BMI 38.41 kg/m2 07/03/2024 Height-cm 157.48 cm 07/03/2024 Weight-kg 95.26 kg 07/03/2024 Encounters Encounter Location Date Provider Diagnosis [facility] [address] [place] [address] 07/03/2024 Alex Mclaughlin Schizoaffective disorder, bipolar type F25.0 Assessments Encounter Date Diagnosis (ICD Code) Assessment Notes Treatment Notes Treatment Clinical Notes Section Notes 07/03/2024 Schizoaffective disorder, bipolar type (ICD-10 - F25.0) Verified the injection dose and diagnosis Plan Of Treatment Next Appt Details Provider Name:Alex Mclaughlin , 07/30/2024 11:00:00 AM, [address], [address], [place], [address], Provider Name:Alex Mclaughlin , 08/30/2024 11:00:00 AM, [address], [address], [place], [address], Provider Name:Alex Mclaughlin , 10/01/2024 11:00:00 AM, [address], [address], [place], [address], Provider Name:Keira Rogers , 10/15/2024 11:00:00 AM, [address], [facility] [address], [place], [address], Medications Administered Medication Instructions Date of Administration Dosage Notes Abilify Maintena 07/03/2024 300 mg Progress Notes * DEE DEE DICKEY MDOB:1950 ( 74 yo F)Acc No.[id number]:07/03/2024 Progress Note Patient: DEE DEE MEJIA Provider: S RORO MCLAUGHLIN MD :1950 A ge:74 Y S ex:Female Date:07/03/2024 Address:[address] , [facility] Pcp:Asmita Reardon MD Subjective: * Chief Complaints: * A bilifyPatient is here for her Abilify injection * HPI: F unctional Status: Patient is here for injection. Injection given by Staff Danuta Injection is documented in the Therapeutic Injection section Patient was observed for: 1 0 M inutes Post injection side effects No Provider was in the office. * Medical History: * Medications: T akingAcidophilus Vitamin D Tamoxifen Citrate 20 MG Tablet Oral Cetirizine HCl 10 MG Tablet Oral Rosuvastatin Calcium 5 MG Tablet Oral Aspirin Adult Low Strength 81 MG Tablet Delayed Release Oral predniSONE 10 MG Tablet Oral DULoxetine HCl 30 mg Capsule Delayed Release Particles 1 capsule oral daily Abilify Maintena 300 MG Suspension Reconstituted ER INJECT INTRAMUSCULARLY EVERY MONTH IM q month Medication List reviewed and reconciled with the patientTaking Acidophilus Taking Vitamin D Taking Tamoxifen Citrate 20 MG Tablet Oral Taking Cetirizine HCl 10 MG Tablet Oral Taking Rosuvastatin Calcium 5 MG Tablet Oral Taking Aspirin Adult Low Strength 81 MG Tablet Delayed Release Oral Taking predniSONE 10 MG Tablet Oral Taking DULoxetine HCl 30 mg Capsule Delayed Release Particles 1 capsule oral daily Taking Abilify Maintena 300 MG Suspension Reconstituted ER INJECT INTRAMUSCULARLY EVERY MONTH IM q month Medication List reviewed and reconciled with the patient * Allergies: N iacin: Allergy - Onset Date 07/19/2023no[Allergies Verified] Objective: * Vitals: B P:130/74mm Hg, HR:78/min, Wt:210lbs, Wt-k.26 kg, Ht: 62.00 in, Ht-cm: 157.48 cm, BMI:38.41Index, Body Surface Area: 2.04. Therapeutic Interventions: Assessment: * Assessment: 1. S chizoaffective disorder, bipolar type - F25.0 Verified the injection dose and diagnosis. Plan: * Treatment: * Therapeutic Injections: AbIlify Maintena 300 administer : 300 mg (Route: Intramuscular) given by Danuta Gillette on left gluteus * Procedure Codes: 9 6372 THERAPEUTIC PROPHYLACTIC/DX INJECTION SUBQ/IM * Billing Information: * Visit Code: * Procedure Codes: 29465 THERAPEUTIC PROPHYLACTIC/DX INJECTION SUBQ/IM. * HALMIC ASSISTANT Sign off status: Completed true * Provider: Veronica MCLAUGHLIN MD Date: 0 07/03/2024 Generated for Conner razo/Lon/Frank on: 0 07/29/2024 05:42 PM CDT
--- OUTSIDE RECORDS SUMMARY | 2024-07-29 17:43 | XMS_ITS ---
Author Organization [facility] [employer] Address [address] [facility] [address] [facility] [address] [place] [address] Care Team Providers Care Teachers' Assistant Name Role Phone Sofia Alfaro, Carmencita Primary Care Provider Unavail Richard Fajardo Unavailable [phone] Medications Medication SIG (Take, Route, Fr equency, Duration) Notes Start Date End Date Status Abilify Maintena 300 MG INJECT INTRAMUSC ULARLY EVERY MONTH IM q month for 30 days Act sasha Social History Sex Assigned At : Social History Observation Description Sex Assigned At Female Encounters Encounter Location Date Provider Diagnosis [facility] [employer] [facility] [address] [facility] [address] [address] 06/21/2024 Richard Dunbar Schizoaffective disorder, bipolar type F25.0 Assessments Encounter Date Diagnosis (ICD Code) Assessment Notes Treatment Notes Treatment Clinical Notes Section Notes 06/21/2024 Schizoaffective disorder, bipolar type (ICD-10 - F25.0) Plan Of Treatment Medication Medication Name Sig Start Date Stop Date Notes Abilify Maintena 300 MG INJECT INTRAMUSC ULARLY EVERY MONTH IM q month for 30 days Next Appt Details Provider Name:Alex Marquez , 07/30/2024 11:00:00 AM, [address] [place] [address], [address], [address], Provider Name:Alex Marquez , 08/30/2024 11:00:00 AM, [address] [facility] [address], [address], [address], Provider Name:Alex Marquez , 10/01/2024 11:00:00 AM, [address], [place] [address], [place], [address], Provider Name:Keira Rogers , 10/15/2024 11:00:00 AM, [address], [place] [address], [place], [address], Progress Notes * DEE DEE DICKEY MDOB:1950 ( 74 yo F)Acc No.[id number]:06/21/2024 Patient: Dale RAYMOND DEE DEE Roula :1950 A ge:74 Y S ex:Female Address:[facility] , [place], [address] * Refills Refill Abilify Maintena Suspension Reconstituted ER, 300 MG, IM, 1 Kit, INJECT INTRAMUSCULARLY EVERY MONTH, q month, 30 days, Refills=5 Subjective: * Chief Complaints: * * Medical History: * Surgical History: * Hospitalization/Major Diagno stic Procedure: * Medications: Objective: * Vitals: * Physical Examination: Assessment: * Assessment: 1. S chizoaffective disorder, bipolar type - F25.0 Plan: * Treatment: * Procedure Codes: * true * Date: Generated for Conner razo/Lon/Frank on: 0 07/29/2024 05:43 PM CDT
--- OUTSIDE RECORDS SUMMARY | 2024-07-29 17:43 | XMS_ITS | CONTINUITY OF CARE DOCUMENT ---
Author Name taran marielaranza Address Unknown Organization [facility] Address [address] [facility] [address] [place] [address] Phone [phone] Care Team Providers Care Support Manager Name Role Phone Camille King MD Unavailable [phone] VALENTINA SAMPSON MD Unavailable VALENTINA SAMPSON MD Unavailable PROBLEMS Condition Status Date Provider Notes Cardiology examination active Nettie Ventim iglia WATER AEROBICS INSTRUCTOR Tobacco abuse, continuous active Nettie Jeremy timiglia WATER AEROBICS INSTRUCTOR Hyperlipidemia active Nettie Ventimiglia FN P Shortness of breath active Nettie Ventimigl ia WATER AEROBICS INSTRUCTOR Arthritis - osteo active Camille Burris HTN essential active Camille King MD Preop cardiovasc. examination active Alex King MD Cardiovascular Condition Screening active S ruben King MD ENCOUNTERS Date Type Provider Location Encounter Diag nosis 3 - 4 In-person encounter Office Visit Camille King MD [facility] Office Preop cardiovasc. examinationCardiovascular Condition Screening 1 - 0 8 In-person encounter Office Visit Camille King MD [facility] Office 1 - 2 In-person encounter Office Visit Camille King MD [place] Arthritis - osteoHTN essential 8 - 1 In-person encounter Office Visit Camille King MD [facility] Cardiology examinationTobacco abuse, continuousHyperlipidemiaShortness of breath [...] Mukul Isidoro weight E&M 209.8 [lb_av] Cjlia Brighton blood pressure, cuff size regular Ky cris Brighton height E&M 62 [in_i] Mukul Isidoro Body [...] devan Ac blood pressure, systolic 101 mm[Hg] Labino tonja Ac blood pressure, cuff size large Geraldine Ac oxygen saturation, oximetry 95 % Nettie Ventimiglia WATER AEROBICS INSTRUCTOR respiratory rate E&M 16 /min Sravanthi Ac [...] TABLET BY MOUTH ONCE DAILY AT BEDTIME [facility] tamoxifen 20 mg tablet active Take 1 tablet by mouth once daily Mendez Snow NP Crestor 5 mg tablet completed TAKE ONE TAB LET ONCE DAILY AT BEDTIME - [facility] aspirin 81 mg tablet,delayed release (DR/EC) active [...] JAVIER cigarette use yes Radha Nallur i ELEVATOR OPERATOR FREIGHT smoking status Current every da y smoker Radha Dixonluri JAVIER social history reviewed E&M revi ewed - no changes required Mendez Snow NP social history E&M S moking History: Karlo ruffin currently smokes every day. Karlo ruffin has been counseled to quit. Mendez Snow ELEVATOR OPERATOR FREIGHT drug use no Mendez Snow ELEVATOR OPERATOR FREIGHT alcohol use no Mendez Snow ELEVATOR OPERATOR FREIGHT smoking/tobacco cess ation, patient education and counseling [...] Keegan drug use no Nettie Ventimig cris [facility] alcohol use no Nettie Ventimig cris [facility] number of years as a smoker 40 a Nettie Ventimiglia [facility] smoking history, tot al pack/day 5 Nettie Ventimiglia [facility] cigarette use yes Lindsay luis smoking status Current every da y smoker Lindsay Ac INSURANCE PROVIDERS Payer name Policy type / Coverage type Dejah red republican ID AARP MEDICARE ADVANTAGE HMO-POS HMO [id number] ADVANCE DIRECTIVES Name Date DISCUSSED - NO DECISION MADE TREATMENT PLAN Date Name Performer [id number],C, R eports symptoms at baseline. She is daily smoker. Mendez Snow NP [id number],C, R ecently had a steroid injection to her L knee. Follows with Ortho (Vernon Chahal MD) at [facility]. Mendez Snow NP [id number],C, C urrently smokes 8 cigs per day. Mendez Snow NP [id number],C, H er updated medication list for this problem includes: Fenofibrate Nanocrystallized 145 Mg Tablet (Fenofibrate nanocrystallized) ..... Take 1 tablet by mouth once daily Crestor 5 Mg Tablet (Rosuvastatin) ..... Take one tablet once daily at bedtime Mendez Snow NP [id number],C, W ell controlled. B P today: 109/76 P rior BP: 140/87 (04/27/2022) Labs Reviewed: C hol: 161 (04/26/2022) HDL: 48 (04/26/2022) LDL: 90 MG/DL (CALC) (04/26/2022) T (04/26/2022) Her updated medication list for this problem includes: Aspirin 81 Mg Tablet,delayed Release (dr/ec) (Aspirin) ..... Take 1 tablet by mouth every day Mendez Snow NP [id number],C,R emain on gemfibrizole. 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 Will like to to put her low dose stain. Try Crestor 5mg daily. Camille King MD [id number],C,T he Patient was reencouraged to stop smoking. P atient has SOB with activity may be secondary to COPD vs CAD. Patient had CT chest recently that showed suggestion of CAD. Given that will do echo, lexiscan stress and coronary calcium score. Will also check lipids. Will f/u post testing or sooner if needed. testing completed Camille King MD [id number],C,D iscussion of benefits for remote patient monitoring took place. Patient gives consent for remote monitoring of physiologic parameters including, but not limited to, weight, blood pressure, pulse oximetry, respiratory flow rate. B P today: 140/87 P rior BP: 101/70 (03/04/2022) Labs Reviewed: C hol: 161 (04/26/2022) HDL: 48 (04/26/2022) LDL: 90 MG/DL (CALC) (04/26/2022) T (04/26/2022) Camille King MD [id number],C,R isk stratification done. MIld CAD based on CT. Preserved LV function based echo and stress. COntinue risk factor modicfication. Camille King MD [id number],C,M ost likely cause of her joint discomfort Camille King MD [id number],S,Cessation enc ouraged Nettie Cheng [facility] [id number],S,w ill get recent labs from her primary she is on fenofibrate alone. Given coronary calcification on CT chest may need statin H er updated medication list for this problem includes: Fenofibrate Nanocrystallized 145 Mg Tablet (Fenofibrate nanocrystallized) Nettie Skylar [facility] [id number],S,P atient has SOB with activity may be secondary to COPD vs CAD. Patient had CT chest recently that showed suggestion of CAD. Given that will do echo, lexiscan stress and coronary calcium score. Will also check lipids. Will f/u post testing or sooner if needed. O rders: 9 9204 MOD 45-59 min (CPT-97893) C omplete Echo (CPT-87578) S tress Regadenoson (CPT-12567) C T, Coronary Calcium Score (CPT-41975) L IPID PANEL (6418) Nettie Hopsonwyattjessica [facility] Cardiology: smoke le ssathn 1/2 PPD e nocuraged cessation. Radha Nalluri ELEVATOR OPERATOR FREIGHT Cardiology: R eports symptoms at baseline. She is daily smoker, smoke lessathn 1/2 PPD Radha Nalluri ELEVATOR OPERATOR FREIGHT Cardiology:Stable Radha Dixonlur i ELEVATOR OPERATOR FREIGHT Cardiology: B P today: 122/79 P rior BP: 109/76 (01/05/2023) Labs Reviewed: C hol: 161 (04/26/2022) HDL: 48 (04/26/2022) LDL: 90 MG/DL (CALC) (04/26/2022) T (04/26/2022) W ell controlled T his visit has been a part of the consistent, comprehensive, and ongoing management of the chronic medical condition(s) listed above for the patient. Radha Araujori ELEVATOR OPERATOR FREIGHT Cardiology:The patie nt denies episodes of chest [...] Follows with Ortho (Vernon Chahal MD) at [facility]. Mendez Snow NP Cardiology: Dale [...] Camille King MD Cardiology:Cessation encouraged Nettie Cheng [facility] Cardiology:will get recent labs from her primary she is on fenofibrate alone. Given coronary calcification on CT chest may need statin H er updated medication list for this problem includes: Fenofibrate Nanocrystallized 145 Mg Tablet (Fenofibrate nanocrystallized) Nettie Garridomiclaudia [facility] Cardiology:Patient h as SOB with activity may be secondary to COPD vs CAD. Patient had CT chest recently that showed suggestion of CAD. Given that will do echo, lexiscan stress and coronary calcium score. Will also check lipids. Will f/u post testing or sooner if needed. O rders: 9 9204 MOD 45-59 min (CPT-50227) C omplete Echo (CPT-44684) S tress Regadenoson (CPT-85777) C T, Coronary Calcium Score (CPT-49565) L IPID PANEL (7600) Nettie Cheng WATER AEROBICS INSTRUCTOR Date Name X-Ray, Chest 2 View LIPID [...]
--- OUTSIDE RECORDS SUMMARY | 2024-07-29 17:43 | XMS_ITS | Clinical Summary ---
Author Organization [facility] Address [address] [place] [address] Phone Care Team Providers Care Die Maintenance Technician Name Role Phone Asmita Reardon MD Primary Care Provider Andrea Ho MD Unavailable [phone] Allergies Active Allergy Reactions Criticality Noted Date [...] Description 09/10/2024 11:00 AM CDT [facility] [address] [place] [address] Andrea Ho MD [address] [place] [address] Discharge Disposition: Discharged to home or Selfcare Health Maintenance Due Date Last Done Comments DEXA Bone Density 1950 Hepatitis C Virus (HCV) Screening 1950 SARS-COV-2 Immunization (#1) 1957 Mammogram 1962 Colonoscopy 1997 Colorectal Cancer Screening 1997 Cologuard 2002 Immunochemical Fecal Occult Blood 2002 Lung Cancer Screening 2002 Influenza Immunization (#1) 01/07/202402/06, 04/17/2022, 02/23/2009, Additional history exists Zoster Immunization Completed 04/17/2022, Pneumococcal Immunization (50+ years) Completed 06/27/2022, 07/07/2008 DTaP/Tdap/Td Immunization Discontinued 06/28/2022, 04/2010 TdaP Immunization Completed 06/28/2022 Respiratory Syncytial Virus [...] MEDICAID [place] MEDICARE C [employer] Care Teams Die Maintenance Technician Relationship Specialty Start Date End Date Asmita Reardon MD [address] [place] [address] PCP - General Internal Medicine 03/18/22 Andrea Ho MD [address] [place] [address] Consulting Physician Medical Oncology 02/21/23
--- OUTSIDE RECORDS SUMMARY | 2024-07-29 17:43 | XMS_ITS | Patient Health Record ---
Author Organization [facility] Address [address] [address], [place] [address] Care Team Providers Care Cougar Hunter Name Role Phone Asmita Reardno Primary Care Provider Froilan Storm DPM, Jeremy Unavailable [phone] ALLERGIES Allergen (clinical drug ingredient) Drug/Non Drug [...] Insured Coverage Start Date Coverage End Date [facility] Medicare Advantage PPO [address] [address] [place] [address] [id number] Shelby Benitez Self - patient is the insured MEDICAL (GENERAL) HISTORY Medical History History ICD Code high cholesterol depression urologic problems Surgical History Surgery Date(Month/Year) lumpectomy
--- OUTSIDE RECORDS SUMMARY | 2024-07-29 17:43 | XMS_ITS ---
Author Organization [facility] [place] Address [address] [facility] [address] [place] [address] Care Team Providers Care Fire Engine Operator Name Role Phone Sofia Alfaro, Carmencita Primary Care Provider Unavail able Richard Ndiaye Unavailable [phone] Allergies Allergen (clinical drug ingredient) Drug/Non Drug Allergy documented on EMR Reaction Allergy Type Onset Date Status niacin Niacin Unknown Drug Allergy 07/19/2023 Active REASON FOR VISIT appt approved by kamron ndiaye/tremaine, Depression screening negative Medications Medication SIG (Take, Route, Frequency, Duration) Notes Start Date End Date Status Aspirin Adult Low Strength 81 MG Oral 09/04/2023 Active Cetirizine HCl 10 MG Oral 09/04/2023 Active Rosuvastatin Calcium 5 MG Oral 09/04/2023 Active Vitamin D Active Tamoxifen Citrate 20 MG Oral 09/04/2023 Active Acidophilus Active predniSONE 10 MG Oral 09/04/2023 Ac tive Abilify Maintena 300 MG INJECT INTRAMUSC ULARLY EVERY MONTH IM q month for 30 days Active DULoxetine HCl 30 mg 1 capsule oral tatum y for 90 days Active Social History Sex Assigned At : Social History Observation Description Sex Assigned At Female Vital Signs Blood pressure systolic 116 mm Hg 06/20/19 25 Blood pressure diastolic 77 mm Hg 025 Heart Rate 105 /min 06/20/2024 Height 62.00 in 06/20/2024 Weight 211 lbs 06/20/2024 BMI 38.59 kg/m2 06/20/2024 Height-cm 157.48 cm 06/20/2024 Weight-kg 95.71 kg 06/20/2024 Encounters Encounter [facility] Date [facility] [address] [place] [address] [place] [address] 06/20/2024 Richard Ndiaye Schizoaffective disorder, bipolar type F25.0 Assessments Encounter Date Diagnosis (ICD Code) Assessment Notes Treatment Notes Treatment Clinical Notes Section Notes 06/20/2024 Schizoaffective disorder, bipolar type (ICD-10 - F25.0) Plan Of Treatment Medication Medication Name Sig Start Date Stop Date Notes Abilify Maintena 300 MG INJECT INTRAMUSC ULARLY EVERY MONTH IM q month for 30 days DULoxetine HCl 30 mg 1 capsule oral daily for 90 days Next Appt Details Follow Up: 4 Months, Reason: 4 month f/u, transfer of care from Dr. Ndiaye Provider Name:Alex Price Alma , 07/30/2024 11:00:00 AM, [address], [address], [address], Provider Name:lAex Marquez , 08/30/2024 11:00:00 AM, [address], [address], [address], Provider Name:Alex Marquez , 10/01/2024 11:00:00 AM, [address], [address], [address], Provider Name:Keira Sue , 10/15/2024 11:00:00 AM, [address], [address], [address], Progress Notes * DEE DEE DICKEY MDOB:1950 ( 74 yo F)Acc No.[id number]:06/20/2024 Patient: DEE DEE MEJIA Provider: Patricia NDIAYE MD :1950 A ge:74 Y S ex:Female Date:06/20/2024 Address:Replaced by [facility] , [id number] Pcp:Asmita Reardon MD Subjective: * Chief Complaints: * 1 . Appt approved by zelda. 2. F/u. 3. Depression screening negative. * HPI: D epression Screening: NICHOLE-7 (2018 Edition) F eeling nervous, anxious, or on edge?Not at all, N ot being able to stop or control worrying N ot at all, W orrying too much about different things N ot at all, T rouble relaxing N ot at all, B eing so restless that it is hard to sit still N ot at all, B ecoming easily annoyed or irritable N ot at all, F eeling afraid as if something awful might happen N ot at all, T otal NICHOLE-7 Score 0 , I nterpretation of Total ( 0 to 4) No Anxiety. D epression screening: PHQ-9 L ittle interest or pleasure in doing things N ot at all, F eeling down, depressed, or hopeless N ot at all, T rouble falling or staying asleep, or sleeping too much N ot at all, F eeling tired or having little energy N ot at all, P oor appetite or overeating S everal days, F eeling bad about yourself or that you are a failure, or have let yourself or your family down N ot at all, T rouble concentrating on things, such as reading the newspaper or watching television N ot at all, M oving or speaking so slowly that other people could have noticed; or the opposite, being so fidgety or restless that you have been moving around a lot more than usual N ot at all, T houghts that you would be better off or of hurting yourself in some way N ot at all, T otal Score 1 , Interpretation M inimal Depression. I ntervention D epression Screening Findings N egative. F unctional Status: having hysterectomy on 06/26/24; has been doing well ever since started on aripiprazole monthly injections; still takes Cymbalta daily, overall doing well, does not want to make any changes, discussed transfer of care to Keira Rogers. * ROS: P erformance Met: N ormal blood pressure reading documented, follow-up not required ( G8783). * Medical History: P wanda: Acute akathisia [...] EVERY MONTH IM q month , Taking predniSONE 10 MG Tablet Oral , Taking DULoxetine HCl 30 mg Capsule Delayed Release Particles TAKE 1 CAPSULE BY MOUTH DAILY , Medication List reviewed and reconciled with the patient * Allergies: N iacin: Allergy - Onset Date 07/19/2023. Objective: * Vitals: B P:116/77mm Hg, HR:105/min, Wt:211lbs, Wt-k.71 kg, Ht: 62.00 in, Ht-cm: 157.48 cm, BMI:38.59Index, Body Surface Area: 2.04. * Examination: P sychiatry: Appearance: w ell-groomed, well-nourished, .... Affect / mood: a ppropriate, full range. Attention: g ood. Attitude: c ooperative. Suicidal ideation: n one. Memory status: n o impairment noted. Degree of awareness of surroundings: w ithin normal limits.? Delusions: n o. Hallucinations: n o. Insight: g ood. Intellectual functioning: n o impairment noted. Judgement: g ood. Orientation: a wake, alert and oriented x 3. Perceptual disorders: n o perceptual disorder noted. Psychomotor activity: w ithin normal range. Speech / language: a ppropriate pitch/modulation, clear and coherent, normal rate, volume, and articulation (RVR), proper grammar used. Thought content: a ppropriate. Thought process: i ntact. Assessment: * Assessment: 1. S chizoaffective disorder, bipolar type - F25.0 (Primary) Plan: * Treatment: * Procedure Codes: G 8783 NORMAL BP READING DOC F/U NOT RQR, 71707 BEHAV ASSMT W/SCORE & DOCD/STAND INSTRUMENT, G8752 MOST RECENT SYSTOLIC BP < 140MM HG, G8754 MOST RECENT DIASTOLIC BP < 90MM HG, G8734 ELDER MALTX SCR DOC NEG NO F/U RQR * Follow Up: 4 Months (Reason: 4 month f/u, transfer of care from Dr. Ndiaye) * Billing Information: * Visit Code: 21544 OFFICE OUTPATIENT VISIT 25 MINUTES DETAILED HISTORY AND EXAM/MODERATE MEDICAL DECISION MAKING. * Procedure Codes: G8783 NORMAL BP READING DOC F/U NOT RQR. 93921 BEHAV ASSMT W/SCORE & DOCD/STAND INSTRUMENT. G8752 MOST RECENT SYSTOLIC BP < 140MM HG. G8754 MOST RECENT DIASTOLIC BP < 90MM HG. G8734 ELDER MALTX SCR DOC NEG NO F/U RQR. * RVISOR MATRIX Sign off status: Completed true * Provider: Patricia NDIAYE MD Date: 06/20/2024 Generated for Conner razo/Lon/Bayleeransmitting on: 0 07/29/2024 05:43 PM CDT History and Physical Notes * HPI (History of Present Illness) Category Sub-Category Detail Notes Category Not es Depression screening PHQ-9 Little inte rest or pleasure in doing things: Not at all Feeling down, depressed, or hopeless: No t at all Trouble falling or staying asleep, or sl eeping too much: Not at all Feeling tired or having little energy: N ot at all Poor appetite or overeating: Several day s Feeling bad about yourself o r that you are a failure, or have let yourself or your family down: Not at all Trouble concentrating on thi ngs, such as reading the newspaper or watching television: Not at all Moving or speaking so slowly that other people could have noticed; or the opposite, being so fidgety or restless that you have been moving around a lot more than usual: Not at all Thoughts that you would be b airam off or of hurting yourself in some way: Not at all Total Score: 1 Interpretation: Minimal Depression Intervention Depression Screening Findings: N egative Functional Status having hysterectomy on 06/26/24; has been doing well ever since started on aripiprazole monthly injections; still takes Cymbalta daily, overall doing well, does not want to make any changes, discussed transfer of care to Keira Sue Depression Screening NICHOLE-7 (2018 Edition) Feeling nervous, anxious, or on edge: Not at all Not being able to stop or control worryi ng: Not at all Worrying too much about different things : Not at all Trouble relaxing: Not at all Being so restless that it is hard to sit still: Not at all Becoming easily annoyed or irritable: No t at all Feeling afraid as if something awful elham ht happen: Not at all Total NICHOLE-7 Score: 0 Interpretation of Total: (0 to 4) No Anx iety Examination Category Sub-Category Detail Notes Category Not es Psychiatry Appearance: well-groomed, well-nourished , ... Attitude: cooperative Psychomotor activity: within normal rang [...]
== END 2024-07-29 15:14 | disposition home or self-care (01) ==
PROVIDERS: PCP Internal Medicine; Visit Provider Internal Medicine
DX: Z12.2 Encounter for screening for malignant neoplasm of respiratory organs (principal); Z87.891 Personal history of nicotine dependence
CPT/HCPCS: 71271

== ENCOUNTER 2024-09-17 13:54 | Outpatient (CLI) | payer MEDICARE, MEDICAID, SELFPAY ==
--- NOTE | ~2024-09-17 | DEXA_ITS ---
Bone Density Report Name: DEE DEE DICKEY Age: 74 Sex: Female Ethnicity: White Date of : 1950 Indication: postmenopausal; screening for osteoporosis; parental hip fracture; height loss; cancer; hysterectomy; Referring Provider: ADRIÁN, VALENTINA Study: Bone densitometry was performed. Exam Date: September 17, 2024 Accession number: [id number] Bone Density: Region BMD T-score Z-score Classification AP Spine(L1-L4) 1.120 0.7 2.9 Normal Femoral Neck (Left) 0.703 -1.3 0.6 Osteopenia Total Hip (Left) 0.857 -0.7 0.9 Normal Femoral Neck (Right) 0.788 -0.6 1.4 Normal Total Hip (Right) 0.888 -0.4 1.2 Normal Total Hip Mean 0.873 -0.6 1.1 Normal World Health Organization criteria for BMD impression classify patients as: Normal (T-score at or above -1.0), Osteopenia (T-score between -1.0 and -2.5), or Osteoporosis (T-score at or below -2.5). 10-year Fracture Risk(1): Major Osteoporotic Fracture 15% Hip Fracture 6.3% Reported Risk Factors: [place] (), Neck BMD=0.703, BMI=38.5, parental fracture, smoking (1) FRAX(R) Version 3.08. Fracture probability calculated for an untreated patient. Fracture probability may be lower if the patient has received treatment. Clinical Information Provided by Patient: Parent has had a hip fracture Smokes Has used the following medications: Vitamin D, Calcium Has the following medical conditions: Cancer, Hysterectomy Patient maximum height was 62 Menopause Age: 52 No regular weight bearing exercise Drinks caffeinated beverages Onset of menses at age 17 Number of children 5 Impression: The patient has low bone mass, based on the Left Femoral Neck T-score. The patient has an estimated ten-year risk of hip fracture of 6.3% and an estimated ten-year risk of major fracture of 15%, based on the WHO FRAX algorithm. The patient has risk factors, including: parental hip fracture, smoking. Discussion: BONE DENSITY IS LOW AT ONE OR MORE SKELETAL SITES. THE PATIENT'S BMD AND CLINICAL RISK FACTORS CONTRIBUTE TO THIS PATIENT'S INCREASED RISK OF FRACTURE. This patient's lowest T-score is low at one or more skeletal sites. It meets the World Health Organization's (WHO) criteria for “low bone mass” (T-score between -1.0 and -2.5). The patient's 10-year risk of hip fracture as calculated by FRAX exceeds the threshold where pharmacological therapy is recommended by the National Osteoporosis Foundation (NOF). However, all treatment decisions require clinical judgment and consideration of individual patient factors, including patient preferences, comorbidities, previous drug use, risk factors not captured in the FRAX model (e.g., frailty, falls, vitamin D deficiency, increased bone turnover, interval significant decline in bone density) and possible under or overestimation of fracture risk by FRAX. The patient should follow a healthful lifestyle (good nutrition with adequate calcium and vitamin D, and appropriate weight-bearing exercise). Follow-Up: Consider a repeat BMD and Vertebral Fracture Assessment (VFA) exam in 2 years or sooner if medically necessary, to reassess this patient's status. Reported by: FARA on 09/17/2024 2:50:00 PM. Reviewed, dictated and finalized at location A.
--- OUTSIDE RECORDS SUMMARY | 2024-09-17 14:13 | XMS_ITS | Clinical Summary ---
Author Organization [facility] Address [address] [facility] [place] [address] Care Team Providers Care Furnace Brazer Name Role Phone Asmita Reardon MD Primary Care Provider Source Comments [facility] Affiliates and Associated Physician Practices is amultiple site organization consisting of ambulatory clinics and hospital sitesin [place], [place] and [place]. This disclosure is being madepursuant to the Care Everywhere program and may not contain all information available regarding this patient. Last updated 18.[facility] [employer] Allergies Active Allergy Reactions Criticality Noted Date Comments Latex Urticaria Medium 06/26/2024 Niacin Psychiatric,Urticaria Medium 03/18/2022 Medications * Be aware that medications may not be up to date on this document. Alwaysverify current medications with the patient. Mellitrini Maintena 300 MG injection INJECT INTRAMUSCULARLY EVERY MONTH for 30 Active aspirin EC (Ecotrin) 81 MG tablet Oral 09/04/19 24 Active tamoxifen (Nolvadex) 20 MG tablet Take 1 (one) tablet by mouth once daily 09/04/19 24 Active rosuvastatin (Crestor) 5 MG tablet Take 1 (one) tablet by mouth once daily Activ e DULoxetine (Cymbalta) 30 MG capsule Take 1 (one) capsule by mouth once daily Active trospium (Sanctura) 20 MG tablet Take 1 (one) tablet by mouth at bedtime 30 tablet 2 01/22/20 24 Active multivitamins (One A Day) capsule Take 1 (one) capsule by mouth once daily Active ibuprofen (Motrin) 400 MG tablet Take 1 (one) tablet by mouth every 6 hours as needed Active Lactobacillus (ACIDOPHILUS PO) Take by mouth once daily Active polyethylene glycol 3350 (Miralax) 17 GM/SCOOP powder Take 17 (seventeen) g by mouth once daily 238 g 06/27/19 25 Active acetaminophen (Tylenol) 325 MG tablet Take 2 (two) tablets by mouth every 6 hours as needed for Fever or Pain Maximum allowable Acetaminophen amount = 4 Grams (4000 mg) / 24 hours. 30 tablet 06/27/19 25 Active oxyCODONE, immediate release, (Roxicodone) 5 MG tabletIndicati ons:Preoperati ve testing Take 1 (one) tablet by mouth every 4 hours as needed for Pain 12 tablet 06/27/19 25 Active ibuprofen (Motrin) 600 MG tablet Take 1 (one) tablet by mouth every 6 hours as needed for Pain 30 tablet 06/27/19 25 Active Active Problems Problem Noted Date Diagnosed Date Preoperative testing 06/26/2024 Encounters Date Type Department Care Team Description 08/01/2024 1:30 PM CDT Office Visit [facility] - CUSTOMER MARKETING MANAGER [address] [place] [phone] Trevor Gonzalez MD Post-operative state (Primary Dx) 08/01/2024 Travel 07/04/2024 12:45 PM COSMETICS DEMONSTRATOR Office Visit [facility] - CUSTOMER MARKETING MANAGER [address] [phone] Trevor Gonzalez MD Post-operative state (Primary Dx) 07/04/2024 Travel 06/27/2024 Telephone [facility] - Centralized Scheduling [facility] [place] [address] Trevor Gonzalez MD Surgical Followup 06/26/2024 8:34 AM [facility] Anesthesia Event [facility] [address] [place] [phone] Reese Rojas MD Levin, Vitaly F, MD 06/26/2024 8:15 AM COSMETICS DEMONSTRATOR - 06/26/2024 12:15 PM [facility] Surgery [facility] [address] [place] [phone] Trevor Gonzalez MD TOTAL VAGINAL HYSTERECTOMY 06/26/2024 6:38 AM COSMETICS DEMONSTRATOR - 06/27/2024 12:35 PM COSMETICS DEMONSTRATOR Hospital Encounter HC 5E ANTEPARTUM/MOTHER BABY [address] [place] [address] Trevor Gonzalez MD Surgery General Discharge Disposition: Home or Self Care 06/26/2024 Travel 06/20/2024 Travel from Last 3 Months Family History [...] at Not on file Legal Sex Female 1:28 PM CDT Gender Identity Not on file Sexual Orientation Not on file Last Filed Vital Signs Vital Sign Reading Time Taken Comments Blood Pressure 132/86 08/01/2024 1:26 PM CDT Pulse 86 06/27/2024 11:13 AM COSMETICS DEMONSTRATOR Temperature 36.6 C (97.9 F) 07/04/2024 12:33 PM COSMETICS DEMONSTRATOR Respiratory Rate 20 06/27/2024 7:46 AM COSMETICS DEMONSTRATOR Oxygen Saturation 94% 06/27/2024 11:13 AM COSMETICS DEMONSTRATOR Inhaled Oxygen Concentration - - Weight 95.3 kg (210 lb) 08/01/2024 1:26 PM CDT Height 157.5 cm (5' 2 ) 08/01/2024 1:26 PM CDT Body Mass Index 38.41 08/01/2024 1:26 PM CDT Plan of Treatment Health Maintenance Due Date Last Done Comments [...] 2002 COVID-19 VACCINE (1 - season) 2024 DEPRESSION SCREENING 05/08/2024 MEDICARE AWV CALENDAR YEAR 2024 INFLUENZA VACCINE (Season Ended) 2025 03/03/2023, 04/17/2022, 04/18/2011, Additional history exists Respiratory Syncytial Virus (RSV) Vaccine Pt: or [...] this topic Medical Devices Implanted Type Area Signalman Device Identifier Shelf Expiration Date Model / Serial / Lot Mtrx Tissue 7x4cm [facility] Thk1.2-2mm - [id number] Implanted:Qty: 1 on 06/26/2024 by Trevor Gonzalez MD at [facility] N/A: Vagina [employer] 12/05/2025 [id number] / [id number] / [id number] Procedures Procedure Name Priority Date/Time Associated Diagnosis Comments CARDIAC RHYTHM STRIP ORDER 06/29/2024 12:28 AM COSMETICS DEMONSTRATOR COMPREHENSIVE METABOLIC PANEL AM Draw 06/27/2024 3:41 AM COSMETICS DEMONSTRATOR Postoperative state CBC W AUTO DIFFERENTIAL AM Draw 06/27/2024 3:40 AM COSMETICS DEMONSTRATOR Postoperative state XR CHEST 1VW PORTABLE STAT 06/27/2024 1:22 AM COSMETICS DEMONSTRATOR Diagnosis unknown PATHOLOGY TISSUE EXAM (STL) Routine 06/26/2024 9:55 AM COSMETICS DEMONSTRATOR Diagnosis unknown ENDOTRACHEAL TUBE NOTE Routine 06/26/2024 9:21 AM COSMETICS DEMONSTRATOR [place] ANTER COLPORRHAPHY,BLAD/VA COLEEN 06/26/2024 7:40 AM COSMETICS DEMONSTRATOR Diagnosis unknown Special Needs NEEDS PHOTON SABRE LIGHTED SUCTION, ALLODERM GRAFT IL VAG HYST 250 GM/< W/RMVL TUBE&/OVARY 06/26/2024 7:40 AM COSMETICS DEMONSTRATOR Diagnosis unknown Special Needs NEEDS PHOTON SABRE LIGHTED SUCTION, ALLODERM GRAFT BLOOD TYPE VERIFICATION Routine 06/26/2024 7:15 AM COSMETICS DEMONSTRATOR TYPE + SCREEN PANEL SHELLEY 06/26/2024 7 :12 AM COSMETICS DEMONSTRATOR from Last 3 Months Results * CARDIAC RHYTHM STRIP ORDER (06/29/2024 12:28 AM COSMETICS DEMONSTRATOR) Narrative 06/29/2024 12:28 AM COSMETICS DEMONSTRATOR Ordered by an unspecified provider. us Scanned Document CARDIAC SERVICES ORDERABLES Fin al Result * (ABNORMAL) COMPREHENSIVE METABOLIC PANEL (06/27/2024 3:41 AM COSMETICS DEMONSTRATOR) Glucose 113(H) 70 - 99 mg/dL 06/27/2024 5:46 AM COSMETICS DEMONSTRATOR [facility] Sodium 137 136 - 145 mmol/L 06/27/2024 5:46 AM COSMETICS DEMONSTRATOR [facility] Potassium 4.6 3.5 - 5.1 mmol/L 06/27/2024 5:46 AM COSMETICS DEMONSTRATOR [facility] Chloride 105 98 - 107 mmol/L 06/27/2024 5:46 AM COSMETICS DEMONSTRATOR [facility] CO2 25 22 - 29 mmol/L 06/27/2024 5:46 AM COSMETICS DEMONSTRATOR [facility] Calcium 8.4 8.4 - 10.4 mg/dL 06/27/2024 5:46 AM COSMETICS DEMONSTRATOR [facility] Anion Gap 7 6 - 16 mmol/L 06/27/2024 5:46 AM COSMETICS DEMONSTRATOR [facility] BUN 17 7 - 26 mg/dL 06/27/2024 5:46 AM COSMETICS DEMONSTRATOR [facility] Creatinine 0.69 0.57 - 1.11 mg/dL 06/27/2024 5:46 AM COSMETICS DEMONSTRATOR [facility] Alkaline Phosphatase 44 40 - 150 U/L 06/27/2024 5:[address] [facility] ALT 11 0 - 55 U/L 06/27/2024 5:[address] [facility] AST 15 5 - 34 U/L 06/27/2024 5:[address] [facility] Protein Total 5.8(L) 6.4 - 8.3 gm/dL 06/27/2024 5:[address] [facility] Albumin 2.8(L) 3.4 - 5.0 gm/dL 06/27/2024 5:[address] [facility] Bilirubin Total 0.2 0.2 - 1.2 mg/dL 06/27/2024 5:[address] [facility] eGFR by CKD-EPI >90 >=90 mL/min/1.7 3 m2 06/27/2024 5:[address] [facility] Blood BLOOD SPECIMEN / Unknown Lab Venipuncture / Unknown 06/27/2024 3:41 AM COSMETICS DEMONSTRATOR 06/27/2024 5:11 AM [facility] Trevor Gonzalez MD LAB - CHEMISTRY ORDERABLES Christiana l Result [facility] [address] [place] [address] * (ABNORMAL) CBC W AUTO DIFFERENTIAL (06/27/2024 3:40 AM [facility]) WBC 13.1(H) 4.0 - 10.7 x10E9/L 06/27/2024 5:[address] [facility] RBC Count 3.40(L) 3.90 - 5.20 x10E12/L 06/27/2024 5:[address] [facility] Hemoglobin 11.0(L) 11.9 - 15.8 g/dL 06/27/2024 5:[address] [facility] Hematocrit 35.1 34.8 - 46.1 % 06/27/2024 5:[address] [facility] MCV 103.2(H) 80.0 - 98.0 fL 06/27/2024 5:[address] [facility] MCH 32.4 26.7 - 33.6 pg 06/27/2024 5:[address] [facility] MCHC 31.3(L) 31.7 - 36.3 g/dL 06/27/2024 5:[address] [facility] RDW-CV 15.8(H) 11.3 - 14.8 % 06/27/2024 5:[address] [facility] Platelet Count 225 150 - 420 x10E9/L 06/27/2024 5:[address] [facility] MPV 10.2 7.8 - 11.4 fL 06/27/2024 5:[address] [facility] Neutrophil % 82.8(H) 41.0 - 74.0 % 06/27/2024 5:[address] [facility] Lymphocyte % 10.9(L) 17.0 - 47.0 % 06/27/2024 5:[address] [facility] Monocyte % 5.6 3.0 - 11.0 % 06/27/2024 5:[address] [facility] Eosinophil % 0.0 0.0 - 7.0 % 06/27/2024 5:[address] [facility] Basophil % 0.1 0.0 - 1.6 % 06/27/2024 5:[address] [facility] Immature Granulocytes % 0.6 0.0 - 1.0 % 06/27/2024 5:[address] [facility] Neutrophil Absolute 10.85(H) 1.60 - 7.50 x10E9/L 06/27/2024 5:[address] [facility] Lymphocyte Absolute 1.43 1.00 - 4.40 x10E9/L 06/27/2024 5:[address] [facility] Monocyte Absolute 0.74 0.15 - 1.00 x10E9/L 06/27/2024 5:[address] [facility] Eosinophil Absolute 0.00 0.00 - 0.60 x10E9/L 06/27/2024 5:[address] [facility] Basophil Absolute 0.01 0.00 - 0.13 x10E9/L 06/27/2024 5:[address] [facility] Blood BLOOD SPECIMEN / Unknown Lab Venipuncture / Unknown 06/27/2024 3:40 AM COSMETICS DEMONSTRATOR 06/27/2024 5:11 AM COSMETICS DEMONSTRATOR us Trevor Gonzalez MD LAB - HEMATOLOGY ORDERABLES Fin al Result [facility] [address] [place] [address] * XR Chest 1Vw Portable (06/27/2024 1:22 AM COSMETICS DEMONSTRATOR) Anatomical Region Laterality Modality Chest Radiographic Alena ging 06/27/2024 8:50 AM COSMETICS DEMONSTRATOR Narrative 06/27/2024 9:02 AM COSMETICS DEMONSTRATOR PROCEDURE: XR CHEST 1VW PORTABLE DATE/TIME OF [...] 9:02 AM Trevor Gonzalez MD DIAGNOSTIC IMAGING ORDERABLES F inal Result * PATHOLOGY TISSUE EXAM (STL) (06/26/2024 9:55 AM COSMETICS DEMONSTRATOR) Case Report Surgical Pathology Report Case: [id number] Authorizing Provider: Trevor Gonzalez MD Collected: 06/26/2024 09:55 AM Ordering Location: [facility] Received: 06/26/2024 01:18 PM Pathologist: Keira Enciso MD Specimen: Uterus w Cervix, Uterus and cervix 06/27/2024 10:[address] [facility] Final Diagnosis Uterus, hysterectomy - Atrophic endometrium - Adenomyosis - Cervical parakeratosis - Serosal adhesions 06/27/2024 10:[address] [facility] Clinical History The patient is a 74-year-old woman. Operative procedure: hysterectomy. 06/27/2024 10:[address] [facility] Gross Description The requisition and specimen(s) are identified with the patient's name Shelby Dickey . Received in formalin, specimen A, uterus [...] nodules present. There is no adnexa present. Homicide Investigator sections are submitted in six cassettes labeled as follows: A1 anterior cervix A2 posterior cervix A3-A6 endomyometrium. RB 06/27/2024 10:[address] [facility] Microscopic Description Microscopic examination substantiates the above diagnosis. 06/27/2024 10:[address] [facility] Pathologist Location at [facility] 06/27/2024 10:[address] [facility] Disclaimer All histochemical and/or immunohistochemical results are interpreted with controls that demonstrate appropriate staining reactions before reporting results. Note on use of immunocytochemistry reagents: This test was developed and its performance characteristic determined by [facility], Department of Laboratory Medicine. It has not [...] be interpreted with caution. 06/27/2024 10:21 AM COSMETICS DEMONSTRATOR [facility] Embedded Images 06/27/2024 10:[address] [facility] Pathology/Cytolo gy SPECIMEN FROM UTERINE CERVIX OBTAINED BY HYSTERECTOMY / Unknown 06/26/2024 9:55 AM COSMETICS DEMONSTRATOR 06/26/2024 1:18 PM COSMETICS DEMONSTRATOR Comment:Pre-op diagnosis: Diagnosis unknown [R69] Trevor Gonzalez MD LAB - PATHOLOGY/CYTOLOGY ORDERA BLES Final Result Performing Organization Address City/State/[facility] Co de Phone Number [facility] [address] [place] [address] * ETT LINE PERFORMABLE (06/26/2024 9:21 AM COSMETICS DEMONSTRATOR) Narrative Saira Chavez APRN-CRNA - 06/26/2024 9:21 AM COSMETICS DEMONSTRATOR Saira Chavez APRN-CRNA 06/26/2024 9:21 AM Endotracheal Tube Placement: Patient Location: OR. Intubation Event Date/Time: 06/26/2024 8:43 AM Procedure: intubation ([id number]) Procedure Section: Sedation: under general anesthesia. Indications [...] AM. Staff Section Anesthesia Provider: Saira Chavez APRN-DEONTE, Performed the procedure Reese Rojas MD GENERAL ANESTHESIA BRITTANY REEVES Final Result * BLOOD TYPE VERIFICATION (06/26/2024 7:15 AM COSMETICS DEMONSTRATOR) ABO Rh O POS 06/26/2024 7:4 8 AM COSMETICS DEMONSTRATOR [facility] Blood Bank BLOOD SPECIMEN / Unknown Venipuncture / Unknown 06/26/2024 7:15 AM COSMETICS DEMONSTRATOR 06/26/2024 7:20 AM COSMETICS DEMONSTRATOR Ranjan Frazier MD LAB - BLOOD BANK ORDERABLES Christiana l Result Performing Organization Address [facility] Co de Phone Number [facility] [address] [place] [address] * TYPE + SCREEN PANEL (06/26/2024 7:12 AM COSMETICS DEMONSTRATOR) ABO Rh O POS 06/26/2024 7:48 AM COSMETICS DEMONSTRATOR [facility] Comment:No history; collect retype. Antibody Screen NEG 7:48 AM COSMETICS DEMONSTRATOR [facility] Blood Bank BLOOD SPECIMEN / Unknown Venipuncture / Unknown 06/26/2024 7:12 AM COSMETICS DEMONSTRATOR 06/26/2024 7:15 AM COSMETICS DEMONSTRATOR Ranjan Frazier MD LAB - BLOOD BANK ORDERABLES Christiana l Result Performing Organization Address [facility] Co de Phone Number [facility] [address] [place] [address] from Last 3 Months Insurance [facility] MANAGED MEDICARE ADV MEDICAID - OUT OF STATE [facility] MANAGED MEDICARE ADV Care Teams Furnace Brazer Relationship Specialty Start Date End Date Asmita Reardon MD [address] [facility] [address] [place] [address] PCP - General Internal Medicine 01/22/24
--- OUTSIDE RECORDS SUMMARY | 2024-09-17 14:14 | XMS_ITS | Clinical Summary ---
Author Organization [facility] Address [address] [place] [address] Phone Care Team Providers Care Exchange Mechanic Name Role Phone Asmita Reardon MD Primary Care Provider Andrea Ho MD Unavailable [phone] Allergies Active Allergy Reactions Criticality Noted Date Comments Niacin Hallucinations 03/18/2022 Medications Abilify Maintena 300 MG Suspension Reconstituted ER 300 mg every 28 days. 03/02/20 Active fenofibrate (TRICOR) 145 MG Tablet 145 mg daily. 01/01/20 22 Active DULoxetine (CYMBALTA) [address] Particles 30 mg daily. 03/17/20 22 Active cetirizine (ZyrTEC) 10 MG Tablet 10 mg daily. 03/15/20 Active Multiple Vitamin (Multivitamins) Capsule Take 1 Capsule by mouth daily. Active rosuvastatin (CRESTOR) 5 MG Tablet 20 mg daily. 04/27/20 22 Active EQ Aspirin Adult Low Dose 81 MG Tablet Delayed Response Take 81 mg by mouth daily. 04/27/20 22 Active Cholecalciferol (VITAMIN D3 PO) Take 2,000 Int'l Units by mouth daily. Active Psyllium (METAMUCIL PO) Take by mouth daily. Active tamoxifen citrate 20 MG TabletIndications :Malignant neoplasm of upper-outer quadrant of right breast in female, estrogen receptor positive (HCC) Take 1 tablet by mouth once daily 90 Tablet 3 09/12/19 25 Active tamoxifen citrate 20 MG Tablet Take 1 tablet by mouth once daily 90 Tablet 3 09/04/19 24 025 Discontinued Active Problems Problem Noted Date Diagnosed Date Diverticular disease 09/11/2023 Encounter for screening mamm ogram for malignant neoplasm of breast 09/11/2023 Long-term current use of tamoxifen 02/21/2023 Primary osteoarthritis of left knee 02/21/2023 Uterine prolapse 06/28/2022 Malignant neoplasm of upper- outer quadrant of right breast in female, estrogen receptor positive 03/20/2022 History of schizophrenia 03/20/2022 Encounters Date Type Department Care Team Description [facility] [address] [place] [phone] Andrea Ho MD Medication Refill 09/10/2024 11:00 AM CDT Office Visit [facility] [address] [place] [address] Neela Martin, SPLICING MACHINE OPERATOR, COUNTERINTELLIGENCE/HUMINT SPECIALIST Malignant neoplasm of upper-outer quadrant of right breast in female, estrogen receptor positive (HCC) (Primary Dx) Discharge Disposition: Discharged to home or Selfcare 09/10/2024 Travel 09/09/2024 Travel from Last 3 Months Family History [...] Sign Reading Time Taken Comments Blood Pressure 103/71 09/10/2024 11:01 AM CDT Pulse 97 09/10/2024 11:01 AM CDT Temperature 36.3 C (97.4 F) 09/10/2024 11:01 AM CDT Respiratory Rate 18 09/10/2024 11:01 AM CDT Oxygen Saturation 96% 09/10/2024 11:01 AM CDT Inhaled Oxygen Concentration - - Weight 93.7 kg (206 lb 9.6 oz) 09/10/2024 11:01 AM CDT Height 157.5 cm (5' 2 ) 09/10/2024 11:01 AM CDT Body Mass Index 37.79 09/10/2024 11:01 AM CDT Plan of Treatment Upcoming Encounters Date Type Department Care Team (Late st Contact Info) Description 09/10/2025 1:00 PM CDT Office Visit [facility] On[facility] Services [address] [place] [phone] Andrea Ho MD [address] [place] [address] Discharge Disposition: Discharged to home or Selfcare Health Maintenance Due Date Last Done Comments DEXA Bone Density 1950 Hepatitis C Virus (HCV) Screening 1950 SARS-COV-2 Immunization (#1) 1957 Mammogram 1962 Colonoscopy 1997 Colorectal Cancer Screening 1997 Cologuard 2002 Immunochemical Fecal Occult Blood 2002 Lung Cancer Screening 2002 Zoster Immunization Completed 04/17/2022, Pneumococcal Immunization (50+ years) Completed 06/27/2022, 07/07/2008 DTaP/Tdap/Td Immunization Discontinued 06/28/2022, 04/2010 TdaP Immunization Completed 06/28/2022 Respiratory Syncytial Virus (RSV) Immunization (Adult) Completed 06/27/2023 Influenza Immunization Completed 4, 03/03/2023, 04/17/2022, Additional history exists Hepatitis B Immunization Aged Out No longer eligible based on patient's age to complete this topic Human Papillomavirus (HPV) Immunization Aged Out No longer eligible based on patient's age to complete this topic Meningococcal Immunization (ACWY) Aged Out No longer eligible based on patient's age to complete this topic Rotavirus Immunization Aged Out No lo nger eligible based on patient's age to complete this topic Insurance [place]ICAID [place] MEDICARE C [employer] Care Teams Exchange Mechanic Relationship Specialty Start Date End Date Asmita Reardon MD [address] [place] [address] PCP - General Internal Medicine 03/18/22 Andrea Ho MD [address] [place] [address] Consulting Physician Medical Oncology 02/21/23
--- OUTSIDE RECORDS SUMMARY | 2024-09-17 14:14 | XMS_ITS | Data Portability ---
Author Organization [place] - [facility] [email or web address], Main Office Address [address] [place] [address] Care Team Providers Care Embalmer Apprentice Name Role Phone VALENTINA REARDON Primary Care Provider VALENTINA REARDON Referring Provider [phone] ILIANA JAMESON Urologist CHAGO MCWILLIAMS General Surgeon ALBINO KISER Hematology/Oncology BEBE ORTIZ Special Education Science Teacher [phone] ZAKIA BROOKS Outdoor Recreation Specialist MARIUSZ MCLAUGHLIN Psychiatrist Assessment Encounter Date Assessment Date Assessment LastModified by Organization Details LastModified Time 11/29/2023 11/29/2023 04/12/2023: [place] MCV 102.2 08/14/2023: ER Gluc 125H, TP 6.0L WBC 17.6, MCV 101.7 08/18/2023: [place] WBC 11.3, H/H 10.9/34.4, MCV 13.3 11/21/2023: MCV 102.3 (b12/folate/TS H/H/H) WNL Not available 11/29/2023 11:19:20 04/01/2024 04/01/2024 04/12/2023: [place] [facility] MCV 102.2 08/14/2023: ER Gluc 125H, TP 6.0L WBC 17.6, MCV 101.7 08/18/2023: [place] WBC 11.3, H/H 10.9/34.4, MCV 13.3 11/21/2023: [...] Lab CMP, serum or plasma 2024 025 [facility] [employer] ([employer]) [facility], [address], [place], [address], 07/22/2024 12:25:49 CBC w/ auto diff 2024 025 [facility] [employer] ([employer], [address], [place], [address], 07/22/2024 12:25:48 lipid panel, serum 2024 025 [facility] [employer] ([employer], [address], [place], [address], 07/22/2024 12:25:50 TSH, serum or plasma 2024 025 [facility] [employer] ([employer], [address], [place], [address], 07/22/2024 12:25:47 CMP, serum or plasma 2023 024 [employer] [employer] ([employer], [address], [place], [address], 04/12/2024 07:25:52 CBC w/ auto diff 2023 024 [facility], [address], [place], [address], 04/12/2024 07:25:53 T4, free, serum 2023 024 [facility], [address], [place], [address], 04/12/2024 07:25:56 TSH, serum or plasma 2023 024 [facility], [address], [place], [address], 04/12/2024 07:25:57 lipid panel, serum 2023 024 [facility], [address], [place], [address], 04/12/2024 07:25:51 vitamin D, 25-hydrox y, total, serum 2023 024 [facility], [address], [place], [address], 04/12/2024 07:25:58 vitamin B12 + folate, serum or blood 2023 024 [facility], [address], [place], [address], 04/12/2024 07:25:55 CMP, serum or plasma 2023 024 [email or web address] [facility], [address], [place], [address], 05/27/2024 12:48:29 CBC w/ auto diff 2023 024 [email or web address] [employer], [address], [place], [address], 05/27/2024 12:48:29 T4, free, serum 2023 024 [email or web address], [address], [place], [address], 05/27/2024 12:48:29 TSH, serum or plasma 2023 024 [email or web address], [address], [place], [address], 05/27/2024 12:48:29 lipid panel, serum 2023 024 [email or web address], [address], [place], [address], 05/27/2024 12:48:30 vitamin D, 25-hydrox y, total, serum 2023 024 [email or web address], [address], [place], [address], 06/03/2024 10:06:06 vitamin B12 + folate, serum or blood 2023 024 [email or web address], [address], [place], [address], 05/27/2024 12:48:30 CMP, serum or plasma 2023 024 DINORAH [facility], [address], [place], [address], 11/29/2023 16:18:10 CBC w/ auto diff 2023 024 [email or web address], [address], [place], [address], 04/15/2024 14:06:23 T4, free, serum 2023 024 [place] [address] [employer] [facility], [address], [place], [address], 04/15/2024 14:06:24 TSH, serum or plasma 2023 024 [place] [address] [facility], [address], [place], [address], 04/15/2024 14:06:24 lipid panel, serum 2023 024 [place] [address] [employer], [address], [place], [address], 04/15/2024 14:06:24 vitamin B12 + folate, serum or blood 2023 024 [place] [address] [employer], [address], [place], [address], 04/15/2024 14:06:24 Referral urologist referral - Please call patient to schedule an appointme nt. Thank you. 2024 025 [email or web address] Mayito Florence MD, [address] [facility] [address], [place], [address], 07/22/2024 17:38:23 general surgeon referral - Please call patient to schedule an appointme nt. Thank you. 2024 025 BRITT Mcwilliams MD, [address] [facility] [address], [address], [place], [address], 07/22/2024 18:25:19 urologist referral 2023 024 [email or web address] Iliana Jameson, [address] [facility], [facility] [address], [place], [address], 04/02/2024 12:58:04 podiatris t referral - Please call patient to schedule. 2023 024 bucky Davidson DPM, [address] [facility], [address], [place], [address], 07/04/2024 14:23:44 pulmonolo gist referral - Please call patient to schedule. 2023 024 [email or web address] Lisy Lowry CONCRETE MIXER OPERATOR HELPER-C, [address] [facility], [address], [place], [address], 04/15/2024 16:50:54 cardiolog ist referral - Please call patient to schedule. 2023 024 DINORAH King MD, [address] [facility], [address], [place], [address], 07/15/2024 14:40:31 dermatolo gist referral - Please call patient to schedule. 2023 024 [facility], [facility] [place], [address], 07/04/2024 14:23:01 urologist referral 2023 024 [email or web address] Iliana Jameson, [address], [facility] [address], [place], [address], 05/27/2024 12:48:46 podiatris t referral 2023 024 Garth Davidson DPM, [address], [address], [place], [address], 04/02/2024 14:16:21 pulmonolo gist referral 2023 024 [email or web address] Jordana Mcintyre, [address] [place] [address] [address], [place], [address], 04/02/2024 14:16:03 general surgeon referral 2023 024 [email or web address] Chago Mcwilliams MD, [address] [facility] [address], [address], [place], [address], 12/27/2023 11:29:21 cardiolog ist referral 2023 024 [place] [address] Camille King MD, [address] [facility], [address], [place], [address], 04/02/2024 14:15:29 dermatolo gist referral 2023 024 [place] [address] [facility], [address] [place], [address], 04/02/2024 14:15:50 Procedures None recorded. Surgeries None recorded. Imaging LDCT, chest, for lung cancer screening - Updated order. No prior auth needed [address], [address] [facility] [address], [place], [address], 09/05/2024 16:17:03 LDCT, chest, for lung cancer screening [address], [address], [address], [place], [address], 05/28/2024 16:30:22 XR, chest, 2 view 2023 024 [facility], [address], [address], [place], [address], 06/14/2024 16:36:14 DEXA, axial skeleton [address], [address], [address], [place], [address], 04/01/2024 15:20:55 DEXA, axial skeleton [address], [address], [address], [place], [address], 06/17/2024 15:54:15 Medication Orders rosuvasta tin 5 mg tablet 2023 024 [facility] [place], [address], 07/22/2024 12:01:55 Patient TargetsNo targets recorded. Patient Instructions Encounter Date Encounter Id Patient Instructions Last Modified By Organization Details Last Modified Time 12/29/2023 [id number] plan 1. I am not concerned about a hemorrhagic cyst only 1 cm and it has been chronic. 2. she has no enhancing masses in the kidney so there is no concern about cancer 3. She will just continue her care for her hysterectomy and then eventually Dr. Florence will perform robotic bladder suspension 4. follow up as needed [email or web address] Javier Not available 12/29/2023 19:13:33 Reason for Referral Urologist Referral for Renal mass Referring Physician: Wanda Noonan Medicine, Encounter Date: 11/29/2023 Entry Level Marketing Assistant Referral for S kin lesion Referring Physician: Valentina Reardon Internal Medicine, Encounter Date: 11/29/2023 Ms Sql Developer Referral for Co ronary arteriosclerosis Referring Physician: Wanda Noonan Medicine, Encounter Date: 11/29/2023 General Surgeon Referral for Diverticulitis Referring Physician: Wanda Noonan Medicine, Encounter Date: 11/29/2023 Section Plotter Operator Referral for C hronic cough Referring Physician: Valentina Reardon Internal Medicine, Encounter Date: 11/29/2023 Pharmacist Apprentice Referral for Onyc homycosis Referring Physician: Wanda Noonan Medicine, Encounter Date: 11/29/2023 Urologist Referral for Renal mass Referring Physician: Wanda Noonan Medicine, Encounter Date: 04/01/2024 Entry Level Marketing Assistant Referral for S kin lesion Please call patient to schedule. Referring Physician: Wanda Noonan Medicine, Encounter Date: 04/01/2024 Ms Sql Developer Referral for Co ronary arteriosclerosis Please call patient to schedule. Referring Physician: Valentina Reardon Internal Medicine, Encounter Date: 04/01/2024 Section Plotter Operator Referral for C hronic cough Please call patient to schedule. Referring Physician: Valentina Reardon Internal Medicine, Encounter Date: 04/01/2024 Pharmacist Apprentice Referral for Onyc homycosis Please call patient to schedule. Referring Physician: Valentina Reardon, Internal Medicine, Encounter Date: 04/01/2024 Urologist Referral for Renal mass Please call patient to schedule an appointment. Thank you. Referring Physician: Valentina Reardon, Internal Medicine, Encounter Date: 07/22/2024 General Surgeon Referral for Diverticulitis Please call patient to schedule an appointment. Thank you. Referring Physician: Valentina Reardon, Internal Medicine, Encounter Date: 07/22/2024 Results Created Date Observation Date Name Description Value Unit Range Abnormal Flag Note LastModifiedBy Organization Detail LastModifiedTime 04/11/2004/12/2024 LIPID PANEL , [place] cholesterol, total 117 mg/dL <200 normal Not Available [facility] [place] [address] [place], [address], 04/12/2024 07:25:51 04/11/20 24 04/12/2024 LIPID PANEL , [place] HDL cholesterol 47 mg/dL > or = 50 low Not Available [facility] [place] [address] [place], [address], 04/12/2024 07:25:51 04/11/20 24 04/12/2024 LIPID PANEL , [place] triglyceride s 176 mg/dL <150 high Not Available [facility] [address] [place], [address], 04/12/2024 07:25:51 04/11/20 24 04/12/2024 LIPID PANEL [...] 310(1 9): 2061- 2068 (http ://ed ucati on.SkiApps.com. Blue Medora/f aq/FA Q164) Not Available [facility] [place] [address] [place], [address], 04/12/2024 07:25:51 04/11/20 24 04/12/2024 LIPID PANEL , [place] chol/HDLC ratio 2.5 (calc ) <5.0 normal Not Available [facility] [place] [address] [place], [address], 04/12/2024 07:25:51 04/11/20 24 04/12/2024 LIPID PANEL , [place] non HDL cholesterol 70 mg/dL _(zachary c) <130 normal For patie nts with diabe ashlyn plus 1 major ASCVD risk facto r, treat ing to a non-H DL-C goal of <100 mg/dL (LDL- C of <70 mg/dL ) is consi dered a thera peuti c optio n. Not Available [facility] [address] [place], [address], 04/12/2024 07:25:51 04/11/20 24 04/12/2024 COMPR EHENS CHELSEY METAB OLIC PANEL glucose 96 mg/dL 65-99 normal Fasti ng refer ence inter swetha Not Available [facility] [place] [address] [place], [address], 04/12/2024 07:25:52 04/11/20 24 04/12/2024 COMPR EHENS CHELSEY METAB OLIC PANEL urea nitrogen (BUN) 18 mg/dL 7-25 normal Not Available [address], [address], 04/12/2024 07:25:52 04/11/20 24 04/12/2024 COMPR EHENS CHELSEY METAB OLIC PANEL creatinine 0.70 mg/dL 0.60-1 .00 normal Not Available [address], [address], 04/12/2024 07:25:52 04/11/20 24 04/12/2024 COMPR EHENS CHELSEY METAB OLIC PANEL eGFR 92 mL/mi n/1.7 3m2 > or = 60 normal Not Available [address], [address], 04/12/2024 07:25:52 04/11/20 24 04/12/2024 COMPR EHENS CHELSEY METAB OLIC PANEL BUN/creatini ne ratio SEE NOTE: (calc ) 6-22 Not Repor kike: BUN and Creat inine are withi n refer ence range . Not Available [address], [address], 04/12/2024 07:25:52 04/11/20 24 04/12/2024 COMPR EHENS CHELSEY METAB OLIC PANEL sodium 141 mmol/ L 135-14 6 normal Not Available [address], [address], 04/12/2024 07:25:52 04/11/20 24 04/12/2024 COMPR EHENS CHELSEY METAB OLIC PANEL potassium 4.3 mmol/ L 3.5-5. 3 normal Not Available [address], [address], 04/12/2024 07:25:52 04/11/20 24 04/12/2024 COMPR EHENS CHELSEY METAB OLIC PANEL chloride 102 mmol/ L 98-110 normal Not Available [address], [address], 04/12/2024 07:25:52 04/11/20 24 04/12/2024 COMPR EHENS CHELSEY METAB OLIC PANEL carbon dioxide 33 mmol/ L 20-32 high Not Available [address], [address], 04/12/2024 07:25:52 04/11/20 24 04/12/2024 COMPR EHENS CHELSEY METAB OLIC PANEL calcium 9.2 mg/dL 8.6-10 .4 normal Not Available [address], [address], 04/12/2024 07:25:52 04/11/20 24 04/12/2024 COMPR EHENS CHELSEY METAB OLIC PANEL protein, total 6.0 g/dL 6.1-8. 1 low Not Available [address], [address], 04/12/2024 07:25:52 04/11/20 24 04/12/2024 COMPR EHENS CHELSEY METAB OLIC PANEL albumin 3.6 g/dL 3.6-5. 1 normal Not Available [address], [address], 04/12/2024 07:25:52 04/11/20 24 04/12/2024 COMPR EHENS CHELSEY METAB OLIC PANEL globulin 2.4 g/dL_ (calc ) 1.9-3. 7 normal Not Available [address], [address], 04/12/2024 07:25:52 04/11/20 24 04/12/2024 COMPR EHENS CHELSEY METAB OLIC PANEL albumin/glob ulin ratio 1.5 (calc ) 1.0-2. 5 normal Not Available [address], [address], 04/12/2024 07:25:52 04/11/20 24 04/12/2024 COMPR EHENS CHELSEY METAB OLIC PANEL bilirubin, total 0.4 mg/dL 0.2-1. 2 normal Not Available [address], [address], 04/12/2024 07:25:52 04/11/20 24 04/12/2024 COMPR EHENS CHELSEY METAB OLIC PANEL alkaline phosphatase 52 U/L 37-153 normal Not Available [address], [address], 04/12/2024 07:25:52 04/11/20 24 04/12/2024 COMPR EHENS CHELSEY METAB OLIC PANEL AST 13 U/L 10-35 normal Not Available [address], [address], 04/12/2024 07:25:52 04/11/20 24 04/12/2024 COMPR EHENS CHELSEY METAB OLIC PANEL ALT 11 U/L 6-29 normal Not Available [address], [address], 04/12/2024 07:25:52 04/11/20 24 04/12/2024 CBC (INCL UDES DIFF/ PLT) white blood cell count 9.4 thous and/u L 3.8-10 .8 normal Not Available [address], [address], 04/12/2024 07:25:53 04/11/20 24 04/12/2024 CBC (INCL UDES DIFF/ PLT) red blood cell count 4.32 jonny on/uL 3.80-5 .10 normal Not Available [address], [address], 04/12/2024 07:25:53 04/11/20 24 04/12/2024 CBC (INCL UDES DIFF/ PLT) hemoglobin 14.0 g/dL 11.7-1 5.5 normal Not Available [address], [address], 04/12/2024 07:25:53 04/11/20 24 04/12/2024 CBC (INCL UDES DIFF/ PLT) hematocrit 44.6 % 35.0-4 5.0 normal Not Available [facility] [address], [address], 04/12/2024 07:25:53 04/11/20 24 04/12/2024 CBC (INCL UDES DIFF/ PLT) MCV 103.2 fL 80.0-1 00.0 high Not Available [address], [address], 04/12/2024 07:25:53 04/11/20 24 04/12/2024 CBC (INCL UDES DIFF/ PLT) MCH 32.4 pg 27.0-3 3.0 normal Not Available [address], [address], 04/12/2024 07:25:53 04/11/20 24 04/12/2024 CBC (INCL UDES DIFF/ PLT) MCHC 31.4 g/dL 32.0-3 6.0 low For adult s, a sligh t decre ase in the calcu lated MCHC value (in the range of 30 to 32 g/dL) is most likel y not clini litzy collinsi kameron t; mary er, it shoul d be inter prete d with cauti on in corre latio n with other red cell imelda eters and the patie nt's clini zachary condi tion. Not Available [facility] [address], [address], 04/12/2024 07:25:53 04/11/20 24 04/12/2024 CBC (INCL UDES DIFF/ PLT) RDW 12.8 % 11.0-1 5.0 normal Not Available [address], [address], 04/12/2024 07:25:53 04/11/20 24 04/12/2024 CBC (INCL UDES DIFF/ PLT) platelet count 251 thous and/u L 140-40 0 normal Not Available [address], [address], 04/12/2024 07:25:53 04/11/20 24 04/12/2024 CBC (INCL UDES DIFF/ PLT) MPV 11.2 fL 7.5-12 .5 normal Not Available [address], [address], 04/12/2024 07:25:53 04/11/20 24 04/12/2024 CBC (INCL UDES DIFF/ PLT) absolute neutrophils 6383 cells /uL 1500-7 800 normal Not Available [address], [address], 04/12/2024 07:25:53 04/11/20 24 04/12/2024 CBC (INCL UDES DIFF/ PLT) absolute lymphocytes 2209 cells /uL 850-39 00 normal Not Available [address], [address], 04/12/2024 07:25:53 04/11/20 24 04/12/2024 CBC (INCL UDES DIFF/ PLT) absolute monocytes 564 cells /uL 200-95 0 normal Not Available [address], [address], 04/12/2024 07:25:53 04/11/20 24 04/12/2024 CBC (INCL UDES DIFF/ PLT) absolute eosinophils 197 cells /uL 15-500 normal Not Available [address], [address], 04/12/2024 07:25:53 04/11/20 24 04/12/2024 CBC (INCL UDES DIFF/ PLT) absolute basophils 47 cells /uL 0-200 normal Not Available [address], [address], 04/12/2024 07:25:53 04/11/20 24 04/12/2024 CBC (INCL UDES DIFF/ PLT) neutrophils 67.9 % normal Not Available [address], [address], 04/12/2024 07:25:53 04/11/20 24 04/12/2024 CBC (INCL UDES DIFF/ PLT) lymphocytes 23.5 % normal Not Available [address], [address], 04/12/2024 07:25:53 04/11/20 24 04/12/2024 CBC (INCL UDES DIFF/ PLT) monocytes 6.0 % normal Not Available [address], [address], 04/12/2024 07:25:53 04/11/20 24 04/12/2024 CBC (INCL UDES DIFF/ PLT) eosinophils 2.1 % normal Not Available [address], [address], 04/12/2024 07:25:53 04/11/20 24 04/12/2024 CBC (INCL UDES DIFF/ PLT) basophils 0.5 % normal Not Available [address], [address], 04/12/2024 07:25:53 04/11/20 24 04/12/2024 VITAM IN [...] pg/mL will have sympt oms. Not Available [facility] [address], [address], 04/12/2024 07:25:54 04/11/20 24 04/12/2024 VITAM IN B12/F OLATE , SERUM PANEL folate, serum >24.0 NG/mL normal Refer ence Range Low: <3.4 Borde rline : 3.4-5 .4 Faby l: >5.4 Not Available [facility] [address], [address], 04/12/2024 07:25:54 04/11/20 24 04/12/2024 T4, FREE T4, free 0.9 NG/dL 0.8-1. 8 normal Not Available [facility] [address], [address], 04/12/2024 07:25:56 04/11/20 24 04/12/2024 TSH TSH 1.60 mIU/L 0.40-4 .50 normal Not Available [facility] [address], [address], 04/12/2024 07:25:57 04/11/20 24 04/12/2024 VITAM IN D,25- OH,TO AMRCK,I A vitamin D,25-oh,tota l,ia 70 NG/mL 30-100 [...] /MS is recom araceli d: order code 25635 (waqar ents >2yrs ). See Note 1 Note 1 For addit ional infor collin jones e refer to http: //[facility] hever Soto stDia gnost ics.c om/fa q/FAQ 199 (This link is being provi ded for infor jammie nal/ educa josie l purpo ses only. ) Not Available [facility] [address], [place], [address], 04/12/2024 07:25:58 04/25/20 24 04/25/2024 MAMMO , scree sameer, digit al, bilat eral No observ ation record ed. [address], [address], 05/17/2024 12:40:13 05/27/19 25 05/27/2024 CT, abdom en + pelvi s, w/ contr ast No observ ation record ed. [place] [address], [place], [address], 05/28/2024 15:32:41 06/14/19 25 06/14/2024 XR, chest , 2 view No observ ation record ed. [address], [address], 06/14/2024 16:36:14 07/31/19 25 07/29/2024 imagi ng/di agnos tic resul t No observ ation record ed. [address], [address], 07/30/2024 13:10:17 Result Notes None recorded. Problems Name Problem SNOMED Code Status Onset Date Resolution Date Notes Provider Name and Address Organization Details Recorded Time Anemia 613914726 Active 2021 Not Available [facility] 3 00:26:25 Hypertrigl yceridemia 027969383 Active 2021 Not Available [facility] 3 00:26:25 Diverticul itis 021078140 Active 2021 Not Available [facility] 3 00:26:25 Acute urinary tract infection 710385384 Active 2021 Not Available [facility] 3 00:26:25 Coronary arterioscl erosis 06787766 Active 2021 Not Available [facility] 3 00:26:25 Candidiasi s of vagina 70440856 Active 2021 Not Available [facility] 3 00:26:25 COVID-19 296717272 Active 2022 Not Available [facility] 3 00:26:25 Skin lesion 05286015 Active 2022 Valentina mcnamara MD [address], [address], [place], [address] , [facility] 3 14:49:35 Serum vitamin B12 below reference range 830112831 Active 2022 Valentina mcnamara MD [address], [address], [place], [address] , [facility] 3 14:49:41 Allergic rhinitis 36384235 Active 2022 Valentina mcnamara MD [address], [address], [place], [address] , [facility] 3 14:49:47 Chronic cough 27372714 Active 2022 Valentina mcnamara MD [address], [place], [address] , [facility] 3 14:50:02 Schizoaffe ctive disorder 79500180 Active 2022 Valentina mcnamara MD [address], [address], [place], [address] , [facility] [employer] [facility] 3 14:50:10 Hyperlipid emia 77439161 Active 2022 Valentina mcnamara MD [address], [facility] [address], [place], [address] , [facility] [place] [employer] [facility] 3 14:50:20 Onychomyco sis 253298297 Active 2022 Valentina mcnamara MD [id number]|2024-09-17 14:14:00|2024-09-17 14:13:00|XMS_ITS|BKG DAEMON|External Medical Summaries|[id number]|" CONTINUITY OF CARE DOCUMENT Created on: September 17, 2024 Shelby Benitez : 1950 Sex: Female Author Name taran chirinos Address Unknown Organization [facility] Address [address] [address] [place] [address] Phone [phone] Care Team Providers Care Embalmer Apprentice Name Role Phone Camille King MD Unavailable [phone] VALENTINA REARDON MD Unavailable [phone] VALENTINA REARDON MD Unavailable [phone] PROBLEMS Condition Status Date Provider Notes Cardiology examination active Nettie Ventim iglia CONCRETE MIXER OPERATOR HELPER Tobacco abuse, continuous active Nettie Jereym timiglia CONCRETE MIXER OPERATOR HELPER Hyperlipidemia active Nettie Ventimiglia FN P Shortness of breath active Nettie Ventimigl ia [employer] HELPER Arthritis - osteo active Camille Vega HTN essential active Camille King MD Preop cardiovasc. examination active Mariusz King MD Cardiovascular Condition Screening active S ruben King MD ENCOUNTERS Date Type Provider Location Encounter Diag nosis 3 - 4 In-person encounter Office Visit Camille King MD [facility] Office Preop cardiovasc. examinationCardiovascular Condition Screening 1 - 8 In-person encounter Office Visit Camille King MD [facility] Office 1 - 2 In-person encounter Office Visit Camille King MD [place] Arthritis - osteoHTN essential 8 - 1 In-person encounter Office Visit Camille King MD [facility] Cardiology examinationTobacco abuse, continuousHyperlipidemiaShortness of breath VITAL SIGNS Date Observation Value Provider Body Mass Index (Ratio) 38.37 kg/m2 Melinda King MD blood pressure, diastolic 79 mm[Hg] Li nkLogic blood pressure, systolic 122 mm[Hg] Rolanda kLogic respiratory rate E&M 14 /min Cjcris metzger pulse rate 102 /[facility], [facility] 79 mm[Hg] Ky cris [place] blood pressure, systolic 122 mm[Hg] Kyl ia [place] oxygen saturation, oximetry 98 % [facility] weight E&M 209.8 [lb_av] [facility] blood [facility], cuff size regular Ky cris [place] height E&M 62 [in_i] Cjanders Isidoro Body Mass Index (Ratio) 38.59 kg/m2 Mauricio al Mayo blood pressure, diastolic 76 mm[Hg] Daphne villarreal Kal blood pressure, systolic 109 mm[Hg] Katelyn mcnamara Kal oxygen saturation, oximetry 95 % Ashtyn Kal pulse rate 85 /min Ashtyn Kal weight E&M 211 [lb_av] Ashtyn Kal blood pressure, cuff size large An cherelle Kal height E&M 62 [in_i] Ashtyn Kal Body Mass Index (Ratio) 37.67 kg/m2 Melinda King MD blood pressure, diastolic 87 mm[Hg] Stephanie devan Allison blood pressure, systolic 140 mm[Hg] Javier tonja lAlison oxygen saturation, oximetry 96 % Josey Allison pulse rate 69 /min Josey vega weight E&M 206 [lb_av] Josey vega respiratory rate E&M 16 /min Chasidy Allison blood pressure, cuff size large Stephanie devan Allison height E&M 62 [in_i] Josey vega Body Mass Index (Ratio) 37.49 kg/m2 Melinda King MD blood pressure, diastolic 70 mm[Hg] Ri devan Osorio blood pressure, systolic 101 mm[Hg] Albino tonja Osorio blood pressure, cuff size large Ri devan Osorio oxygen saturation, oximetry 95 % Nettie Ventimiglia CONCRETE MIXER OPERATOR HELPER respiratory rate E&M 16 /min Sravanthi Ac pulse rate 90 /min Lindsay Leanajesus son weight E&M 205 [lb_av] Lindsay weems height [...] TABLET BY MOUTH ONCE DAILY AT BEDTIME [facility] tamoxifen 20 mg tablet active Take 1 tablet by mouth once daily Mendez Snow NP Crestor 5 mg tablet completed TAKE ONE TAB LET ONCE DAILY AT BEDTIME - [facility] aspirin 81 mg tablet,delayed release (DR/EC) active TAKE 1 TABLET BY MOUTH EVERY DAY Camille Reagantenanders 300 mg suspension,extended rel recon active 1 [...] HCl 500 mg tablet completed - Mendez Burrellmelina HERRERA SOCIAL HISTORY Date Observation Value Provider drug use no Radha Araujori TELETYPE TECHNICIAN alcohol use no Radha Dixonluri TELETYPE TECHNICIAN smoking/tobacco cess ation, patient education and counseling yes Radha Dixonluri TELETYPE TECHNICIAN number of years as a smoker 40 a Radha Dixonluri TELETYPE TECHNICIAN smoking history, tot al pack/day 5 Radha Nalluri TELETYPE TECHNICIAN cigarette use yes Radha Dixonlur i TELETYPE TECHNICIAN smoking status Current every da y smoker Radha Dixonluri TELETYPE TECHNICIAN social history reviewed E&M revi ewed - no changes required Mendez Burrellmelina HERRERA social history E&M S moking History: P atmichael currently smokes every day. P atmichael has been counseled to quit. Mendez Burrellmelina HERRERA drug use no Mendez Burrellmleina HERRERA alcohol use no Mendez Burrellmelina HERRERA smoking/tobacco cess ation, patient education and counseling yes Ashtyn Bowden number of years as a smoker 40 a Ashtyn Bowden cigarette use yes Ashtyn Bowden smoking status Current every da y smoker Ashtyn Bowden number of grandchildren Camille King MD smoking/tobacco cess ation, patient education and counseling yes Camille King MD social history E&M S moking History: P laly currently smokes every day. Camille King MD social history reviewed E&M revi ewed - no changes required Camille King MD number of years as a smoker 40 a Josey Allison smoking history, tot al pack/day 5 Josey Allison cigarette use yes Josey Long[place] nd smoking status Current every da y smoker Josey Allison drug use no Nettie Ventimig cris [facility] alcohol use no Nettie Ventimig cris [facility] number of years as a smoker 40 a Nettie Cheng [facility] smoking history, tot al pack/day 5 Nettie Cheng [facility] cigarette use yes Lindsay luis smoking status Current every da y smoker Lindsay Osorio [employer]ANCE PROVID[employer] Payer name Policy type / Coverage type Dejah red alliance party ID AARP MEDICARE ADVANTAGE HMO-POS HMO [id number] ADVANCE DIRECTIVES Name Date DISCUSSED - NO DECISION MADE TREATMENT PLAN Date Name Performer [id number],C, R eports symptoms at baseline. She is daily smoker. Mendez Snow JAVIER [id number],C, R ecently had a steroid injection to her L knee. Follows with Ortho (Vernon Chahal MD) at [facility]. Mendez Snow TELETYPE TECHNICIAN [id number],C, C urrently smokes 8 cigs per day. Mendez Snow TELETYPE TECHNICIAN [id number],C, H er updated medication list for this problem includes: Fenofibrate Nanocrystallized 145 Mg Tablet (Fenofibrate nanocrystallized) ..... Take 1 tablet by mouth once daily Crestor 5 Mg Tablet (Rosuvastatin) ..... Take one tablet once daily at bedtime Mendez Snow JAVIER [id number],C, W ell controlled. B P today: 109/76 P rior BP: 140/87 (04/27/2022) Labs Reviewed: C hol: 161 (04/26/2022) HDL: 48 (04/26/2022) LDL: 90 MG/DL (CALC) (04/26/2022) T (04/26/2022) Her updated medication list for this problem includes: Aspirin 81 Mg Tablet,delayed Release (dr/ec) (Aspirin) ..... Take 1 tablet by mouth every day Mendez Snow TELETYPE TECHNICIAN [id number],C,R emain on gemfibrizole. 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 Will like to to put her low dose stain. Try Crestor 5mg daily. Camille King MD [id number],C,T he Patient was reencouraged to stop smoking. P atient has SOB with activity may be secondary to COPD vs CAD. Patient had CT chest recently that showed suggestion of CAD. Given that will do echo, lexiscan stress and coronary calcium score. Will also check lipids. Will f/u post testing or sooner if needed. testing completed Camille King MD [id number],C,D iscussion of benefits for remote patient monitoring took place. Patient gives consent for remote monitoring of physiologic parameters including, but not limited to, weight, blood pressure, pulse oximetry, respiratory flow rate. B P today: 140/87 P rior BP: 101/70 (03/04/2022) Labs Reviewed: C hol: 161 (04/26/2022) HDL: 48 (04/26/2022) LDL: 90 MG/DL (CALC) (04/26/2022) T (04/26/2022) Camille King MD [id number],C,R isk stratification done. MIld CAD based on CT. Preserved LV function based echo and stress. COntinue risk factor modicfication. Camille King MD [id number],C,M ost likely cause of her joint discomfort Camille King MD [id number],S,Cessation enc ouraged Nettie Cheng [facility] [id number],S,w ill get recent labs from her primary she is on fenofibrate alone. Given coronary calcification on CT chest may need statin H er updated medication list for this problem includes: Fenofibrate Nanocrystallized 145 Mg Tablet (Fenofibrate nanocrystallized) Nettie Cheng [facility] [id number],S,P atient has SOB with activity may be secondary to COPD vs CAD. Patient had CT chest recently that showed suggestion of CAD. Given that will do echo, lexiscan stress and coronary calcium score. Will also check lipids. Will f/u post testing or sooner if needed. O rders: 9 9204 MOD 45-59 min (CPT-36253) C omplete Echo (CPT-47789) S tress Regadenoson (CPT-75348) C T, Coronary Calcium Score (CPT-25634) L IPID PANEL (9716) Nettie Ventimiglia CONCRETE MIXER OPERATOR HELPER Cardiology: smoke le ssathn 1/2 PPD e nocuraged cessation. Radha Nalluri TELETYPE TECHNICIAN Cardiology: R eports symptoms at baseline. She is daily smoker, smoke lessathn 1/2 PPD Radha Nalluri TELETYPE TECHNICIAN Cardiology:Stable Radha Nallur i TELETYPE TECHNICIAN Cardiology: B P today: 122/79 P rior BP: 109/76 (01/05/2023) Labs Reviewed: C hol: 161 (04/26/2022) HDL: 48 (04/26/2022) LDL: 90 MG/DL (CALC) (04/26/2022) T (04/26/2022) W ell controlled T his visit has been a part of the consistent, comprehensive, and ongoing management of the chronic medical condition(s) listed above for the patient. Radha Nalluri TELETYPE TECHNICIAN Cardiology:The patie nt denies episodes of chest [...] or lower scores. Camille King MD Cardiology: Mac eports symptoms at baseline. She is daily smoker. Mendez Snow NP Cardiology: Mac eli had a steroid injection to her L knee. Follows with Ortho (Vernon Chahal MD) at [facility]. Mendez Snow NP Cardiology: Dale urrently smokes [...] Camille King MD Cardiology:Cessation encouraged Nettie Cheng [facility] Cardiology:will get recent labs from her primary she is on fenofibrate alone. Given coronary calcification on CT chest may need statin H er updated medication list for this problem includes: Fenofibrate Nanocrystallized 145 Mg Tablet (Fenofibrate nanocrystallized) Nettie Cheng [facility] Cardiology:Patient h as SOB with activity may be secondary to COPD vs CAD. Patient had CT chest recently that showed suggestion of CAD. Given that will do echo, lexiscan stress and coronary calcium score. Will also check lipids. Will f/u post testing or sooner if needed. O rders: 9 9204 MOD 45-59 min (CPT-90596) C omplete Echo (CPT-90315) S tress Regadenoson (CPT-86643) C T, Coronary Calcium Score (CPT-28743) L IPID PANEL (7170) Nettie Cheng [facility] Date Name X-Ray, Chest 2 View LIPID [...] completed EKG Camille King MD compl eted "
== END 2024-09-17 13:55 | disposition home or self-care (01) ==
PROVIDERS: PCP Internal Medicine; Visit Provider Internal Medicine
DX: M85.852 Other specified disorders of bone density and structure, left thigh (principal); M81.0 Age-related osteoporosis without current pathological fracture
CPT/HCPCS: 77080

== ENCOUNTER 2024-12-25 10:07 | Emergency (ER) | payer MEDICARE, MEDICAID, SELFPAY ==
--- NOTE | 2024-12-25 10:11 | ED.URI ---
HPI - URI/Sore Throat General Chief Complaint: Upper Respiratory Infection Stated Complaint: COUGH/CONGESTION Time Seen by Provider: 12/25/24 10:11 Source: patient Mode of arrival: ambulatory Limitations: no limitations History of Present Illness HPI Narrative: Shelby is a 74-year-old female patient presenting to the clinic today with complaints of productive cough with yellow phlegm, nasal congestion, chest congestion and possible UTI. She reports cough, congestion has been going on for approximately 1.5 weeks and urinary frequency for the past week. Also notes some araujo vaginal discharge on her pad but she denies any vaginal itching, pelvic pain, or odor. Patient is a former smoker. No known fever, chills, body aches, back pain, abdominal pain, nausea, vomiting, or diarrhea. Related Data Home Medications ?Medication ?Instructions ?Recorded ?Confirmed ?Last Taken ?Type aripiprazole 300 mg suspension, 300 mg IM Q28D 03/01/22 12/25/24 08/03/23 History extended rel. intramuscular syringe (Suzy Delarosa) cetirizine 10 mg tablet 10 mg PO DAILY 03/01/22 12/25/24 1 Day Ago History ~08/14/23 duloxetine 30 mg capsule,delayed 30 mg PO HS 03/01/22 12/25/24 1 Day Ago History release (Cymbalta) ~08/14/23 aspirin 81 mg tablet,delayed 81 mg PO DAILY 05/12/22 12/25/24 1 Day Ago History release (Adult Low Dose Aspirin) ~08/14/23 itkyucgerlum-xruolpfd-fnrlcd tablet 1 tablet PO DAILY 07/27/22 12/25/24 1 Day Ago History ~08/14/23 rosuvastatin 5 mg tablet (Crestor) 5 mg PO DAILY 07/27/22 12/25/24 1 Day Ago History ~08/14/23 tamoxifen 20 mg tablet 20 mg PO DAILY 08/04/22 12/25/24 1 Day Ago History ~08/14/23 cholecalciferol (vitamin D3) 50 50 mcg PO DAILY 01/10/23 12/25/24 1 Day Ago History mcg (2,000 unit) capsule ~08/14/23 Lactobacillus acidophilus 10 mg PO DAILY 09/27/23 12/25/24 Unknown History (Acidophilus capsule) Allergies Allergy/AdvReac Type Severity Reaction Status Date / Time niacin AdvReac Rash, Verified 12/25/24 10:08 BURNING SENSATION Review of Systems Review of Systems: Pertinent positives per HPI. Patient denies any fever, chills, rash, headache, visual changes, dizziness, cough, shortness of breath, chest pain, palpitations, nausea, vomiting, diarrhea, constipation, abdominal pain. [facility] Past Medical History Medical History Cataract Breast cancer Obesity Hyperlipidemia Schizoaffective disorder Surgical History Surgical History History of tubal ligation S/P lumpectomy of breast Family History Family History Grandparent No problems noted. Mother Carcinoma of colon Social History Social History Smoking packs per day: 2.5 Smoking cigarettes per day: 50.0 Years smoked: 50 Smoking pack-years: 125.00 Smoking status: Former smoker Smoking end date: 08/18/23 Alcohol intake: current Alcohol use details: occasionally Substance use type: does not use Do You Feel Safe in your Home?: Yes Lack of Transportation: No Lack of Food: Never True Current Housing: I Have Housing Concerned About Future Housing: No Difficulty Paying Gas/Electric Bills: No Difficulty Paying for Meds: No Currently Unemployed: No Education: High School Diploma/GED Difficulty w/ Childcare or Family Care: No Living arrangements: with family Additional living arrangements comments: DAUGHTER AND MYLES Occupation/Education: retired Gender identity (if verbalized by the patient): Female Spiritual care concerns: No Comments At the time of my signature, I reviewed and agree with the nursing past medical, surgical, social, and family history. There is no relevant family history pertinent to the patient complaint. Exam Narrative: General: Well-developed, obese, in no apparent distress Head: Normocephalic, atraumatic Eyes: Pupils equally round and reactive to light bilaterally, EOM intact, sclera and conjunctive clear, no discharge, lids normal Ears: TMs intact and clear, ear canals clear, no drainage, grossly hearing normal. Nose: Nares patent, yellow nasal discharge, body inflammation, no sinus tenderness. Mouth: Oral pharynx red without lesions or masses, good dentition, MMM. Postnasal drip Neck: Supple, trachea midline, no enlargement of anterior or posterior cervical nodes, no thyroid masses or goiter palpable. Cardio: Regular rate and rhythm, s1 and s2 normal, no murmur appreciated. Resp: Clear to auscultation bilaterally, no rhonchi, rales, wheezing or rubs Abdomen: Soft, pliable, bowel sounds present in all quadrants, non-tender to palpation, no organomegly, no CVAT tenderness. : Deferred Course Course Emergency Course: Portions of this record may have been created with voice recognition software. Level of Care: Express Care Visit Vital Signs Vital signs: Vital Signs Oxygen Delivery Room Air 12/25/24 10:10 Temperature 36.3 C L 12/25/24 10:16 Pulse Rate 82 12/25/24 10:16 Respiratory Rate 16 12/25/24 10:16 Blood Pressure 119/75 12/25/24 10:16 Pulse Oximetry 100 12/25/24 10:16 Oxygen Delivery Room Air 12/25/24 10:10 Vital signs reviewed MDM - URI/Sore Throat MDM Narrative Medical decision making narrative: At the time of visit patient is resting comfortably on the exam table. Patient appears to be nontoxic. complaints of productive cough with yellow phlegm, nasal congestion, chest congestion and possible UTI. She reports cough, congestion has been going on for approximately 1.5 weeks and urinary frequency for the past week. Also notes some araujo vaginal discharge on her pad but she denies any vaginal itching, pelvic pain, or odor. She is not sexually active. No concern for STIs. Patient is a former smoker. No known fever, chills, body aches, back pain, abdominal pain, nausea, vomiting, or diarrhea. UA dip was ordered Labs: Urinalysis negative for any sign of infection. Does show trace of blood. Plan: I suspect patient has sinusitis and urinary frequency. Prescriptions for Augmentin and prednisone was sent to the pharmacy. Will have patient continue use of her albuterol inhaler as needed for cough shortness of breath or wheeze. Recommend follow-up with her OBGYN her PCP in regards to her vaginal discharge-patient does not concerned about the vaginal discharge at this time as she is not having any odor, pain, or irritation. Supportive measures were discussed with the patient and they voiced understanding discharge instructions and agrees to treatment plan. Return precautions reviewed Differential Diagnosis Differential diagnosis: Likely upper respiratory infection, otitis media, sinusitis, viral infection, bronchitis, influenza, pharyngitis and other (COVID) Lab Data Labs: Lab Results 12/25/24 Range/Units 10:26 POC Urine Color Yellow POC Urine Clarity Clear POC Urine pH 7.0 POC Ur Specif [place] 1.010 POC Urine Protein Negative (Negative) POC Ur Glucose (UA) Negative (Negative) POC Urine Ketones Negative (Negative) POC Urine Blood Trace (Negative) POC Urine Nitrite Negative (Negative) POC Urine Bilirubin Negative (Negative) POC Urine Urobilinogen 0.2 POC U Leukocyte Esteras Negative (Negative) Discharge Plan Discharge Clinical Impression: Increased urinary frequency Sinusitis Qualifiers: Sinusitis location: unspecified location Chronicity: acute Recurrence: non-recurrent Qualified Code(s): J01.90 - Acute sinusitis, unspecified Patient Disposition: Home Condition: Stable Instructions: Antibiotic Form, Sinusitis (ED), Urinary Urgency and Frequency (DC) Additional Instructions: Sinusitis discharge instructions: Take prescription medications only as prescribed-Augmentin and prednisone May continue use of albuterol inhaler as needed for cough, shortness of breath, or wheezing. Increase fluids and stay well hydrated May take Tylenol or motrin as directed on bottle for pain/fever May use Flonase 1 spray in each nare daily May take OTC antihistamines such as Zyrtec or Claritin daily as directed on bottle May apply Vicks vapor rub to chest to open sinuses Sinus rinses for congestion Cepacol spray, cough drops, throat lozenges, warm tea with honey/lemon, gargle salt water to soothe throat BRAT diet for diarrhea Clear liquids x 24 hours then advance as tolerated for nausea/vomiting Go to the ED if you develop a worsening in your condition- high fever not controlled by Tylenol or Motrin, dehydration, weakness, lethargy, shortness of breath, or chest pain. Follow up with your PCP in 3-5 days if symptoms persist. UTI discharge instructions: Urine shows trace of blood in the clinic today. No sign of infection Increase fluids and stay well hydrated Wipe front to back. May use wet wipes. Avoid tub baths If sexually active- pee before and after intercourse. Wear cotton panties-change pads frequently Avoid tight clothing up against the genitals Follow up with your PCP in 1 week if symptoms persist. Patient Language: Senegalese Prescriptions: New amoxicillin-pot clavulanate 875-125 mg tablet 1 tablet PO Q12H 10 Days Qty: 20 0RF prednisone 20 mg tablet 40 mg PO DAILY 5 Days Qty: 10 0RF No Action cetirizine 10 mg Tablet 10 mg PO DAILY duloxetine [Cymbalta] 30 mg Capsule,Delayed Release(Dr/Ec) 30 mg PO HS Abilify Maintena 300 mg Suspension,Extended Rel Syring 300 mg IM Q28D aspirin [Adult Low Dose Aspirin] 81 mg Tablet,Delayed Release (Dr/Ec) 81 mg PO DAILY tamoxifen 20 mg Tablet 20 mg PO DAILY Acidophilus Capsule 10 mg PO DAILY cholecalciferol (vitamin D3) 50 mcg (2,000 unit) Capsule 50 mcg PO DAILY uyysdvmjtszv-aciprimx-gzjyiq Tablet 1 tablet PO DAILY rosuvastatin [Crestor] 5 mg Tablet 5 mg PO DAILY Follow-up/Referrals: Alexys,MD Asmita [Primary Care Provider, Unknown] Time of Disposition: 10:36 Quality NIHSS Nursing Documentation ED NIHSS nursing documentation: reviewed/agree
[2024-12-25 10:16] VITALS: BP 119/75; PULSE 82; RESP 16; TEMP 36.3; O2SAT 100
[2024-12-25 10:28] LABS: EDUAAPPEAR Clear; EDUABILI Negative (Negative); EDUABLOOD Trace (Negative); EDUACOLOR1 Yellow; EDUAGLUCOSE Negative (Negative); EDUAKETONE Negative (Negative); EDUALEUKO Negative (Negative); EDUANITRATE Negative (Negative); EDUAPH 7.0; EDUAPROTEIN Negative (Negative); EDUASPGRAVITY 1.010; EDUAUROBILI 0.2
== END 2024-12-25 10:38 | disposition home or self-care (01) ==
PROVIDERS: Emergency Provider Nurse Practitioner Family; PCP Internal Medicine
DX: R35.0 Frequency of micturition (principal); J01.90 Acute sinusitis, unspecified; Z87.891 Personal history of nicotine dependence; E78.5 Hyperlipidemia, unspecified; E66.9 Obesity, unspecified; F25.9 Schizoaffective disorder, unspecified; H26.9 Unspecified cataract; Z85.3 Personal history of malignant neoplasm of breast; Z79.82 Long term (current) use of aspirin
CPT/HCPCS: 81003; 99213; G0463

== ENCOUNTER 2025-02-25 08:03 | Emergency (ER) | payer MEDICARE, MEDICAID, SELFPAY ==
--- NOTE | ~2025-02-25 | XR_ITS ---
Examination: XR knee LT 3V Clinical History: Knee pain and swelling, NKI, 1 DAY Comparison: None Technique: 3 views left knee Findings/impression: 1. Joint effusion. 2. No fracture or dislocation. 3. Moderate medial compartment joint space narrowing with marginal osteophytes. 4. Mild patellar articular surface marginal osteophytes. Reviewed, dictated and finalized at location R.
[2025-02-25 08:02] VITALS: BP 114/82; PULSE 88; RESP 18; TEMP 36.9; O2SAT 92
[2025-02-25] MEDS: HYDROcodone/acetaminophen (*CRX) 5-325 MG TABLET 1 TAB PO (08:37)
[2025-02-25] MEDS: ACETAMINOPHEN 325 MG TABLET 650 MG PO (08:38)
--- NOTE | 2025-02-25 08:41 | PC.NURSE ---
Patient's oxygen staying between 88-92% on room air. patient states its always low when referring to her O2 sat. patient refuses supplemental oxygen when offered.
--- OUTSIDE RECORDS SUMMARY | 2025-02-25 09:16 | XMS_ITS | Clinical Summary ---
Author Organization [facility] Address [address] [place] [address] Care Team Providers Care Lemon Grower Name Role Phone Asmita Reardon MD Primary Care Provider Source Comments [facility],non-[facility] Affiliates and Associated Physician Practices is amultiple site organization consisting of ambulatory clinics and hospital sitesin [place], [place], [place] and [place]. This disclosure is being madepursuant to the Care Everywhere program and may not contain all information available regarding this patient. Last updated 18.[facility] [employer] Allergies Active Allergy Reactions Criticality Noted Date [...] Noted Date Diagnosed Date Preoperative testing 06/26/2024 Family History Medical History Relation Name Comments [...] PM CDT Pulse 86 06/27/2024 11:13 AM COMMUNICATIONS TECHNICIAN Temperature 36.6 C (97.9 F) 07/04/2024 12:33 PM COMMUNICATIONS TECHNICIAN Respiratory Rate 20 06/27/2024 7:46 AM COMMUNICATIONS TECHNICIAN Oxygen Saturation 94% 06/27/2024 11:13 AM COMMUNICATIONS TECHNICIAN Inhaled Oxygen Concentration - - Weight 95.3 kg (210 lb) 08/01/2024 1:26 PM CDT Height 157.5 cm (5' 2) 08/01/2024 1:26 PM CDT Body Mass Index [...] - COLON CA SCREENING 1952 MAMMOGRAM 1952 COVID-19 VACCINE (#1) 1957 HEPATITIS C SCREENING 03/19/1970 DTAP/TDAP/TD VACCINES (1 - Tdap) 1971 PNEUMOCOCCAL VACCINE 50+ (1 of 2 - PCV) 1971 ZOSTER VACCINE (1 of 2) 2002 Respiratory Syncytial Virus (RSV) Vaccine Pt: or over 60 yrs (1 - Risk 60-74 years 1-dose series) 2012 DEPRESSION SCREENING 05/08/2024 MEDICARE AWV CALENDAR YEAR 2024 INFLUENZA VACCINE (#1) 2025 3, 04/17/2022, 04/18/2011, Additional history exists HEPATITIS B VACCINE Aged Out No longe [...] this topic Medical Devices Implanted Type Area Dairy Equipment Specialist Device Identifier Shelf Expiration Date Model / Serial / Lot Mtrx Tissue 7x4cm [facility] Thk1.2-2mm - [id number] Implanted:Qty: 1 on 06/26/2024 by Trevor Gonzalez MD at [facility] N/A: V[employer]ina [employer] 12/05/2025 [id number] / [id number] / [id number] Insurance [facility] MANAGED MEDICARE ADV MEDICAID - OUT OF STATE [facility] MANAGED MEDICARE ADV Care Teams Lemon Grower Relationship Specialty Start Date End Date Asmita Reardon MD [address] [facility] [address] [place] [address] PCP - General Internal Medicine 01/22/24
--- OUTSIDE RECORDS SUMMARY | 2025-02-25 09:17 | XMS_ITS | Patient Health Record ---
Author Organization [facility] [employer] [facility] Address [address] [facility] [address] [place] [address] Care Team Providers Care Eeler Name Role Phone Carmencita Black PhD Primary Care Provider Unavail able Keira Rogers Unavailable [phone] Alex Marquez Unavailable [phone] Richard Dunbar Unavailable [phone] Allergies Allergen (clinical drug ingredient) Drug/Non Drug Allergy documented on EMR Reaction Allergy Type Onset Date Status niacin Niacin Unknown Drug Allergy 07/19/2023 Active Reason For Referral No Information Medications Medication SIG (Take, Route, Frequency, Duration) Notes Start Date End Date Status Acidophilus Active predniSONE 10 MG Tablet Oral 09/04/2023 Not-Taking Vitamin D Active Tamoxifen Citrate 20 MG Tablet Oral 09/04/2023 Active Abilify Maintena 300 MG Suspension Reconstituted ER INJECT INTRAMUSCULARLY EVERY MONTH IM q month; Duration: 30 days 02/14/2025 Active DULoxetine HCl 30 mg Capsule Delayed Release Particles 1 capsule oral daily; Duration: 90 days 02/14/2025 Active Cetirizine HCl 10 MG Tablet Oral 09/04/2023 Active Aspirin Adult Low Strength 81 MG Tablet Delayed Release Oral 09/04/2023 Active Rosuvastatin Calcium 5 MG Tablet Oral 09/04/2023 Active Social History Tobacco Use: Social History Observation Description Date Details (start date - stop date) Current Smoker NA - NA Sex Assigned At : Social History Observation Description Sex Assigned At Female Social History Drug/Alcohol: Social Info Question Answer Notes AUDIT-C (Standard) Did you have a drink containing alcohol in the past year? 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) Active confirmed Problem Generalized anxiety disorder (53818473) NICHOLE (generalized anxiety disorder) (F41.1) Active confirmed Problem Depression screening negative (188987549210168) Negative depression screening (Z13.31) Active confirmed Vital Signs Heart Rate 91 /min 02/14/2025 Respiratory Rate 18 /min 02/14/2025 Height-cm 157.48 cm 02/14/2025 Blood pressure diastolic 80 mm Hg 02/14/2025 Weight-kg 86.86 kg 02/14/2025 Height 62.00 in 02/14/2025 Blood pressure systolic 131 mm Hg 02/14/2025 Weight 191.5 lbs 02/14/2025 BMI 35.02 kg/m2 02/14/2025 Encounters Encounter Location Date Provider Diagnosis [facility] [employer] [place] [address] [address] [facility] [address] [facility] [address] [place] [address] 02/29/2024 Thena Manjinder Schizoaffective disorder, bipolar type F25.0 and Drug induced akathisia G25.71 [facility] [employer] [facility] [address] [facility] [address] [place] [address] 02/29/2024 Thena Manjinder [facility] [employer] [address] [place] [address] 03/29/2024 Alex Alma Schizoaffective disorder, bipolar type F25.0 [facility] [employer] [place] [address] [place] [address] 04/26/2024 Thena Manjinder Schizoaffective disorder, bipolar type F25.0 and Hypertension, unspecified type 401.9 [facility] [employer] [place] [id number] [facility] [address] [place] [address] 05/30/2024 Alex Alma Schizoaffective disorder, bipolar type F25.0 [facility] [address] [place] [address] 06/20/2024 Thena Manjinder Schizoaffective disorder, bipolar type F25.0 [facility] [address] [place] [address] 07/03/2024 Alex Lama Schizoaffective disorder, bipolar type F25.0 [facility] [address] [place] [address] 07/30/2024 Keira Thery Schizoaffective disorder, bipolar type F25.0 and Encounter for screening for cardiovascular disorders Z13.6 [facility] [address] [place] [address] 08/30/2024 Keira Thery Schizoaffective disorder, bipolar type F25.0 [facility] [address] [place] [address] 10/01/2024 Alex Alma Schizoaffective disorder, bipolar type F25.0 [facility] [address] [place] [address] 10/15/2024 Keira Thery Negative depression screening Z13.31 ; Schizoaffective disorder, bipolar type F25.0 and NICHOLE (generalized anxiety disorder) F41.1 [facility] [address] [place] [address] 10/31/2024 Alex Alma Schizoaffective disorder, bipolar type F25.0 [facility] [address] [place] [address] 11/28/2024 Alex Alma Schizoaffective disorder, bipolar type F25.0 [facility], [facility] [address] [place] [address] 02/14/2025 Keira Thery Schizoaffective disorder, bipolar type F25.0 ; Negative depression screening Z13.31 and NICHOLE (generalized anxiety disorder) F41.1 [facility], [facility] [address] [place] [address] 06/21/2024 Thena Manjinder Schizoaffective disorder, bipolar type F25.0 Assessments Encounter Date Diagnosis (ICD Code) Assessment Notes Treatment Notes Treatment Clinical Notes Section Notes 02/29/2024 Schizoaffective disorder, bipolar type (ICD-10 - F25.0) 06/20/2024 Schizoaffective disorder, bipolar type (ICD-10 - F25.0) 05/30/2024 Schizoaffective disorder, bipolar type (ICD-10 - F25.0) 02/14/2025 Negative depression screening (ICD-10 - Z13.31) 1. Schizoaffective Bipolar Abilify Maintena 300 mg monthly due 03/01/25 stable AIMS= 0 10/16/24 2. Anxiety Cymbalta 30 mg daily stable 3. SLUMS= 27 10/15/24 educated on all medications, benefits, side effects and risk, and educated on depression, anxiety, and ADHD, mood d/o and educated on compliance of medications, metabolic and movement d/o education appointment is, continue therapy discussion with patient about course of treatment and patient instructions. education on serotonin syndrome SSRI/SNRI side effects discussed including but not limited to, gastric upset, nausea, vomiting, diarrhea and/or constipation, weight changes, sexual side effects including loss of libido, increased suicidal thoughts/behavior s in children and young adults, and serotonin syndrome. Second generation antipsychotics (SGAs) have metabolic syndrome issues with weight gain, increase in prolactin, increased waist circumference, increased lipids, and increased glucose. Thus routine monitoring of weight, metabolic labs, etc. is indicated. A general rank ordering of antipsychotics that have the greatest to the least risk of metabolic effects is olanzapine, quetiapine, risperidone, ziprasidone, and aripiprazole. However, weight gain can occur with all of these drugs and considerable variability exists among patients receiving the same drug regarding the risk of metabolic effects. Anti-psychotic agents not only increase the risk of metabolic disorder, they also increase the risk of CVA, akathisia, and movement disorders including EPS or tardive dyskinesia (more common with first generation antipsychotics) and more. Elderly- discussed risks, cognition, sedation, falls, metabolic, movement and atypical antipsychotics carry a black-box warning for increased risk of and cerebrovascular events in dementia. Medication Management and Follow-Up - Plan: - Schedule follow-up appointments every 1-3 months to monitor the patient's response to the medication regimen. - Reinforce the importance of avoiding recreational drug use due to potential neurotoxicity and interactions with prescribed medications. 06/21/2024 Schizoaffective disorder, bipolar type (ICD-10 - F25.0) 07/03/2024 Schizoaffective disorder, bipolar type (ICD-10 - F25.0) Verified the injection dose and diagnosis 07/30/2024 Schizoaffective disorder, bipolar type (ICD-10 - F25.0) Verified the injection dose and diagnosis Reviewed- Keira Rogers [facility] 02/29/2024 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) 03/29/2024 Schizoaffective disorder, bipolar type (ICD-10 - F25.0) 04/26/2024 Schizoaffective disorder, bipolar type (ICD-10 - F25.0) 08/30/2024 Schizoaffective disorder, bipolar type (ICD-10 - F25.0) Verified the injection dose and diagnosis 10/01/2024 Schizoaffective disorder, bipolar type (ICD-10 - F25.0) Verified the injection dose and diagnosis 10/15/2024 Schizoaffective disorder, bipolar type (ICD-10 - F25.0) Learning About Schizoaffective Disorder material was published, Learning About How to Get Help During a Mental Health Crisis material was published, Learning About Psychiatric Advance Directives material was published 1. Schizoaffective Bipolar Abilify Maintena 300 mg monthly due 11/01/24 AIMS= 0 10/16/24 2. Anxiety Cymbalta 30 mg daily SLUMS= 27 10/15/24 educated on all medications, benefits, side effects and risk, and educated on depression, anxiety, and ADHD, mood d/o and educated on compliance of medications, metabolic and movement d/o education appointment is, continue therapy discussion with patient about course of treatment and patient instructions. education on serotonin syndrome SSRI/SNRI side effects discussed including but not limited to, gastric upset, nausea, vomiting, diarrhea and/or constipation, weight changes, sexual side effects including loss of libido, increased suicidal thoughts/behavior s in children and young adults, and serotonin syndrome. Second generation antipsychotics (SGAs) have metabolic syndrome issues with weight gain, increase in prolactin, increased waist circumference, increased lipids, and increased glucose. Thus routine monitoring of weight, metabolic labs, etc. is indicated. A general rank ordering of antipsychotics that have the greatest to the least risk of metabolic effects is olanzapine, quetiapine, risperidone, ziprasidone, and aripiprazole. However, weight gain can occur with all of these drugs and considerable variability exists among patients receiving the same drug regarding the risk of metabolic effects. Anti-psychotic agents not only increase the risk of metabolic disorder, they also increase the risk of CVA, akathisia, and movement disorders including EPS or tardive dyskinesia (more common with first generation antipsychotics) and more. Elderly- discussed risks, cognition, sedation, falls, metabolic, movement and atypical antipsychotics carry a black-box warning for increased risk of and cerebrovascular events in dementia. Medication Management and Follow-Up - Plan: - Schedule follow-up appointments every 1-3 months to monitor the patient's response to the medication regimen. - Reinforce the importance of avoiding recreational drug use due to potential neurotoxicity and interactions with prescribed medications. 10/15/2024 Negative depression screening (ICD-10 - Z13.31) 1. Schizoaffective Bipolar Abilify Maintena 300 mg monthly due 11/01/24 AIMS= 0 10/16/24 2. Anxiety Cymbalta 30 mg daily SLUMS= 27 10/15/24 educated on all medications, benefits, side effects and risk, and educated on depression, anxiety, and ADHD, mood d/o and educated on compliance of medications, metabolic and movement d/o education appointment is, continue therapy discussion with patient about course of treatment and patient instructions. education on serotonin syndrome SSRI/SNRI side effects discussed including but not limited to, gastric upset, nausea, vomiting, diarrhea and/or constipation, weight changes, sexual side effects including loss of libido, increased suicidal thoughts/behavior s in children and young adults, and serotonin syndrome. Second generation antipsychotics (SGAs) have metabolic syndrome issues with weight gain, increase in prolactin, increased waist circumference, increased lipids, and increased glucose. Thus routine monitoring of weight, metabolic labs, etc. is indicated. A general rank ordering of antipsychotics that have the greatest to the least risk of metabolic effects is olanzapine, quetiapine, risperidone, ziprasidone, and aripiprazole. However, weight gain can occur with all of these drugs and considerable variability exists among patients receiving the same drug regarding the risk of metabolic effects. Anti-psychotic agents not only increase the risk of metabolic disorder, they also increase the risk of CVA, akathisia, and movement disorders including EPS or tardive dyskinesia (more common with first generation antipsychotics) and more. Elderly- discussed risks, cognition, sedation, falls, metabolic, movement and atypical antipsychotics carry a black-box warning for increased risk of and cerebrovascular events in dementia. Medication Management and Follow-Up - Plan: - Schedule follow-up appointments every 1-3 months to monitor the patient's response to the medication regimen. - Reinforce the importance of avoiding recreational drug use due to potential neurotoxicity and interactions with prescribed medications. 10/31/2024 Schizoaffective disorder, bipolar type (ICD-10 - F25.0) Verified the injection dose and diagnosis 11/28/2024 Schizoaffective disorder, bipolar type (ICD-10 - F25.0) Verified the injection dose and diagnosis 02/14/2025 Schizoaffective disorder, bipolar type (ICD-10 - F25.0) Learning About Schizoaffective Disorder material was published, Learning About How to Get Help During a Mental Health Crisis material was published, Learning About Psychiatric Advance Directives material was published 1. Schizoaffective Bipolar Abilify Maintena 300 mg monthly due 03/01/25 stable AIMS= 0 10/16/24 2. Anxiety Cymbalta 30 mg daily stable 3. SLUMS= 27 10/15/24 educated on all medications, benefits, side effects and risk, and educated on depression, anxiety, and ADHD, mood d/o and educated on compliance of medications, metabolic and movement d/o education appointment is, continue therapy discussion with patient about course of treatment and patient instructions. education on serotonin syndrome SSRI/SNRI side effects discussed including but not limited to, gastric upset, nausea, vomiting, diarrhea and/or constipation, weight changes, sexual side effects including loss of libido, increased suicidal thoughts/behavior s in children and young adults, and serotonin syndrome. Second generation antipsychotics (SGAs) have metabolic syndrome issues with weight gain, increase in prolactin, increased waist circumference, increased lipids, and increased glucose. Thus routine monitoring of weight, metabolic labs, etc. is indicated. A general rank ordering of antipsychotics that have the greatest to the least risk of metabolic effects is olanzapine, quetiapine, risperidone, ziprasidone, and aripiprazole. However, weight gain can occur with all of these drugs and considerable variability exists among patients receiving the same drug regarding the risk of metabolic effects. Anti-psychotic agents not only increase the risk of metabolic disorder, they also increase the risk of CVA, akathisia, and movement disorders including EPS or tardive dyskinesia (more common with first generation antipsychotics) and more. Elderly- discussed risks, cognition, sedation, falls, metabolic, movement and atypical antipsychotics carry a black-box warning for increased risk of and cerebrovascular events in dementia. Medication Management and Follow-Up - Plan: - Schedule follow-up appointments every 1-3 months to monitor the patient's response to the medication regimen. - Reinforce the importance of avoiding recreational drug use due to potential neurotoxicity and interactions with prescribed medications. 02/14/2025 NICHOLE (generalized anxiety disorder) (ICD-10 - F41.1) Learning About Generalized Anxiety Disorder material was published, Generalized Anxiety Disorder: Care Instructions material was published 1. Schizoaffective Bipolar Abilify Maintena 300 mg monthly due 03/01/25 stable AIMS= 0 10/16/24 2. Anxiety Cymbalta 30 mg daily stable 3. SLUMS= 27 10/15/24 educated on all medications, benefits, side effects and risk, and educated on depression, anxiety, and ADHD, mood d/o and educated on compliance of medications, metabolic and movement d/o education appointment is, continue therapy discussion with patient about course of treatment and patient instructions. education on serotonin syndrome SSRI/SNRI side effects discussed including but not limited to, gastric upset, nausea, vomiting, diarrhea and/or constipation, weight changes, sexual side effects including loss of libido, increased suicidal thoughts/behavior s in children and young adults, and serotonin syndrome. Second generation antipsychotics (SGAs) have metabolic syndrome issues with weight gain, increase in prolactin, increased waist circumference, increased lipids, and increased glucose. Thus routine monitoring of weight, metabolic labs, etc. is indicated. A general rank ordering of antipsychotics that have the greatest to the least risk of metabolic effects is olanzapine, quetiapine, risperidone, ziprasidone, and aripiprazole. However, weight gain can occur with all of these drugs and considerable variability exists among patients receiving the same drug regarding the risk of metabolic effects. Anti-psychotic agents not only increase the risk of metabolic disorder, they also increase the risk of CVA, akathisia, and movement disorders including EPS or tardive dyskinesia (more common with first generation antipsychotics) and more. Elderly- discussed risks, cognition, sedation, falls, metabolic, movement and atypical antipsychotics carry a black-box warning for increased risk of and cerebrovascular events in dementia. Medication Management and Follow-Up - Plan: - Schedule follow-up appointments every 1-3 months to monitor the patient's response to the medication regimen. - Reinforce the importance of avoiding recreational drug use due to potential neurotoxicity and interactions with prescribed medications. 10/15/2024 NICHOLE (generalized anxiety disorder) (ICD-10 - F41.1) Learning About Generalized Anxiety Disorder material was published, Generalized Anxiety Disorder: Care Instructions material was published 1. Schizoaffective Bipolar Abilify Maintena 300 mg monthly due 11/01/24 AIMS= 0 10/16/24 2. Anxiety Cymbalta 30 mg daily SLUMS= 27 10/15/24 educated on all medications, benefits, side effects and risk, and educated on depression, anxiety, and ADHD, mood d/o and educated on compliance of medications, metabolic and movement d/o education appointment is, continue therapy discussion with patient about course of treatment and patient instructions. education on serotonin syndrome SSRI/SNRI side effects discussed including but not limited to, gastric upset, nausea, vomiting, diarrhea and/or constipation, weight changes, sexual side effects including loss of libido, increased suicidal thoughts/behavior s in children and young adults, and serotonin syndrome. Second generation antipsychotics (SGAs) have metabolic syndrome issues with weight gain, increase in prolactin, increased waist circumference, increased lipids, and increased glucose. Thus routine monitoring of weight, metabolic labs, etc. is indicated. A general rank ordering of antipsychotics that have the greatest to the least risk of metabolic effects is olanzapine, quetiapine, risperidone, ziprasidone, and aripiprazole. However, weight gain can occur with all of these drugs and considerable variability exists among patients receiving the same drug regarding the risk of metabolic effects. Anti-psychotic agents not only increase the risk of metabolic disorder, they also increase the risk of CVA, akathisia, and movement disorders including EPS or tardive dyskinesia (more common with first generation antipsychotics) and more. Elderly- discussed risks, cognition, sedation, falls, metabolic, movement and atypical antipsychotics carry a black-box warning for increased risk of and cerebrovascular events in dementia. Medication Management and Follow-Up - Plan: - Schedule follow-up appointments every 1-3 months to monitor the patient's response to the medication regimen. - Reinforce the importance of avoiding recreational drug use due to potential neurotoxicity and interactions with prescribed medications. 04/26/2024 Hypertension, unspecified type (ICD9-CM - 401.9) 07/30/2024 Encounter for screening for cardiovascular disorders (ICD-10 - Z13.6) Verified the injection dose and diagnosis Reviewed- Keira Rogers [facility] 10/15/2024 Other Duloxetine material was published, Aripiprazole Injection material was published 1. Schizoaffective Bipolar Abilify Maintena 300 mg monthly due 11/01/24 AIMS= 0 10/16/24 2. Anxiety Cymbalta 30 mg daily SLUMS= 27 10/15/24 educated on all medications, benefits, side effects and risk, and educated on depression, anxiety, and ADHD, mood d/o and educated on compliance of medications, metabolic and movement d/o education appointment is, continue therapy discussion with patient about course of treatment and patient instructions. education on serotonin syndrome SSRI/SNRI side effects discussed including but not limited to, gastric upset, nausea, vomiting, diarrhea and/or constipation, weight changes, sexual side effects including loss of libido, increased suicidal thoughts/behavior s in children and young adults, and serotonin syndrome. Second generation antipsychotics (SGAs) have metabolic syndrome issues with weight gain, increase in prolactin, increased waist circumference, increased lipids, and increased glucose. Thus routine monitoring of weight, metabolic labs, etc. is indicated. A general rank ordering of antipsychotics that have the greatest to the least risk of metabolic effects is olanzapine, quetiapine, risperidone, ziprasidone, and aripiprazole. However, weight gain can occur with all of these drugs and considerable variability exists among patients receiving the same drug regarding the risk of metabolic effects. Anti-psychotic agents not only increase the risk of metabolic disorder, they also increase the risk of CVA, akathisia, and movement disorders including EPS or tardive dyskinesia (more common with first generation antipsychotics) and more. Elderly- discussed risks, cognition, sedation, falls, metabolic, movement and atypical antipsychotics carry a black-box warning for increased risk of and cerebrovascular events in dementia. Medication Management and Follow-Up - Plan: - Schedule follow-up appointments every 1-3 months to monitor the patient's response to the medication regimen. - Reinforce the importance of avoiding recreational drug use due to potential neurotoxicity and interactions with prescribed medications. 02/14/2025 Other Duloxetine material was published, Aripiprazole Injection material was published 1. Schizoaffective Bipolar Abilify Maintena 300 mg monthly due 03/01/25 stable AIMS= 0 10/16/24 2. Anxiety Cymbalta 30 mg daily stable 3. SLUMS= 27 10/15/24 educated on all medications, benefits, side effects and risk, and educated on depression, anxiety, and ADHD, mood d/o and educated on compliance of medications, metabolic and movement d/o education appointment is, continue therapy discussion with patient about course of treatment and patient instructions. education on serotonin syndrome SSRI/SNRI side effects discussed including but not limited to, gastric upset, nausea, vomiting, diarrhea and/or constipation, weight changes, sexual side effects including loss of libido, increased suicidal thoughts/behavior s in children and young adults, and serotonin syndrome. Second generation antipsychotics (SGAs) have metabolic syndrome issues with weight gain, increase in prolactin, increased waist circumference, increased lipids, and increased glucose. Thus routine monitoring of weight, metabolic labs, etc. is indicated. A general rank ordering of antipsychotics that have the greatest to the least risk of metabolic effects is olanzapine, quetiapine, risperidone, ziprasidone, and aripiprazole. However, weight gain can occur with all of these drugs and considerable variability exists among patients receiving the same drug regarding the risk of metabolic effects. Anti-psychotic agents not only increase the risk of metabolic disorder, they also increase the risk of CVA, akathisia, and movement disorders including EPS or tardive dyskinesia (more common with first generation antipsychotics) and more. Elderly- discussed risks, cognition, sedation, falls, metabolic, movement and atypical antipsychotics carry a black-box warning for increased risk of and cerebrovascular events in dementia. Medication Management and Follow-Up - Plan: - Schedule follow-up appointments every 1-3 months to monitor the patient's response to the medication regimen. - Reinforce the importance of avoiding recreational drug use due to potential neurotoxicity and interactions with prescribed medications. Plan Of Treatment Next Appt Details Provider Name:Keira Sue , 05/14/2025 11:30:00 AM, [address], [address], [place], [address], Insurance Providers Payer Name Payer Address Payer Phone Subscriber Number Group Number Insured Name Patient Relationship to Insured Coverage Start Date Coverage End Date [employer] Medicare Replacement/ Advantage - Hmo [address] [address] [place] [address] [id number] DEE DEE DICKEY Self - patient is the insured Medications Administered Medication Instructions Date of Administration Dosage Notes Abilify Maintena 10/31/2023 300 mg Abilify Maintena 12/01/2023 300 ug Abilify Maintena 01/01/2024 300 mg Abilify Maintena 02/01/2024 300 mg Abilify Maintena 02/29/2024 300 mg Abilify Maintena 03/29/2024 300 mg Abilify Maintena 04/26/2024 300 mg Abilify Maintena 05/30/2024 300 mg Abilify Maintena 05/30/2024 300 mg Abilify Maintena 07/03/2024 300 mg Abilify Maintena 07/30/2024 300 mg Abilify Maintena 08/30/2024 300 mg Abilify Maintena 10/01/2024 300 mg Abilify Maintena 10/31/2024 300 mg LOT AAS0 125D Abilify Maintena 11/28/2024 300 mg Medical (General) History Medical History History ICD Code Problems: Acute akathisia caused by neur oleptic Idiopathic peripheral neuropathy Nicotine dependence with current use Obesity Schizoaffective disorder, bipolar type , Surgical History Surgery Date(Month/Year) Breast surgery () 12/21/2021 hysterectomy 06/26/24 bladder surgery 06/26/24 Hospitalization History Reason Date(Month/Year) hx 8 times psychiatric Sholts
--- OUTSIDE RECORDS SUMMARY | 2025-02-25 09:17 | XMS_ITS | Clinical Summary ---
Author Organization [facility] Address [address] [place] [address] Phone Care Team Providers Care Real Estate Administrator Name Role Phone Asmita Reardon MD Primary Care Provider Andrea Ho MD Unavailable [phone] Allergies Active Allergy Reactions Criticality Noted Date [...] (CRESTOR) 5 MG Tablet 20 mg daily. 2 Active EQ Aspirin Adult Low Dose 81 MG Tablet Delayed Response Take 81 mg by mouth daily. 2 Active Cholecalciferol (VITAMIN D3 PO) Take 2,000 Int'l Units by mouth daily. Active Psyllium (METAMUCIL PO) Take by mouth daily. Active tamoxifen citrate 20 MG TabletIndications: Malignant neoplasm of upper-outer quadrant of right breast in female, estrogen receptor positive Take 1 tablet by mouth once daily 90 Tablet 3 5 Active Active Problems Problem Noted Date Diagnosed [...] 11:01 AM CDT Height 157.5 cm (5' 2) 09/10/2024 11:01 AM CDT Body Mass Index 37.79 09/10/2024 11:01 AM CDT Plan of Treatment Upcoming Encounters Date Type Department Care Team (Late st Contact Info) Description 09/10/2025 1:00 PM CDT Office Visit [facility] [address] [place] [id number] Andrea Ho MD [address] [place] [address] Discharge Disposition: Discharged to home or Selfcare Health Maintenance Due Date Last Done Comments DEXA Bone Density 1950 Hepatitis C Virus (HCV) Screening 1950 SARS-COV-2 Immunization (#1) 1957 Mammogram 1962 Cologuard 1997 Colonoscopy 1997 Colorectal Cancer Screening 1997 Immunochemical Fecal Occult Blood 1997 Lung Cancer Screening 2002 Medicare Initial AWV [id number] 01/06/2022 Influenza Immunization (#1) 01/06/202503/09, 03/03/2023, 04/17/2022, Additional history exists Zoster Immunization Completed 04/17/2022, [...] MEDICAID [place] MEDICARE C [employer] Care Teams Real Estate Administrator Relationship Specialty Start Date End Date Asmita Reardon MD [address] [place] [address] PCP - General Internal Medicine 03/18/22 Andrea Ho MD [address] [place] [address] Consulting Physician Medical Oncology 02/21/23
--- OUTSIDE RECORDS SUMMARY | 2025-02-25 09:17 | XMS_ITS | Patient Health Record ---
Author Organization [facility] Address [address] [facility] [address] [address] Care Team Providers Care Founder And Chief Technical Officer Name Role Phone Asmita Reardon Primary Care Provider Froilan Storm DPM, Jeremy Unavailable [phone] ALLERGIES Allergen (clinical drug ingredient) Drug/Non Drug [...] Insured Coverage Start Date Coverage End Date [facility] Medicare Advantage PPO [address] [address] [place] [address] [id number] Shelby Benitez Self - patient is the insured MEDICAL (GENERAL) HISTORY Medical History History ICD Code high cholesterol depression urologic problems Surgical History Surgery Date(Month/Year) lumpectomy
--- NOTE | 2025-02-25 11:36 | ED.GENADULT ---
HPI - General Adult General Chief complaint: Extremity Problem,Nontraumatic Stated complaint: left leg pain Time Seen by Provider: 02/25/25 08:06 History of Present Illness HPI narrative: This is a 74-year-old female with history of osteoarthritis presenting for left knee pain. Patient was able to ambulate yesterday but when she woke up this morning she had swelling to her left knee. It is difficult to bear weight due pain. She has been told that she needs a total knee replacement however due to multiple medical comorbidities she has been in able to obtain one. She denies fevers, body aches or chills. She denies trauma. Related Data Home Medications ?Medication ?Instructions ?Recorded ?Confirmed ?Last Taken ?Type aripiprazole 300 mg suspension, 300 mg IM Q28D 03/01/22 12/25/24 08/03/23 History extended rel. intramuscular syringe (Suzy Delarosa) cetirizine 10 mg tablet 10 mg PO DAILY 03/01/22 12/25/24 1 Day Ago History ~08/14/23 duloxetine 30 mg capsule,delayed 30 mg PO HS 03/01/22 12/25/24 1 Day Ago History release (Cymbalta) ~08/14/23 aspirin 81 mg tablet,delayed 81 mg PO DAILY 05/12/22 12/25/24 1 Day Ago History release (Adult Low Dose Aspirin) ~08/14/23 oxvqaetvmibf-pdrbvpwj-qwfsis tablet 1 tablet PO DAILY 07/27/22 12/25/24 1 Day Ago History ~08/14/23 rosuvastatin 5 mg tablet (Crestor) 5 mg PO DAILY 07/27/22 12/25/24 1 Day Ago History ~08/14/23 tamoxifen 20 mg tablet 20 mg PO DAILY 08/04/22 12/25/24 1 Day Ago History ~08/14/23 cholecalciferol (vitamin D3) 50 50 mcg PO DAILY 01/10/23 12/25/24 1 Day Ago History mcg (2,000 unit) capsule ~08/14/23 Lactobacillus acidophilus 10 mg PO DAILY 09/27/23 12/25/24 Unknown History (Acidophilus capsule) Allergies Allergy/AdvReac Type Severity Reaction Status Date / Time niacin AdvReac Rash, Verified 02/25/25 08:10 BURNING SENSATION PMFSH Past Medical History Medical History Cataract Breast cancer Obesity Hyperlipidemia Schizoaffective disorder Surgical History Surgical History History of tubal ligation S/P lumpectomy of breast Family History Family History Grandparent No problems noted. Mother Carcinoma of colon Social History Social History Smoking packs per day: 2.5 Smoking cigarettes per day: 50.0 Years smoked: 50 Smoking pack-years: 125.00 Smoking status: Former smoker Smoking end date: 08/18/23 Alcohol intake: current Alcohol use details: occasionally Substance use type: does not use Do You Feel Safe in your Home?: Yes Lack of Transportation: No Lack of Food: Never True Current Housing: I Have Housing Concerned About Future Housing: No Difficulty Paying Gas/Electric Bills: No Difficulty Paying for Meds: No Currently Unemployed: No Education: High School Diploma/GED Difficulty w/ Childcare or Family Care: No Living arrangements: with family Additional living arrangements comments: DAUGHTER AND MYLES Occupation/Education: retired Gender identity (if verbalized by the patient): Female Spiritual care concerns: No Exam Narrative: APPEARANCE: No apparent distress. Head: atraumatic. EYES: EOMI, NOSE: Atraumatic NECK: Trachea midline RESPIRATORY: No increased rate of breathing clear to auscultation CARDIOVASCULAR: RRR, ABDOMINAL: Non-distended MUSCULOSKELETAl: Focal exam of the knee showed suprapatellar effusion. No significant erythema or warmth to the knee. Significant pain with any passive or active range of motion. NEURO: Alert. Moving 4/4 extremities SKIN:: Warm, dry. Normal color PSYCHIATRIC: Normal affect Course Vital Signs Vital signs: Vital Signs Temperature 98.5 F 02/25/25 08:02 Pulse Rate 88 02/25/25 08:02 Respiratory Rate 18 02/25/25 08:02 Blood Pressure 114/82 02/25/25 08:02 Pulse Oximetry 92 02/25/25 08:02 Oxygen Delivery Room Air 02/25/25 08:02 Temperature 98.5 F 02/25/25 08:02 Pulse Rate 79 02/25/25 12:00 Respiratory Rate 18 02/25/25 12:00 Blood Pressure 102/70 02/25/25 12:00 Pulse Oximetry 91 02/25/25 12:00 Oxygen Delivery Room Air 02/25/25 08:02 Procedures Joint Aspiration/Injection Joint Asp./Inject. 1: Joint Aspiration Date: 02/25/25 Time Out Performed: Yes Side of body: left Joint Aspirated: knee Ultrasound Guidance: No Skin Prep: sterile prep and drape (w/ chlorprep) Local Anesthetic: lidocaine 1% Amount of anesthesia used (mL): 5 Needle Size Used: 18G Fluid Obtained: other (yellow) Total fluid obtained (mL): 30 Medication Injected, if any: Triamcinolone Acetate (40mg w/ 3 ml Lidocaine) Amount of medication injected (mL): 4 Patient Tolerated Procedure: well Complications: none Medical Decision Making MDM Narrative Medical decision making narrative: -Course: 74-year-old female presenting with a swollen left knee. Exam shows a suprapatellar effusion. X-ray showed degenerative changes. Patient is in significant pain and cannot bear weight. Septic joint was considered but she does not have any fevers in the joint does not appear infected. This likely more likely infusion from her osteoarthritis. Discussed possible options for pain control including oral medications and arthrocentesis with injection. Risk and benefits were discussed for an arthrocentesis injection of triamcinolone and a small amount of lidocaine and patient has agreed. Procedure was performed without complication. Joint aspirate sent to the lab. Patient states pain has improved significantly. She is now able to ambulate has been able to ambulate to the restroom using her walker which is her baseline. Joint aspirate did not reveal any organisms. White blood cells are 17,000, 81% neutrophils, less than 2000 red blood cells. Synovial fluid analysis consistent with osteoarthritis. Patient will be discharged follow-up with orthopedics for further management. -DDX includes but is not limited to: Osteoarthritis, inflammatory arthritis, septic arthritis Vital Signs Vital Signs: Vital Signs Temperature 98.5 F 02/25/25 08:02 Pulse Rate 88 02/25/25 08:02 Respiratory Rate 18 02/25/25 08:02 Blood Pressure 114/82 02/25/25 08:02 Pulse Oximetry 92 02/25/25 08:02 Oxygen Delivery Room Air 10/21/25 08:02 Temperature 98.5 F 02/25/25 08:02 Pulse Rate 79 02/25/25 12:00 Respiratory Rate 18 02/25/25 12:00 Blood Pressure 102/70 02/25/25 12:00 Pulse Oximetry 91 02/25/25 12:00 Oxygen Delivery Room Air 02/25/25 08:02 Lab Data Labs: Lab Results 02/25/25 Range/Units 11:44 Fluid Glucose Pending Fluid Total Protein Pending Synovial Source Lt knee syn fluid Synovial Color Yellow (Colorless) Synovial Appearance Turbid A (Clear) Synovial RBC < 2000 H (0-0) /uL Synovial Nuc Cells 48928 H (0-200) /uL Synovial Neutrophils 81 H (0-25) % Synovial Lymphocytes 19 % Synovial Crystals None seen (None Seen) Discharge Plan Discharge Clinical Impression: Osteoarthritis of left knee, Effusion of knee Patient Disposition: Home Condition: Stable Instructions: Antibiotic Form, Knee Pain (ED) Additional Instructions: Please follow-up with your orthopedic surgeon for further management. If you develop severe pain fevers redness or increased swelling to knee please return the ED for re-evaluation. Take Tylenol as needed for pain control. Patient Language: Kuwaiti Prescriptions: No Action amoxicillin-pot clavulanate 875-125 mg tablet 1 tablet PO Q12H 10 Days Qty: 20 0RF prednisone 20 mg tablet 40 mg PO DAILY 5 Days Qty: 10 0RF cetirizine 10 mg Tablet 10 mg PO DAILY duloxetine [Cymbalta] 30 mg Capsule,Delayed Release(Dr/Ec) 30 mg PO HS Abilify Maintena 300 mg Suspension,Extended Rel Syring 300 mg IM Q28D aspirin [Adult Low Dose Aspirin] 81 mg Tablet,Delayed Release (Dr/Ec) 81 mg PO DAILY tamoxifen 20 mg Tablet 20 mg PO DAILY Acidophilus Capsule 10 mg PO DAILY cholecalciferol (vitamin D3) 50 mcg (2,000 unit) Capsule 50 mcg PO DAILY ockswxfzmhzz-oowexclv-mrcgnm Tablet 1 tablet PO DAILY rosuvastatin [Crestor] 5 mg Tablet 5 mg PO DAILY Follow-up/Referrals: Alexys,MD Asmita [Primary Care Provider, Unknown] Art Sims MD [Physician, Orthopedics] - 1 Week Referral Note: Osteoarthritis Clinical Impression: Effusion of knee; Osteoarthritis of left knee
--- NOTE | 2025-02-25 11:46 | PC.NURSE ---
Patient able to ambulate with use of walker
[2025-02-25 12:00] VITALS: BP 102/70; PULSE 79; RESP 18; O2SAT 91
[2025-02-25 12:57] LABS: Color Synovial Fluid Yellow (Colorless); Lymphocytes Synovial Fluid 19 %; Neutrophils Synovial Fluid 81 % (0-25); Nucleated Cell Synovial Fluid 17655 /uL (0-200); RBC Synovial Fluid < 2000 /uL (0-0); Source Synovial Fluid Lt Knee Syn Fluid
[2025-02-26 16:08] LABS: Glucose, Body Fluid 85 mg/dL (.)
== END 2025-02-25 13:33 | disposition home or self-care (01) ==
PROVIDERS: Emergency Provider Emergency Medicine; PCP Internal Medicine
DX: M25.462 Effusion, left knee (principal); M17.12 Unilateral primary osteoarthritis, left knee; E78.5 Hyperlipidemia, unspecified; E66.9 Obesity, unspecified; Z68.39 Body mass index [BMI] 39.0-39.9, adult; F25.9 Schizoaffective disorder, unspecified; Z85.3 Personal history of malignant neoplasm of breast; Z87.891 Personal history of nicotine dependence; Z79.82 Long term (current) use of aspirin; Z79.899 Other long term (current) drug therapy
CPT/HCPCS: 20610; 73562; 82945; 84157; 89051; 89060; 99283; A9270

== ENCOUNTER 2025-03-03 10:08 | Emergency (ER) | payer MEDICARE, MEDICAID, SELFPAY ==
--- NOTE | ~2025-03-03 | XR_ITS ---
EXAMINATION: XR chest 2V, 03/03/2025 10:27 CDT HISTORY: right lower side pain x 2 weeks, no inj, COMPARISON: No comparisons available. Technique: 2 views obtained. Findings: The lungs are clear, no effusion. No pneumothorax. Heart is normal size. Mediastinal and hilar contours are within normal limits. Bony thorax no acute abnormality. Impression: No acute cardiopulmonary abnormality. Reviewed, dictated and finalized at location P. Impression: No acute cardiopulmonary abnormality.
[2025-03-03 10:19] VITALS: BP 102/62; PULSE 91; RESP 16; TEMP 37; O2SAT 94
--- NOTE | 2025-03-03 10:20 | ECG_ITS ---
Test Date: 2025-03-03 10:41:50 Measurements Intervals Hindman Rate: 86 P: 53 AR: 150 QRS: -35 QRSD: 110 T: 56 QT: 359 QTc: 432 Interpretive Statements SINUS RHYTHM WITH OCCASIONAL VENTRICULAR PREMATURE COMPLEXES LEFT AXIS DEVIATION INTRAVENTRICULAR CONDUCTION DELAY CANNOT R/O SEPTAL INFARCT, AGE INDETERMINATE BASELINE ARTIFACT- I, II, III, AVR, AVL, AVF, V1, V3-V6 ABNORMAL ECG No previous ECG available for comparison Electronically Signed On 03-03-2025 11:29:54 CDT by Kenton Crockett D.O.
--- NOTE | 2025-03-03 11:09 | ED.GENADULT ---
HPI - General Adult General Chief complaint: Abdominal Pain Stated complaint: R Side pain Time Seen by Provider: 03/03/25 10:50 Source: patient and RN notes reviewed Mode of arrival: ambulatory Limitations: no limitations History of Present Illness HPI narrative: 74-year-old female presents to the [facility] complaining of right lower rib/side pain for approximately 2 weeks. Patient says the pain is intermittent and comes and goes. Patient reports this feels like symptom is rattling in her chest. Patient says the pain is located right in her right breast. Patient says sometimes the pain is worse with inspiration or when she turns or twists or her trunk a certain way. Patient denies any pain when she eats, no nausea, vomiting, diarrhea, difficulty breathing, fevers, abdominal pain, urinary symptoms, blood in urine, black tarry stools every other symptoms. Patient says she has a cough which she says is chronic. Patient has a history of COPD listed but she said she has never been diagnosed with it. Patient has a history of smoking. Patient also has a history of right breast cancer, currently in remission. Related Data Home Medications ?Medication ?Instructions ?Recorded ?Confirmed ?Last Taken ?Type aripiprazole 300 mg suspension, 300 mg IM Q28D 03/01/22 03/03/25 08/03/23 History extended rel. intramuscular syringe (Suzy Delarosa) cetirizine 10 mg tablet 10 mg PO DAILY 03/01/22 03/03/25 1 Day Ago History ~08/14/23 duloxetine 30 mg capsule,delayed 30 mg PO HS 03/01/22 03/03/25 1 Day Ago History release (Cymbalta) ~08/14/23 aspirin 81 mg tablet,delayed 81 mg PO DAILY 05/12/22 03/03/25 1 Day Ago History release (Adult Low Dose Aspirin) ~08/14/23 [id number]-[id number] tablet 1 tablet PO DAILY 07/27/22 03/03/25 1 Day Ago History ~08/14/23 rosuvastatin 5 mg tablet (Crestor) 5 mg PO DAILY 07/27/22 03/03/25 1 Day Ago History ~08/14/23 tamoxifen 20 mg tablet 20 mg PO DAILY 08/04/22 03/03/25 1 Day Ago History ~08/14/23 cholecalciferol (vitamin D3) 50 50 mcg PO DAILY 01/10/23 03/03/25 1 Day Ago History mcg (2,000 unit) capsule ~08/14/23 Lactobacillus acidophilus 10 mg PO DAILY 09/27/23 03/03/25 Unknown History (Acidophilus capsule) Allergies Allergy/AdvReac Type Severity Reaction Status Date / Time niacin AdvReac Rash, Verified 03/03/25 10:20 BURNING SENSATION Review of Systems Review of Systems: CONSTITUTIONAL: Denies fever, chills, or sweats. EYES: Denies visual changes, redness, or discharge. ENT: Denies rhinorrhea, congestion, sore throat, or otalgia. CARDIOVASCULAR: Denies chest pain, palpitations, chest pain with exertion, dizziness, lightheadedness, orthopnea, or edema. RESPIRATORY: Denies wheezing or dyspnea. Positive for right rib pain. Positive for pain with inspiration and cough. GASTROINTESTINAL: Denies abdominal pain, nausea, vomiting, black tarry stools, vomiting blood, or diarrhea. GENITOURINARY: Denies dysuria or hematuria. SKIN: Denies rash or itching. MUSCULOSKELETAL: Denies back pain, joint pain, or myalgia. NEUROLOGIC: Denies headache, numbness, or weakness. PSYCHIATRIC: Denies anxiety or depression. All other systems reviewed are negative, except as documented in HPI. [facility] Past Medical History Medical History Cataract Breast cancer Obesity Hyperlipidemia Schizoaffective disorder Surgical History Surgical History History of tubal ligation S/P lumpectomy of breast Family History Family History Grandparent No problems noted. Mother Carcinoma of colon Social History Social History Smoking packs per day: 2.5 Smoking cigarettes per day: 50.0 Years smoked: 50 Smoking pack-years: 125.00 Smoking status: Former smoker Smoking end date: 08/18/23 Alcohol intake: current Alcohol use details: occasionally Substance use type: does not use Do You Feel Safe in your Home?: Yes Lack of Transportation: No Lack of Food: Never True Current Housing: I Have Housing Concerned About Future Housing: No Difficulty Paying Gas/Electric Bills: No Difficulty Paying for Meds: No Currently Unemployed: No Education: High School Diploma/GED Difficulty w/ Childcare or Family Care: No Living arrangements: with family Additional living arrangements comments: DAUGHTER AND MYLES Occupation/Education: retired Gender identity (if verbalized by the patient): Female Spiritual care concerns: No Comments At the time of my signature, I reviewed and agree with the nursing past medical, surgical, social, and family history. There is no relevant family history pertinent to the patient complaint. Exam Narrative: GENERAL: This is a well-nourished, well-developed adult, in no apparent distress. They are non ill-appearing, nontoxic appearing. HEAD: normocephalic, atraumatic. EYES: Sclera clear/white. Conjunctiva normal. Vision is grossly intact. Extraocular movements intact EARS: External ears normal, Hearing grossly intact. NOSE: External nose normal THROAT: Mucous membranes moist, NECK: Neck supple, non-tender without lymphadenopathy, masses or thyromegaly. CARDIOVASCULAR: Regular rate and rhythm without murmurs, gallops, or rubs. RESPIRATORY: Right lower lobe diminished. Breath sounds equal bilaterally. No wheezes, rales, or rhonchi. Respiratory rate normal, respiratory effort nonlabored, no respiratory distress GASTROINTESTINAL: Abdomen soft, non-tender, nondistended. Bowel sounds are active. No hepato-splenomegaly, or palpable masses. No guarding or rigidity. Negative Pal sign. SKIN: warm, Dry, intact with no suspicious lesions or rash, good texture and turgor. Negative NEURO: awake, alert, and oriented to person, place and time. There were no obvious focal neurologic abnormalities. EXTREMITIES: No joint tenderness, effusion, or edema noted. Course Course Emergency Course: Portions of this record may have been created with voice recognition software Level of Care: Express Care Visit Vital Signs Vital signs: Vital Signs Temperature 98.6 F 03/03/25 10:19 Pulse Rate 91 03/03/25 10:19 Respiratory Rate 16 03/03/25 10:19 Blood Pressure 102/62 03/03/25 10:19 Pulse Oximetry 94 03/03/25 10:19 Temperature 98.6 F 03/03/25 10:19 Pulse Rate 91 03/03/25 10:19 Respiratory Rate 16 10/27/25 10:19 Blood Pressure 102/62 03/03/25 10:19 Pulse Oximetry 94 03/03/25 10:19 Reviewed Medical Decision Making MDM Narrative Medical decision making narrative: EKG sinus rhythm with PVCs. Left axis deviation, unable to review previous EKG however it is documented as previous left axis deviation. No ischemic findings. [place] heart score 1. Low suspicision for ACS. Chest x-ray shows no acute cardiopulmonary findings. Patient's right lower lung sounds are diminished. Patient does have a chronic cough he says she says it does not seem to be unchanged. Patient's pain appears to be pleuritic. No abdominal tenderness, no peritoneal findings. Patient denies any urinary symptoms no blood in her urine. Negative Pal sign. Pain sometimes reproduced with turning it twice of the trunk but not always patient says. Patient could have atypical pneumonia given exam findings, will treat with azithromycin. Patient may also have pulled a muscle, will give her a short course of month ago or relaxers and discussed pain management. Offered patient ER transfer for further evaluation and management of her symptoms and she declined. Discussed physical exam findings. Advised supportive measures and signs/symptoms to go to the ER. Pt is appropriate for outpt treatment and f/u. Differential Diagnosis Differential Diagnosis: Pleurisy, pleuritic chest pain, pneumonia, ACS, cholecystitis, gallstones, kidney stone. Vital Signs Vital Signs: Vital Signs Temperature 98.6 F 03/03/25 10:19 Pulse Rate 91 03/03/25 10:19 Respiratory Rate 16 03/03/25 10:19 Blood Pressure 102/62 03/03/25 10:19 Pulse Oximetry 94 03/03/25 10:19 Temperature 98.6 F 03/03/25 10:19 Pulse Rate 91 03/03/25 10:19 Respiratory Rate 16 03/03/25 10:19 Blood Pressure 102/62 03/03/25 10:19 Pulse Oximetry 94 03/03/25 10:19 Imaging Data Radiologist's impression: ITS Impressions Chest X-Ray 03/03/25 10:33 Impression: No acute cardiopulmonary abnormality. ECG Data EKG #1: Attestation: I personally reviewed and interpreted this ECG as follows: ECG completion date: 03/03/25 ECG completion time: 10:41 Prior ECG tracings: not available for review Interpretation: Abnormal EKG Interpretation: normal rate, sinus rhythm, PVCs, no ST changes, normal QRS, normal QT and left axis Critical Care Time Critical Care Time Critical Care Time: No Discharge Plan Discharge Clinical Impression: Atypical pneumonia, Pleuritic pain Patient Disposition: Home Condition: Stable Instructions: Antibiotic Form, Pleurisy (ED), Bacterial Pneumonia (ED) Additional Instructions: Your chest x-ray is negative for any acute cardiopulmonary findings. Your EKG does not show any evidence of heart attack. Take the antibiotics as directed. You may take ibuprofen 600 mg to 800 mg every 6-8 hours. Do not exceed more than 800 mg of ibuprofen per dose. Do not exceed more than 3200 mg ibuprofen in a day. You may take up to 1000 mg Tylenol every 6-8 hours. Do not exceed 1000 mg per dose, do exceed more than 4000 mg of Tylenol in a day. Take the muscle relaxers as needed for any muscle spasms, do not drive or operate machinery while taking this medication as it may make you drowsy. Follow-up with her PCP in 3-5 days. In ER for any worsening pain, chest pains that will not go away, difficulty breathing, fevers, vomiting, or any serious concerns. Patient Language: Greenlandic Prescriptions: New azithromycin 250 mg tablet See Rx Instructions .ROUTE .COMPLEX Qty: 6 0RF Rx Instructions: For 250 mg dose pack: take 500 mg today (day 1), then 250 mg for 4 days (days 2-5) methocarbamol 750 mg tablet 750 mg PO TID Qty: 10 0RF No Action amoxicillin-pot clavulanate 875-125 mg tablet 1 tablet PO Q12H 10 Days Qty: 20 0RF prednisone 20 mg tablet 40 mg PO DAILY 5 Days Qty: 10 0RF cetirizine 10 mg Tablet 10 mg PO DAILY duloxetine [Cymbalta] 30 mg Capsule,Delayed Release(Dr/Ec) 30 mg PO HS Abilify Maintena 300 mg Suspension,Extended Rel Syring 300 mg IM Q28D aspirin [Adult Low Dose Aspirin] 81 mg Tablet,Delayed Release (Dr/Ec) 81 mg PO DAILY tamoxifen 20 mg Tablet 20 mg PO DAILY Acidophilus Capsule 10 mg PO DAILY cholecalciferol (vitamin D3) 50 mcg (2,000 unit) Capsule 50 mcg PO DAILY [id number] Tablet 1 tablet PO DAILY rosuvastatin [Crestor] 5 mg Tablet 5 mg PO DAILY Follow-up/Referrals: Alexys,MD Asmita [Primary Care Provider, Unknown] Time of Disposition: 11:07
== END 2025-03-03 11:12 | disposition home or self-care (01) ==
PROVIDERS: PCP Internal Medicine
DX: J18.9 Pneumonia, unspecified organism (principal); R07.81 Pleurodynia; E78.5 Hyperlipidemia, unspecified; E66.9 Obesity, unspecified; Z68.38 Body mass index [BMI] 38.0-38.9, adult; F20.9 Schizophrenia, unspecified; Z85.3 Personal history of malignant neoplasm of breast; Z90.10 Acquired absence of unspecified breast and nipple; Z87.891 Personal history of nicotine dependence; Z79.82 Long term (current) use of aspirin
CPT/HCPCS: 71046; 93005; 99213; G0463